=== PATIENT | male | born 1965 | race Caucasian/White ===

== ENCOUNTER → 2016-10-16 | Outpatient (CLI) | payer OTHER ==
[2016-10-16 10:17] LABS: Basophils % (A) 1 %; CH 30.8; CHCM 33.7; Eosinophils # (A) 0.2 k/uL (0-0.7); Eosinophils % (A) 3 %; HCT 45.1 % (39.0-53.0); HDW 2.65; Luc # (Auto) 0.13; Luc % (Auto) 2; Lymphocytes # (A) 2.1 k/uL (1.0-4.8); Lymphocytes % (A) 27 %; MCH 30.4 pg (25.0-35.0); MCHC 33.1 g/dL (31.0-37.0); MCV 91.8 fL (80.0-100.0); Mean Platelet Volume 7.2; Monocytes # (A) 0.4 k/uL (0-1.0); Monocytes % (A) 5 %; Neutrophils # (A) 4.9 k/uL (1.3-7.7); Neutrophils % (A) 63 %; RBC 4.92 m/uL (4.30-5.90); RDW 14.4 % (11.5-15.5); WBC 7.8 k/uL (3.8-10.6); WBC (Perox) 7.81
[2016-10-16 10:34] LABS: Anion Gap 13 mmol/L; Blood Urea Nitrogen 14 mg/dL (9-20); Calcium 9.7 mg/dL (8.4-10.2); Carbon Dioxide 25 mmol/L (22-30); Chloride 103 mmol/L (98-107); Glucose 132 mg/dL (74-99); Non-African American GFR(MDRD) >60 (>60 ml/min/1.73 sqM); Potassium 3.9 mmol/L (3.5-5.1); Sodium 141 mmol/L (137-145)
[2016-10-16 10:39] LABS: Appearance,Urine Clear (Clear); Bilirubin,Urine Negative (Negative); Glucose,Urine (UA) Negative (Negative); Ketones,Urine Negative (Negative); Leukocyte Esterase,Urine Small (Negative); Mucus,Urine Rare /hpf; Nitrite,Urine Negative (Negative); Particle Count 992; Protein,Urine Negative (Negative); RBC,Urine 3 /hpf (0-5); Specific Gravity,Urine 1.013 (1.001-1.035); UA Billing (MACRO vs. MICRO) MICRO; Urobilinogen,Urine <2.0 mg/dL (<2.0); WBC,Urine 6 /hpf (0-5)
== END | disposition home or self-care (01) ==
LOC: LABPAT 09:37
PROVIDERS: ATTEND Urology
DX: Z01.812 Encounter for preprocedural laboratory examination (principal); E78.00 Pure hypercholesterolemia, unspecified; N20.0 Calculus of kidney; R35.0 Frequency of micturition
CPT/HCPCS: 80048; 81001; 85025; 87086

== ENCOUNTER 2016-10-23 05:46 | Observation (INO) | payer OTHER ==
[2016-10-18 10:52] VITALS: BMI 31.8
[~2016-10-23 05:46] MED LIST: ceFAZolin 1,000 MG in DEXTROSE/WATER 1 50ML.BAG IV ONE
[2016-10-23] MEDS ORDERED: DEXAMETHASONE SOD PHOSPHATE 10 MG/ML 1 ML VIAL IV ONE (05:54)
[2016-10-23] MEDS ORDERED: MIDAZOLAM 2 MG/2 ML VIAL IV PRN (05:54)
[2016-10-23] MEDS ORDERED: ONDANSETRON 4 MG/2 ML VIAL IVP ONE (05:54)
[2016-10-23 06:43] LABS: Glucose,Whole Blood 110 mg/dL (75-99)
[2016-10-23] MEDS ORDERED: LIDOCAINE 1% 20 ML VIAL (10MG/ML) FOR IV START INTRADERMA ONE (06:58)
[2016-10-23] MEDS: LACTATED RINGERS 1,000 ML IV SCH (06:59)
--- NOTE | 2016-10-23 07:15 | XR ---
EXAMINATION TYPE: XR KUB DATE OF EXAM ORDERED: 10/23/2016 6:51 AM HISTORY: [id number]-KIDNEY CALCULI. COMPARISON: Previous study dated 08/20/2011. FINDINGS: There are bilateral renal calculi. This has worsened from the previous study. There is a 1 .5 cm calculus overlying the mid polar region of the left kidney. There is a smaller 3.9 mm calculus overlying the lower pole of the left kidney. There is a 7.5 mm calculus overlying the mid polar regio n of the right kidney. There are multiple phleboliths within the pelvis. These have increased in numb er. Distal ureteric calculi are not excluded particularly on the left. The abdominal gas pattern is normal. IMPRESSION: 1. BILATERAL NEPHROLITHIASIS. 2. IT WOULD BE DIFFICULT TO EXCLUDE A DISTAL LEFT URETERIC CALCULUS.
[2016-10-23] MEDS ORDERED: HYDROmorphone (PF) 1 MG/ML ONE (07:24)
[2016-10-23] MEDS ORDERED: LIDOCAINE 1% INJ 10MG/ML (20 ML MDV) ONE (07:24)
[2016-10-23] MEDS ORDERED: SUCCINYLCHOLINE CHLORIDE 100 MG/5 ML SYR IV ONE (07:24)
[2016-10-23] MEDS ORDERED: PHENYLEPHRINE-0.9% NACL SYG 1 MG/10 ML SYRINGE ONE (07:24)
[2016-10-23] MEDS ORDERED: NEOSTIGMINE 1 MG/ML 10 ML VIAL ONE (07:24)
[2016-10-23] MEDS ORDERED: ePHEDrine 50 MG/ML 1 ML AMP ONE (07:24)
[2016-10-23] MEDS ORDERED: MIDAZOLAM 2 MG/2 ML VIAL ONE (07:24)
[2016-10-23] MEDS ORDERED: GLYCOPYRROLATE 0.2 MG/ML 2 ML VIAL ONE (07:24)
[2016-10-23] MEDS ORDERED: PROPOFOL 10 MG/ML 20 ML VIAL IV ONE (07:24)
[2016-10-23] MEDS ORDERED: ROCURONIUM BROMIDE 10 MG/ML 10 ML VIAL IV ONE (07:24)
[2016-10-23] MEDS ORDERED: fentaNYL (PF) 50 MCG/ML 2 ML AMP ONE (07:24)
[2016-10-23] MEDS ORDERED: IOHEXOL 350 MG/ML 50ML BOTTLE IRRIGATION ONE (08:00)
[2016-10-23] MEDS ORDERED: LACTATED RINGERS 1,000 ML IV ONE ×2 (09:06→11:03)
[2016-10-23] MEDS ORDERED: ACETAMINOPHEN TAB 325 MG TAB PO PRN (09:54)
[2016-10-23] MEDS ORDERED: MAG HYDROX/AL HYDROX/SIMETH 30 ML CUP PO PRN (09:54)
[2016-10-23] MEDS ORDERED: HYDROmorphone PCA 5 MG/25 ML SYRINGE IV PRN (09:55)
[2016-10-23] MEDS ORDERED: NALOXONE 0.4 MG/ML 1 ML VIAL IV PRN (09:55)
[2016-10-23] MEDS ORDERED: KETOROLAC 30 MG/ML 1 ML VIAL IVP PRN (09:55)
[2016-10-23] MEDS ORDERED: MAGNESIUM HYDROXIDE 2,400 MG/10 ML CUP PO PRN (09:55)
[2016-10-23] MEDS ORDERED: diphenhydrAMINE 50 MG/ML 1 ML VIAL IVP PRN (09:55)
--- NOTE | 2016-10-23 10:03 | P.OP ---
Preoperative Diagnosis: Left renal stone large, calyceal diverticulum Postoperative Diagnosis: Same Procedure(s) Performed: Cystoscopy, placement of left 5-Jamaican ureteral occluding balloon, percutaneous nephrostomy 2 (Dr. Hamilton) percutaneous nephrostolithotomy with laser, placement of 8-Jamaican and 12-Jamaican J nephrostomy tubes Implants: Anesthesia: LATIAA Surgeon: Jose Mayo Estimated Blood Loss (ml): 300 Pathology: other (Stone) Condition: stable Disposition: PACU Indications for Procedure: The patient is a 50-year-old gentleman with active kidney stone disease. He has had previous right ureteroscopy and laser lithotripsy. He has a large upper pole stone and a calyceal diverticula on the left kidney as well as some small stones. He comes for percutaneous nephrostolithotomy. Operative Findings: Description of Procedure: The patient is brought to the operating suite and given a successful general endotracheal anesthesia on the transport gurney. He's placed in a frog position with sterile prep and drape. Cystoscopy a Foroblique lens and 22- Jamaican sheath identifies a normal urethra. The prostate is not obstructing. The left ureteral orifice is identified and intubated with a 5-Jamaican occluding balloon catheter in the proximal ureter. A Massey catheter after the cystoscope was removed The patient's placed in a prone position with care to airways and extremities. After reviewing the computed tomography scan we decided to access the left lower pole calyx. It was done successfully by Dr. Hamilton of radiology. I then dilate the tract to 30-Jamaican. The infundibulum was extremely tight. I'm able to pass a flexible ureteroscope up into the upper pole and I see the ostium of the infundibulum where the stone is emanating. With the 365 laser probe I fracture the stone but it popped back into the calyceal diverticula. I then follow the stone into the calyceal diverticulum with the nephroscope but unfortunately due to the large capacious size of the left calyceal diverticula I was unable to basket and/or fracture the stone. I discussed the situation with Dr. Ramsey and we decided to approach the upper pole calyx underneath the 12th rib very medially so as not to injure the lung or the spleen. we do this under fluoroscopic and direct vision. I then dilate the tract to 30- Jamaican. I then pass the rigid scope into the calyceal diverticulum eventually identify the large stone. The stone was almost 2 cm up. I fracture the stone into tiny pieces and grasped the larger fragments and remove them. I then irrigate the calyceal diverticula. I passed the flexible scope throughout the collecting system remove the remaining stones with stone basket. At the end of the procedure the no obvious stones endoscopically or fluoroscopically. An 8- Jamaican J nephrostomy tubes placed in the calyceal diverticula and a 12-Jamaican J nephrostomy tubes place the lower pole calyx. The patient's awake and returned recovery in good condition. Blood loss is approximately 300 mL.
[2016-10-23] MEDS: HYDROmorphone 1 MG/ML 1 ML SYRINGE IVP PRN ×2 (10:54→11:07)
[2016-10-23] MEDS: ONDANSETRON 4 MG/2 ML VIAL IVP PRN ×2 (12:19→21:37)
--- NOTE | 2016-10-23 12:27 | FL ---
EXAMINATION TYPE: FL Perc Nephrostomy New Access DATE OF EXAM: 10/23/2016 9:54 AM COMPARISON: KUB same date, CT scan dated 14 December 2013 HISTORY: Left renal stone. PROCEDURE: Maximal barrier technique was utilized. The skin overlying the left kidney was localized using fluor oscopy and the overlying skin prepped and draped. Lidocaine used for local anesthesia. Skin fred wa s made with a scalpel. Access was gained under fluoroscopy, following placement of a ureteral occlus ion balloon by the referring clinician and instillation of air in the renal collecting system with a 21-gauge needle to the kidney. A suitable posterior calyx was chosen. A 0.018 inch wire was advanc ed. The access site was dilated and subsequently a sheath was advanced into the renal pelvis followi ng dilation with balloon along the tract. Urine returned in the hub of the catheter. The patient unde rwent nephrolithotomy by the referring clinician. The patient remained in stable condition without complication. The patient was discharged to observation. 4 minutes 26 seconds fluoroscopy time, intr aoperative C-arm image documents IMPRESSION: STATUS POST NEPHROSTOMY PLACEMENT FOR NEPHROLITHOTOMY WITH FLUOROSCOPIC GUIDANCE. THIS PROCEDURE PER FORMED BY THE UNDERSIGNED.
[2016-10-23] MEDS: DEXTROSE 5%-0.45% NACL 1,000 ML IV SCH ×2 (13:15→23:55)
[2016-10-24 02:25] VITALS: RESP 16
[2016-10-24] MEDS: DEXTROSE 5%-0.45% NACL 1,000 ML IV SCH ×2 (05:00→15:53)
[2016-10-24] MEDS: LACTATED RINGERS 1,000 ML IV SCH (05:57)
[2016-10-24] MEDS ORDERED: LISINOPRIL 10 MG TAB PO SCH (09:00)
[2016-10-24 09:32] VITALS: BP 127/77; PULSE 98; TEMP 98.2
--- NOTE | 2016-10-24 11:42 | P.DS ---
Providers Date of admission: 10/23/16 14:55 Attending physician: Jose Mayo Primary care physician: Stated None Hospital Course: The patient was brought to the hospital 10/23/2016 for left percutaneous nephrostolithotomy. He underwent this. It did require 2 nephrostomy access tubes. The stone has been removed. He did relatively well overnight. His pain is minimal. He'll be discharged home today with his nephrostomy tubes. He 'll follow-up in the office next week for nephrostomy tube removal. He'll be given a prescription for some [place]. He resume his home medications. His activity is limited. His diet is regular. Patient Condition at Discharge: Good Plan - Discharge Summary New Discharge Prescriptions: HYDROcodone/APAP 5-325MG [[place] 5-325] 1 tab PO Q4HR PRN #20 tab PRN Reason: Pain Discharge Medication List Ibuprofen [Advil] 200 - 400 mg PO Q6H PRN 10/18/16 [History] Lisinopril [Zestril] 10 mg PO QAM 10/18/16 [History] HYDROcodone/APAP 5-325MG [[place] 5-325] 1 tab PO Q4HR PRN #20 tab 10/24/16 [Rx] Follow up Appointment(s)/Referral(s): Jose Mayo MD [STAFF PHYSICIAN] - 10/30/16 Activity/Diet/Wound Care/Special Instructions: Home with nephrostomy tubes. Please make an appointment to see me Friday or Friday next week. Discharge Disposition: HOME SELF-CARE
== END 2016-10-24 18:31 | disposition home or self-care (01) ==
LOC: OR 05:46 → 3SUR 10:06 → OR 14:58
PROVIDERS: ADMIT Urology; ATTEND Urology
DX: N20.0 Calculus of kidney (principal); N28.89 Other specified disorders of kidney and ureter; I10 Essential (primary) hypertension; E78.00 Pure hypercholesterolemia, unspecified; M19.90 Unspecified osteoarthritis, unspecified site; R91.1 Solitary pulmonary nodule; M48.00 Spinal stenosis, site unspecified; R51 Headache; H53.8 Other visual disturbances; F17.200 Nicotine dependence, unspecified, uncomplicated; Z79.899 Other long term (current) drug therapy; Z88.0 Allergy status to penicillin; Z87.442 Personal history of urinary calculi; Z82.49 Family history of ischemic heart disease and other diseases of the circulatory system
CPT/HCPCS: 94760; 94762; 86900; 86901; 86850; 82365; 74000; 50432; G0378 ×2; C1769 ×3; C2628; C1894; C1729 ×2; J2250; J1100; J2710; J2405; J2001; J3010; J1885; J1170 ×2; J0690; J2370; J0330; J2704; Q9967; 96374

== ENCOUNTER 2016-10-26 16:06 | Emergency (ER) | payer OTHER ==
[2016-10-26] MEDS ORDERED: HYDROmorphone 1 MG/ML 1 ML SYRINGE IVP STA (16:41)
[2016-10-26] MEDS ORDERED: SODIUM CHLORIDE 0.9% 1,000 ML IV STA ×2 (16:41→18:20)
[2016-10-26] MEDS ORDERED: ONDANSETRON 4 MG/2 ML VIAL IVP STA (16:41)
--- NOTE | 2016-10-26 17:12 | ED ---
General Adult HPI - General Source: patient, RN notes reviewed Mode of arrival: EMS Limitations: no limitations <Misael Hyman - Last Filed: 10/26/16 19:25> <Monty Leone - Last Filed: 10/26/16 20:29> - General Chief complaint: Abdominal Pain Stated complaint: BLOOD IN DRAINAGE BAG Time Seen by Provider: 10/26/16 16:30 - History of Present Illness Initial comments: Patient is a 50-year-old male status post nephrostomy tube placement 3 days, who presents emergency room today with a chief complaint of blood in his nephrostomy bag. Patient states that he has been draining his back approximately 3-4 times daily. He states he drank a few hours ago and it back up with blood. He states he is approximately 200 mL of blood in the back. Patient states that his pain has stayed constant since procedure. He does admit to some chronic neck and back pain as well. States she's been taking his [place] with little relief of the symptoms. Patient denies any other complaints or associated symptoms at this time. Patient states she's been urinating without any difficulty. Patient denies any recent fever, chills, shortness of breath, chest pain, back pain, abdominal pain, nausea or vomiting, numbness or tingling, dysuria or hematuria, constipation or diarrhea, headaches or visual changes, or any other complaints. (Misael Hyman) - Related Data Home Medications Medication Instructions Recorded Confirmed Lisinopril [Zestril] 10 mg PO QAM 10/18/16 10/26/16 HYDROcodone/APAP 5-325MG [[place] 1 tab PO Q4HR PRN 10/26/16 10/26/16 5-325] HYDROcodone/APAP 5-325MG [[place] 2 tab PO Q4HR PRN 10/26/16 10/26/16 5-325] Allergies Allergy/AdvReac Type Severity Reaction Status Date / Time Penicillins Allergy Rash/Hives Verified 10/26/16 17:55 Review of Systems ROS Other: All systems not noted in ROS Statement are negative. <Misael Hyman - Last Filed: 10/26/16 19:25> ROS Other: All systems not noted in ROS Statement are negative. <Monty Leone - Last Filed: 10/26/16 20:29> ROS Statement: Those systems with pertinent positive or pertinent negative responses have been documented in the HPI. Past Medical History Past Medical History: Hypertension, Osteoarthritis (OA) Additional Past Medical History / Comment(s): chronic neck pain (pending surgery )has some difficulty walking, use a cane and has numbness in upper extremities. kidney stone History of Any Multi-Drug Resistant Organisms: None Reported Past Surgical History: Tonsillectomy Additional Past Surgical History / Comment(s): bilateral wrists & elbow surgery Past Anesthesia/Blood Transfusion Reactions: No Reported Reaction Past Psychological History: No Psychological Hx Reported Smoking Status: Former smoker Past Alcohol Use History: Occasional Additional Past Alcohol Use History / Comment(s): HAS SMOKED FOR 30- YRS, 0. 5 PPD Past Drug Use History: None Reported - Past Family History Mother Family Medical History: Cancer Father Family Medical History: Cancer <Misael Hyman - Last Filed: 10/26/16 19:25> General Exam Limitations: no limitations <Misael Hyman - Last Filed: 10/26/16 19:25> <Monty Leone - Last Filed: 10/26/16 20:29> - General Exam Comments Initial Comments: General: The patient is awake and alert, in no distress, and does not appear acutely ill. Eye: Pupils are equal, round and reactive to light, extra-ocular movements are intact. No nystagmus. There is normal conjunctiva bilaterally. No signs of icterus. Ears, nose, mouth and throat: There are moist mucous membranes and no oral lesions. Neck: The neck is supple, there is no tenderness or JVD. Cardiovascular: There is a regular rate and rhythm. No murmur, rub or gallop is appreciated. Respiratory: Lungs are clear to auscultation, respirations are non-labored, breath sounds are equal. No wheezes, stridor, rales, or rhonchi. Gastrointestinal: Soft, non-distended, non-tender abdomen without masses or organomegaly noted. There is no rebound or guarding present. No CVA tenderness. Bowel sounds are unremarkable.patient does have 2 nephrostomy tubes on the left. Bright red blood seen in the 1 bag approximately 200 mL. Musculoskeletal: Normal ROM, no tenderness. Strength 5/5. Sensation intact. Pulses equal bilaterally 2+. Neurological: A&O x 3. CN II-XII intact, There are no obvious motor or sensory deficits. Coordination appears grossly intact. Speech is normal. Skin: Skin is warm and dry and no rashes or lesions are noted. Psychiatric: Cooperative, appropriate mood & affect, normal judgment. (Misael Hyman) Medical Decision Making - Lab Data Result diagrams: 10/26/16 17:21 10/26/16 17:21 <Misael Hyman - Last Filed: 10/26/16 19:25> - Lab Data Result diagrams: 10/26/16 17:21 10/26/16 17:21 <Monty Leone - Last Filed: 10/26/16 20:29> - Medical Decision Making medical decision-making. Patient's white count 14.3 hemoglobin 14 hematocrit of 40, potassium 3.9 BUN 21 creatinine 1.07 GFR greater than 60. Urine shows greater than 180 reds and 9 whites. The patient had recent surgery on his left kidney. He had 2 nephrostomy tubes placed wanted 8-[place] Citizen J nephrostomy tube and calyceal dilatation diverticula and a 12-[place] Citizen placed the lower pole calyx. Patient reportedly started noticing blood yesterday 2 days of just urine. No pain no fever no chills. He emptied one container that approximately 5-600 ML's of what appeared to be blood. And Emergency room he had 100 ML's of clotted blood. I discussed the case with Dr. Tomlinson, the patient's urologist. This time he wants to stop cock turned off so the blood clot in the kidney. The patient was advised to return emergency room or call the answering service as needed otherwise follow-up as directed by his urologist at 7 AM when the office opens on Friday. patient's feeling better. Seemed IV fluids. Denies any chest pain no chills no headache no fever. Plan the patient will be discharged and advised to return emergency room as needed otherwise follow-up with both his family physician and his urologist as arranged (Monty Leone) - Lab Data Lab Results 10/26/16 10/26/16 10/26/16 Range/Units 17:18 17:21 17:21 WBC 14.3 H (3.8-10.6) k/uL RBC 4.52 (4.30-5.90) m/uL Hgb 14.2 (13.0-17.5) gm/dL Hct 40.5 (39.0-53.0) % MCV 89.4 (80.0-100.0) fL MCH 31.4 (25.0-35.0) pg MCHC 35.1 (31.0-37.0) g/dL RDW 14.4 (11.5-15.5) % Plt Count 211 (150-450) k/uL Neutrophils % 76 % Lymphocytes % 13 % Monocytes % 7 % Eosinophils % 2 % Basophils % 0 % Neutrophils # 10.9 H (1.3-7.7) k/uL Lymphocytes # 1.9 (1.0-4.8) k/uL Monocytes # 1.0 (0-1.0) k/uL Eosinophils # 0.3 (0-0.7) k/uL Basophils # 0.0 (0-0.2) k/uL Sodium 139 (137-145) mmol/L Potassium 3.9 (3.5-5.1) mmol/L Chloride 106 (98-107) mmol/L Carbon Dioxide 20 L (22-30) mmol/L Anion Gap 13 mmol/L BUN 21 H (9-20) mg/dL Creatinine 1.07 (0.66-1.25) mg/dL Est GFR (MDRD) Af Amer >60 (>60 ml/min/1.73 sqM) Est GFR (MDRD) Non-Af >60 (>60 ml/min/1.73 sqM) Glucose 103 H (74-99) mg/dL Calcium 10.0 (8.4-10.2) mg/dL Total Bilirubin 1.0 (0.2-1.3) mg/dL AST 32 (17-59) U/L ALT 44 (21-72) U/L Alkaline Phosphatase 64 (38-126) U/L Total Protein 7.1 (6.3-8.2) g/dL Albumin 4.2 (3.5-5.0) g/dL Urine Color Yellow Urine Appearance Cloudy (Clear) Urine pH 6.5 (5.0-8.0) Ur Specific [place] 1.016 (1.001-1.035) Urine Protein Trace H (Negative) Urine Glucose (UA) Negative (Negative) Urine Ketones 1+ H (Negative) Urine Blood Moderate H (Negative) Urine Nitrite Negative (Negative) Urine Bilirubin Negative (Negative) Urine Urobilinogen <2.0 (<2.0) mg/dL Ur Leukocyte Esterase Negative (Negative) Urine RBC >182 H (0-5) /hpf Urine WBC 9 H (0-5) /hpf Ur Squamous Epith Cells <1 (0-4) /hpf Hyaline Casts 3 H (0-2) /lpf Urine Mucus Rare H (None) /hpf Disposition Time of Disposition: 19:05 <Misael Hyman - Last Filed: 10/26/16 19:25> Time of Disposition: 20:29 <Monty Leone - Last Filed: 10/26/16 20:29> Clinical Impression: Abdominal pain Disposition: HOME SELF-CARE Condition: Stable Additional Instructions: Please follow-up with urologist Friday morning as discussed. Please return to emergency room symptoms increase or worsen or for any other concerns. Referrals: Alonso Soriano MD [Primary Care Provider] - 1-2 days Jose Mayo MD [STAFF PHYSICIAN] - 1-2 days
[2016-10-26 17:42] LABS: Basophils % (A) 0 %; CH 31.4; CHCM 35.2; Eosinophils # (A) 0.3 k/uL (0-0.7); Eosinophils % (A) 2 %; HCT 40.5 % (39.0-53.0); HDW 2.75; HGB 14.2 gm/dL (13.0-17.5); Luc # (Auto) 0.23; Luc % (Auto) 2; Lymphocytes # (A) 1.9 k/uL (1.0-4.8); Lymphocytes % (A) 13 %; MCH 31.4 pg (25.0-35.0); MCHC 35.1 g/dL (31.0-37.0); MCV 89.4 fL (80.0-100.0); Mean Platelet Volume 7.1; Monocytes % (A) 7 %; Neutrophils # (A) 10.9 k/uL (1.3-7.7); Neutrophils % (A) 76 %; RBC 4.52 m/uL (4.30-5.90); RDW 14.4 % (11.5-15.5); WBC 14.3 k/uL (3.8-10.6); WBC (Perox) 14.43
[2016-10-26 17:44] LABS: Appearance,Urine Cloudy (Clear); Bilirubin,Urine Negative (Negative); Glucose,Urine (UA) Negative (Negative); Ketones,Urine 1+ (Negative); Leukocyte Esterase,Urine Negative (Negative); Mucus,Urine Rare /hpf; Nitrite,Urine Negative (Negative); PH, Urine 6.5 (5.0-8.0); Particle Count 4091; Protein,Urine Trace (Negative); RBC,Urine >182 /hpf (0-5); Specific Gravity,Urine 1.016 (1.001-1.035); Squamous Epithelial Cell,Urine <1 /hpf (0-4); UA Billing (MACRO vs. MICRO) MICRO; Urobilinogen,Urine <2.0 mg/dL (<2.0); WBC,Urine 9 /hpf (0-5)
[2016-10-26 17:48] LABS: ALT 44 U/L (21-72); AST 32 U/L (17-59); Alkaline Phosphatase 64 U/L (38-126); Anion Gap 13 mmol/L; Blood Urea Nitrogen 21 mg/dL (9-20); Carbon Dioxide 20 mmol/L (22-30); Chloride 106 mmol/L (98-107); Glucose 103 mg/dL (74-99); Non-African American GFR(MDRD) >60 (>60 ml/min/1.73 sqM); Potassium 3.9 mmol/L (3.5-5.1); Sodium 139 mmol/L (137-145); Total Protein 7.1 g/dL (6.3-8.2)
--- NOTE | 2016-10-26 17:52 | US ---
EXAMINATION TYPE: US kidneys/renal and bladder DATE OF EXAM: 10/26/2016 COMPARISON: NONE CLINICAL HISTORY: Pain. HIstory of kidney stones. Surgery 10/23/16 to remove stones left kidney. Blood /clot within drainage bag EXAM MEASUREMENTS: Right Kidney: 11.3 x 6.0 x 5.8 cm Left Kidney: 13.2 x 6.8 x 5.2 cm Right Kidney: cystic area upper pole = 2.4 x 2.7 x 2.8cm. Probable stone upper pole = 0.9cm Left Kidney: enlarged. Cystic area lower pole = 2.7 x 3.3 x 2.7cm Bladder: not fully distended *Technical limitations due to large amount of overlying bowel content There is no evidence for hydronephrosis at this point in time. No nephrolithiasis is seen. No sreedhar s are identified. The urinary bladder is anechoic but not distended. IMPRESSION: Possible right-sided nephrolithiasis. Simple cyst right and left kidney. Cortical medullary different iation is maintained bilaterally.
[2016-10-26 20:42] VITALS: BP 144/69; PULSE 113; RESP 20; TEMP 98
== END 2016-10-26 20:42 | disposition home or self-care (01) ==
LOC: EC 16:06
DX: R10.9 Unspecified abdominal pain (principal); M54.2 Cervicalgia; M54.9 Dorsalgia, unspecified; G89.29 Other chronic pain; Z87.891 Personal history of nicotine dependence; Z88.8 Allergy status to other drugs, medicaments and biological substances; Z93.6 Other artificial openings of urinary tract status
CPT/HCPCS: 36415; 80053; 85025; 81001; 87086; 76770; 99284; 96374; 96375; 96361 ×3; J2405; J1170; 87077; 87186

== ENCOUNTER → 2017-08-11 | Outpatient (CLI) | payer OTHER ==
[2017-08-11 12:02] LABS: HCT 44.5 % (39.0-53.0); HGB 14.9 gm/dL (13.0-17.5); MCH 29.6 pg (25.0-35.0); MCHC 33.4 g/dL (31.0-37.0); MCV 88.5 fL (80.0-100.0); Mean Platelet Volume 7.1; Platelet Count 202 k/uL (150-450); RBC 5.03 m/uL (4.30-5.90); RDW 13.9 % (11.5-15.5); WBC 8.8 k/uL (3.8-10.6)
[2017-08-11 12:15] LABS: Anion Gap 10 mmol/L; Blood Urea Nitrogen 13 mg/dL (9-20); Carbon Dioxide 27 mmol/L (22-30); Chloride 105 mmol/L (98-107); Potassium 4.2 mmol/L (3.5-5.1); Sodium 142 mmol/L (137-145)
== END ==
LOC: LABPAT 11:36
PROVIDERS: ATTEND Internal Medicine Interventional Cardiology
DX: Z01.812 Encounter for preprocedural laboratory examination (principal); R07.9 Chest pain, unspecified
CPT/HCPCS: 36415; 80051; 82565; 84520; 85027

== ENCOUNTER 2017-08-19 10:22 | Day surgery (SDC) | payer OTHER ==
[~2017-08-19 10:22] MED LIST changes: +ALPRAZolam 0.25 MG TAB PO PRN; +ALPRAZolam 0.5 MG TAB PO PRN; +ASPIRIN 325 MG TAB PO STA; +ATORVASTATIN 80 MG TAB PO STA; +NITROGLYCERIN SL TABS 0.4 MG TAB SUBLINGUAL PRN; +SODIUM CHLORIDE 0.9% 1,000 ML in EMPTY BAG 1 BAG IV ONE; -ceFAZolin 1,000 MG in DEXTROSE/WATER 1 50ML.BAG IV ONE
[2017-08-19] MEDS ORDERED: LISINOPRIL 20 MG TAB PO STA (11:14)
[2017-08-19] MEDS ORDERED: METOPROLOL TARTRATE 50 MG TAB PO STA (11:14)
[2017-08-19] MEDS ORDERED: VERAPAMIL 2.5 MG/ML 2 ML AMP ONE (11:39)
[2017-08-19] MEDS ORDERED: LIDOCAINE 2% INJ 20 MG/ML (20 ML MDV) ONE (11:39)
[2017-08-19] MEDS ORDERED: HEPARIN SODIUM 1,000 UN/ML (10ML VL) ONE (11:46)
[2017-08-19] MEDS ORDERED: MIDAZOLAM 2 MG/2 ML VIAL ONE (11:51)
[2017-08-19] MEDS ORDERED: MIDAZOLAM 2 MG/2 ML VIAL IVP ONE (11:57)
[2017-08-19] MEDS ORDERED: LIDOCAINE 2% INJ 20 MG/ML SQ ONE (12:02)
[2017-08-19] MEDS: VERAPAMIL SYRINGE (5 MG/10 ML) INTRAARTER ONE ×2 (12:03→13:01)
[2017-08-19] MEDS ORDERED: HEPARIN SODIUM 1,000 UN/ML (10ML VL) IV ONE (12:06)
[2017-08-19] MEDS ORDERED: BIVALIRUDIN BOLUS 250 MG/50 ML IV ONE (12:17)
[2017-08-19] MEDS ORDERED: BIVALIRUDIN 250 MG in SODIUM CHLORIDE 0.9% 50 ML IV ONE (12:19)
[2017-08-19] MEDS: NITROGLYCERIN 1000MCG/10ML SYRINGE INTRACORON ONE ×3 (12:23→12:46)
[2017-08-19] MEDS ORDERED: PRASUGREL 10 MG TAB ONE (12:26)
[2017-08-19] MEDS ORDERED: PRASUGREL 10 MG TAB PO ONE (12:28)
[2017-08-19] MEDS ORDERED: NITROGLYCERIN 1000MCG/10ML SYRINGE INTRACORON ONE (12:58)
[2017-08-19] MEDS ORDERED: IOHEXOL 350 MG/ML 125ML BOTTLE INJ ONE (12:59)
[2017-08-19] MEDS ORDERED: fentaNYL (PF) 50 MCG/ML 2 ML AMP ONE (13:09)
[2017-08-19] MEDS ORDERED: NITROGLYCERIN SL TABS 0.4 MG TAB SUBLINGUAL PRN (13:24)
[2017-08-19] MEDS ORDERED: ZOLPIDEM 5 MG TAB PO PRN (13:24)
[2017-08-19] MEDS ORDERED: RX INFO: IV CONTRAST WAS GIVEN 1 EACH MISC MISCELLANE PRN (13:24)
[2017-08-19] MEDS ORDERED: MAG HYDROX/AL HYDROX/SIMETH 30 ML CUP PO PRN (13:24)
[2017-08-19] MEDS ORDERED: ATROPINE SULFATE 0.1 MG/ML 10ML SYRINGE IV PRN (13:24)
[2017-08-19] MEDS ORDERED: SODIUM CHLORIDE 0.9% 1,000 ML IV SCH (13:30)
--- NOTE | 2017-08-19 14:44 | CC ---
CARDIAC CATHETERIZATION REPORT PERFORMING PHYSICIAN: Ajit Berry MD, enterprise cloud architect. PROCEDURE PERFORMED: 1. Selective right and left coronary angiogram. 2. Left heart catheterization. 3. Successful stenting of the of the proximal RCA using 3.5 x 15 mm Xience JANNA with good angiographic results. 4. Successful stenting of the mid LAD using 3.0 x 16 and 2.25 x 8 mm drug-eluting stent with good angiographic results. INDICATION: This is a pleasant 51-year-old gentleman with significant family history of coronary artery disease, as well as smoking, who was experiencing intermittent episodes of chest discomfort concerning for angina. In view of that, heart catheterization was recommended. APPROACH: Right radial artery. COMPLICATION: None. LEVEL OF SEDATION: Moderate with sedation length of 60 minutes. PROCEDURE DESCRIPTION: After obtaining an informed consent, the patient was brought to the cardiac hatchery laborer. The right radial artery was cannulated using micropuncture technique, the micropuncture wire passed easily, then I placed a 6-English sheath in the right radial artery. After that I gave the patient 2 mg of verapamil IA. I also gave the patient 10,000 units of heparin IV. Subsequently I did selective right and left coronary angiogram using JR4 and JL3.5 catheters. Left heart catheterization was performed using the JR4 which flipped into the LV then I did pullback across the aortic valve. After that I did intervene on the RCA and LAD. Please see a separate paragraph for that. SELECTIVE CORONARY ANGIOGRAM: 1. The RCA is a large caliber vessel and it is a dominant vessel. The proximal RCA has eccentric lesion appeared to be in the range of 80% to 90%. The mid RCA has mild disease only. The RCA distally appeared to be angiographically normal and bifurcates into PDA and PLV branches both are angiographically normal. 2. The left main is angiographically normal it bifurcates into the left circumflex and left anterior descending artery. 3. The circumflex is a large caliber vessel and it is a nondominant vessel. The proximal circ has mild disease only. The mid circ has mild disease only as well and gives rise into a large OM branch which seems to be angiographically normal. The circ continued after that as a small to medium caliber vessel in the AV groove. 4. The left anterior descending artery: The very proximal LAD gives rise into a diagonal branch which is a high diagonal branch which worked as ramus intermedius with mild disease in the proximal portion. It seems that there is another diagonal branch which seems to be occluded. The mid LAD has a lesion appeared to be in the range of 70%. The LAD has multiple tandem lesions up to about 50% to 60%. HEMODYNAMICS: The left ventricular end-diastolic pressure was about 12 mmHg and no gradient was identified across aortic valve. PCI OF THE RCA AND LAD: Anticoagulation was initiated using Angiomax. Subsequently I took a JR4 guide and the RCA was engaged. A whisper wire was used to wire the right coronary artery. I did PTCA ballooning using 3.0 mm balloon. Then I did deployed and did deploy a 3.0 x 16 mm Xience JANNA where the stent was positioned under fluoroscopy guidance and deployed under its nominal pressure. The following angiogram showed good angiographic results. I did engage the left main using JL3.5 guiding catheter. The left LAD was wired using a whisper wire. I did balloon angioplasty of the LAD using 2.5 mm balloon. Then I did deploy 3.0 x 16 mm Promus drug-eluting stent where the stent was positioned under fluoroscopy guidance and deployed after that. The following angiogram showed what seems to be possible edge dissection of the stent. I decided to cover that with a stent so I did deploy a 225 x 8 mm Xience JANNA where the stent was positioned again under fluoroscopy guidance with about 2-3 mm overlap between the 2 stents. I did deploy the second stent under 10 atmospheres for 20 seconds. Then the area of overlap between the 2 stents was dilated using the stent balloon. The following angiogram showed good angiographic results and the procedure was completed without any complication. CONCLUSION: 1. Calcified right and left coronary system. 2. Critical proximal RCA disease. 3. Mild to moderate disease in the left circumflex. 4. Severe disease involving the mid LAD. 5. Successful stenting of both the RCA and mid LAD as described above and using drug- eluting stents. POSTPROCEDURE MANAGEMENT: 1. Maximize medical treatment. 2. Follow up with the patient. MMODL / IJN: [id number] /
[2017-08-19] MEDS: HYDROcodone/APAP 5-325MG 1 EACH TAB PO PRN ×2 (17:29→23:14)
[2017-08-19 17:39] VITALS: RESP 18
--- NOTE | 2017-08-19 19:02 | LTR ---
August 19, [address] Soriano: Mr. Giorgi Lance underwent a heart catheterization and that revealed critical disease involving the RCA and severe disease involving the mid LAD. He underwent successful stenting of both RCA and LAD with good angiographic results and without any complication. I want to thank you for allowing me to participate in his care and please do not hesitate to call if you have any questions or concerns. MMNEHAL / MICHAELN: [id number] /
[2017-08-19] MEDS: NAPROXEN 250 MG TAB PO SCH (19:59)
[2017-08-19] MEDS: GABAPENTIN 300 MG CAP PO SCH (20:04)
[2017-08-19] MEDS: METOPROLOL TARTRATE 50 MG TAB PO SCH (23:14)
[2017-08-20 06:00] LABS: Basophils # (A) 0.1 k/uL (0-0.2); Basophils % (A) 1 %; Eosinophils # (A) 0.3 k/uL (0-0.7); Eosinophils % (A) 3 %; HGB 13.7 gm/dL (13.0-17.5); Lymphocytes # (A) 2.9 k/uL (1.0-4.8); Lymphocytes % (A) 32 %; MCH 30.2 pg (25.0-35.0); MCHC 34.3 g/dL (31.0-37.0); Mean Platelet Volume 7.2; Monocytes # (A) 0.7 k/uL (0-1.0); Monocytes % (A) 8 %; Neutrophils # (A) 4.7 k/uL (1.3-7.7); Neutrophils % (A) 53 %; Platelet Count 187 k/uL (150-450); RBC 4.54 m/uL (4.30-5.90); RDW 14.2 % (11.5-15.5); WBC 8.9 k/uL (3.8-10.6)
[2017-08-20 06:16] LABS: Anion Gap 8 mmol/L; Blood Urea Nitrogen 15 mg/dL (9-20); Calcium 8.7 mg/dL (8.4-10.2); Carbon Dioxide 22 mmol/L (22-30); Chloride 109 mmol/L (98-107); Glucose 92 mg/dL (74-99); Potassium 4.3 mmol/L (3.5-5.1); Sodium 139 mmol/L (137-145)
--- NOTE | 2017-08-20 07:24 | DS ---
DISCHARGE SUMMARY ADMISSION DATE: 08/19/2017 DISCHARGE DATE: 08/20/2017 BRIEF HISTORY: This is a pleasant 51-year-old gentleman with history of smoking and significant family history of coronary artery disease, was experiencing intermittent episodes of chest discomfort quite concerning for angina. He underwent yesterday heart catheterization and that revealed severe 2-vessel coronary artery disease with critical disease involving the proximal RCA and severe disease involving the mid LAD. The patient underwent successful stenting of both the RCA and LAD using a drug-eluting stent with good angiographic results and without any complication. The procedure was performed from the right radial artery. He does have a good right radial pulse. The patient is going to be discharged home on dual anti-platelet therapy and I will follow up with the patient in the office as an outpatient in about a week. MMNEHAL / MICHAELN: [id number] /
[2017-08-20] MEDS ORDERED: LISINOPRIL 20 MG TAB PO SCH (09:00)
[2017-08-20] MEDS ORDERED: ASPIRIN 325 MG TAB PO SCH (09:00)
[2017-08-20] MEDS ORDERED: PRASUGREL 10 MG TAB PO SCH (09:00)
[2017-08-20] MEDS: GABAPENTIN 300 MG CAP PO SCH (09:03)
[2017-08-20] MEDS: METOPROLOL TARTRATE 50 MG TAB PO SCH (09:04)
[2017-08-20] MEDS: NAPROXEN 250 MG TAB PO SCH (09:04)
[2017-08-20 09:08] VITALS: BP 135/83; PULSE 89
[2017-08-20 10:28] VITALS: TEMP 98.1
[2017-08-20 11:14] VITALS: BMI 37.5
[2017-08-20] MEDS ORDERED: ATORVASTATIN 80 MG TAB PO SCH (21:00)
== END 2017-08-20 11:42 | disposition home or self-care (01) ==
LOC: CATHCVL 10:22 → 6SEL 14:24 → CATHCVL 08-20 11:42
PROVIDERS: ATTEND Internal Medicine Interventional Cardiology
DX: I25.110 Atherosclerotic heart disease of native coronary artery with unstable angina pectoris (principal); I25.84 Coronary atherosclerosis due to calcified coronary lesion; I10 Essential (primary) hypertension; F17.210 Nicotine dependence, cigarettes, uncomplicated; E78.5 Hyperlipidemia, unspecified; Z82.49 Family history of ischemic heart disease and other diseases of the circulatory system; Z79.899 Other long term (current) drug therapy; Z88.0 Allergy status to penicillin
CPT/HCPCS: 93458; 80048; 85025; C9600 ×2; C1769 ×2; C1887 ×2; C1725 ×2; C1874 ×2; C1894; J2001; J2250; J1644; J0583; Q9967

== ENCOUNTER → 2018-01-13 | Outpatient (CLI) | payer OTHER ==
[2018-01-13 16:42] LABS: HCT 45.1 % (39.0-53.0); MCH 29.7 pg (25.0-35.0); MCHC 33.3 g/dL (31.0-37.0); MCV 89.3 fL (80.0-100.0); Mean Platelet Volume 7.1; Platelet Count 256 k/uL (150-450); RBC 5.05 m/uL (4.30-5.90); RDW 14.4 % (11.5-15.5); WBC 10.7 k/uL (3.8-10.6)
[2018-01-13 16:52] LABS: Potassium 4.3 mmol/L (3.5-5.1)
== END | disposition home or self-care (01) ==
LOC: LABPAT 16:08
PROVIDERS: ATTEND Internal Medicine Interventional Cardiology
DX: Z01.812 Encounter for preprocedural laboratory examination (principal); I25.10 Atherosclerotic heart disease of native coronary artery without angina pectoris; I10 Essential (primary) hypertension; E78.1 Pure hyperglyceridemia
CPT/HCPCS: 36415; 80051; 82565; 84520; 85027

== ENCOUNTER 2018-01-16 07:46 | Day surgery (SDC) | payer OTHER ==
[2018-01-15 08:47] VITALS: BMI 36.1
[2018-01-16 08:10] VITALS: TEMP 97.6
[2018-01-16] MEDS ORDERED: VERAPAMIL 2.5 MG/ML 2 ML AMP ONE (09:42)
[2018-01-16] MEDS ORDERED: MIDAZOLAM 2 MG/2 ML VIAL ONE ×2 (09:42→10:41)
[2018-01-16] MEDS ORDERED: HEPARIN SODIUM 1,000 UN/ML (10ML VL) ONE (09:42)
[2018-01-16] MEDS ORDERED: LIDOCAINE 2% SYG (PF) 100 MG/5 ML MISCELLANE ONE ×2 (10:21)
[2018-01-16] MEDS ORDERED: MIDAZOLAM 2 MG/2 ML VIAL IV ONE ×2 (10:21→10:42)
[2018-01-16] MEDS ORDERED: HEPARIN SODIUM 1,000 UN/ML (10ML VL) IV ONE (10:23)
[2018-01-16] MEDS: VERAPAMIL SYRINGE (5 MG/10 ML) INTRAARTER ONE ×2 (10:23→10:50)
[2018-01-16] MEDS ORDERED: ADENOSINE 90 MG in SODIUM CHLORIDE 0.9% 60 ML IVP ONE (10:46)
[2018-01-16] MEDS ORDERED: IOPAMIDOL-370 125ML BTL INJ ONE (10:49)
[2018-01-16] MEDS ORDERED: RX INFO: IV CONTRAST WAS GIVEN 1 EACH MISC MISCELLANE PRN (10:56)
[2018-01-16] MEDS ORDERED: SODIUM CHLORIDE 0.9% 1,000 ML IV SCH (11:00)
[2018-01-16 11:47] VITALS: RESP 18
--- NOTE | 2018-01-16 12:01 | CC ---
CARDIAC CATHETERIZATION REPORT DATE OF SERVICE: 01/16/2018 PERFORMING PHYSICIAN: Ajit Berry MD. PROCEDURE PERFORMED: 1. Selective right and left coronary angiogram. 2. Left heart catheterization. 3. Fractional flow reserve of the left circumflex. INDICATION: This is a pleasant 52-year-old gentleman who has known history of coronary artery disease and prior stenting of the proximal RCA and mid LAD, was experiencing chest discomfort. He underwent a myocardial perfusion imaging stress test and that revealed anterior ischemia. Because of that, a heart catheterization was recommended. APPROACH: Right radial artery. COMPLICATION: None. LEVEL OF SEDATION: Moderate with sedation length of 33 minutes. PROCEDURE DESCRIPTION: After obtaining an informed consent, the patient was brought to cardiac section laborer. The right radial artery was cannulated using micropuncture technique, the micropuncture wire passed easily then I placed a 6-English sheath in the right radial artery. After that, I did give the patient 2 mg of verapamil IA and 10,000 units of heparin IV. I did after that selective right and left coronary angiogram using JR4 and JL3.5 catheters. Left heart catheterization was performed using the JR4 catheter which flipped into the LV then I did full pullback across aortic valve. The procedure was completed without any complication. After that, I did perform fractional flow reserve FFR of the left circumflex, please see a separate paragraph for that. SELECTIVE CORONARY ANGIOGRAM: 1. The right coronary artery is a large caliber vessel. It is a dominant vessel. The proximal RCA is stented and the stent is patent. The mid RCA is angiographically normal and RCA distally has mild disease only and bifurcates into PDA and PLV branches both are angiographically normal. 2. The left main is angiographically normal. It bifurcates into left circumflex, ramus intermedius, and left anterior descending artery. 3. The left circumflex is a large caliber vessel. It is a nondominant vessel. The proximal circumflex appeared to have mild disease only. The mid circumflex has intermediate lesion in the range of 50% to 60%. We did FFR on it. It came in to be 0.96. The circumflex distally is angiographically normal. 4. The ramus intermedius is a moderate caliber vessel with mild disease in its ostium. 5. The LAD: The proximal LAD appeared to have mild disease only and gives rise into a diagonal, which seems to be occluded. The mid LAD is stented and the stent is patent. The LAD distally appeared to have intermediate lesion, but that is in the very distal/apical LAD. HEMODYNAMICS: The left ventricular end-diastolic pressure was 12 mmHg and no gradient was identified across the aortic valve. FFR OF THE LEFT CIRCUMFLEX: Anticoagulation was initiated using heparin and with double checked with the ACT. Subsequently, after zeroing the Doppler wire and equalizing between the Doppler wire and the guiding catheter, we did FFR per IV adenosine infusion and the FFR came in to be 0.96, which is nonischemic. CONCLUSION: 1. Patent stent in the proximal right coronary artery. 2. Intermediate disease involving the left circumflex. The FFR was performed and came in to be nonischemic at 0.96. 3. Patent stent in the mid left anterior descending artery. Intermediate disease to severe disease involving the distal/apical left anterior descending artery seems to be unchanged compared to before. POSTPROCEDURE MANAGEMENT: 1. Maximize medical treatment. 2. Follow up with the patient. MMODL / IJN: [id number] /
[2018-01-16 15:32] VITALS: BP 131/79; PULSE 73
== END 2018-01-16 15:50 | disposition home or self-care (01) ==
LOC: CATHCVL 07:46
PROVIDERS: ATTEND Internal Medicine Interventional Cardiology
DX: I25.110 Atherosclerotic heart disease of native coronary artery with unstable angina pectoris (principal); I10 Essential (primary) hypertension; Z87.891 Personal history of nicotine dependence; E78.5 Hyperlipidemia, unspecified; Z95.5 Presence of coronary angioplasty implant and graft; Z82.49 Family history of ischemic heart disease and other diseases of the circulatory system; Z88.0 Allergy status to penicillin; Z79.02 Long term (current) use of antithrombotics/antiplatelets; Z79.82 Long term (current) use of aspirin; Z79.899 Other long term (current) drug therapy
CPT/HCPCS: 93571; 93458; C1887; C1769; C1894; J2250; J2001; J1644; J0153; Q9967

== ENCOUNTER 2018-06-23 22:53 | Inpatient (IN) | payer OTHER ==
[2018-06-24] MEDS ORDERED: ONDANSETRON 4 MG/2 ML VIAL IVP PRN (01:43)
[2018-06-24] MEDS ORDERED: MELATONIN 3 MG TABLET PO PRN (01:43)
[2018-06-24] MEDS ORDERED: ACETAMINOPHEN TAB 325 MG TAB PO PRN (01:44)
[2018-06-24] MEDS: HYDROmorphone 0.5 MG/0.5 ML SYRINGE IVP PRN ×5 (02:17→21:51)
[2018-06-24] MEDS: SODIUM CHLORIDE 0.9% 1,000 ML IV SCH (02:17)
[2018-06-24] MEDS ORDERED: LEVOFLOXACIN 500MG-D5W PMX 500 MG in DEXTROSE/WATER 1 100ML.BAG IVPB SCH (03:00)
[2018-06-24 07:17] LABS: Appearance,Urine Clear (Clear); Bilirubin,Urine Negative (Negative); Blood,Urine Negative (Negative); Color,Urine Yellow; Glucose,Urine (UA) Negative (Negative); Hyaline Casts,Urine 5 /lpf (0-2); Ketones,Urine Negative (Negative); Leukocyte Esterase,Urine Negative (Negative); Mucus,Urine Rare /hpf; Nitrite,Urine Negative (Negative); PH, Urine 5.5 (5.0-8.0); Protein,Urine 1+ (Negative); RBC,Urine 5 /hpf (0-5); Specific Gravity,Urine 1.028 (1.001-1.035); Squamous Epithelial Cell,Urine <1 /hpf (0-4); Urobilinogen,Urine <2.0 mg/dL (<2.0)
[2018-06-24] MEDS: PANTOPRAZOLE 40 MG TABLET PO SCH (08:09)
[2018-06-24] MEDS: METOPROLOL TARTRATE 50 MG TAB PO SCH ×2 (08:09→21:51)
[2018-06-24] MEDS: CLOPIDOGREL 75 MG TAB PO SCH (08:09)
[2018-06-24] MEDS: ASPIRIN 81 MG PO SCH (08:09)
[2018-06-24] MEDS: ISOSORBIDE MONONITRATE ER 30 MG TAB.ER.24H PO SCH (08:09)
[2018-06-24] MEDS: amLODIPine 5 MG TAB PO SCH (08:09)
[2018-06-24] MEDS: LORATADINE 10 MG TAB PO SCH (08:09)
[2018-06-24 08:53] LABS: Basophils % (A) 0 %; Eosinophils # (A) 0.2 k/uL (0-0.7); Eosinophils % (A) 2 %; HCT 37.5 % (39.0-53.0); HGB 12.5 gm/dL (13.0-17.5); Lymphocytes # (A) 2.8 k/uL (1.0-4.8); Lymphocytes % (A) 32 %; MCH 30.2 pg (25.0-35.0); MCHC 33.4 g/dL (31.0-37.0); MCV 90.5 fL (80.0-100.0); Mean Platelet Volume 7.4; Monocytes # (A) 0.5 k/uL (0-1.0); Monocytes % (A) 6 %; Neutrophils % (A) 57 %; Platelet Count 175 k/uL (150-450); RBC 4.14 m/uL (4.30-5.90); RDW 14.6 % (11.5-15.5); WBC 8.8 k/uL (3.8-10.6)
[2018-06-24 09:05] LABS: Calcium 8.9 mg/dL (8.4-10.2)
--- NOTE | 2018-06-24 09:27 | P.GSCN ---
History of Present Illness Consult date: 06/24/18 Reason for Consult: Ureteral calculi History of present illness: The patient is a 52-year-old gentleman with a known history of kidney stones who for several days has had right flank pain. He thought it may be due to his chronic back problems but he ended up in the emergency room in [place] last night. Computed tomography scan showed bilateral renal stones and obstructing right ureteral stone and a left proximal ureter stone was not obstructing. He is still having pain. He is transferred to [facility] for further evaluation and assessment. He has had no fever or chills. He is still having pain but it is somewhat controlled with a Dilaudid. Review of Systems - Constitutional Reports chronic pain - Cardiovascular Cardiovascular Comment(s): The patient has cardiac stents. He had an GA in 2018 - Genitourinary Reports as per HPI Past Medical History Past Medical History: Coronary Artery Disease (CAD), Chest Pain / Angina, GERD/ Reflux, Hypertension, Osteoarthritis (OA), Sleep Apnea/CPAP/BIPAP Additional Past Medical History / Comment(s): SLEEP APNEA- NO C-PAP, SPINAL STENOSIS, BACK PAIN., WEARS NECK BRACE AT HS., WEARS BACK BRACE AND USES CANE., KIDNEY STONES, STATES NUMBNESS AT TIMES ON RIGHT SIDE., SOB WITH ACTIVITY. , SEE CARDIOLOGY H & P. History of Any Multi-Drug Resistant Organisms: None Reported Past Surgical History: Heart Catheterization With Stent, Tonsillectomy Additional Past Surgical History / Comment(s): bilateral wrists & elbow surgery , neck surgery, heart cath with stents 08/19/2017 ([facility])., SURGERY FOR KIDNEY STONES. Past Anesthesia/Blood Transfusion Reactions: No Reported Reaction Date of Last Stent Placement:: 08/19/2017 Past Psychological History: No Psychological Hx Reported Smoking Status: Former smoker Past Alcohol Use History: Occasional Additional Past Alcohol Use History / Comment(s): HAS SMOKED FOR 30- YRS, 1/2 PPD. Past Drug Use History: None Reported - Past Family History Mother Family Medical History: Cancer Father Family Medical History: Cancer Medications and Allergies Home Medications Medication Instructions Recorded Confirmed Type Aspirin [Adult Low Dose Aspirin EC] 81 mg PO DAILY 01/15/18 06/24/18 History Atorvastatin [Lipitor] 80 mg PO HS 01/15/18 06/24/18 History Cetirizine HCl [Zyrtec] 10 mg PO DAILY 01/15/18 06/24/18 History Clopidogrel [Plavix] 75 mg PO DAILY 01/15/18 06/24/18 History Isosorbide Mononitrate ER [Imdur] 30 mg PO DAILY 01/15/18 06/24/18 History Lisinopril [Zestril] 40 mg PO DAILY 01/15/18 06/24/18 History Metoprolol Tartrate [Lopressor] 50 mg PO BID 01/15/18 06/24/18 History Omeprazole [PriLOSEC] 40 mg PO DAILY 01/15/18 06/24/18 History amLODIPine BESYLATE [Norvasc] 5 mg PO DAILY 01/15/18 06/24/18 History traMADol HCL [Ultram] 50 mg PO Q6HR PRN 01/15/18 06/24/18 History Fluticasone Nasal [place] [Flonase 1 spray EA NOSTRIL DAILY 06/24/18 06/24/18 History Nasal [place]] Allergies Allergy/AdvReac Type Severity Reaction Status Date / Time Penicillins Allergy Rash/Hives Verified 06/24/18 08:06 Surgical - Exam Vital Signs Temp Pulse Resp BP Pulse Ox 97.5 F L 101 H 20 99/64 94 L 06/24/18 00:50 06/24/18 00:50 06/24/18 00:50 06/24/18 00:50 06/24/18 00:50 - General well developed, well nourished, moderate pain - ENT no hearing loss - Neck no masses - Respiratory normal expansion, normal respiratory effort - Cardiovascular Rhythm: regular - Abdomen Abdomen: soft, tender - Genitourinary normal penis with no external lesions, testicles present - Integumentary no rash, no growths - Neurologic normal coordination, normal sensation - Musculoskeletal normal gait, normal posture - Psychiatric oriented to time, oriented to person, oriented to place, speech is normal, memory intact Results - Labs 06/24/18 08:08 06/24/18 08:08 Abnormal Lab Results - Last 24 Hours (Table) 06/24/18 06/24/18 06/24/18 Range/Units 06:00 08:08 08:08 RBC 4.14 L (4.30-5.90) m/uL Hgb 12.5 L (13.0-17.5) gm/dL Hct 37.5 L (39.0-53.0) % Chloride 108 H (98-107) mmol/L BUN 25 H (9-20) mg/dL Creatinine 1.69 H (0.66-1.25) mg/dL Glucose 144 H (74-99) mg/dL Urine Protein 1+ H (Negative) Urine WBC 12 H (0-5) /hpf Hyaline Casts 5 H (0-2) /lpf Urine Mucus Rare H (None) /hpf Diabetes panel 06/24/18 Range/Units 08:08 Sodium 141 (137-145) mmol/L Potassium 4.0 (3.5-5.1) mmol/L Chloride 108 H (98-107) mmol/L Carbon Dioxide 23 (22-30) mmol/L BUN 25 H (9-20) mg/dL Creatinine 1.69 H (0.66-1.25) mg/dL Glucose 144 H (74-99) mg/dL Calcium 8.9 (8.4-10.2) mg/dL Calcium panel 06/24/18 Range/Units 08:08 Calcium 8.9 (8.4-10.2) mg/dL Pituitary panel 06/24/18 Range/Units 08:08 Sodium 141 (137-145) mmol/L Potassium 4.0 (3.5-5.1) mmol/L Chloride 108 H (98-107) mmol/L Carbon Dioxide 23 (22-30) mmol/L BUN 25 H (9-20) mg/dL Creatinine 1.69 H (0.66-1.25) mg/dL Glucose 144 H (74-99) mg/dL Calcium 8.9 (8.4-10.2) mg/dL Adrenal panel 06/24/18 Range/Units 08:08 Sodium 141 (137-145) mmol/L Potassium 4.0 (3.5-5.1) mmol/L Chloride 108 H (98-107) mmol/L Carbon Dioxide 23 (22-30) mmol/L BUN 25 H (9-20) mg/dL Creatinine 1.69 H (0.66-1.25) mg/dL Glucose 144 H (74-99) mg/dL Calcium 8.9 (8.4-10.2) mg/dL - Imaging CT scan - abdomen: report reviewed, image reviewed CT scan - pelvis: report reviewed, image reviewed Assessment and Plan Assessment: Impression: Bilateral renal and ureteral calculi, right sided hydronephrosis with pain. Medical illnesses just described. Recommendations the patient will be made nothing by mouth after midnight. He' ll be set up for a right ureteroscopy laser lithotripsy tomorrow as he does not wish to wait 10 days for shockwave lithotripsy.
--- NOTE | 2018-06-24 09:56 | XR ---
EXAMINATION TYPE: XR KUB DATE OF EXAM: 06/24/2018 CLINICAL DATA: 52-year-old male history of right-sided kidney stones, H COMPARISON: 10/23/2016 FINDINGS: Bowel content obscures portions of the kidneys. Suggestion of a punctate 3 mm calcification upper tiny e right kidney. Previous larger upper pole calculus is no longer seen. However, there is suggestion i n the new 5 mm right. Median mid to lower abdominal calcification is 7 mm on the left just a little b it higher. A couple small left-sided renal calculi measuring 6 mm and 4 mm. The larger upper pole payton culus is no longer seen. Bilateral pelvic phleboliths redemonstrated. Nonobstructive bowel gas pattern. IMPRESSION: 1. Bilateral nephrolithiasis measuring up to 6 mm with renal calculi having decreased in size as comp ared to 10/23/2016. 2. Suggestion of new right paramedian 5 mm and left paramedian 7 mm calcifications mid to lower abdom en. These calcifications are nonspecific but may be located along the ureters. Correlate for any carmelo l colic symptoms.
[2018-06-24] MEDS: ATORVASTATIN 80 MG TAB PO SCH (21:51)
[2018-06-25] MEDS: SODIUM CHLORIDE 0.9% 1,000 ML IV SCH ×2 (00:13→17:34)
--- NOTE | 2018-06-25 00:33 | P.HPIM ---
History of Present Illness H&P Date: 06/24/18 Chief Complaint: Right flank pain Patient is a 52-year-old male with a known history of coronary artery disease with history of stent placement on 08/19/2017, history of nephrolithiasis, GERD , hypertension, osteoarthritis and obstructive sleep apnea initially presented to [facility] due to complaints of right flank pain. Patient has been having pain for the past few days. No fever no chills. Denied any dysuria or hematuria. Patient does have history of nephrolithiasis. CT of the abdomen pelvis showed bilateral renal stones and obstructing right ureteral stone and a left proximal ureter stone was not obstructing. Patient was eventually transferred to [facility] for evaluation by urology. Patient was seen by urology and planning for OR tomorrow. KUB x-ray showed bilateral nephrolithiasis measuring up to 6 mm with renal calculi, decreased in size compared to 10/23/2016 Review of Systems Constitutional: Patient denies any fever or chills . No generalized weakness or weight loss. Abdomen: Patient denied nausea vomiting and diarrhea and abdominal pain. Cardiovascular: Patient denies any chest pain or short of breath no palpitations. Respiratory: patient denied any cough is from production. No shortness of breath Neurologic: Patient denied any numbness or tingling headache. Musculoskeletal: Patient denies any complaints of joint swelling or deformity. Skin: Negative Psychiatric: Negative Endocrine: No heat or cold intolerance. No recent weight gain. Genitourinary: No dysuria or hematuria. Right flank pain All other 14 point ROS negative except the aboves Past Medical History Past Medical History: Coronary Artery Disease (CAD), Chest Pain / Angina, GERD/ Reflux, Hypertension, Osteoarthritis (OA), Sleep Apnea/CPAP/BIPAP Additional Past Medical History / Comment(s): SLEEP APNEA- NO C-PAP, SPINAL STENOSIS, BACK PAIN., WEARS NECK BRACE AT HS., WEARS BACK BRACE AND USES CANE., KIDNEY STONES, STATES NUMBNESS AT TIMES ON RIGHT SIDE., SOB WITH ACTIVITY. , SEE CARDIOLOGY H & P. History of Any Multi-Drug Resistant Organisms: None Reported Past Surgical History: Heart Catheterization With Stent, Tonsillectomy Additional Past Surgical History / Comment(s): bilateral wrists & elbow surgery , neck surgery, heart cath with stents 08/19/2017 ([facility])., SURGERY FOR KIDNEY STONES. Past Anesthesia/Blood Transfusion Reactions: No Reported Reaction Date of Last Stent Placement:: 08/19/2017 Past Psychological History: No Psychological Hx Reported Smoking Status: Former smoker Past Alcohol Use History: Occasional Additional Past Alcohol Use History / Comment(s): HAS SMOKED FOR 30- YRS, 1/2 PPD. Past Drug Use History: None Reported - Past Family History Mother Family Medical History: Cancer Father Family Medical History: Cancer Medications and Allergies Home Medications Medication Instructions Recorded Confirmed Type Aspirin [Adult Low Dose Aspirin EC] 81 mg PO DAILY 01/15/18 06/24/18 History Atorvastatin [Lipitor] 80 mg PO HS 01/15/18 06/24/18 History Cetirizine HCl [Zyrtec] 10 mg PO DAILY 01/15/18 06/24/18 History Clopidogrel [Plavix] 75 mg PO DAILY 01/15/18 06/24/18 History Isosorbide Mononitrate ER [Imdur] 30 mg PO DAILY 01/15/18 06/24/18 History Lisinopril [Zestril] 40 mg PO DAILY 01/15/18 06/24/18 History Metoprolol Tartrate [Lopressor] 50 mg PO BID 01/15/18 06/24/18 History Omeprazole [PriLOSEC] 40 mg PO DAILY 01/15/18 06/24/18 History amLODIPine BESYLATE [Norvasc] 5 mg PO DAILY 01/15/18 06/24/18 History traMADol HCL [Ultram] 50 mg PO Q6HR PRN 01/15/18 06/24/18 History Fluticasone Nasal [place] [Flonase 1 spray EA NOSTRIL DAILY 06/24/18 06/24/18 History Nasal [place]] Allergies Allergy/AdvReac Type Severity Reaction Status Date / Time Penicillins Allergy Rash/Hives Verified 06/24/18 08:06 Physical Exam Vitals: Vital Signs Temp Pulse Resp BP Pulse Ox 06/24/18 08:00 18 06/24/18 07:00 98.0 F 107 H 16 95/58 95 06/24/18 00:50 97.5 F L 101 H 20 99/64 94 L Intake and Output 06/23/18 06/24/18 06/24/18 22:59 06:59 14:59 Intake Total 100 Balance 100 Intake: Oral 100 Other: Voiding Method Urinal # Voids 1 Weight 92.986 kg PHYSICAL EXAMINATION: Patient is lying in the bed comfortably, no acute distress, awake alert and oriented.. HEENT: Normocephalic. Neck is supple. Pupils reactive. Nostrils clear. Oral cavity is moist. Ears reveal no drainage. Neck reveals no JVD, carotid bruits, or thyromegaly. CHEST EXAMINATION: Trachea is central. Symmetrical expansion. Lung schultz clear to auscultation and percussion. CARDIAC: Normal S1, S2 with no gallops. No murmurs ABDOMEN: Soft. Bowel sounds normal. No organomegaly. No abdominal bruits. Extremities: reveal no edema. No clubbing or cyanosis Neurologically awake, alert, oriented x3 with well-coordinated movements. No focal deficits noted Skin: No rash or skin lesions. Psychiatric: Coperative. Nonsuicidal Musculoskeletal: No joint swelling or deformity. Normal range of motion. Results CBC & Chem 7: 06/24/18 08:08 06/24/18 08:08 Labs: Abnormal Lab Results - Last 24 Hours (Table) 06/24/18 06/24/18 06/24/18 Range/Units 06:00 08:08 08:08 RBC 4.14 L (4.30-5.90) m/uL Hgb 12.5 L (13.0-17.5) gm/dL Hct 37.5 L (39.0-53.0) % Chloride 108 H (98-107) mmol/L BUN 25 H (9-20) mg/dL Creatinine 1.69 H (0.66-1.25) mg/dL Glucose 144 H (74-99) mg/dL Urine Protein 1+ H (Negative) Urine WBC 12 H (0-5) /hpf Hyaline Casts 5 H (0-2) /lpf Urine Mucus Rare H (None) /hpf Thrombosis Risk Factor Assmnt - DVT/VTE Prophylaxis DVT/VTE Prophylaxis: Pharmacologic Prophylaxis ordered - Choose All That Apply Any of the Below Risk Factors Present?: Yes Each Factor Represents 1 point: Age 41-60 years, Obesity (BMI >25) Other Risk Factors: Yes Each Risk Factor Represents 3 Points: History of DVT/PE Thrombosis Risk Factor Assessment Total Risk Factor Score: 5 Thrombosis Risk Factor Assessment Level: High Risk Assessment and Plan Assessment: Right flank pain due to right ureteral 6 mm stone obstructing and hydronephrosis. Coronary artery disease with history of stent placement on 08/19/2017 History of nephrolithiasis Hypertension GERD Osteoarthritis Objective sleep apnea on CPAP at home Spinal stenosis Chronic back pain History of bilateral wrists and elbow surgery, neck surgery Previous history of smoking Plan: Patient will be continued on gentle hydration and antibiotics in the form of Levaquin. Urine culture was sent. Patient was seen by urology and is planning for right ureteroscopy laser lithotripsy tomorrow. Further recommendations based on the clinical course. Will hold aspirin and Plavix tomorrow a.m Time with Patient: Greater than 30
[2018-06-25] MEDS: LEVOFLOXACIN 250MG-D5W PMX 250 MG in DEXTROSE/WATER 1 50ML.BAG IVPB SCH (03:54)
[2018-06-25] MEDS: HYDROmorphone 0.5 MG/0.5 ML SYRINGE IVP PRN ×4 (06:56→22:51)
[2018-06-25] MEDS: CLOPIDOGREL 75 MG TAB PO SCH (08:44)
[2018-06-25] MEDS: amLODIPine 5 MG TAB PO SCH (08:45)
[2018-06-25] MEDS: PANTOPRAZOLE 40 MG TABLET PO SCH (08:45)
[2018-06-25] MEDS: ISOSORBIDE MONONITRATE ER 30 MG TAB.ER.24H PO SCH (08:46)
[2018-06-25] MEDS: ASPIRIN 81 MG PO SCH (08:46)
[2018-06-25] MEDS: METOPROLOL TARTRATE 50 MG TAB PO SCH ×2 (08:47→22:41)
[2018-06-25] MEDS: LORATADINE 10 MG TAB PO SCH (08:47)
[2018-06-25 09:36] LABS: Basophils % (A) 1 %; Eosinophils # (A) 0.3 k/uL (0-0.7); Eosinophils % (A) 3 %; HCT 36.1 % (39.0-53.0); HGB 12.3 gm/dL (13.0-17.5); Lymphocytes # (A) 2.2 k/uL (1.0-4.8); Lymphocytes % (A) 25 %; MCH 30.7 pg (25.0-35.0); MCHC 34.1 g/dL (31.0-37.0); MCV 89.9 fL (80.0-100.0); Mean Platelet Volume 7.1; Monocytes # (A) 0.6 k/uL (0-1.0); Monocytes % (A) 7 %; Neutrophils # (A) 5.4 k/uL (1.3-7.7); Neutrophils % (A) 62 %; Platelet Count 185 k/uL (150-450); RBC 4.01 m/uL (4.30-5.90); RDW 14.5 % (11.5-15.5); WBC 8.7 k/uL (3.8-10.6)
[2018-06-25 10:04] LABS: Calcium 8.8 mg/dL (8.4-10.2); Potassium 4.5 mmol/L (3.5-5.1)
[2018-06-25] MEDS ORDERED: IV FLUID CONTINUATION 375 ML IV ONE (12:30)
[2018-06-25] MEDS ORDERED: ONDANSETRON 4 MG/2 ML VIAL IVP ONE (12:50)
[2018-06-25] MEDS ORDERED: DEXAMETHASONE SOD PHOSPHATE 10 MG/ML 1 ML VIAL IV ONE (12:50)
[2018-06-25] MEDS ORDERED: ePHEDrine SULFATE/0.9% NACL/PF 50 MG/5 ML SYRINGE IV ONE (13:24)
[2018-06-25] MEDS ORDERED: MIDAZOLAM 2 MG/2 ML VIAL ONE (13:24)
[2018-06-25] MEDS ORDERED: SUCCINYLCHOLINE CHLORIDE 100 MG/5 ML SYR IV ONE (13:24)
[2018-06-25] MEDS ORDERED: PROPOFOL 10 MG/ML 20 ML VIAL IV ONE (13:24)
[2018-06-25] MEDS ORDERED: PHENYLEPHRINE-0.9% NACL SYG 1 MG/10 ML SYRINGE ONE (13:24)
[2018-06-25] MEDS ORDERED: fentaNYL (PF) 50 MCG/ML 2 ML AMP ONE (13:24)
[2018-06-25] MEDS ORDERED: LIDOCAINE 1% INJ 10MG/ML (20 ML MDV) ONE (13:24)
[2018-06-25] MEDS ORDERED: LACTATED RINGERS 1,000 ML IV ONE (14:04)
--- NOTE | 2018-06-25 14:44 | P.OP ---
Date of Procedure: 06/25/18 Preoperative Diagnosis: Bilateral ureteral calculi Postoperative Diagnosis: Same Procedure(s) Performed: Cystoscopy, bilateral ureteroscopy with laser lithotripsy and stone basketing, placement of bilateral 6 x 26 double-J catheters Anesthesia: DEVONTE Surgeon: Jose Mayo Estimated Blood Loss (ml): 10 Pathology: other (Stone) Condition: stable Disposition: PACU Indications for Procedure: The patient is 52. He has a history of stone disease. He was sent from [place] with a right ureteral stone. As it turns out on computed tomography scan he has bilateral proximal ureteral stones. He comes for bilateral stone removal as he has pain in the right side. Description of Procedure: The patient is brought to the operating suite. He is given a general endotracheal anesthesia on the transport gurney. He is given a sterile prep and drape. Under fluoroscopy a 4-5 mm proximal ureteral stone on the right is seen and a 6-7 the labia proximal ureteral stone on the left is seen Cystoscopy Foroblique lens and 22-Estonian sheath identifies a normal urethra. The prostate is not obstructing. Ureteral orifices are normal. The bladder mucosa is unremarkable. I passed a 7-Estonian semirigid scope up the right ureter up to the stone. With the 200 probe the stone was broken into tiny fragments however fluids back into the kidney. Through the semirigid scope and 035 wires passed. Over the wires and passed 67-59-Ybfmlx reentry sheath. I then pass a flexible ureteroscope up into the kidney to make sure that I basket the fragments and there are no significant fragments. I then place an 035 wire through the ureteroscope. I removed the ureteroscope and the sheath and pass the cystoscope over the wire. I then pass a 6 x 26 double-J catheter that coils in the right kidney and the bladder I then pass the 035 wire up the left ureter beyond the stone. Over the wire (11 -13-Estonian reentry sheath. I then pass a flexible ureteroscope up to the stone. Using 200 probe and 4 W of energy the stone was broken into tiny pieces. The largest pieces grasped with the stone basket and removed. Through the working sheath I then pass an 035 wire up into the kidney. I removed the working sheath and backloaded the wire onto the cystoscope. Over the wires and passed a 6 x 26 double-J catheter that coils in the renal pelvis on the left side and in the bladder. The bladder strain the cystoscope to remove the patient's awake and returned recovery in good condition Impression successful bilateral ureteroscopic and laser lithotripsy to bilateral ureteral stones. The patient will be returned recovery room good condition. He'll be discharged home and asked 24 hours and found the office in 7-10 days for stent removal
--- NOTE | 2018-06-25 15:26 | FL ---
EXAMINATION TYPE: FL guidance operating room DATE OF EXAM: 06/25/2018 CLINICAL HISTORY: Bilateral ureteral stones TECHNIQUE: Fluoroscopy. COMPARISON: None. FINDINGS: Fluoroscopic guidance was provided during procedure performed by Dr. Mayo. A total of 31 seconds of fluoroscopic time was utilized during the procedure and 3 spot images was acquired during ureteral cannulation and stent placement bilaterally. IMPRESSION: As Above.
[2018-06-25] MEDS ORDERED: HYDROmorphone 1 MG/ML 1 ML SYRINGE IVP ONE (15:30)
[2018-06-25] MEDS: ATORVASTATIN 80 MG TAB PO SCH (22:40)
[2018-06-26] MEDS: LEVOFLOXACIN 250MG-D5W PMX 250 MG in DEXTROSE/WATER 1 50ML.BAG IVPB SCH (04:20)
--- NOTE | 2018-06-26 07:21 | P.PN ---
Subjective Progress Note Date: 06/26/18 The patient is in his first postoperative day from bilateral ureteroscopy laser lithotripsy and stent placement. He is feeling much better. From a urologic standpoint he can be discharged home. He needs to be seen in the office in one week for cystoscopy with stent removals. Objective - Vital Signs Vital signs: Vital Signs Temp 97.8 F 06/25/18 22:37 Pulse 103 H 06/25/18 22:37 Resp 18 06/25/18 22:37 BP 106/68 06/25/18 22:37 Pulse Ox 93 L 06/25/18 22:37 Intake & Output 06/25/18 06/26/18 06/26/18 18:59 06:59 18:59 Intake Total 1175 Balance 1175 Intake: IV 1175 Sodium Chloride 0.9% 1, 400 000 ml @ 50 mls/hr IV . Q20H [facility] Rx#:[id number] Other: Voiding Method Toilet # Voids 1 1 - Labs CBC & Chem 7: 06/25/18 08:50 06/25/18 08:50 Labs: Abnormal Lab Results - Last 24 Hours (Table) 06/25/18 06/25/18 Range/Units 08:50 08:50 RBC 4.01 L (4.30-5.90) m/uL Hgb 12.3 L (13.0-17.5) gm/dL Hct 36.1 L (39.0-53.0) % Chloride 108 H (98-107) mmol/L BUN 23 H (9-20) mg/dL Creatinine 1.43 H (0.66-1.25) mg/dL Microbiology - Last 24 Hours (Table) 06/24/18 06:00 Urine Culture - Final Urine,Voided
[2018-06-26 07:41] VITALS: BP 108/69; PULSE 78; RESP 16; TEMP 97.9
[2018-06-26] MEDS: METOPROLOL TARTRATE 50 MG TAB PO SCH (08:51)
[2018-06-26] MEDS: ASPIRIN 81 MG PO SCH (08:51)
[2018-06-26] MEDS: LORATADINE 10 MG TAB PO SCH (08:52)
[2018-06-26] MEDS: CLOPIDOGREL 75 MG TAB PO SCH (08:52)
[2018-06-26] MEDS: ISOSORBIDE MONONITRATE ER 30 MG TAB.ER.24H PO SCH (08:53)
[2018-06-26] MEDS: PANTOPRAZOLE 40 MG TABLET PO SCH (08:53)
[2018-06-26] MEDS: amLODIPine 5 MG TAB PO SCH (08:54)
[2018-06-26] MEDS ORDERED: HYDROmorphone 2 MG TAB PO PRN (11:57)
[2018-06-26] MEDS: SODIUM CHLORIDE 0.9% 1,000 ML IV SCH (14:15)
[2018-06-27] MEDS ORDERED: LEVOFLOXACIN 250 MG TAB PO SCH (03:00)
== END 2018-06-26 14:39 | disposition home or self-care (01) | DRG 661 ==
LOC: 4MS4W 22:53 → INTOOBSV 22:53 → 4MS4W 06-24 00:59 → OBSVTOIN 06-24 11:53
PROVIDERS: ADMIT Internal Medicine; ATTEND Internal Medicine
PROC: 0T788DZ Dilation of Bilateral Ureters with Intraluminal Device, Via Natural or Artificial Opening Endoscopic (ICD-10-PCS; principal; 2018-06-25 13:15)
PROC: 0TC68ZZ Extirpation of Matter from Right Ureter, Via Natural or Artificial Opening Endoscopic (ICD-10-PCS; principal; 2018-06-25 13:15)
PROC: 0TC78ZZ Extirpation of Matter from Left Ureter, Via Natural or Artificial Opening Endoscopic (ICD-10-PCS; principal; 2018-06-25 13:15)
DX: N13.2 Hydronephrosis with renal and ureteral calculous obstruction (principal); G47.33 Obstructive sleep apnea (adult) (pediatric); G89.29 Other chronic pain; I10 Essential (primary) hypertension; I25.10 Atherosclerotic heart disease of native coronary artery without angina pectoris; K21.9 Gastro-esophageal reflux disease without esophagitis; M19.90 Unspecified osteoarthritis, unspecified site; M48.00 Spinal stenosis, site unspecified; Z79.02 Long term (current) use of antithrombotics/antiplatelets; Z79.82 Long term (current) use of aspirin; Z79.899 Other long term (current) drug therapy; Z87.442 Personal history of urinary calculi; Z87.891 Personal history of nicotine dependence; Z95.5 Presence of coronary angioplasty implant and graft; Z79.52 Long term (current) use of systemic steroids; Z88.0 Allergy status to penicillin; Z99.89 Dependence on other enabling machines and devices
CPT/HCPCS: 74018; 80048; 81001; 82365; 85025; 87086

== ENCOUNTER 2018-08-12 21:35 | Inpatient (IN) | payer OTHER ==
[2018-08-13] MEDS ORDERED: traMADol 50 MG TAB PO PRN (01:52)
[2018-08-13] MEDS: HYDROcodone/APAP 7.5-325MG 1 EACH TAB PO PRN ×3 (02:27→19:53)
[2018-08-13] MEDS ORDERED: CAFFEINE CITRATE 60 MG/3 ML VIAL IV PRN (07:25)
[2018-08-13] MEDS ORDERED: REGADENOSON 0.4 MG/5 ML SYRINGE IV ONE (07:25)
--- NOTE | 2018-08-13 07:47 | CONS ---
CONSULTATION Mr. Lance is a 52-year-old male who is followed by Dr. Berry who was transferred from [facility] with symptoms of chest discomfort. The patient has a known history of coronary artery disease. Has underwent percutaneous revascularization by Dr. Berry in July of 2017 and at that time underwent stenting of his LAD and right coronary artery. He was subsequently readmitted to the hospital in December and underwent repeat cardiac catheterization, was found to have no evidence of progression of disease. He has been having continuous pain on and off and yesterday had similar pain at rest. He had no associated dizziness. No significant dyspnea. He has no palpitation. No syncope. No clear PND. No orthopnea. No significant peripheral edema. His coronary risk factors are positive for history of hypertension and hyperlipidemia. He is a nondiabetic. MEDICATION: His medications include Lipitor 80 mg daily, Plavix 75 mg daily, isosorbide mononitrate 30 mg daily, lisinopril 40 mg daily, metoprolol tartrate 50 mg twice a day, amlodipine 5 mg daily. REVIEW OF SYSTEMS: RESPIRATORY SYSTEM: He has history of chronic cough. No recent wheezing. No fever. GI SYSTEM: No recent GI bleed. No peptic ulcer disease. SYSTEM: No dysuria or hematuria. NERVOUS SYSTEM: No stroke or seizure. PHYSICAL EXAMINATION: He is a 52-year-old male, alert, oriented, in no apparent distress. Blood pressure 114/60 with the heart rate in the 90s. HEAD: Normocephalic. EYES: Sclerae anicteric. NECK: Good upstroke. No bruit. No jugular venous distention. LUNGS: Clear to auscultation. HEART: Regular rate and rhythm. S1, S2. No S3. No rub. ABDOMEN: Soft, nontender. Positive bowel sounds. No organomegaly. EXTREMITIES: No edema. Intact distal pulses. EKG reveals sinus mechanism, normal axis and intervals, normal electrocardiogram. Troponin less than 0.012. Potassium 4.3. Hemoglobin of 13.7. IMPRESSION: 1. Chest discomfort of unclear etiology in a patient with known history of coronary artery disease. The patient has had chest discomfort continuously on and off and had repeat cardiac catheterization that revealed no evidence of progression of disease. 2. History of stenting of the left anterior descending artery and the right coronary artery. 3. History of hyperlipidemia. 4. Hypertension. RECOMMENDATION: From the cardiac standpoint, I will proceed with a myocardial perfusion imaging to assess his status and guide his treatment. If there is no evidence of inducible ischemia, then no further cardiac workup will be needed. Thank you for this consult. We will follow with you. DIMAS / MICHAELN: [id number] /
[2018-08-13 11:06] LABS: Basophils % (A) 0 %; Eosinophils # (A) 0.1 k/uL (0-0.7); Eosinophils % (A) 1 %; HCT 46.5 % (39.0-53.0); HGB 14.3 gm/dL (13.0-17.5); Lymphocytes # (A) 1.1 k/uL (1.0-4.8); Lymphocytes % (A) 14 %; MCH 28.3 pg (25.0-35.0); MCHC 30.6 g/dL (31.0-37.0); MCV 92.4 fL (80.0-100.0); Monocytes # (A) 0.1 k/uL (0-1.0); Monocytes % (A) 1 %; Neutrophils # (A) 6.3 k/uL (1.3-7.7); Neutrophils % (A) 83 %; Platelet Count 210 k/uL (150-450); RBC 5.04 m/uL (4.30-5.90); RDW 14.4 % (11.5-15.5); WBC 7.6 k/uL (3.8-10.6)
--- NOTE | 2018-08-13 11:47 | NM ---
EXAMINATION TYPE: NM stress lexiscan cardiolite DATE OF EXAM: 08/13/2018 COMPARISON: NONE HISTORY: 52-year-old male with chest pain and difficulty in breathing TECHNIQUE: After the intravenous administration of 10.6 mCi Tc 99m Sestamibi - Cardiolite resting SP ECT images acquired 130 minutes post injection. The patient received 0.4mg Lexiscan, 25.9 mCi Tc 99m Sestamibi - Stress images obtained [address] injection FINDINGS: Review of stress and rest SPECT images demonstrates a small to moderate area of decreased perfusion a long the mid anterior to anteroseptal wall. Gated Analysis shows normal wall motion with an estimated left ventricular ejection fraction of 79 %. TID calculated normal at 1.11. IMPRESSION: Scintigraphic findings suggest small to moderate area of inducible ischemia along the mid anterior to anteroseptal wall.
[2018-08-13] MEDS: amLODIPine 5 MG TAB PO SCH (12:09)
[2018-08-13] MEDS: CLOPIDOGREL 75 MG TAB PO SCH (12:09)
[2018-08-13] MEDS: ISOSORBIDE MONONITRATE ER 30 MG TAB.ER.24H PO SCH (12:09)
[2018-08-13] MEDS: LISINOPRIL 20 MG TAB PO SCH (12:10)
[2018-08-13] MEDS: ASPIRIN 81 MG PO SCH (12:10)
[2018-08-13] MEDS: METOPROLOL TARTRATE 50 MG TAB PO SCH ×2 (12:10→22:40)
[2018-08-13] MEDS ORDERED: ALPRAZolam 0.25 MG TAB PO PRN (12:39)
[2018-08-13] MEDS ORDERED: NITROGLYCERIN SL TABS 0.4 MG TAB SUBLINGUAL PRN (12:39)
[2018-08-13] MEDS ORDERED: ALPRAZolam 0.5 MG TAB PO PRN (12:39)
--- NOTE | 2018-08-13 13:30 | EST ---
EXERCISE STRESS DATE OF SERVICE: 08/13/2018. AGE: 52 SEX: Male HT: 63" WT: 202 PROTOCOL: Lexiscan Cardiolite STAGE: DURATION OF EXERCISE: HEART RATE REST: 97 BLOOD PRESSURE REST: 107/75 MAXIMUM HEART RATE ACHIEVED: 126 MAXIMUM BLOOD PRESSURE: 110/69 85% MPHR: 142 100% MPHR: 167 METS: INDICATIONS: Chest pain. CLINICAL INFORMATION: Baseline rhythm is sinus mechanism, rate of 97, normal axis and intervals. Normal electrocardiogram. Baseline blood pressure 107/75. Patient received an injection of Lexiscan. Electrocardiographic monitoring revealed no evidence of diagnostic ischemic ST deviation. Cardiolite was injected per protocol. CONCLUSION: 1. Nondiagnostic electrocardiographic stress testing. 2. Nuclear images will be reported separately. MMODL / IJN: [id number] /
[2018-08-13] MEDS ORDERED: HYDROcodone/APAP 5-325MG 1 EACH TAB PO STA (14:14)
--- NOTE | 2018-08-13 14:45 | P.HPIM ---
History of Present Illness This is a pleasant 52 years old male with past medical history of coronary artery disease, GERD, hypertension, osteoarthritis, sleep apnea, spinal stenosis with chronic back pain,. Patient was transferred from [facility]. He presents because of chest pain. His chest pain is of 2 days' duration, left side nonradiating, about 8/10 in severity, down to 6/10. Keflex something sitting on his chest, with no precipitating or relieving factors, associated with some dyspnea and nausea but no vomiting. Patient also have some left hand numbness and dizziness. However patient was lying in bed not in distress currently. And he leaks more comfortable while eating. Patient has been evaluated by design painter and he had positive stress test. And plan to have cardiac cath next day. Troponins were negative at [facility] and then repeated to this hospital. Magnesium 1.9. Sodium 139, glucose 126, creatinine 1.2, which is within normal limits, liver enzymes.elevated.. Chest x-ray showing no acute pulmonary process as per radiologist's report. D-dimer was negative at 0.5F with reference range between 0.19-0.59. INR is 1.0. WBC is 11.6 K which is slightly elevated hemoglobin 15, platelets 230 Review of Systems CONSTITUTIONAL: No fever, no malaise, no fatigue. HEENT: No recent visual problems or hearing problems. Denied any sore throat. CARDIOVASCULAR: No orthopnea, PND, no palpitations, no syncope. PULMONARY: No shortness of breath, no cough, no hemoptysis. GASTROINTESTINAL: No diarrhea, no nausea, no vomiting, no abdominal pain. Normoactive bowel sounds. NEUROLOGICAL: No headaches, no weakness, no numbness. HEMATOLOGICAL: Denies any bleeding or petechiae. GENITOURINARY: Denies any burning micturition, frequency, or urgency. MUSCULOSKELETAL/RHEUMATOLOGICAL: Denies any joint pain, swelling, or any muscle pain. ENDOCRINE: Denies any polyuria or polydipsia. Past Medical History Past Medical History: Coronary Artery Disease (CAD), Chest Pain / Angina, GERD/Reflux, Hypertension, Osteoarthritis (OA), Sleep Apnea/CPAP/BIPAP Additional Past Medical History / Comment(s): SLEEP APNEA- NO C-PAP, SPINAL STENOSIS, BACK PAIN., WEARS NECK BRACE AT HS., WEARS BACK BRACE AND USES CANE., KIDNEY STONES, STATES NUMBNESS AT TIMES ON RIGHT SIDE., SOB WITH ACTIVITY. , SEE CARDIOLOGY H & P. History of Any Multi-Drug Resistant Organisms: None Reported Past Surgical History: Heart Catheterization With Stent, Tonsillectomy Additional Past Surgical History / Comment(s): bilateral wrists & elbow surgery, neck surgery, heart cath with stents 08/19/2017 ([facility])., SURGERY FOR KIDNEY STONES. Past Anesthesia/Blood Transfusion Reactions: No Reported Reaction Date of Last Stent Placement:: 08/19/2017 Past Psychological History: No Psychological Hx Reported Smoking Status: Former smoker Past Alcohol Use History: Occasional Additional Past Alcohol Use History / Comment(s): HAS SMOKED FOR 30- YRS, 1/2 PPD. Past Drug Use History: None Reported - Past Family History Mother Family Medical History: Cancer Father Family Medical History: Cancer Medications and Allergies Home Medications Medication Instructions Recorded Confirmed Type Aspirin [Adult Low Dose Aspirin EC] 81 mg PO DAILY 01/15/18 08/13/18 History Atorvastatin [Lipitor] 80 mg PO HS 01/15/18 08/13/18 History Cetirizine HCl [Zyrtec] 10 mg PO DAILY 01/15/18 08/13/18 History Clopidogrel [Plavix] 75 mg PO DAILY 01/15/18 08/13/18 History Isosorbide Mononitrate ER [Imdur] 30 mg PO DAILY 01/15/18 08/13/18 History Lisinopril [Zestril] 40 mg PO DAILY 01/15/18 08/13/18 History Metoprolol Tartrate [Lopressor] 50 mg PO BID 01/15/18 08/13/18 History Omeprazole [PriLOSEC] 40 mg PO DAILY 01/15/18 08/13/18 History traMADol HCL [Ultram] 50 mg PO DIRECTED PRN 01/15/18 08/13/18 History HYDROcodone/APAP 7.5-325MG [[place] 1 tab PO QID PRN 08/13/18 08/13/18 History 7.5-325] Allergies Allergy/AdvReac Type Severity Reaction Status Date / Time Penicillins Allergy Rash/Hives Verified 08/13/18 08:17 Physical Exam Vitals: Vital Signs Temp Pulse Resp BP BP Pulse Ox 08/13/18 11:58 97.9 F 102 H 18 109/74 94 L 03/14/19 07:10 97.6 F 91 18 103/68 99 08/13/18 05:24 97.8 F 93 18 114/63 95 08/13/18 04:00 90 15 08/13/18 00:00 90 15 08/12/18 23:47 97.6 F 90 15 102/64 95 Intake and Output 08/12/18 08/13/18 08/13/18 22:59 06:59 14:59 Other: # Voids 1 Weight 92 kg GENERAL: The patient is alert and oriented x3, not in any acute distress. Well developed, well nourished. HEENT: Pupils are round and equally reacting to light. EOMI. No scleral icterus. No conjunctival pallor. Normocephalic, atraumatic. No pharyngeal erythema. No thyromegaly. CARDIOVASCULAR: S1 and S2 present. No murmurs, rubs, or gallops. PULMONARY: Chest is clear to auscultation, no wheezing or crackles. ABDOMEN: Soft, nontender, nondistended, normoactive bowel sounds. No palpable organomegaly. MUSCULOSKELETAL: No joint swelling or deformity. EXTREMITIES: No cyanosis, clubbing, or pedal edema. NEUROLOGICAL: Gross neurological examination did not reveal any focal deficits. SKIN: No rashes. Results CBC & Chem 7: 08/13/18 07:28 Labs: Abnormal Lab Results - Last 24 Hours (Table) 08/13/18 Range/Units 07:28 MCHC 30.6 L (31.0-37.0) g/dL Thrombosis Risk Factor Assmnt - Choose All That Apply Any of the Below Risk Factors Present?: Yes Each Factor Represents 1 point: Age 41-60 years Other Risk Factors: No Other congenital or acquired thrombophilia - If yes, enter type in comment: No Thrombosis Risk Factor Assessment Total Risk Factor Score: 1 Thrombosis Risk Factor Assessment Level: Low Risk Assessment and Plan Assessment: Chest pain, rule out acute coronary syndrome. Postive stress test, patient is going for cardiac cath on 08/14/2018 History of coronary artery disease with stents Essential hypertension GERD History of osteoarthritis History of sleep apnea History of spinal stenosis with chronic back pain Plan: This is a pleasant 52 years old male who presents with chest pain and abnormal stress test. Patient is going for cardiac cath on 08/14/2018. Cardiology evaluation is appreciated. Continue with aspirin and statin Labs and medication were reviewed.. Continue same treatment. Continue with symptomatic treatment. Resume home medication. Monitor lytes and vitals. DVT and GI prophylaxis. Further recommendations of the clinical course of the patient DVT prophylaxis: Subcutaneous heparin GI Prophylaxis: Pepcid PT/OT: Pending Prognosis is guarded
[2018-08-13] MEDS: FAMOTIDINE 20 MG/2 ML VIAL IV SCH (19:53)
[2018-08-13] MEDS: HEPARIN SODIUM,PORCINE 5,000 UNIT/ML 1 ML VIAL SQ SCH (19:53)
[2018-08-13] MEDS: ATORVASTATIN 80 MG TAB PO SCH (19:54)
[2018-08-14] MEDS: ISOSORBIDE MONONITRATE ER 30 MG TAB.ER.24H PO SCH (06:28)
[2018-08-14] MEDS: CLOPIDOGREL 75 MG TAB PO SCH (06:28)
[2018-08-14] MEDS: HYDROcodone/APAP 7.5-325MG 1 EACH TAB PO PRN ×3 (06:30→21:57)
[2018-08-14] MEDS: METOPROLOL TARTRATE 50 MG TAB PO SCH ×2 (06:30→21:57)
[2018-08-14] MEDS: LISINOPRIL 20 MG TAB PO SCH (06:30)
[2018-08-14] MEDS: FAMOTIDINE 20 MG/2 ML VIAL IV SCH ×2 (06:30→21:57)
[2018-08-14] MEDS: amLODIPine 5 MG TAB PO SCH (06:30)
[2018-08-14 06:53] LABS: Basophils % (A) 0 %; Eosinophils # (A) 0.1 k/uL (0-0.7); Eosinophils % (A) 1 %; HCT 41.4 % (39.0-53.0); HGB 13.2 gm/dL (13.0-17.5); Lymphocytes # (A) 3.5 k/uL (1.0-4.8); Lymphocytes % (A) 28 %; MCH 29.6 pg (25.0-35.0); MCHC 31.9 g/dL (31.0-37.0); MCV 92.6 fL (80.0-100.0); Mean Platelet Volume 6.5; Monocytes # (A) 0.8 k/uL (0-1.0); Monocytes % (A) 6 %; Neutrophils # (A) 7.7 k/uL (1.3-7.7); Neutrophils % (A) 62 %; Platelet Count 210 k/uL (150-450); RBC 4.47 m/uL (4.30-5.90); RDW 14.5 % (11.5-15.5); WBC 12.5 k/uL (3.8-10.6)
[2018-08-14] MEDS ORDERED: SODIUM CHLORIDE 0.9% 1,000 ML in EMPTY BAG 1 BAG IV ONE (07:00)
[2018-08-14] MEDS ORDERED: ASPIRIN 325 MG TAB PO ONE (07:00)
[2018-08-14 07:04] LABS: Anion Gap 8 mmol/L; Blood Urea Nitrogen 17 mg/dL (9-20); Calcium 9.1 mg/dL (8.4-10.2); Carbon Dioxide 24 mmol/L (22-30); Chloride 110 mmol/L (98-107); Glucose 96 mg/dL (74-99); Potassium 4.2 mmol/L (3.5-5.1); Sodium 142 mmol/L (137-145)
[2018-08-14] MEDS: ASPIRIN 81 MG PO SCH (07:33)
[2018-08-14] MEDS: HEPARIN SODIUM,PORCINE 5,000 UNIT/ML 1 ML VIAL SQ SCH ×2 (07:55→21:57)
[2018-08-14] MEDS ORDERED: LIDOCAINE 1% INJ 10MG/ML (20 ML MDV) ONE (08:00)
[2018-08-14] MEDS ORDERED: VERAPAMIL 2.5 MG/ML 2 ML AMP ONE (08:00)
[2018-08-14] MEDS ORDERED: fentaNYL (PF) 50 MCG/ML 2 ML AMP ONE (08:01)
[2018-08-14] MEDS ORDERED: HEPARIN SODIUM 1,000 UN/ML (10ML VL) ONE (08:01)
[2018-08-14] MEDS ORDERED: IV FLUID CONTINUATION 1,000 ML IV ONE (08:20)
[2018-08-14] MEDS ORDERED: fentaNYL (PF) 50 MCG/ML 2 ML AMP IV ONE (08:30)
[2018-08-14] MEDS ORDERED: LIDOCAINE 1% INJ 10MG/ML (20 ML MDV) SQ ONE (08:35)
[2018-08-14] MEDS ORDERED: VERAPAMIL SYRINGE (5 MG/10 ML) INTRAARTER ONE (08:36)
[2018-08-14] MEDS ORDERED: MIDAZOLAM 2 MG/2 ML VIAL IV ONE (08:36)
[2018-08-14] MEDS ORDERED: BIVALIRUDIN BOLUS 250 MG/50 ML IV ONE (08:49)
[2018-08-14] MEDS ORDERED: BIVALIRUDIN 250 MG in SODIUM CHLORIDE 0.9% 50 ML IV ONE (08:50)
[2018-08-14] MEDS ORDERED: SODIUM CHLORIDE 0.9% 500 ML 500 ML IV ONE (08:53)
[2018-08-14] MEDS ORDERED: IOPAMIDOL-370 150ML BTL INJ ONE (08:58)
[2018-08-14] MEDS ORDERED: IOPAMIDOL-370 50ML BTL INJ ONE (08:59)
[2018-08-14] MEDS ORDERED: NITROGLYCERIN SL TABS 0.4 MG TAB SUBLINGUAL PRN (09:14)
[2018-08-14] MEDS ORDERED: ATROPINE SULFATE 0.1 MG/ML 10ML SYRINGE IV PRN (09:14)
[2018-08-14] MEDS ORDERED: MAG HYDROX/AL HYDROX/SIMETH 30 ML CUP PO PRN (09:14)
[2018-08-14] MEDS ORDERED: RX INFO: IV CONTRAST WAS GIVEN 1 EACH MISC MISCELLANE PRN (09:14)
[2018-08-14] MEDS ORDERED: ZOLPIDEM 5 MG TAB PO PRN (09:14)
[2018-08-14] MEDS ORDERED: SODIUM CHLORIDE 0.9% 1,000 ML IV SCH (09:15)
--- NOTE | 2018-08-14 09:43 | PTCA ---
PERCUTANEOUSTRANS CORORONARY ANGIOGRAPHY Mr. Lance is a 52-year-old male with a known history of coronary artery disease who presented with symptoms of chest discomfort and abnormal myocardial perfusion imaging. He underwent a cardiac catheterization that revealed significant disease involving the proximal left circumflex. In view of that, recommendation was made regarding angioplasty and stenting. The procedure as well as the risks and the complications were discussed with the patient who is in full understanding and agreement. PROCEDURE: A 6-Pashto FL3.5 guiding catheter introduced in the system. After cannulating the left main a 0.014 balanced medium weight J-wire was advanced across the lesion positioned distally then a 4.0 x 15 mm Xience Brianna stent was advanced, deployed and post dilated at 16 atmospheres. After the last inflation, after appropriate wait, the balloon and the guidewire were withdrawn back in the guiding catheter. Images were obtained, repeated. Those images reveal stable successful stenting. At that point, the guiding catheter, the balloon and the guidewire were removed. Left ventriculogram was performed. Subsequently the sheath was removed. Hemostasis was obtained with deployment of a TR band. There was no immediate complication. The patient was returned to his room in stable condition. Of note, the patient had chest discomfort with the inflation that resolved at the end of the procedure. He received Angiomax per protocol and was continued on clopidogrel. RESULTS: Successful stenting of the proximal left circumflex with reduction of stenosis from 80% to 0%. RECOMMENDATION: Patient will be continued on aspirin, Plavix, beta chelsea, DARIAN inhibitor and statin. The importance of dual antiplatelet treatment were discussed with the patient and he is in full understanding and agreement. He will undergo an abdominal ultrasound to evaluate his abdominal aortic aneurysm. MMODL / IJN: [id number] /
--- NOTE | 2018-08-14 09:52 | CC ---
CARDIAC CATHETERIZATION REPORT Mr. Lance is 52-year-old male with a history of coronary artery disease, status post stenting of the LAD and the right coronary artery, who presented with symptoms of chest discomfort with no enzymatic changes. He underwent myocardial perfusion imaging that revealed evidence of inducible ischemia. In view of that, recommendation was made regarding cardiac catheterization. The procedure as well as the risks and the complications were discussed with the patient who is in full understanding and agreement. PROCEDURE: Patient was brought to poultry hatchery laborer in a fasting semi-sedated state after receiving fentanyl and Benadryl and achieving moderate conscious sedated state. Using Xylocaine anesthesia in the Seldinger technique, a 6-Mexican sheath was introduced in the right radial artery. Selective right and left coronary angiography performed using 5-Mexican 4 bend right Jaycee and 5-Mexican 3.5 left Jaycee catheter. Multiple views of the coronary artery including hemiaxial views obtained. Following that, angioplasty and stenting was performed. Following that 5-Mexican tight pigtail catheter was introduced in the left ventricle and a 30-degree LEPE view of the left ventricle was obtained. Following that, catheter and sheath were removed. Hemostasis was obtained with deployment of a TR band. There was no immediate complication. Patient was returned to his room in stable condition. FINDINGS: LEFT MAIN: This is a large-sized vessel bifurcating left circumflex, left anterior descending artery. Left main coronary artery has a 10% to 20% plaque distally. LEFT ANTERIOR DESCENDING ARTERY: This is a large-sized vessel reaching toward the apex tapers down to distal third, giving rise to what appears 2 diagonal branches. The first one is very proximal large in caliber, has diffuse intimal disease without any high-grade stenosis. Proximally, there is what appears to be a stump of the second diagonal branch with no antegrade flow. The LAD has diffuse intimal disease throughout its course of 20% to 30%. An aneurysmal formation proximally distally has a 70% to 80% stenosis at the apex. The stented segment in the mid LAD is patent with no evidence of significant obstructive disease. LEFT CIRCUMFLEX: This is a large nondominant vessel giving rise to 2 obtuse marginal branches proximally. Prior to the takeoff of the first obtuse marginal branch, there is an eccentric 80% stenosis. The rest of the vessel has no high-grade stenosis. RIGHT CORONARY ARTERY: This is a dominant vessel large in caliber bifurcating distally PDA and posterolateral segment and branches. The right coronary artery in mid segment has a stent that is patent. Beyond the stent, there is a 30% to 40% plaque without any evidence of high-grade stenosis. LEFT VENTRICULOGRAM: Left ventriculogram is performed in 30-degree LEPE view and revealed mid anterior wall hypokinesis. Ejection fraction is estimated at 50%. There was no significant mitral regurgitation. An incidental abdominal aortic aneurysm was noted. HEMODYNAMICS: There was no gradient across the aortic valve. The left ventricular end- diastolic pressure was 16 to 20 mmHg. CONCLUSION: 1. Significant disease involving the proximal left circumflex. 2. Mild disease in the right coronary artery with patent stent. 3. Mild to moderate disease in the proximal left anterior descending artery with what appears to be chronic occluded second diagonal branch with significant disease in the very distal segment of the LAD. 4. Mildly impaired left ventricular systolic function with evidence of abdominal aortic aneurysm. RECOMMENDATION: In view of finding anatomy, I recommend proceeding with angioplasty and stenting of the left circumflex. The procedure as well as the risks and complications were discussed with the patient who is in full understanding and agreement. MMODL / IJN: [id number] /
[2018-08-14 13:34] VITALS: BMI 36.6
--- NOTE | 2018-08-14 14:24 | US ---
EXAMINATION TYPE: US duplex aorta DATE OF EXAM: 08/14/2018 COMPARISON: CT 2013 CLINICAL HISTORY: abdominal aortic aneurysm . EXAM MEASUREMENTS: Abdominal Aorta: Proximal: 2.8 x 2.7 cm Mid: 2.3 x 1.9 cm Distal: 2.7 x 2.5 cm Bifurcation: 1.7 cm 1.4 cm Ectasia distal aorta, just before bifurcation measures 2.7 x 2.5 cm extending over 4.6 cm in length. IMPRESSION: Distal abdominal aortic ectasia nearly meeting criteria for aneurysm measures 2.7 x 2.5 c m extending over 4.6 cm in length.
--- NOTE | 2018-08-14 18:02 | P.PN ---
Subjective This is a pleasant 52 years old male with past medical history of coronary artery disease, GERD, hypertension, osteoarthritis, sleep apnea, spinal stenosis with chronic back pain,. Patient was transferred from [facility]. He presents because of chest pain. His chest pain is of 2 days' duration, left side nonradiating, about 8/10 in severity, down to 6/10. Keflex something sitting on his chest, with no precipitating or relieving factors, associated with some dyspnea and nausea but no vomiting. Patient also have some left hand numbness and dizziness. However patient was lying in bed not in distress currently. And he leaks more comfortable while eating. Patient has been evaluated by gas leak inspector and he had positive stress test. And plan to have cardiac cath next day. Troponins were negative at [facility] and then repeated to this hospital. Magnesium 1.9. Sodium 139, glucose 126, creatinine 1.2, which is w ithin normal limits, liver enzymes.elevated.. Chest x-ray showing no acute pulmonary process as per radiologist's report. D-dimer was negative at 0.5F with reference range between 0.19-0.59. INR is 1.0. WBC is 11.6 K which is slightly elevated hemoglobin 15, platelets 230 08/14/2018 Patient underwent cardiac cath today with angioplasty and successful placement of stent in the circumflex artery. He tolerated the procedure well. Vitals stable and blood pressure 100/57. WBC is slightly elevated at 12.5 K. Rest of flap were unremarkable. He is currently on Plavix and aspirin. Cardiology are following the patient closely Objective - Vital Signs Vital signs: Vital Signs Temp 97.8 F 08/14/18 15:17 Pulse 81 08/14/18 15:43 Resp 16 08/14/18 15:43 BP 100/57 08/14/18 15:17 Pulse Ox 95 08/14/18 15:17 Intake & Output 08/13/18 08/14/18 08/14/18 18:59 06:59 18:59 Intake Total 895 Balance 895 Weight 93.8 kg 93.8 kg Intake: IV 595 Oral 300 Other: Voiding Method Toilet - Exam GENERAL: The patient is alert and oriented x3, not in any acute distress. Well developed, well nourished. HEENT: Pupils are round and equally reacting to light. EOMI. No scleral icterus. No conjunctival pallor. Normocephalic, atraumatic. No pharyngeal erythema. No thyromegaly. CARDIOVASCULAR: S1 and S2 present. No murmurs, rubs, or gallops. PULMONARY: Chest is clear to auscultation, no wheezing or crackles. ABDOMEN: Soft, nontender, nondistended, normoactive bowel sounds. No palpable organomegaly. MUSCULOSKELETAL: No joint swelling or deformity. EXTREMITIES: No cyanosis, clubbing, or pedal edema. NEUROLOGICAL: Gross neurological examination did not reveal any focal deficits. SKIN: No rashes. - Labs CBC & Chem 7: 08/14/18 05:41 08/14/18 05:41 Labs: Abnormal Lab Results - Last 24 Hours (Table) 08/14/18 08/14/18 Range/Units 05:41 05:41 WBC 12.5 H (3.8-10.6) k/uL Chloride 110 H (98-107) mmol/L Assessment and Plan Assessment: Chest pain, status post coronary artery angioplasty and successful stenting of the circumflex artery History of coronary artery disease with stents Essential hypertension GERD History of osteoarthritis History of sleep apnea History of spinal stenosis with chronic back pain Plan: This is a pleasant 52 years old male who presents with chest pain and abnormal stress test. Patient is going for cardiac cath on 08/14/2018. Cardiology ev aluation is appreciated. Continue with aspirin and statin Labs and medication were reviewed.. Continue same treatment. Continue with symptomatic treatment. Resume home medication. Monitor lytes and vitals. DVT and GI prophylaxis. Further recommendations of the clinical course of the patient DVT prophylaxis: Subcutaneous heparin GI Prophylaxis: Pepcid PT/OT: Pending Prognosis is guarded
[2018-08-14] MEDS: ATORVASTATIN 80 MG TAB PO SCH (21:57)
[2018-08-15 07:49] LABS: Anion Gap 6 mmol/L; Blood Urea Nitrogen 16 mg/dL (9-20); Calcium 8.9 mg/dL (8.4-10.2); Carbon Dioxide 23 mmol/L (22-30); Chloride 108 mmol/L (98-107); Glucose 85 mg/dL (74-99); Potassium 4.4 mmol/L (3.5-5.1); Sodium 137 mmol/L (137-145)
[2018-08-15 08:28] VITALS: RESP 16; TEMP 97.7
[2018-08-15] MEDS: amLODIPine 5 MG TAB PO SCH (08:32)
[2018-08-15] MEDS: HEPARIN SODIUM,PORCINE 5,000 UNIT/ML 1 ML VIAL SQ SCH (08:33)
[2018-08-15] MEDS: FAMOTIDINE 20 MG/2 ML VIAL IV SCH (08:33)
[2018-08-15] MEDS: ISOSORBIDE MONONITRATE ER 30 MG TAB.ER.24H PO SCH (08:33)
[2018-08-15] MEDS: ASPIRIN 81 MG PO SCH (08:33)
[2018-08-15] MEDS: METOPROLOL TARTRATE 50 MG TAB PO SCH (08:33)
[2018-08-15] MEDS: CLOPIDOGREL 75 MG TAB PO SCH (08:33)
[2018-08-15] MEDS: LISINOPRIL 20 MG TAB PO SCH (08:35)
--- NOTE | 2018-08-15 08:47 | PN ---
PROGRESS NOTE Mr. Lance is a 52-year-old male with known history of coronary artery disease who presented with symptoms of chest pain, had an abnormal myocardial perfusion imaging, underwent cardiac catheterization was found to have significant stenosis in the proximal left circumflex. He underwent stenting yesterday. He is doing well this morning. Ambulating without difficulty denying any dizziness. No palpitation. His breathing has been stable. He continues to be on aspirin once a day, Lipitor 80 mg daily, Plavix 75 mg daily, isosorbide mononitrate 30 mg daily, lisinopril 40 mg daily, metoprolol tartrate 50 mg twice a day. PHYSICAL EXAMINATION: Blood pressure 102/70 with a heart rate in the 80s. LUNGS: Clear. HEART: Regular rate and rhythm S1, S2. No S3. No rub. ABDOMEN: Soft, nontender. EXTREMITIES: No edema. Right radial pulse intact. LAB DATA: BUN and creatinine 17 and 0.83. Potassium 4.2, hemoglobin 13.2. His abdominal ultrasound revealed a small abdominal aortic aneurysm measuring 2.7 x 2.5. IMPRESSION: 1. Status post stenting of left circumflex. 2. Hypertension. 3. Hyperlipidemia. 4. Abdominal aortic aneurysm. RECOMMENDATIONS: He should be able to be discharged home today and follow up with Dr. Berry next week. MMODL / IJN: [id number] /
[2018-08-15 11:02] VITALS: BP 107/57; PULSE 63
[2018-08-15] MEDS: HYDROcodone/APAP 7.5-325MG 1 EACH TAB PO PRN (11:03)
--- NOTE | 2018-08-15 22:22 | P.DS ---
Providers Date of admission: 08/13/18 13:09 Expected date of discharge: 08/15/18 Attending physician: Jw Rangel MD Consults: 08/13/18 02:02 Consult Physician Routine Consulting Provider: Robin Appiah Consult Reason/Comments: Chest Pain Do you want consulting provider notified?: Yes, Notify in am 08/14/18 09:14 Consult Physician Routine Consulting Provider: [facility] Consult Reason/Comments: Post Interventional patient Do you want consulting provider notified?: Already Contacted Primary care physician: Stated None Hospital Course: Mr. Lance is a pleasant 52 years old male with past medical history of coronary artery disease, GERD, hypertension, osteoarthritis, sleep apnea, spinal stenosis with chronic back pain, transferred from [facility]. He presents because of chest pain. His chest pain is of 2 days' duration, left side nonradiating, about 8/10 in severity, down to 6/10. He felt like something sitting on his chest, with no precipitating or relieving factors, associated with some dyspnea and nausea but no vomiting. Patient also have some left hand numbness and dizziness. Patient has been evaluated by plunger machine operator and he had positive stress test. And plan to have cardiac cath next day. Troponins were negative at [facility] and then repeated to this hospital. Magnesium 1.9. Sodium 139, glucose 126, creatinine 1.2, which is within normal limits, liver enzymes.elevated.. Chest x-ray showing no acute pulmonary process as per radiologist's report. D-dimer was negative at 0.5F with reference range between 0.19-0.59. INR is 1.0. WBC is 11.6 K which is slightly elevated hemoglobin 15, platelets 230 08/14/2018 Patient underwent cardiac cath today with angioplasty and successful placement of stent in the circumflex artery. He tolerated the procedure well. Vitals stable and blood pressure 100/57. On 08/15/18 - Today the patient is lying in bed comfortably, appears to be in no acute distress. No acute overnight events reported by nursing staff. On review of system patient denies having any chest pain or palpitations. No fever chills or rigors. No hematuria or dysuria. No abdominal pain nausea vomiting or diarrhea. Patient states that he is back to his normal state and wants to go home. Cardiology has cleared the patient to be discharged home in stable condition. Exam GENERAL: The patient is alert and oriented x3, not in any acute distress. Well developed, well nourished. HEENT: Pupils are round and equally reacting to light. EOMI. No scleral icterus. No conjunctival pallor. Normocephalic, atraumatic. No pharyngeal erythema. No thyromegaly. CARDIOVASCULAR: S1 and S2 present. No murmurs, rubs, or gallops. PULMONARY: Chest is clear to auscultation, no wheezing or crackles. ABDOMEN: Soft, nontender, nondistended, normoactive bowel sounds. No palpable organomegaly. MUSCULOSKELETAL: No joint swelling or deformity. EXTREMITIES: No cyanosis, clubbing, or pedal edema. NEUROLOGICAL: Gross neurological examination did not reveal any focal deficits. SKIN: No rashes. Laboratory Last Values WBC 12.5 k/uL (3.8-10.6) H 08/14/18 05:41 RBC 4.47 m/uL (4.30-5.90) 08/14/18 05:41 Hgb 13.2 gm/dL (13.0-17.5) 08/14/18 05:41 Hct 41.4 % (39.0-53.0) 08/14/18 05:41 MCV 92.6 fL (80.0-100.0) 08/14/18 05:41 MCH 29.6 pg (25.0-35.0) 08/14/18 05:41 MCHC 31.9 g/dL (31.0-37.0) 08/14/18 05:41 RDW 14.5 % (11.5-15.5) 08/14/18 05:41 Plt Count 210 k/uL (150-450) 08/14/18 05:41 Neutrophils % 62 % 08/14/18 05:41 Lymphocytes % 28 % 08/14/18 05:41 Monocytes % 6 % 08/14/18 05:41 Eosinophils % 1 % 08/14/18 05:41 Basophils % 0 % 08/14/18 05:41 Neutrophils # 7.7 k/uL (1.3-7.7) 08/14/18 05:41 Lymphocytes # 3.5 k/uL (1.0-4.8) 08/14/18 05:41 Monocytes # 0.8 k/uL (0-1.0) 08/14/18 05:41 Eosinophils # 0.1 k/uL (0-0.7) 08/14/18 05:41 Basophils # 0.0 k/uL (0-0.2) 08/14/18 05:41 Sodium 137 mmol/L (137-145) 08/15/18 06:35 Potassium 4.4 mmol/L (3.5-5.1) 08/15/18 06:35 Chloride 108 mmol/L (98-107) H 08/15/18 06:35 Carbon Dioxide 23 mmol/L (22-30) 08/15/18 06:35 Anion Gap 6 mmol/L 08/15/18 06:35 BUN 16 mg/dL (9-20) 08/15/18 06:35 Creatinine 0.85 mg/dL (0.66-1.25) 08/15/18 06:35 Est GFR (CKD-EPI)AfAm >90 (>60 ml/min/1.73 sqM) 08/15/18 06:35 Est GFR (CKD-EPI)NonAf >90 (>60 ml/min/1.73 sqM) 08/15/18 06:35 Glucose 85 mg/dL (74-99) 08/15/18 06:35 Calcium 8.9 mg/dL (8.4-10.2) 08/15/18 06:35 Troponin I <0.012 ng/mL (0.000-0.034) 08/13/18 07:28 NT-Pro-B Natriuret Pep 28 pg/mL 08/13/18 07:28 DISCHARGE DIAGNOSES Chest pain, status post coronary artery angioplasty and successful stenting of the circumflex artery History of coronary artery disease with stents Essential hypertension GERD History of osteoarthritis History of sleep apnea History of spinal stenosis with chronic back pain Patient has been counseled on importance to be compliant with his aspirin, Plavix, statin, beta-chelsea and DARIAN inhibitor. He is advised to follow-up with his primary care physician and his plunger machine operator Dr. Vaughan within 1 weeks of time. More than 30 minutes spent with the discharge of the patient. Plan - Discharge Summary Discharge Rx Participant: Yes New Discharge Prescriptions: New Nitroglycerin Sl Tabs [Nitrostat] 0.4 mg SUBLINGUAL Q5M PRN #25 tab PRN Reason: Chest Pain amLODIPine [Norvasc] 5 mg PO DAILY tab Continue Atorvastatin [Lipitor] 80 mg PO HS traMADol HCL [Ultram] 50 mg PO DIRECTED PRN PRN Reason: Pain Isosorbide Mononitrate ER [Imdur] 30 mg PO DAILY Clopidogrel [Plavix] 75 mg PO DAILY Cetirizine HCl [Zyrtec] 10 mg PO DAILY Metoprolol Tartrate [Lopressor] 50 mg PO BID Omeprazole [PriLOSEC] 40 mg PO DAILY Lisinopril [Zestril] 40 mg PO DAILY Aspirin [Adult Low Dose Aspirin EC] 81 mg PO DAILY HYDROcodone/APAP 7.5-325MG [[place] 7.5-325] 1 tab PO QID PRN PRN Reason: Pain Discharge Medication List Aspirin [Adult Low Dose Aspirin EC] 81 mg PO DAILY 01/15/18 [History] Atorvastatin [Lipitor] 80 mg PO HS 01/15/18 [History] Cetirizine HCl [Zyrtec] 10 mg PO DAILY 01/15/18 [History] Clopidogrel [Plavix] 75 mg PO DAILY 01/15/18 [History] Isosorbide Mononitrate ER [Imdur] 30 mg PO DAILY 01/15/18 [History] Lisinopril [Zestril] 40 mg PO DAILY 01/15/18 [History] Metoprolol Tartrate [Lopressor] 50 mg PO BID 01/15/18 [History] Omeprazole [PriLOSEC] 40 mg PO DAILY 01/15/18 [History] traMADol HCL [Ultram] 50 mg PO DIRECTED PRN 01/15/18 [History] HYDROcodone/APAP 7.5-325MG [[place] 7.5-325] 1 tab PO QID PRN 08/13/18 [History] Nitroglycerin Sl Tabs [Nitrostat] 0.4 mg SUBLINGUAL Q5M PRN #25 tab 08/15/18 [Rx] amLODIPine [Norvasc] 5 mg PO DAILY tab 08/15/18 [Rx] Follow up Appointment(s)/Referral(s): Ajit Berry MD [STAFF PHYSICIAN] - 1 Week (Office is currently closed. Please call on Friday to make follow up appointment. ) [facility], [NON-STAFF] - 1-2 Days Patient Instructions/Handouts: Left Heart Catheterization (DC) Discharge Disposition: HOME SELF-CARE
== END 2018-08-15 16:38 | disposition home or self-care (01) | DRG 247 ==
LOC: 1SOBS 23:39 → OBSVTOIN 08-13 13:09 → 3SCARD 08-13 16:13
PROVIDERS: ADMIT Internal Medicine; ATTEND Internal Medicine
PROC: 4A023N7 Measurement of Cardiac Sampling and Pressure, Left Heart, Percutaneous Approach (ICD-10-PCS; 2018-08-14)
PROC: B2111ZZ Fluoroscopy of Multiple Coronary Arteries using Low Osmolar Contrast (ICD-10-PCS; 2018-08-14)
PROC: B2151ZZ Fluoroscopy of Left Heart using Low Osmolar Contrast (ICD-10-PCS; 2018-08-14)
PROC: 027034Z Dilation of Coronary Artery, One Artery with Drug-eluting Intraluminal Device, Percutaneous Approach (ICD-10-PCS; principal; 2018-08-14 08:04)
PROC: B2151ZZ Fluoroscopy of Left Heart using Low Osmolar Contrast (ICD-10-PCS; 2018-08-14 08:04)
DX: I25.10 Atherosclerotic heart disease of native coronary artery without angina pectoris (principal); E78.5 Hyperlipidemia, unspecified; I10 Essential (primary) hypertension; I71.4 Abdominal aortic aneurysm, without rupture; K21.9 Gastro-esophageal reflux disease without esophagitis; M19.90 Unspecified osteoarthritis, unspecified site; G47.30 Sleep apnea, unspecified; G89.29 Other chronic pain; M48.00 Spinal stenosis, site unspecified; M54.9 Dorsalgia, unspecified; Z79.82 Long term (current) use of aspirin; Z79.02 Long term (current) use of antithrombotics/antiplatelets; Z79.899 Other long term (current) drug therapy; Z95.5 Presence of coronary angioplasty implant and graft; Z87.442 Personal history of urinary calculi; Z87.891 Personal history of nicotine dependence; Z88.0 Allergy status to penicillin; Z80.9 Family history of malignant neoplasm, unspecified
CPT/HCPCS: 78452; 80048; 83880; 84484; 85025; 93017; 93458; 93979; C1874

== ENCOUNTER 2018-09-04 23:08 | Emergency (ER) | payer OTHER ==
[2018-09-04 23:18] VITALS: RESP 18; TEMP 98
--- NOTE | 2018-09-04 23:33 | ED ---
Abdominal Pain HPI - General Chief Complaint: Abdominal Pain Stated Complaint: URQ Pain Hx Kidney Stones Time Seen by Provider: 09/04/18 23:32 Source: patient Mode of arrival: ambulatory Limitations: no limitations - History of Present Illness Initial Comments: Giorgi velásquez 52-year-old gentleman presents to the emergency room today for evaluation of pain. Patient reports he has a history of kidney stones, he began expressing flank pain early this morning. He has noticed some urinary frequency but no gross hematuria. She reports this pain is similar in character to previous episodes of kidney stones. He reports some associated nausea but no vomiting. He reports a normal bowel movement this morning. Patient also notes that he had a mild nonproductive cough and did note a little bit of streaking of blood in his sputum today. Her experienced this before he has no history of asthma or COPD. - Related Data Home Medications Medication Instructions Recorded Confirmed Aspirin [Adult Low Dose Aspirin EC] 81 mg PO DAILY 01/15/18 09/04/18 Atorvastatin [Lipitor] 80 mg PO HS 01/15/18 09/04/18 Cetirizine HCl [Zyrtec] 10 mg PO DAILY 01/15/18 09/04/18 Clopidogrel [Plavix] 75 mg PO DAILY 01/15/18 09/04/18 Isosorbide Mononitrate ER [Imdur] 30 mg PO DAILY 01/15/18 09/04/18 Lisinopril [Zestril] 40 mg PO DAILY 01/15/18 09/04/18 Metoprolol Tartrate [Lopressor] 50 mg PO BID 01/15/18 09/04/18 Omeprazole [PriLOSEC] 40 mg PO DAILY 01/15/18 09/04/18 HYDROcodone/APAP 7.5-325MG [[place] 1 tab PO QID PRN 08/13/18 09/04/18 7.5-325] Previous Rx's Medication Instructions Recorded amLODIPine [Norvasc] 5 mg PO DAILY tab 08/15/18 Ondansetron [Zofran ODT] 4 mg PO Q8HR #12 tab 09/05/18 Tamsulosin [Flomax] 0.4 mg PO DAILY #7 cap 09/05/18 Allergies Allergy/AdvReac Type Severity Reaction Status Date / Time morphine Allergy Rash/Hives Verified 08/13/18 16:03 Penicillins Allergy Rash/Hives Verified 08/13/18 08:17 Review of Systems ROS Statement: Those systems with pertinent positive or pertinent negative responses have been documented in the HPI. ROS Other: All systems not noted in ROS Statement are negative. Past Medical History Past Medical History: Coronary Artery Disease (CAD), Chest Pain / Angina, CHITRA D/Reflux, Hypertension, Osteoarthritis (OA), Sleep Apnea/CPAP/BIPAP Additional Past Medical History / Comment(s): SLEEP APNEA- NO C-PAP, SPINAL STENOSIS, BACK PAIN., WEARS NECK BRACE AT HS., WEARS BACK BRACE AND USES CANE., KIDNEY STONES, STATES NUMBNESS AT TIMES ON RIGHT SIDE., SOB WITH ACTIVITY. , SEE CARDIOLOGY H & P. History of Any Multi-Drug Resistant Organisms: None Reported Past Surgical History: Heart Catheterization With Stent, Tonsillectomy Additional Past Surgical History / Comment(s): bilateral wrists & elbow surgery, neck surgery, heart cath with stents 08/19/2017 ([facility])., SURGERY FOR KIDNEY STONES. Past Anesthesia/Blood Transfusion Reactions: No Reported Reaction Date of Last Stent Placement:: 08/19/2017 Past Psychological History: No Psychological Hx Reported Smoking Status: Former smoker Past Alcohol Use History: Occasional Past Drug Use History: None Reported - Past Family History Mother Family Medical History: Cancer Father Family Medical History: Cancer General Exam - General Exam Comments Initial Comments: Physical Exam GENERAL: Patient is well-developed and well-nourished. Patient is nontoxic and well-hydrated and is in no distress. HENT: Normocephalic, Atraumatic. EYES: PERRL, EOMI PULMONARY: Unlabored respirations. No audible rales rhonchi or wheezing was noted. CARDIOVASCULAR: There is a regular rate and rhythm without any murmurs gallops or rubs. ABDOMEN: Soft and nontender with normal bowel sounds. Noticed to percussion of the right flank SKIN: Skin is clear with no lesions or rashes and otherwise unremarkable. : Deferred NEUROLOGIC: Patient is alert and oriented x3. Moving all extremities spontaneously MUSCULOSKELETAL: Normal extremities with adequate strength and full range of motion. No lower extremity swelling or edema. No calf tenderness. PSYCHIATRIC: Normal psychiatric evaluation. Limitations: no limitations Limitations: no limitations Course Vital Signs 09/04/18 09/05/18 23:15 00:18 Temperature 98.0 F Pulse Rate 94 95 Respiratory 18 18 Rate Blood Pressure 106/78 98/68 O2 Sat by Pulse 96 99 Oximetry Medical Decision Making - Medical Decision Making Patient was seen and evaluated, history was obtained from the patient History and physical exam are concerning for recurrent kidney stone Labs are unremarkable Sign urinalysis does show gross hematuria concerning for so KUB x-ray doesn't show any evidence of stone I suspect that there is likely small stones or stones have passed exam patient was given Toradol for pain management & chest x-ray was unremarkable Labs and imaging were discussed with the patient he reports improvement in his pain after the Toradol this I patient's comfortable with plan for discharge home will be given 2 by mouth Tylenol 3 to take as needed for discomfort Return parameters discussed, patient discharged home in stable condition. - Lab Data Result diagrams: 09/04/18 23:48 09/04/18 23:48 Lab Results 09/04/18 09/04/18 09/04/18 Range/Units 23:40 23:48 23:48 WBC 11.6 H (3.8-10.6) k/uL RBC 4.98 (4.30-5.90) m/uL Hgb 14.7 (13.0-17.5) gm/dL Hct 42.7 (39.0-53.0) % MCV 85.8 D (80.0-100.0) fL MCH 29.6 (25.0-35.0) pg MCHC 34.5 (31.0-37.0) g/dL RDW 15.7 H (11.5-15.5) % Plt Count 233 (150-450) k/uL Neutrophils % 59 % Lymphocytes % 27 % Monocytes % 9 % Eosinophils % 3 % Basophils % 1 % Neutrophils # 6.9 (1.3-7.7) k/uL Lymphocytes # 3.1 (1.0-4.8) k/uL Monocytes # 1.0 (0-1.0) k/uL Eosinophils # 0.3 (0-0.7) k/uL Basophils # 0.1 (0-0.2) k/uL PT (9.0-12.0) sec INR (<1.2) APTT (22.0-30.0) sec Sodium 136 L (137-145) mmol/L Potassium 4.6 (3.5-5.1) mmol/L Chloride 107 (98-107) mmol/L Carbon Dioxide 20 L (22-30) mmol/L Anion Gap 9 mmol/L BUN 16 (9-20) mg/dL Creatinine 1.23 (0.66-1.25) mg/dL Est GFR (CKD-EPI)AfAm 77 (>60 ml/min/1.73 sqM) Est GFR (CKD-EPI)NonAf 67 (>60 ml/min/1.73 sqM) Glucose 106 H (74-99) mg/dL Calcium 9.6 (8.4-10.2) mg/dL Total Bilirubin 0.4 (0.2-1.3) mg/dL AST 23 (17-59) U/L ALT 24 (21-72) U/L Alkaline Phosphatase 67 (38-126) U/L Total Protein 6.8 (6.3-8.2) g/dL Albumin 4.0 (3.5-5.0) g/dL Amylase 65 (30-110) U/L Lipase 136 (23-300) U/L Urine Color Yellow Urine Appearance Clear (Clear) Urine pH 5.5 (5.0-8.0) Ur Specific [place] 1.025 (1.001-1.035) Urine Protein Trace H (Negative) Urine Glucose (UA) Negative (Negative) Urine Ketones Negative (Negative) Urine Blood Small H (Negative) Urine Nitrite Negative (Negative) Urine Bilirubin Negative (Negative) Urine Urobilinogen <2.0 (<2.0) mg/dL Ur Leukocyte Esterase Negative (Negative) Urine RBC 40 H (0-5) /hpf Urine WBC 6 H (0-5) /hpf Ur Squamous Epith Cells <1 (0-4) /hpf Calcium Oxalate Crystal Moderate H (None) /hpf Urine Mucus Rare H (None) /hpf 09/04/18 Range/Units 23:48 WBC (3.8-10.6) k/uL RBC (4.30-5.90) m/uL Hgb (13.0-17.5) gm/dL Hct (39.0-53.0) % MCV (80.0-100.0) fL MCH (25.0-35.0) pg MCHC (31.0-37.0) g/dL RDW (11.5-15.5) % Plt Count (150-450) k/uL Neutrophils % % Lymphocytes % % Monocytes % % Eosinophils % % Basophils % % Neutrophils # (1.3-7.7) k/uL Lymphocytes # (1.0-4.8) k/uL Monocytes # (0-1.0) k/uL Eosinophils # (0-0.7) k/uL Basophils # (0-0.2) k/uL PT 9.8 (9.0-12.0) sec INR 0.9 (<1.2) APTT 25.7 (22.0-30.0) sec Sodium (137-145) mmol/L Potassium (3.5-5.1) mmol/L Chloride (98-107) mmol/L Carbon Dioxide (22-30) mmol/L Anion Gap mmol/L BUN (9-20) mg/dL Creatinine (0.66-1.25) mg/dL Est GFR (CKD-EPI)AfAm (>60 ml/min/1.73 sqM) Est GFR (CKD-EPI)NonAf (>60 ml/min/1.73 sqM) Glucose (74-99) mg/dL Calcium (8.4-10.2) mg/dL Total Bilirubin (0.2-1.3) mg/dL AST (17-59) U/L ALT (21-72) U/L Alkaline Phosphatase (38-126) U/L Total Protein (6.3-8.2) g/dL Albumin (3.5-5.0) g/dL Amylase (30-110) U/L Lipase (23-300) U/L Urine Color Urine Appearance (Clear) Urine pH (5.0-8.0) Ur Specific [place] (1.001-1.035) Urine Protein (Negative) Urine Glucose (UA) (Negative) Urine Ketones (Negative) Urine Blood (Negative) Urine Nitrite (Negative) Urine Bilirubin (Negative) Urine Urobilinogen (<2.0) mg/dL Ur Leukocyte Esterase (Negative) Urine RBC (0-5) /hpf Urine WBC (0-5) /hpf Ur Squamous Epith Cells (0-4) /hpf Calcium Oxalate Crystal (None) /hpf Urine Mucus (None) /hpf Disposition Clinical Impression: Flank pain, Right flank pain Disposition: HOME SELF-CARE Condition: Stable Instructions (If sedation given, give patient instructions): Abdominal Pain (ED) Prescriptions: Tamsulosin [Flomax] 0.4 mg PO DAILY #7 cap Ondansetron [Zofran ODT] 4 mg PO Q8HR #12 tab Is patient prescribed a controlled substance at d/c from ED?: No Referrals: Odette Mcgee NPC [REFERRING] - 1-2 days
[2018-09-05 00:12] LABS: Basophils # (A) 0.1 k/uL (0-0.2); Basophils % (A) 1 %; Eosinophils # (A) 0.3 k/uL (0-0.7); Eosinophils % (A) 3 %; HCT 42.7 % (39.0-53.0); HGB 14.7 gm/dL (13.0-17.5); Lymphocytes # (A) 3.1 k/uL (1.0-4.8); Lymphocytes % (A) 27 %; MCH 29.6 pg (25.0-35.0); MCHC 34.5 g/dL (31.0-37.0); Monocytes % (A) 9 %; Neutrophils # (A) 6.9 k/uL (1.3-7.7); Neutrophils % (A) 59 %; Platelet Count 233 k/uL (150-450); RBC 4.98 m/uL (4.30-5.90); RDW 15.7 % (11.5-15.5); WBC 11.6 k/uL (3.8-10.6)
[2018-09-05 00:21] LABS: MCV 85.8 fL (80.0-100.0)
--- NOTE | 2018-09-05 00:22 | XR ---
EXAM: XR Abdomen, 1 View CLINICAL HISTORY: ITS.REASON XR Reason: abdominal pain TECHNIQUE: Frontal supine view of the abdomen/pelvis. COMPARISON: 06/24/18 KUB IMPRESSION: Copious amounts of stool throughout the colon, correlate with constipation. No bowel obstruction. No free air. Enlarged liver.
[2018-09-05 00:32] LABS: Appearance,Urine Clear (Clear); Bilirubin,Urine Negative (Negative); Blood,Urine Small (Negative); Calcium Oxalate Crystals,Urine Moderate /hpf; Color,Urine Yellow; Glucose,Urine (UA) Negative (Negative); Ketones,Urine Negative (Negative); Leukocyte Esterase,Urine Negative (Negative); Mucus,Urine Rare /hpf; Nitrite,Urine Negative (Negative); PH, Urine 5.5 (5.0-8.0); Protein,Urine Trace (Negative); RBC,Urine 40 /hpf (0-5); Specific Gravity,Urine 1.025 (1.001-1.035); Squamous Epithelial Cell,Urine <1 /hpf (0-4); Urobilinogen,Urine <2.0 mg/dL (<2.0); WBC,Urine 6 /hpf (0-5)
[2018-09-05 00:38] LABS: Calcium 9.6 mg/dL (8.4-10.2); INR 0.9 (<1.2); Partial Thromboplastin Time 25.7 sec (22.0-30.0); Potassium 4.6 mmol/L (3.5-5.1); Prothrombin Time 9.8 sec (9.0-12.0); Total Bilirubin 0.4 mg/dL (0.2-1.3); Total Protein 6.8 g/dL (6.3-8.2)
--- NOTE | 2018-09-05 00:56 | XR ---
EXAM: XR Chest, 2 Views CLINICAL HISTORY: ITS.REASON XR Reason: hemoptysis TECHNIQUE: Frontal and lateral views of the chest. COMPARISON: No relevant prior studies available. FINDINGS: Lungs: No consolidation or mass. Pleural space: No effusion. Heart: No cardiomegaly. Mediastinum: Unremarkable. Bones/joints: No acute findings. IMPRESSION: No acute cardiopulmonary process.
[2018-09-05] MEDS ORDERED: KETOROLAC 30 MG/ML 1 ML VIAL IVP ONE (01:19)
[2018-09-05] MEDS ORDERED: ACET/COD 300 MG/30 MG STARTER PACK 6 TAB BTL PO STA (02:15)
[2018-09-05 02:40] VITALS: BP 103/80; PULSE 88
== END 2018-09-05 02:38 | disposition home or self-care (01) ==
LOC: EC 23:08
DX: R10.11 Right upper quadrant pain (principal); R11.0 Nausea; R35.0 Frequency of micturition; R31.0 Gross hematuria; I25.10 Atherosclerotic heart disease of native coronary artery without angina pectoris; K21.9 Gastro-esophageal reflux disease without esophagitis; I10 Essential (primary) hypertension; G47.30 Sleep apnea, unspecified; Z99.89 Dependence on other enabling machines and devices; Z87.442 Personal history of urinary calculi; Z95.5 Presence of coronary angioplasty implant and graft; Z87.891 Personal history of nicotine dependence; Z79.82 Long term (current) use of aspirin; Z79.02 Long term (current) use of antithrombotics/antiplatelets; Z79.899 Other long term (current) drug therapy; Z88.5 Allergy status to narcotic agent; Z88.0 Allergy status to penicillin
CPT/HCPCS: 36415; 80053; 82150; 83690; 85025; 85610; 85730; 81001; 71046; 74018; 99284; 96374; J1885

== ENCOUNTER → 2020-05-05 | Outpatient (CLI) | payer MEDICARE, OTHER ==
--- NOTE | 2020-05-05 14:33 | XR ---
EXAMINATION TYPE: XR KUB DATE OF EXAM: 05/05/2020 COMPARISON: 09/05/2018 INDICATION: Bilateral renal stones TECHNIQUE: Single view abdomen frontal supine view FINDINGS: There is a normal bowel gas pattern. Psoas margins are normal. No organomegaly is present. There is a 2.3 cm calcification at the inferior pole left kidney. In upper pole 0.7 cm calcification is present. These are developed from the comparison study. A small proximal right ureteral stone may be present measuring 0.4 cm at the level of the L4-L5 disc space. Phleboliths are within the pelvis. IMPRESSION: 1. Interval development of left-sided renal stones, largest measures 2.3 cm at the inferior pole. 2. Mid right ureteral stone may be present measuring 0.4 cm.
== END | disposition home or self-care (01) ==
LOC: RADXRMAIN 14:01
PROVIDERS: ATTEND Urology
DX: N20.0 Calculus of kidney (principal)
CPT/HCPCS: 74018

== ENCOUNTER → 2020-05-17 | Outpatient (CLI) | payer MEDICARE, OTHER ==
[2020-05-17 10:33] LABS: Basophils # (A) 0.1 k/uL (0-0.2); Basophils % (A) 1 %; Eosinophils # (A) 0.2 k/uL (0-0.7); Eosinophils % (A) 2 %; HCT 48.4 % (39.0-53.0); HGB 15.6 gm/dL (13.0-17.5); Lymphocytes # (A) 2.3 k/uL (1.0-4.8); Lymphocytes % (A) 24 %; MCH 29.4 pg (25.0-35.0); MCHC 32.2 g/dL (31.0-37.0); MCV 91.4 fL (80.0-100.0); Mean Platelet Volume 7.3; Monocytes # (A) 0.7 k/uL (0-1.0); Monocytes % (A) 7 %; Neutrophils # (A) 6.1 k/uL (1.3-7.7); Neutrophils % (A) 64 %; Platelet Count 218 k/uL (150-450); RDW 14.1 % (11.5-15.5); WBC 9.5 k/uL (3.8-10.6)
[2020-05-17 10:44] LABS: African American GFR (CKD) >90 (>60 ml/min/1.73 sqM); Anion Gap 8 mmol/L; Blood Urea Nitrogen 14 mg/dL (9-20); Calcium 9.6 mg/dL (8.4-10.2); Carbon Dioxide 28 mmol/L (22-30); Chloride 102 mmol/L (98-107); Glucose 108 mg/dL (74-99); Non-African American GFR(CKD) 84 (>60 ml/min/1.73 sqM); Potassium 4.4 mmol/L (3.5-5.1); Sodium 138 mmol/L (137-145)
[2020-05-17 10:48] LABS: Appearance,Urine Clear (Clear); Bacteria,Urine Occasional /hpf; Bilirubin,Urine Negative (Negative); Blood,Urine Small (Negative); Color,Urine Yellow; Glucose,Urine (UA) Negative (Negative); Ketones,Urine Negative (Negative); Leukocyte Esterase,Urine Small (Negative); Mucus,Urine Occasional /hpf; Nitrite,Urine Negative (Negative); PH, Urine 6.5 (5.0-8.0); Protein,Urine Negative (Negative); RBC,Urine 47 /hpf (0-5); Specific Gravity,Urine 1.015 (1.001-1.035); Urobilinogen,Urine <2.0 mg/dL (<2.0); WBC,Urine 5 /hpf (0-5)
== END | disposition home or self-care (01) ==
LOC: LABPAT 09:33
PROVIDERS: ATTEND Urology
DX: Z01.818 Encounter for other preprocedural examination (principal); N20.1 Calculus of ureter; R31.29 Other microscopic hematuria
CPT/HCPCS: 80048; 81001; 85025

== ENCOUNTER → 2020-05-24 | Day surgery (SDC) | payer MEDICARE, OTHER ==
[2020-05-22 15:26] VITALS: BMI 31.8
--- NOTE | 2020-05-23 14:11 | P.GSHP ---
History of Present Illness H&P Date: 05/23/20 54 yo male with a history of stones. He was having hematuria and pain. He was in [facility] er and found to have a large volume of left renal stones without obstruction He also had a 4 mm stone in the mid to proximal right ureter with obstruction He comes right ureteroscopy with laser lithotripsy to remove the right ureteral stone. Secondarily he will have a pcnl left to remove the left renal stones - Constitutional Constitutional: Denies chills, Denies fever - EENT Eyes: denies blurred vision, denies pain Ears, nose, mouth and throat: Denies headache, Denies sore throat - Cardiovascular Cardiovascular: Denies chest pain, Denies shortness of breath - Respiratory Respiratory: Denies cough, Denies 7 - Gastrointestinal Gastrointestinal: Denies abdominal pain, Denies diarrhea, Denies nausea, Denies vomiting - Genitourinary (Female) Genitourinary: Denies dysuria, Denies hematuria - Genitourinary (Male) Genitourinary: Denies dysuria, Denies hematuria - Musculoskeletal Musculoskeletal: Denies myalgias - Integumentary Integumentary: Denies pruritus, Denies rash - Neurological Neurological: Denies numbness, Denies weakness - Psychiatric Psychiatric: Denies anxiety, Denies depression - Endocrine Endocrine: Denies fatigue, Denies weight change Past Medical History Past Medical History: Coronary Artery Disease (CAD), Chest Pain / Angina, GERD/Reflux, Hypertension, Osteoarthritis (OA), Sleep Apnea/CPAP/BIPAP Additional Past Medical History / Comment(s): SPINAL STENOSIS, NECK & BACK PAIN., WEARS NECK BRACE AT HS., WEARS BACK BRACE , USES CANE., HX OF MULTIPLE KIDNEY STONES, STATES NUMBNESS AT TIMES LEFT ARM & LEG- HX FALLS., AAA. History of Any Multi-Drug Resistant Organisms: None Reported Past Surgical History: Heart Catheterization With Stent, Tonsillectomy Additional Past Surgical History / Comment(s): bilateral wrists & elbow surgery, neck surgery, heart cath with stent 08/14/18 ([facility])- Patient states total of 6 stents., SURGERY FOR KIDNEY STONES. Past Anesthesia/Blood Transfusion Reactions: No Reported Reaction Date of Last Stent Placement:: 08/19/2017 Past Psychological History: No Psychological Hx Reported Smoking Status: Former smoker Past Alcohol Use History: Rare Additional Past Alcohol Use History / Comment(s): QUIT SMOKING 2 MONTHS AGO - OCCASIONAL CIGARETTE SINCE. STARTED SMOKING AGE 19, HX OF 1 1/2PPD. Past Drug Use History: None Reported - Past Family History Mother Family Medical History: Cancer Father Family Medical History: Cancer Medications and Allergies Home Medications Medication Instructions Recorded Confirmed Type Aspirin [Adult Low Dose Aspirin EC] 81 mg PO DAILY 01/15/18 05/22/20 History Clopidogrel [Plavix] 75 mg PO DAILY 01/15/18 05/22/20 History Isosorbide Mononitrate ER [Imdur] 30 mg PO DAILY 01/15/18 05/22/20 History lisinopriL [Zestril] 40 mg PO DAILY 01/15/18 05/22/20 History Tamsulosin [Flomax] 0.4 mg PO DAILY #7 cap 09/05/18 05/22/20 Rx Acetaminophen [Tylenol Arthritis] 650 mg PO DIRECTED PRN 05/22/20 05/22/20 History Carvedilol (Unknown Dose) 1 tab PO BID 05/22/20 History Cetirizine HCl [Zyrtec] 10 mg PO DAILY 05/22/20 05/22/20 History Chlorthalidone 50 mg PO DAILY 05/22/20 05/22/20 History HYDROcodone/APAP 10-325MG [[place] 1 tab PO Q6HR PRN 05/22/20 05/22/20 History 10-325] Nitroglycerin Sl Tabs [Nitrostat] 0.4 mg SUBLINGUAL Q5M PRN 05/22/20 05/22/20 History Rosuvastatin Calcium [Crestor] 40 mg PO DAILY 05/22/20 05/22/20 History amLODIPine [Norvasc] 10 mg PO DAILY 05/22/20 05/22/20 History Allergies Allergy/AdvReac Type Severity Reaction Status Date / Time morphine Allergy Rash/Hives Verified 05/22/20 14:32 Penicillins Allergy Rash/Hives Verified 05/22/20 14:32 Surgical - Exam - General well developed, well nourished, no distress - Eyes PERRL - ENT no hearing loss - Neck trachea midline - Respiratory normal expansion, normal respiratory effort - Cardiovascular Rhythm: regular - Abdomen Abdomen: soft, non tender - Genitourinary normal penis with no external lesions, testicles present - Integumentary no rash, no growths - Neurologic normal coordination - Musculoskeletal normal gait, normal posture - Psychiatric oriented to time, oriented to person, oriented to place, speech is normal, memory intact Results - Imaging Abdominal x-ray: report reviewed, image reviewed CT scan - abdomen: report reviewed, image reviewed CT scan - pelvis: report reviewed, image reviewed Assessment and Plan Assessment: Impression: right ureteral stone with obstruction, left renal stones[large] Plan: Right ureteroscopy with laser lithotripsy
[~2020-05-24] MED LIST changes: -ALPRAZolam 0.25 MG TAB PO PRN; -ALPRAZolam 0.5 MG TAB PO PRN; -ASPIRIN 325 MG TAB PO STA; -ATORVASTATIN 80 MG TAB PO STA; +DEXAMETHASONE SOD PHOSPHATE 4 MG/ML 1 ML VIAL IV ONE; +GLYCOPYRROLATE 0.2 MG/ML 2 ML VIAL ONE; +HYDROmorphone 0.5 MG/0.5 ML SYRINGE IVP PRN; +LACTATED RINGERS 1,000 ML IV SCH; +LIDOCAINE 1% (10MG/ML) FOR IV START INTRADERMA PRN; +LIDOCAINE 1% INJ 10MG/ML (20 ML MDV) ONE; +MIDAZOLAM 2 MG/2 ML VIAL IV PRN; +MIDAZOLAM 2 MG/2 ML VIAL IVP ONE; +MIDAZOLAM 2 MG/2 ML VIAL ONE; +NEOSTIGMINE 1 MG/ML 10 ML VIAL ONE; -NITROGLYCERIN SL TABS 0.4 MG TAB SUBLINGUAL PRN; +ONDANSETRON 4 MG/2 ML VIAL IVP ONE; +ONDANSETRON 4 MG/2 ML VIAL ONE; +PROPOFOL 10 MG/ML 20 ML VIAL IV ONE; +ROCURONIUM 10 MG/ML (10 ML VIAL) IV ONE; -SODIUM CHLORIDE 0.9% 1,000 ML in EMPTY BAG 1 BAG IV ONE; +SUCCINYLCHOLINE CHLORIDE 100 MG/5 ML SYR IV ONE; +fentaNYL (PF) 50 MCG/ML 2 ML AMP ONE
--- NOTE | 2020-05-24 08:13 | XR ---
KUB HISTORY: Preop right kidney stones, bilateral kidney stones Frontal KUB submitted and correlated prior exam 05/05/2020 There is a calcification in the right paraspinal location similar to prior exam at approximately the L4-5 level measuring approximately 5 to 6 mm. Bowel gas overlies the right kidney. Larger calcificati on is present at the lower pole the left kidney measuring approximately 2.5 cm in greatest dimension, there are additional multiple smaller calcifications present at this level. Bowel gas obscures detai l over the upper kidney, there is a calcification again noted mid pole level measuring approximately 9 mm. Smaller calcification is present immediately adjacent. Multiple calcifications are present with in the pelvis some which are likely vascular. Difficult to exclude distal ureteral calculus IMPRESSION: Essentially stable exam. Nephrolithiasis, possible ureterolithiasis.
--- NOTE | 2020-05-24 09:03 | P.OP ---
Date of Procedure: 05/24/20 Preoperative Diagnosis: Right ureteral calculus Postoperative Diagnosis: Same Procedure(s) Performed: Cystoscopy, right ureteroscopy with laser lithotripsy, placement of 624 double-J catheter Anesthesia: DEVONTE Surgeon: Jose Mayo Estimated Blood Loss (ml): 25 Pathology: other (Stone) Condition: stable Disposition: PACU Indications for Procedure: The patient is 54. He has a history kidney stones. He presented recently with a left-sided pain. A computed tomography scan identified a large left lower pole calyceal stone greater than 2 cm but is a 45 mm proximal ureteral stone with significant hydronephrosis. He comes for ureteroscopy and laser lithotripsy on the right side before we do a percutaneous nephrostolithotomy secondarily on the left Description of Procedure: The patient is brought to the operating suite. He is given a general endo tracheal anesthesia. He's placed lithotomy position with sterile prep and drape. The stone is seen on fluoroscopy on the right side in the mid ureter.. After sterile prep and drape cystoscopy a Foroblique lens and 21-T[place] sheath identifies a normal urethra. The prostate shows some lateral lobe obstruction. The bladder wall shows some trabeculation. Both ureteral orifices are normal. The ureter opening is patulous on the right. I passed a semirigid ureteroscope up the right ureter. I eventually get to the stone. I attempted pass an 035 wire by the stone but the stone is extremely impacted. I thus take the 200 laser probe and started to break the stone into smaller pieces. Due to the patient's size and angulation it becomes just too difficult to use the rigid scope to complete the procedure. I'm able to finally pass an 035 wire up the ureter into the renal pelvis I reintroduced the wire to the cystoscope and passed a reentry sheath. Through the reentry sheath was passed the flexible ureteroscope. The 200 Vicryl laser probe I break the stone. The stone was very hard and very impacted. We will eventually able to open the ureter. The stone is removed completely. At the end of the procedure the way to much edema to not leave a stent. I backloaded the wire onto the cystoscope after removing the ureteroscope up. I then pass a 6 x 24 double-J catheter up the right ureter that coils in the renal pelvis and the bladder the bladder strain the patient's awakened and returned recovery room good condition. He tolerated procedure well be discharged home upon recovery. Remove the stent approximately week.
--- NOTE | 2020-05-24 09:33 | FL ---
Fluoroscopy HISTORY: right sided kidney stone 65 seconds fluoroscopy time supplied to the referring clinician. 1 intraoperative C-arm images docum ent the procedure. See dictated report from urology.
[2020-05-24 09:37] VITALS: RESP 16
[2020-05-24 10:55] VITALS: TEMP 98.6
[2020-05-24 12:00] VITALS: BP 146/96; PULSE 114
== END | disposition home or self-care (01) ==
LOC: OR 06:02
PROVIDERS: ATTEND Urology
DX: N13.2 Hydronephrosis with renal and ureteral calculous obstruction (principal); I10 Essential (primary) hypertension; I25.10 Atherosclerotic heart disease of native coronary artery without angina pectoris; G47.33 Obstructive sleep apnea (adult) (pediatric); M19.90 Unspecified osteoarthritis, unspecified site; Z88.0 Allergy status to penicillin; Z88.5 Allergy status to narcotic agent; Z95.5 Presence of coronary angioplasty implant and graft; Z87.891 Personal history of nicotine dependence; Z79.82 Long term (current) use of aspirin; Z79.02 Long term (current) use of antithrombotics/antiplatelets; Z79.899 Other long term (current) drug therapy; Z87.442 Personal history of urinary calculi
CPT/HCPCS: 82365; 74018; 52356; C2625; C1769; J2250; J1100; J2710; J2405; J0690; J2001; J3010; J0330; J2704

== ENCOUNTER → 2020-07-19 | Outpatient (CLI) | payer MEDICARE, OTHER ==
[2020-07-19 11:00] LABS: Basophils # (A) 0.1 k/uL (0-0.2); Basophils % (A) 1 %; Eosinophils # (A) 0.2 k/uL (0-0.7); Eosinophils % (A) 2 %; HCT 48.6 % (39.0-53.0); HGB 15.5 gm/dL (13.0-17.5); Lymphocytes # (A) 2.1 k/uL (1.0-4.8); Lymphocytes % (A) 23 %; MCHC 31.9 g/dL (31.0-37.0); MCV 90.8 fL (80.0-100.0); Mean Platelet Volume 7.2; Monocytes # (A) 0.8 k/uL (0-1.0); Monocytes % (A) 9 %; Neutrophils # (A) 5.6 k/uL (1.3-7.7); Neutrophils % (A) 63 %; Platelet Count 214 k/uL (150-450); RBC 5.35 m/uL (4.30-5.90); RDW 14.9 % (11.5-15.5); WBC 8.9 k/uL (3.8-10.6)
[2020-07-19 11:17] LABS: ALT 23 U/L (4-49); AST 25 U/L (17-59); African American GFR (CKD) >90 (>60 ml/min/1.73 sqM); Albumin 4.6 g/dL (3.5-5.0); Alkaline Phosphatase 65 U/L (38-126); Anion Gap 11 mmol/L; Blood Urea Nitrogen 14 mg/dL (9-20); Calcium 9.4 mg/dL (8.4-10.2); Carbon Dioxide 24 mmol/L (22-30); Chloride 102 mmol/L (98-107); Glucose 88 mg/dL (74-99); Non-African American GFR(CKD) >90 (>60 ml/min/1.73 sqM); Potassium 4.5 mmol/L (3.5-5.1); Sodium 137 mmol/L (137-145); Total Bilirubin 0.7 mg/dL (0.2-1.3); Total Protein 7.8 g/dL (6.3-8.2)
[2020-07-19 11:23] LABS: Appearance,Urine Clear (Clear); Bilirubin,Urine Negative (Negative); Blood,Urine Moderate (Negative); Color,Urine Yellow; Glucose,Urine (UA) Negative (Negative); Ketones,Urine Negative (Negative); Leukocyte Esterase,Urine Negative (Negative); Mucus,Urine Rare /hpf; Nitrite,Urine Negative (Negative); PH, Urine 6.5 (5.0-8.0); Protein,Urine Negative (Negative); RBC,Urine 104 /hpf (0-5); Specific Gravity,Urine 1.015 (1.001-1.035); Squamous Epithelial Cell,Urine <1 /hpf (0-4); Urobilinogen,Urine <2.0 mg/dL (<2.0); WBC,Urine 3 /hpf (0-5)
== END | disposition home or self-care (01) ==
LOC: LABPAT 09:36
PROVIDERS: ATTEND Urology
DX: Z01.818 Encounter for other preprocedural examination (principal); N20.0 Calculus of kidney; R31.29 Other microscopic hematuria
CPT/HCPCS: 36415; 80053; 81001; 85025; 87086

== ENCOUNTER → 2020-08-02 | Outpatient (CLI) | payer MEDICARE, OTHER ==
[2020-08-02 13:21] LABS: Appearance,Urine Clear (Clear); Bilirubin,Urine Negative (Negative); Blood,Urine Small (Negative); Color,Urine Yellow; Glucose,Urine (UA) Negative (Negative); Ketones,Urine Negative (Negative); Leukocyte Esterase,Urine Trace (Negative); Mucus,Urine Rare /hpf; Nitrite,Urine Negative (Negative); PH, Urine 6.5 (5.0-8.0); Protein,Urine Trace (Negative); RBC,Urine 13 /hpf (0-5); Specific Gravity,Urine 1.017 (1.001-1.035); Urobilinogen,Urine <2.0 mg/dL (<2.0); WBC,Urine 2 /hpf (0-5)
== END | disposition home or self-care (01) ==
LOC: LABPAT 11:25
PROVIDERS: ATTEND Urology
DX: Z01.812 Encounter for preprocedural laboratory examination (principal); N20.0 Calculus of kidney; R31.29 Other microscopic hematuria
CPT/HCPCS: 36415; 81001; 86850; 86900; 86901; 87086; 93005

== ENCOUNTER 2020-08-09 05:32 | Day surgery (SDC) | payer MEDICARE, OTHER ==
[2020-07-19 16:55] VITALS: BMI 31.8
--- NOTE | 2020-08-08 18:29 | P.GSHP ---
History of Present Illness H&P Date: 08/08/20 54 yo male with kidney stone disease. He recently had a right ureteroscopy withlaser lithotripsy. He has a large 2.5 cm left renal stone He comes for a left pcnl. The risks complications and alternatives have been discussed and understood by the patient - Constitutional Constitutional: Denies chills, Denies fever - EENT Eyes: denies blurred vision, denies pain Ears, nose, mouth and throat: Denies headache, Denies sore throat - Cardiovascular Cardiovascular: Denies chest pain, Denies shortness of breath - Respiratory Respiratory: Denies cough, Denies 7 - Gastrointestinal Gastrointestinal: Denies abdominal pain, Denies diarrhea, Denies nausea, Denies vomiting - Genitourinary (Female) Genitourinary: Denies dysuria, Denies hematuria - Genitourinary (Male) Genitourinary: Denies dysuria, Denies hematuria - Musculoskeletal Musculoskeletal: Denies myalgias - Integumentary Integumentary: Denies pruritus, Denies rash - Neurological Neurological: Denies numbness, Denies weakness - Psychiatric Psychiatric: Denies anxiety, Denies depression - Endocrine Endocrine: Denies fatigue, Denies weight change Past Medical History Past Medical History: Coronary Artery Disease (CAD), Chest Pain / Angina, GERD/Reflux, Hyperlipidemia, Hypertension, Osteoarthritis (OA), Sleep Apnea/CPAP/BIPAP Additional Past Medical History / Comment(s): kidney stones,SLEEP APNEA- NO C- PAP, SPINAL STENOSIS, BACK PAIN., WEARS NECK BRACE AT HS., WEARS BACK BRACE AND USES CANE-freq falls., STATES NUMBNESS AT TIMES ON Left SIDE., SOB WITH ACTIVITY. History of Any Multi-Drug Resistant Organisms: None Reported Past Surgical History: Heart Catheterization With Stent, Tonsillectomy Additional Past Surgical History / Comment(s): bilateral wrists & elbow surgery, neck surgery, mult heart cath-5 stents 08/19/2017 ([facility])., SURGERY FOR KIDNEY STONES. Past Anesthesia/Blood Transfusion Reactions: No Reported Reaction Date of Last Stent Placement:: 08/19/2017 Smoking Status: Former smoker - Past Family History Mother Family Medical History: Cancer Father Family Medical History: Cancer Medications and Allergies Home Medications Medication Instructions Recorded Confirmed Type Aspirin [Adult Low Dose Aspirin EC] 81 mg PO DAILY 01/15/18 08/07/20 History Isosorbide Mononitrate ER [Imdur] 30 mg PO QAM 01/15/18 08/07/20 History lisinopriL [Zestril] 40 mg PO QAM 01/15/18 08/07/20 History Tamsulosin [Flomax] 0.4 mg PO DAILY #7 cap 09/05/18 08/07/20 Rx Acetaminophen [Tylenol Arthritis] 650 mg PO DIRECTED PRN 05/22/20 08/07/20 History Cetirizine HCl [Zyrtec] 10 mg PO DAILY 05/22/20 08/07/20 History Chlorthalidone 50 mg PO DAILY 05/22/20 08/07/20 History HYDROcodone/APAP 10-325MG [[place] 1 tab PO QID PRN 05/22/20 08/07/20 History 10-325] Nitroglycerin Sl Tabs [Nitrostat] 0.4 mg SUBLINGUAL Q5M PRN 05/22/20 08/07/20 History amLODIPine [Norvasc] 10 mg PO QAM 05/22/20 08/07/20 History cloNIDine HCL [Catapres] 0.2 mg PO BID 07/19/20 08/07/20 History Allergies Allergy/AdvReac Type Severity Reaction Status Date / Time morphine Allergy Rash/Hives Verified 08/07/20 15:57 Penicillins Allergy Rash/Hives Verified 08/07/20 15:57 Surgical - Exam - General well developed, well nourished, no distress - Eyes PERRL - ENT no hearing loss - Neck trachea midline - Respiratory normal expansion, normal respiratory effort - Cardiovascular Rhythm: regular - Abdomen Abdomen: soft, non tender - Genitourinary normal penis with no external lesions, testicles present - Integumentary no rash, no growths - Neurologic normal coordination, normal sensation - Musculoskeletal normal gait, normal posture - Psychiatric oriented to time, oriented to place, speech is normal, memory intact Results - Imaging Abdominal x-ray: report reviewed, image reviewed CT scan - abdomen: report reviewed, image reviewed CT scan - pelvis: report reviewed, image reviewed Assessment and Plan Assessment: Impression: Left renal stone, large. PLan: PCNL left
[2020-08-09] MEDS ORDERED: ONDANSETRON 4 MG/2 ML VIAL IVP ONE (05:45)
[2020-08-09] MEDS ORDERED: LIDOCAINE 1% (10MG/ML) FOR IV START INTRADERMA PRN (05:45)
[2020-08-09] MEDS ORDERED: DEXAMETHASONE SOD PHOSPHATE 4 MG/ML 1 ML VIAL IV ONE (05:45)
[2020-08-09] MEDS: LACTATED RINGERS 1,000 ML IV SCH ×2 (07:06→17:17)
[2020-08-09] MEDS ORDERED: GLYCOPYRROLATE 0.2 MG/ML 2 ML VIAL ONE (07:25)
[2020-08-09] MEDS ORDERED: fentaNYL (PF) 50 MCG/ML 2 ML AMP ONE (07:25)
[2020-08-09] MEDS ORDERED: NEOSTIGMINE 1 MG/ML 10 ML VIAL ONE (07:25)
[2020-08-09] MEDS ORDERED: PROPOFOL 10 MG/ML 20 ML VIAL IV ONE (07:25)
[2020-08-09] MEDS ORDERED: SUCCINYLCHOLINE CHLORIDE 100 MG/5 ML SYR IV ONE (07:25)
[2020-08-09] MEDS ORDERED: MIDAZOLAM 2 MG/2 ML VIAL ONE (07:25)
[2020-08-09] MEDS ORDERED: LIDOCAINE 1% INJ 10MG/ML (20 ML MDV) ONE (07:25)
[2020-08-09] MEDS ORDERED: PHENYLEPHRINE-0.9% NACL SYG 1,000 MCG/10 ML SYRINGE ONE (07:25)
[2020-08-09] MEDS ORDERED: ROCURONIUM 10 MG/ML (5 ML VIAL) IV ONE (07:25)
--- NOTE | 2020-08-09 07:29 | XR ---
EXAMINATION TYPE: XR KUB DATE OF EXAM: 08/09/2020 Comparison: 05/24/2020 Clinical History: 54-year-old male kidney stones, preoperative left-sided urologic procedure, DOS 3-1 0-21,kidney stones Findings: Bilateral renal calculi are present measuring up to 2.4 cm on the left and 1.2 cm on the right. The p reviously seen 6 mm calcification at the right paramedian mid to lower abdomen is no longer clearly i dentified. Multiple pelvic fluid ligaments. Impression: Bilateral nephrolithiasis measuring up to 2.4 cm on the left and 1.2 cm on the right. The previous 6 mm right paramedian mid to lower abdominal calcification not clearly seen currently.
[2020-08-09] MEDS ORDERED: IOPAMIDOL-370 50ML BTL MISCELLANE ONE (07:30)
[2020-08-09] MEDS ORDERED: NITROGLYCERIN SL TABS 0.4 MG TAB SUBLINGUAL PRN (09:25)
[2020-08-09] MEDS ORDERED: ONDANSETRON 4 MG/2 ML VIAL IVP PRN (09:26)
[2020-08-09] MEDS ORDERED: ACETAMINOPHEN TAB 325 MG TAB PO PRN (09:26)
[2020-08-09] MEDS ORDERED: MAG HYDROX/AL HYDROX/SIMETH 30 ML CUP PO PRN (09:26)
[2020-08-09] MEDS ORDERED: HYDROmorphone PCA 10 MG/50 ML BAG IV PRN (09:31)
[2020-08-09] MEDS ORDERED: NALOXONE 0.4 MG/ML 1 ML VIAL IV PRN (09:31)
[2020-08-09] MEDS: HYDROmorphone 0.5 MG/0.5 ML SYRINGE IVP PRN ×4 (09:48→11:49)
[2020-08-09] MEDS ORDERED: LACTATED RINGERS 1,000 ML IV ONE ×3 (09:50→15:42)
--- NOTE | 2020-08-09 09:58 | P.OP ---
Date of Procedure: 08/09/20 Preoperative Diagnosis: left renal stone large Postoperative Diagnosis: same Procedure(s) Performed: cysto placement of ureteral catheter left, percutaneous nephrostomy left, dr hamilton, or percutaneous nephrostolithotomy large, ultrasound and laser lithotr ipsy, placement of 10 J nephrostomy Anesthesia: DEVONTE Surgeon: Jose Mayo Estimated Blood Loss (ml): 50 Pathology: other (Stone) Condition: stable Disposition: PACU Indications for Procedure: The patient is 54. He has a history kidney stones. He has a 2.5 cm left lower pole stone as well as satellite calyceal stones. Because of pain he comes for left percutaneous nephrostolithotomy Description of Procedure: Patient is brought to the operating suite. He is given general endotracheal anesthesia. He's placed in a frog position with sterile prep and drape. Cystoscopy Foroblique lens and 21-[place] sheath identifies normal urethra.The prostate isnot obstructing. The left ureteral orifice is intubated with a 5fr occluding balloon catheter. This is secured with a 16 fr muniz catheter. the patient is placed in a prone position with care to airways and extremities. Dr. Hamilton of radiology performed percutaneous access to a left middle pole calyx. I then dilate the tract to 30-[place] Citizen with the dilating balloon. I introduced the working sheath into the collecting system. The large renal stone on the lower pole is identified. It is broken up with ultrasound. The larger pieces were grasped and removed. Nephroscope throughout the collecting system. I basket some small calyceal stones. I passed an upper pole calyx where there is a larger calyceal stone that I'm not able to remove adequately with the basket. I then place the 200 laser probe break it into fine sand. Then of the procedure I looked throughout the collecting system there is no remaining stones. There is one calcification that is probably tubular as I looked throughout the system and cannot identify it. I do an intraoperative nephrostogram and an see where the stone lay. I have the scope immediately on this thus I believe this stone is behind the renal papilla and therefore not accessible in the collecting system A 10-[place] Citizen J nephrostomy tubes placed and secured to the skin. The patient's awake and returned recovery room good condition. Blood loss 50 mL Impression successful percutaneous nephrostolithotomy to a large (2-1/2 cm) renal stone.
--- NOTE | 2020-08-09 10:11 | FL ---
EXAMINATION TYPE: FL Perc Nephrostomy New Access DATE OF EXAM: 08/09/2020 COMPARISON: KUB 08/09/2020 HISTORY: Left nephrolithiasis. PROCEDURE: Maximal barrier technique was utilized, hand hygiene obtained with soap and water and alcohol-based h and rub. The skin overlying the left kidney was localized using fluoroscopy and the overlying skin p repped and draped. Skin fred was made with a scalpel. Access was gained under fluoroscopy, following placement of a ureteral occlusion balloon by the referring clinician and instillation of air in the renal collecting system with a 21-gauge needle to the left kidney. A suitable posterior calyx was ch osen. A 0.018 inch wire was advanced. The access site was dilated , access site was upsized, safet y wire deployed and subsequently a sheath was advanced into the renal pelvis following dilation with balloon along the tract. The patient underwent nephrolithotomy by the referring clinician. The ai ent remained in stable condition without complication. The patient was discharged to observation in the care of anesthesia. 3.15 minutes fluoroscopy time, 5 intraoperative images document the procedure IMPRESSION: STATUS POST NEPHROSTOMY PLACEMENT FOR NEPHROLITHOTOMY WITH FLUOROSCOPIC GUIDANCE. THIS PROCEDURE PER FORMED BY THE UNDERSIGNED.
[2020-08-09] MEDS ORDERED: HYDROmorphone 0.5 MG/0.5 ML SYRINGE IVP ONE (16:27)
[2020-08-09] MEDS ORDERED: HYDROmorphone 1 MG/ML 1 ML SYRINGE IVP PRN (17:24)
[2020-08-09] MEDS: carvediloL 12.5 MG TAB PO SCH (17:41)
[2020-08-09] MEDS: DEXTROSE 5%-0.45% NACL 1,000 ML IV SCH ×2 (17:42→18:25)
[2020-08-09] MEDS: cloNIDine HCL 0.2 MG TAB PO SCH (22:12)
[2020-08-10] MEDS: DEXTROSE 5%-0.45% NACL 1,000 ML IV SCH (03:42)
[2020-08-10] MEDS: LACTATED RINGERS 1,000 ML IV SCH ×2 (05:45)
--- NOTE | 2020-08-10 06:54 | P.DS ---
Providers Attending physician: Jose Mayo Primary care physician: Stated None Hospital Course: The patient underwent a left percutaneous nephrostolithotomy for a large kidney stone and satellites yesterday. He did well overnight. His urine is cleared nicely. His abdomen was soft. He tolerated his diet. He is ready for discharge home. He'll be discharged home with a nephrostomy tube this. This will be removed tomorrow. His activity is limited. His diet is regular. He has pain medicine for home. He will go home with nephrostomy tube. He understands the care that. Patient Condition at Discharge: Good Plan - Discharge Summary Discharge Rx Participant: No New Discharge Prescriptions: No Action Isosorbide Mononitrate ER [Imdur] 30 mg PO QAM lisinopriL [Zestril] 40 mg PO QAM Aspirin [Adult Low Dose Aspirin EC] 81 mg PO DAILY Tamsulosin [Flomax] 0.4 mg PO DAILY #7 cap HYDROcodone/APAP 10-325MG [[place] 10-325] 1 tab PO QID PRN PRN Reason: Pain amLODIPine [Norvasc] 10 mg PO QAM Nitroglycerin Sl Tabs [Nitrostat] 0.4 mg SUBLINGUAL Q5M PRN PRN Reason: Chest Pain Chlorthalidone 50 mg PO DAILY Acetaminophen [Tylenol Arthritis] 650 mg PO DIRECTED PRN PRN Reason: Pain Cetirizine HCl [Zyrtec] 10 mg PO DAILY cloNIDine HCL [Catapres] 0.2 mg PO BID Carvedilol [Coreg] 1 tab PO BID Discharge Medication List Aspirin [Adult Low Dose Aspirin EC] 81 mg PO DAILY 01/15/18 [History] Isosorbide Mononitrate ER [Imdur] 30 mg PO QAM 01/15/18 [History] lisinopriL [Zestril] 40 mg PO QAM 01/15/18 [History] Tamsulosin [Flomax] 0.4 mg PO DAILY #7 cap 09/05/18 [Rx] Acetaminophen [Tylenol Arthritis] 650 mg PO DIRECTED PRN 05/22/20 [History] Cetirizine HCl [Zyrtec] 10 mg PO DAILY 05/22/20 [History] Chlorthalidone 50 mg PO DAILY 05/22/20 [History] HYDROcodone/APAP 10-325MG [[place] 10-325] 1 tab PO QID PRN 05/22/20 [History] Nitroglycerin Sl Tabs [Nitrostat] 0.4 mg SUBLINGUAL Q5M PRN 05/22/20 [History] amLODIPine [Norvasc] 10 mg PO QAM 05/22/20 [History] cloNIDine HCL [Catapres] 0.2 mg PO BID 07/19/20 [History] Carvedilol [Coreg] 1 tab PO BID 08/09/20 [History] Follow up Appointment(s)/Referral(s): Jose Mayo MD [STAFF PHYSICIAN] - 08/11/20 Discharge Disposition: HOME SELF-CARE
[2020-08-10 07:26] VITALS: BP 109/69; PULSE 67; RESP 18; TEMP 97.6
[2020-08-10] MEDS ORDERED: lisinopriL 20 MG TAB PO SCH (09:00)
[2020-08-10] MEDS ORDERED: ISOSORBIDE MONONITRATE ER 30 MG TAB.ER.24H PO SCH (09:00)
[2020-08-10] MEDS ORDERED: LORATADINE 10 MG TAB PO SCH (09:00)
[2020-08-10] MEDS ORDERED: TAMSULOSIN 0.4 MG CAP.ER.24H PO SCH (09:00)
[2020-08-10] MEDS ORDERED: amLODIPine 10 MG TAB PO SCH (09:00)
[2020-08-10] MEDS ORDERED: CHLORTHALIDONE 25 MG TAB PO SCH (09:00)
[2020-08-10] MEDS: carvediloL 12.5 MG TAB PO SCH (09:56)
[2020-08-10] MEDS: cloNIDine HCL 0.2 MG TAB PO SCH (09:56)
== END 2020-08-10 14:10 | disposition home or self-care (01) ==
LOC: OR 05:32 → 4SSUR 09:21 → OR 08-10 14:10
PROVIDERS: ATTEND Urology
DX: N20.0 Calculus of kidney (principal); I25.10 Atherosclerotic heart disease of native coronary artery without angina pectoris; I10 Essential (primary) hypertension; K21.9 Gastro-esophageal reflux disease without esophagitis; E78.5 Hyperlipidemia, unspecified; M19.90 Unspecified osteoarthritis, unspecified site; G47.30 Sleep apnea, unspecified; Z99.89 Dependence on other enabling machines and devices; M48.00 Spinal stenosis, site unspecified; M54.9 Dorsalgia, unspecified; R20.0 Anesthesia of skin; Z95.5 Presence of coronary angioplasty implant and graft; Z90.89 Acquired absence of other organs; Z98.890 Other specified postprocedural states; Z87.891 Personal history of nicotine dependence; Z79.82 Long term (current) use of aspirin; Z79.891 Long term (current) use of opiate analgesic; Z79.899 Other long term (current) drug therapy; Z88.5 Allergy status to narcotic agent; Z88.0 Allergy status to penicillin
CPT/HCPCS: 82365; 50432; 74018; 50081; C1769 ×4; C1894; C1729; J2250; J1100; J2710; J2405; J0690; J2001; J3010; J1170 ×2; J2370; J0330; J2704; Q9967; 36415; 86850; 86900; 86901

== ENCOUNTER → 2020-09-27 | Outpatient (CLI) | payer MEDICARE, OTHER | END | disposition home or self-care (01) | LOC: LABWHC1 10:38 | PROVIDERS: ATTEND Urology | DX: N20.0 Calculus of kidney (principal) | CPT/HCPCS: 36415 ==

== ENCOUNTER → 2020-10-16 | Outpatient (CLI) | payer MEDICARE, OTHER ==
--- NOTE | 2020-10-16 11:04 | XR ---
EXAMINATION TYPE: XR KUB DATE OF EXAM: 10/16/2020 10:55 AM CLINICAL HISTORY: Right-sided pain for 2 to 3 weeks. TECHNIQUE: Two supine KUB images of the abdomen are obtained. COMPARISON: Abdominal x-ray August 09, 2020 FINDINGS: Improved calcific burden left kidney after interval lithotripsy. Residual 9 mm calculus mid to lower pole level at inferior L2 level left kidney. Persistent dominant 10 and 11 mm right renal calculus now likely in proximal right ureter at right L4 transverse process level. Stable calcifications in pelvis presumed phleboliths. Overall nonobstructive bowel gas pattern. Vascular calcification left upper quadrant. Lung bases are clear. Impression: As above.
== END | disposition home or self-care (01) ==
LOC: RADXRMAIN 10:38
PROVIDERS: ATTEND Urology
DX: N20.0 Calculus of kidney (principal)
CPT/HCPCS: 74018

== ENCOUNTER 2020-10-25 08:07 | Day surgery (SDC) | payer MEDICARE, OTHER ==
--- NOTE | 2020-10-24 18:51 | P.GSHP ---
History of Present Illness H&P Date: 10/24/20 54 yo with a history of stones has a 10 mm mid right ureteral stone. He comes for right ureteroscopy with laser lithotripsy.. the risks complications and alternatives have been discussed - Constitutional Constitutional: Denies chills, Denies fever - EENT Eyes: denies blurred vision, denies pain Ears, nose, mouth and throat: Denies headache, Denies sore throat - Cardiovascular Cardiovascular: Denies chest pain, Denies shortness of breath - Respiratory Respiratory: Denies cough, Denies 7 - Gastrointestinal Gastrointestinal: Denies abdominal pain, Denies diarrhea, Denies nausea, Denies vomiting - Genitourinary (Female) Genitourinary: Denies dysuria, Denies hematuria - Genitourinary (Male) Genitourinary: Denies dysuria, Denies hematuria - Musculoskeletal Musculoskeletal: Denies myalgias - Integumentary Integumentary: Denies pruritus, Denies rash - Neurological Neurological: Denies numbness, Denies weakness - Psychiatric Psychiatric: Denies anxiety, Denies depression - Endocrine Endocrine: Denies fatigue, Denies weight change Past Medical History Past Medical History: Coronary Artery Disease (CAD), Chest Pain / Angina, GERD/Reflux, Hypertension, Osteoarthritis (OA), Sleep Apnea/CPAP/BIPAP Additional Past Medical History / Comment(s): SLEEP APNEA- NO C-PAP, SPINAL STENOSIS, BACK PAIN., WEARS NECK BRACE AT HS., WEARS BACK BRACE AND USES CANE., KIDNEY STONES, STATES NUMBNESS AT TIMES ON RIGHT SIDE., SOB WITH ACTIVITY. , SEE CARDIOLOGY H & P. History of Any Multi-Drug Resistant Organisms: None Reported Past Surgical History: Heart Catheterization With Stent, Tonsillectomy Additional Past Surgical History / Comment(s): 08/09/20 LEFT KIDNEY LITHROTRIPSY. Bilateral wrists & elbow surgery. Neck surgery. HEart cath with stents 08/19/2017 ([facility]) Past Anesthesia/Blood Transfusion Reactions: No Reported Reaction Date of Last Stent Placement:: 08/19/2017 Past Psychological History: No Psychological Hx Reported Smoking Status: Former smoker Past Alcohol Use History: Occasional Additional Past Alcohol Use History / Comment(s): QUIT 2020. HAS SMOKED FOR 30- YRS. Past Drug Use History: None Reported - Past Family History Mother Family Medical History: Cancer Father Family Medical History: Cancer Medications and Allergies Home Medications Medication Instructions Recorded Confirmed Type Aspirin [Adult Low Dose Aspirin EC] 81 mg PO DAILY 01/15/18 10/20/20 History lisinopriL [Zestril] 40 mg PO QAM 01/15/18 10/20/20 History Tamsulosin [Flomax] 0.4 mg PO DAILY #7 cap 09/05/18 10/20/20 Rx Acetaminophen [Tylenol Arthritis] 650 mg PO DIRECTED PRN 05/22/20 10/20/20 History Cetirizine HCl [Zyrtec] 10 mg PO DAILY 05/22/20 10/20/20 History Chlorthalidone 50 mg PO QAM 05/22/20 10/20/20 History HYDROcodone/APAP 10-325MG [[place] 1 tab PO QID PRN 05/22/20 10/20/20 History 10-325] Nitroglycerin Sl Tabs [Nitrostat] 0.4 mg SUBLINGUAL Q5M PRN 05/22/20 10/20/20 History amLODIPine [Norvasc] 10 mg PO QAM 05/22/20 10/20/20 History Carvedilol [Coreg] 25 mg PO BID 08/09/20 10/20/20 History Chlorthalidone 25 mg PO QAM 10/20/20 10/20/20 History cloNIDine HCL [Catapres] 0.3 mg PO QAM 10/20/20 10/20/20 History Allergies Allergy/AdvReac Type Severity Reaction Status Date / Time morphine Allergy Rash/Hives Verified 10/20/20 15:12 Penicillins Allergy Rash/Hives Verified 10/20/20 15:12 Surgical - Exam - General well developed, well nourished, no distress - Eyes PERRL - ENT no hearing loss - Neck no masses - Respiratory normal expansion, normal respiratory effort - Cardiovascular Rhythm: regular - Abdomen Abdomen: soft, non tender - Genitourinary normal penis with no external lesions, testicles present - Integumentary no rash, no growths - Neurologic normal coordination, normal sensation - Musculoskeletal normal gait, normal posture - Psychiatric oriented to time, oriented to person, oriented to place, speech is normal, memory intact Results - Imaging Abdominal x-ray: report reviewed, image reviewed Assessment and Plan Assessment: Impression> Right ureteral stone, large. Plan: right ureteroscopy with laser lithotripsy
[~2020-10-25 08:07] MED LIST changes: -GLYCOPYRROLATE 0.2 MG/ML 2 ML VIAL ONE; -LIDOCAINE 1% INJ 10MG/ML (20 ML MDV) ONE; -MIDAZOLAM 2 MG/2 ML VIAL IVP ONE; -MIDAZOLAM 2 MG/2 ML VIAL ONE; -NEOSTIGMINE 1 MG/ML 10 ML VIAL ONE; -ONDANSETRON 4 MG/2 ML VIAL ONE; -PROPOFOL 10 MG/ML 20 ML VIAL IV ONE; -ROCURONIUM 10 MG/ML (10 ML VIAL) IV ONE; -SUCCINYLCHOLINE CHLORIDE 100 MG/5 ML SYR IV ONE; -fentaNYL (PF) 50 MCG/ML 2 ML AMP ONE
--- NOTE | 2020-10-25 08:25 | XR ---
EXAMINATION TYPE: XR KUB DATE OF EXAM: 10/25/2020 Comparison: 10/16/2020 Clinical History: 54-year-old male PRE-OP: LOCATION OF RENAL CALCULI Findings: Nonobstructive bowel gas pattern. [id number] stool in the right side of the abdomen. Pelvic phl eboliths are redemonstrated. A couple left-sided renal calculi measuring 4 and 9 mm are redemonstrate d. A right paramedian mid abdominal calcification measures 1.1 x 0.4 cm, relatively similar position compared to the recent prior. The smaller adjacent calculus is no longer seen. Prostatic calcificatio ns. Impression: 1. A 1.1 x 0.4 cm calculus probably in the proximal right ureter or UPJ region. Relatively similar po sition as compared to prior exam. The adjacent smaller calcification is no longer seen. 2. Left-sided nephrolithiasis measuring up to 9 mm unchanged.
[2020-10-25 09:26] LABS: Basophils # (A) 0.1 k/uL (0-0.2); Basophils % (A) 1 %; Eosinophils # (A) 0.3 k/uL (0-0.7); Eosinophils % (A) 3 %; HCT 44.4 % (39.0-53.0); HGB 15.1 gm/dL (13.0-17.5); Lymphocytes # (A) 2.5 k/uL (1.0-4.8); Lymphocytes % (A) 25 %; MCH 29.3 pg (25.0-35.0); MCHC 33.9 g/dL (31.0-37.0); MCV 86.3 fL (80.0-100.0); Mean Platelet Volume 6.8; Monocytes # (A) 0.7 k/uL (0-1.0); Monocytes % (A) 7 %; Neutrophils # (A) 6.1 k/uL (1.3-7.7); Neutrophils % (A) 63 %; Platelet Count 230 k/uL (150-450); RBC 5.14 m/uL (4.30-5.90); RDW 14.2 % (11.5-15.5); WBC 9.7 k/uL (3.8-10.6)
[2020-10-25 09:35] LABS: ALT 17 U/L (4-49); African American GFR (CKD) >90 (>60 ml/min/1.73 sqM); Albumin 4.2 g/dL (3.5-5.0); Anion Gap 6 mmol/L; Blood Urea Nitrogen 14 mg/dL (9-20); Calcium 9.5 mg/dL (8.4-10.2); Carbon Dioxide 23 mmol/L (22-30); Chloride 108 mmol/L (98-107); Glucose 104 mg/dL (74-99); Non-African American GFR(CKD) 81 (>60 ml/min/1.73 sqM); Sodium 137 mmol/L (137-145); Total Bilirubin 0.5 mg/dL (0.2-1.3)
[2020-10-25 09:38] LABS: AST 26 U/L (17-59); Potassium 4.5 mmol/L (3.5-5.1)
[2020-10-25 09:39] LABS: Alkaline Phosphatase 65 U/L (38-126)
[2020-10-25] MEDS ORDERED: PROPOFOL 10 MG/ML 20 ML VIAL IV ONE (10:32)
[2020-10-25] MEDS ORDERED: fentaNYL (PF) 50 MCG/ML 2 ML AMP ONE (10:32)
[2020-10-25] MEDS ORDERED: SUCCINYLCHOLINE CHLORIDE 100 MG/5 ML SYR IV ONE (10:32)
[2020-10-25] MEDS ORDERED: PHENYLEPHRINE-0.9% NACL SYG 1,000 MCG/10 ML SYRINGE ONE (10:32)
[2020-10-25] MEDS ORDERED: KETOROLAC 15 MG/ML 1 ML VIAL ONE (10:32)
[2020-10-25] MEDS ORDERED: LIDOCAINE 1% INJ 10MG/ML (20 ML MDV) ONE (10:32)
[2020-10-25] MEDS ORDERED: MIDAZOLAM 2 MG/2 ML VIAL ONE (10:32)
[2020-10-25] MEDS ORDERED: LACTATED RINGERS 1,000 ML IV ONE (11:33)
[2020-10-25 11:44] VITALS: TEMP 97.1
[2020-10-25 11:47] VITALS: RESP 16
--- NOTE | 2020-10-25 11:47 | P.OP ---
Date of Procedure: 10/25/20 Preoperative Diagnosis: Right ureteral calculus with obstruction Postoperative Diagnosis: Same Procedure(s) Performed: Cystoscopy, right ureteroscopy with laser lithotripsy, placement of 6 x 26 stent Anesthesia: DEVONTE Surgeon: Jose Mayo Estimated Blood Loss (ml): 0 Pathology: other (Stone) Condition: stable Disposition: PACU Indications for Procedure: Patient is 54-year-old male with a history of active urolithiasis. He has a 7-8 mm proximal ureteral stone with obstruction he comes ureteroscopy Description of Procedure: Patient brought the operating suite. He is given general anesthesia. Placed lithotomy position with sterile prep and drape. Cystoscopy Foroblique lens and 22-[place] sheath identifies a minimally obstructing prostate normal bladder normal ureteral orifices. 7-[place] mini ureteroscope was passed up to just distal stone but there is too much edema to do it safely with the rigid scope. I thus passed an 035 wire by the stone into the renal pelvis. The stone floats back into the renal pelvis. Over the wires passed 78-36-[place] reentry sheath into sheath is removed. Through the sheath this pass a flexible ureteroscope up into the kidney. The stones broke up into tiny pieces and the larger pieces are basketed. Due to significant amount of edema in the proximal ureter stent will be placed an 0- 35 Wires is p;aced thru the ureteral sheath and backloaded onto the cystoscope. Over the wires passed a 6 x 26 double-J catheter that coils in the renal pelvis and the bladder the bladder strain the patient's awake and returned recovery in good condition. Tell procedure well be discharged home upon recovery and found the office 1 week for stent removal.
[2020-10-25 12:58] VITALS: BP 118/81; PULSE 92
--- NOTE | 2020-10-25 13:20 | FL ---
EXAMINATION TYPE: FL guidance operating room DATE OF EXAM: 10/25/2020 FLUOROSCOPY Fluoroscopy time of 10 seconds was used during urologic intervention for right ureteral calculus to. 2 image/s document/s the procedure.
== END 2020-10-25 13:14 | disposition home or self-care (01) ==
LOC: OR 08:07
PROVIDERS: ATTEND Urology
DX: N20.1 Calculus of ureter (principal); I25.10 Atherosclerotic heart disease of native coronary artery without angina pectoris; K21.9 Gastro-esophageal reflux disease without esophagitis; M19.90 Unspecified osteoarthritis, unspecified site; G47.30 Sleep apnea, unspecified; M48.05 Spinal stenosis, thoracolumbar region; Z87.442 Personal history of urinary calculi; R20.0 Anesthesia of skin; Z95.5 Presence of coronary angioplasty implant and graft; Z90.89 Acquired absence of other organs; Z87.891 Personal history of nicotine dependence; Z80.9 Family history of malignant neoplasm, unspecified; Z79.82 Long term (current) use of aspirin; Z79.899 Other long term (current) drug therapy; Z88.5 Allergy status to narcotic agent; Z88.0 Allergy status to penicillin
CPT/HCPCS: 80053; 85025; 82365; 74018; 52356; C2625; C1769; J2250; J1100; J2405; J0690; J2001; J3010; J1885; J2370; J0330; J2704

== ENCOUNTER → 2020-12-14 | Outpatient (CLI) | payer MEDICARE, OTHER | END | disposition home or self-care (01) | LOC: LABWHC1 09:51 | PROVIDERS: ATTEND Urology | DX: Z53.9 Procedure and treatment not carried out, unspecified reason (principal) | CPT/HCPCS: 36415 ==

== ENCOUNTER 2021-05-06 05:57 | Observation (INO) | payer MEDICARE, OTHER ==
[2021-05-06] MEDS ORDERED: SODIUM CHLORIDE 0.9% 500 ML 500 ML IV STA (06:39)
--- NOTE | 2021-05-06 06:57 | XR ---
EXAMINATION TYPE: XR chest 2V DATE OF EXAM: 05/06/2021 COMPARISON: 09/05/2018 HISTORY: Right lower quadrant pain. Hemoptysis. TECHNIQUE: 2 views FINDINGS: Heart is normal. Lungs are clear of infiltrate. There are chest leads. Costophrenic angles are clear. There is some spurring in the upper thoracic spine. IMPRESSION: No active cardiopulmonary disease. No change.
--- NOTE | 2021-05-06 07:16 | ED ---
Chest Pain HPI - General Chief Complaint: Chest Pain Stated Complaint: Chest Pain Time Seen by Provider: 05/06/21 06:16 Source: patient, RN notes reviewed Mode of arrival: ambulatory Limitations: no limitations - History of Present Illness Initial Comments: This a 55-year-old male presents emergency Department with chief complaint of chest pain. Patient states she's had intermittent symptoms last 2-3 days. Patient does have known cardiac history with 6 stents. 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 Patient states that he has had some mild cough and congestion. Patient states he was seen at [facility] overnight and states that he had some lab work and told her nothing else they could do for him that he needed further testing and to go to [facility]. Patient states he has some shortness of breath no leg pain or leg swelling. Patient does have a history of hypertension. Patient denies any noted fever. - Related Data Home Medications Medication Instructions Recorded Confirmed lisinopriL [Zestril] 40 mg PO DAILY 01/15/18 05/06/21 Chlorthalidone 50 mg PO DAILY 05/22/20 05/06/21 HYDROcodone/APAP 10-325MG [[place] 1 tab PO QID 05/22/20 05/06/21 10-325] Nitroglycerin Sl Tabs [Nitrostat] 0.4 mg SUBLINGUAL Q5M PRN 05/22/20 05/06/21 amLODIPine [Norvasc] 10 mg PO DAILY 05/22/20 05/06/21 Carvedilol [Coreg] 25 mg PO BID 08/09/20 05/06/21 Atorvastatin Calcium [Lipitor] 80 mg PO HS 05/06/21 05/06/21 Ondansetron [Zofran] 4 mg PO TID PRN 05/06/21 05/06/21 Previous Rx's Medication Instructions Recorded Tamsulosin [Flomax] 0.4 mg PO DAILY #7 cap 09/05/18 Allergies Allergy/AdvReac Type Severity Reaction Status Date / Time morphine Allergy Rash/Hives Verified 05/06/21 07:58 Penicillins Allergy Rash/Hives Verified 05/06/21 07:58 Review of Systems ROS Statement: Those systems with pertinent positive or pertinent negative responses have been documented in the HPI. ROS Other: All systems not noted in ROS Statement are negative. EKG Findings - EKG Comments: EKG Findings:: EKG performed at 6:26 sinus tachycardia with a rate of 108 FL 124 QRS 86 QT/QTC 344/460 Past Medical History Past Medical History: Coronary Artery Disease (CAD), Chest Pain / Angina, GERD/Reflux, Hypertension, Osteoarthritis (OA), Sleep Apnea/CPAP/BIPAP Additional Past Medical History / Comment(s): SLEEP APNEA- NO C-PAP, SPINAL STENOSIS, BACK PAIN., WEARS NECK BRACE AT HS., WEARS BACK BRACE AND USES CANE., KIDNEY STONES, STATES NUMBNESS AT TIMES ON RIGHT SIDE., SOB WITH ACTIVITY. , SEE CARDIOLOGY H & P. History of Any Multi-Drug Resistant Organisms: None Reported Past Surgical History: Heart Catheterization With Stent, Tonsillectomy Additional Past Surgical History / Comment(s): 08/09/20 LEFT KIDNEY LITHROTRIPSY. Bilateral wrists & elbow surgery. Neck surgery. HEart cath with stents 08/19/2017 ([facility]) Past Anesthesia/Blood Transfusion Reactions: No Reported Reaction Date of Last Stent Placement:: 08/19/2017 Past Psychological History: No Psychological Hx Reported Smoking Status: Former smoker Past Alcohol Use History: Occasional Past Drug Use History: None Reported - Past Family History Mother Family Medical History: Cancer Father Family Medical History: Cancer General Exam Limitations: no limitations General appearance: alert, in no apparent distress Head exam: Present: atraumatic, normocephalic, normal inspection Eye exam: Present: normal appearance, PERRL, EOMI. Absent: scleral icterus, con junctival injection, periorbital swelling ENT exam: Present: normal exam, normal oropharynx, mucous membranes moist Neck exam: Present: normal inspection, full ROM. Absent: tenderness, meningismus, lymphadenopathy Respiratory exam: Present: normal lung sounds bilaterally. Absent: respiratory distress, wheezes, rales, rhonchi, stridor Cardiovascular Exam: Present: normal rhythm, tachycardia, normal heart sounds. Absent: systolic murmur, diastolic murmur, rubs, gallop, clicks GI/Abdominal exam: Present: soft, normal bowel sounds. Absent: distended, tenderness, guarding, rebound, rigid Course Vital Signs 05/06/21 05/06/21 06:06 08:02 Temperature 98.6 F Pulse Rate 111 H 100 Respiratory 22 18 Rate Blood Pressure 158/98 135/85 O2 Sat by Pulse 97 94 L Oximetry Chest Pain MDM - MDM 55-year-old male presented for chest pain. Patient has significant cardiac history first troponin is negative. Patient has multiple risk factors will be made for cardiology evaluation his bail attacher Dr. Berry. Disposition Clinical Impression: Chest pain Disposition: ADMITTED IP TO THIS HOSP Condition: Fair Referrals: Moreno Rivera MD [Primary Care Provider] - 1-2 days
[2021-05-06] MEDS ORDERED: NITROGLYCERIN OINT 1 INCH/GM PACKET TOPICAL STA (07:24)
[2021-05-06 07:26] LABS: Basophils # (A) 0.1 k/uL (0-0.2); Basophils % (A) 1 %; Eosinophils % (A) 0 %; HCT 50.1 % (39.0-53.0); HGB 16.7 gm/dL (13.0-17.5); Lymphocytes # (A) 1.4 k/uL (1.0-4.8); Lymphocytes % (A) 12 %; MCH 30.1 pg (25.0-35.0); MCHC 33.2 g/dL (31.0-37.0); MCV 90.7 fL (80.0-100.0); Mean Platelet Volume 7.3; Monocytes # (A) 0.4 k/uL (0-1.0); Monocytes % (A) 4 %; Neutrophils # (A) 9.3 k/uL (1.3-7.7); Neutrophils % (A) 82 %; Platelet Count 220 k/uL (150-450); RBC 5.53 m/uL (4.30-5.90); RDW 15.1 % (11.5-15.5); WBC 11.3 k/uL (3.8-10.6)
[2021-05-06 07:40] LABS: Partial Thromboplastin Time 25.1 sec (22.0-30.0); Prothrombin Time 10.4 sec (9.0-12.0)
[2021-05-06 07:48] LABS: ALT 30 U/L (4-49); AST 28 U/L (17-59); African American GFR (CKD) >90 (>60 ml/min/1.73 sqM); Albumin 4.3 g/dL (3.5-5.0); Alkaline Phosphatase 73 U/L (38-126); Anion Gap 11 mmol/L; Blood Urea Nitrogen 12 mg/dL (9-20); Calcium 9.7 mg/dL (8.4-10.2); Carbon Dioxide 19 mmol/L (22-30); Chloride 108 mmol/L (98-107); Glucose 139 mg/dL (74-99); Magnesium 1.9 mg/dL (1.6-2.3); Non-African American GFR(CKD) >90 (>60 ml/min/1.73 sqM); Potassium 4.7 mmol/L (3.5-5.1); Sodium 138 mmol/L (137-145); Total Bilirubin 0.8 mg/dL (0.2-1.3); Total Protein 7.5 g/dL (6.3-8.2)
[2021-05-06] MEDS ORDERED: HEPARIN SODIUM 1,000 UN/ML (10ML VL) IV ONE (08:17)
[2021-05-06] MEDS ORDERED: NITROGLYCERIN SL TABS 0.4 MG TAB SUBLINGUAL PRN (08:17)
[2021-05-06] MEDS ORDERED: ONDANSETRON 4 MG TAB PO PRN (08:57)
[2021-05-06] MEDS: HYDROcodone/APAP 10-325MG 1 EACH TAB PO SCH ×4 (09:22→21:35)
[2021-05-06] MEDS: HEPARIN SOD,PORK IN 0.45% NACL 25,000 UNIT in 0.45% NACL 1 250ML.BAG IV SCH (09:23)
--- NOTE | 2021-05-06 12:00 | P.HPIM ---
History of Present Illness Patient is a pleasant 55-year-old male came in with complaints of chest pressure-like sensation which started yesterday on and off while watching TV nonexertional not associated with food associated with some diaphoresis and some shortness of breath denied any significant lightheadedness. Patient does have history of coronary artery disease in the past had multiple stents in the past. Patient was also complaining of mild cough and congestion d-dimer is negative and troponins were negative EKG showed some significant ST-T wave changes in the anteroseptal leads. Patient was evaluated by cardiology they're recommending cardiac catheterization tomorrow. Patient is presently on IV heparin. REVIEW OF SYSTEMS: CONSTITUTIONAL: No fever, no malaise, no fatigue. HEENT: No recent visual problems or hearing problems. Denied any sore throat. CARDIOVASCULAR: No orthopnea, PND, no palpitations, no syncope. PULMONARY: No shortness of breath, no cough, no hemoptysis. GASTROINTESTINAL: No diarrhea, no nausea, no vomiting, no abdominal pain. NEUROLOGICAL: No headaches, no weakness, no numbness. HEMATOLOGICAL: Denies any bleeding or petechiae. GENITOURINARY: Denies any burning micturition, frequency, or urgency. MUSCULOSKELETAL/RHEUMATOLOGICAL: Denies any joint pain, swelling, or any muscle pain. ENDOCRINE: Denies any polyuria or polydipsia. The rest of the 14-point review of systems is negative. PHYSICAL EXAMINATION: GENERAL: The patient is alert and oriented x3, not in any acute distress. Obese HEENT: Pupils are round and equally reacting to light. EOMI. No scleral icterus. No conjunctival pallor. Normocephalic, atraumatic. No pharyngeal erythema. No thyromegaly. CARDIOVASCULAR: S1 and S2 present. No murmurs, rubs, or gallops. PULMONARY: Chest is clear to auscultation, no wheezing or crackles. ABDOMEN: Soft, nontender, nondistended, normoactive bowel sounds. No palpable organomegaly. MUSCULOSKELETAL: No joint swelling or deformity. EXTREMITIES: No cyanosis, clubbing, or pedal edema. NEUROLOGICAL: Gross neurological examination did not reveal any focal deficits. SKIN: No rashes. Assessment and plan 1 chest pain possibility of unstable angina: Patient is presently on IV heparin will undergo cardiac catheterization tomorrow -Significant coronary artery disease -Hypertension patient resumed on his home medications -Hyperlipidemia DVT prophylaxis: On IV heparin Past Medical History Past Medical History: Coronary Artery Disease (CAD), Chest Pain / Angina, GERD/Reflux, Hypertension, Osteoarthritis (OA), Sleep Apnea/CPAP/BIPAP Additional Past Medical History / Comment(s): SLEEP APNEA- NO C-PAP, SPINAL STENOSIS, BACK PAIN., WEARS NECK BRACE AT HS., WEARS BACK BRACE AND USES CANE., KIDNEY STONES, STATES NUMBNESS AT TIMES ON RIGHT SIDE., SOB WITH ACTIVITY. , SEE CARDIOLOGY H & P. History of Any Multi-Drug Resistant Organisms: None Reported Past Surgical History: Heart Catheterization With Stent, Tonsillectomy Additional Past Surgical History / Comment(s): 08/09/20 LEFT KIDNEY LITHROTRIPSY. Bilateral wrists & elbow surgery. Neck surgery. HEart cath with stents 08/19/2017 ([facility]) Past Anesthesia/Blood Transfusion Reactions: No Reported Reaction Date of Last Stent Placement:: 08/19/2017 Past Psychological History: No Psychological Hx Reported Smoking Status: Former smoker Past Alcohol Use History: Occasional Past Drug Use History: None Reported - Past Family History Mother Family Medical History: Cancer Father Family Medical History: Cancer Medications and Allergies Home Medications Medication Instructions Recorded Confirmed Type lisinopriL [Zestril] 40 mg PO DAILY 01/15/18 05/06/21 History Tamsulosin [Flomax] 0.4 mg PO DAILY #7 cap 09/05/18 05/06/21 Rx Chlorthalidone 50 mg PO DAILY 05/22/20 05/06/21 History HYDROcodone/APAP 10-325MG [[place] 1 tab PO QID 05/22/20 05/06/21 History 10-325] Nitroglycerin Sl Tabs [Nitrostat] 0.4 mg SUBLINGUAL Q5M PRN 05/22/20 05/06/21 History amLODIPine [Norvasc] 10 mg PO DAILY 05/22/20 05/06/21 History Carvedilol [Coreg] 25 mg PO BID 08/09/20 05/06/21 History Atorvastatin Calcium [Lipitor] 80 mg PO HS 05/06/21 05/06/21 History Ondansetron [Zofran] 4 mg PO TID PRN 05/06/21 05/06/21 History Allergies Allergy/AdvReac Type Severity Reaction Status Date / Time morphine Allergy Rash/Hives Verified 05/06/21 07:58 Penicillins Allergy Rash/Hives Verified 05/06/21 07:58 Physical Exam Vitals: Vital Signs Temp Pulse Resp BP Pulse Ox 05/06/21 09:00 105 H 14 135/85 94 L 05/06/21 08:02 105 H 20 135/85 93 L 05/06/21 06:06 98.6 F 111 H 22 158/98 97 Intake and Output 05/05/21 05/06/21 05/06/21 22:59 06:59 14:59 Other: Weight 86.183 kg Results CBC & Chem 7: 05/06/21 06:43 05/06/21 06:43 Labs: Abnormal Lab Results - Last 24 Hours (Table) 05/06/21 05/06/21 Range/Units 06:43 06:43 WBC 11.3 H (3.8-10.6) k/uL Neutrophils # 9.3 H (1.3-7.7) k/uL Chloride 108 H (98-107) mmol/L Carbon Dioxide 19 L (22-30) mmol/L Glucose 139 H (74-99) mg/dL
[2021-05-06] MEDS: TAMSULOSIN 0.4 MG CAP.ER.24H PO SCH (12:24)
[2021-05-06] MEDS: carvediloL 12.5 MG TAB PO SCH ×2 (12:24→16:46)
[2021-05-06] MEDS: lisinopriL 20 MG TAB PO SCH (12:24)
[2021-05-06] MEDS: amLODIPine 10 MG TAB PO SCH (12:24)
[2021-05-06] MEDS: CHLORTHALIDONE 25 MG TAB PO SCH (12:25)
--- NOTE | 2021-05-06 13:38 | CONS ---
CONSULTATION This is a 55-year-old gentleman with history of coronary artery disease, status post prior angioplasty, hypertension and dyslipidemia who presents to hospital complaining of chest pain. Patient had a cardiac catheterization in 2019 that revealed significant disease involving circumflex coronary artery with a patent stent in the right coronary artery and mild to moderate disease in the proximal LAD. He went on to have angioplasty of the circumflex coronary artery. At the time of my evaluation this morning, he appears comfortable at rest and is free of symptoms. His coronavirus test is negative. He had two sets of troponins that are both within normal limits. He had an EKG done that shows sinus tachycardia with left anterior fascicular block and nonspecific ST-T wave changes. He describes his chest discomfort as intermittent episodes of precordial chest pressure also causing numbness involving left upper extremity. His clinical presentation is consistent with unstable angina and I advised him to undergo cardiac catheterization tomorrow. PAST MEDICAL HISTORY: Significant for coronary artery disease, status post prior multivessel angioplasty, hypertension, dyslipidemia. CURRENT MEDICATIONS: Current medications include Zestril 40 daily, amlodipine 10 daily, Flomax, sublingual nitroglycerin, [place], chlorthalidone, Coreg 25 b.i.d. and Lipitor. ALLERGIES: MORPHINE AND PENICILLIN. FAMILY HISTORY: Negative for premature coronary artery disease. SOCIAL HISTORY: Negative for smoking, EtOH abuse or drug abuse. REVIEW OF SYSTEMS: HEENT is unremarkable. CARDIAC: As described above. RESPIRATORY: Negative. GI: Negative. GENITOURINARY: Negative. ALLERGY/IMMUNOLOGY: Negative. SKIN: Negative. MUSCULOSKELETAL: Negative. ENDOCRINE: Negative. DERMATOLOGY: Negative. CONSTITUTIONAL: Negative. ONCOLOGICAL: Negative. GLAZIER STAINED GLASS: Negative. Rest of the system review is not relevant. PHYSICAL EXAMINATION: Comfortable at rest. Vital signs are stable. There is no jugular venous distention. Carotid upstroke is normal. There is no bruit. Chest exam reveals good air entry bilaterally. Heart exam reveals first and second heart sounds. No gallop. No murmur. No rub. Abdomen is soft, nontender. Examination of extremities did not reveal any edema. Peripheral pulses are felt. ASSESSMENT: 1. Unstable angina. 2. Hypertension. 3. Dyslipidemia. PLAN: Patient will undergo cardiac catheterization tomorrow. Will schedule a cardiac catheterization tomorrow. MMODL / IJN: [id number] /
--- NOTE | 2021-05-06 13:46 | ECHOF ---
Referral Reason:assess lv function MEASUREMENTS -------- HEIGHT: 160.0 cm WEIGHT: 86.2 kg BP: RVIDd: 3.1 cm (< 3.3) IVSd: 1.6 cm (0.6 - 1.1) LVIDd: 4.0 cm (3.9 - 5.3) LVPWd: 1.6 cm (0.6 - 1.1) IVSs: 2.1 cm LVIDs: 2.6 cm LVPWs: 2.0 cm LAESV Index (A-L): 19.71 ml/m Ao Diam: 3.2 cm (2.0 - 3.7) AV Cusp: 1.8 cm (1.5 - 2.6) MV EXCURSION: 17.766 mm (> 18.000) MV EF SLOPE: 66 mm/s (70 - 150) EPSS: 0.4 cm MV E Juan: 0.54 m/s MV DecT: 172 ms MV A Juan: 0.70 m/s MV E/A Ratio: 0.78 RAP: 5.00 mmHg RVSP: 18.35 mmHg FINDINGS -------- Sinus rhythm. This was a technically adequate study. The left ventricular size is normal. There is moderate concentric left ventricular hypertrophy. O verall left ventricular systolic function is normal with, an EF between 55 - 60 %. The right ventricle is normal in size. Normal LA size by volume 22+/-6 ml/m2. The right atrial size is normal. Interatrial and interventricular septum intact. There is no evidence of aortic regurgitation. There is no evidence of aortic stenosis. No mitral regurgitation. Mild tricuspid regurgitation present. There is no evidence of pulmonary hypertension. The right v entricular systolic pressure, as measured by Doppler, is 18.35mmHg. There is no pulmonic regurgitation present. The aortic root size is normal. IVC Not well visulized. There is no pericardial effusion. CONCLUSIONS -------- 1. The left ventricular size is normal. 2. There is moderate concentric left ventricular hypertrophy. 3. Overall left ventricular systolic function is normal with, an EF between 55 - 60 %. 4. Mild tricuspid regurgitation present. PLATE STACKER: Luz Stephens [facility]
[2021-05-06] MEDS ORDERED: HEPARIN SODIUM 1,000 UN/ML (10ML VL) IV PRN (16:27)
[2021-05-06] MEDS ORDERED: ATORVASTATIN 80 MG TAB PO SCH (21:00)
[2021-05-07 07:31] LABS: HCT 44.8 % (39.0-53.0); HGB 14.9 gm/dL (13.0-17.5); MCHC 33.3 g/dL (31.0-37.0); MCV 90.3 fL (80.0-100.0); Mean Platelet Volume 7.2; Platelet Count 200 k/uL (150-450); RBC 4.96 m/uL (4.30-5.90); RDW 14.7 % (11.5-15.5); WBC 11.8 k/uL (3.8-10.6)
[2021-05-07 07:47] LABS: African American GFR (CKD) 77 (>60 ml/min/1.73 sqM); Anion Gap 6 mmol/L; Blood Urea Nitrogen 28 mg/dL (9-20); Calcium 8.9 mg/dL (8.4-10.2); Carbon Dioxide 24 mmol/L (22-30); Chloride 107 mmol/L (98-107); Glucose 111 mg/dL (74-99); Non-African American GFR(CKD) 66 (>60 ml/min/1.73 sqM); Potassium 4.1 mmol/L (3.5-5.1); Sodium 137 mmol/L (137-145)
[2021-05-07] MEDS: HYDROcodone/APAP 10-325MG 1 EACH TAB PO SCH ×2 (07:51→12:41)
[2021-05-07] MEDS: amLODIPine 10 MG TAB PO SCH (07:52)
[2021-05-07] MEDS: lisinopriL 20 MG TAB PO SCH (07:52)
[2021-05-07] MEDS: TAMSULOSIN 0.4 MG CAP.ER.24H PO SCH (07:53)
[2021-05-07] MEDS: carvediloL 12.5 MG TAB PO SCH (07:53)
[2021-05-07] MEDS ORDERED: ALPRAZolam 0.5 MG TAB PO PRN (07:57)
[2021-05-07] MEDS ORDERED: ALPRAZolam 0.25 MG TAB PO PRN (07:57)
[2021-05-07] MEDS ORDERED: SODIUM CHLORIDE 0.9% 1,000 ML in EMPTY BAG 1 BAG IV SCH (08:00)
[2021-05-07] MEDS: CHLORTHALIDONE 25 MG TAB PO SCH (08:01)
[2021-05-07] MEDS ORDERED: ASPIRIN 325 MG TAB PO SCH (09:00)
[2021-05-07] MEDS: HEPARIN SOD,PORK IN 0.45% NACL 25,000 UNIT in 0.45% NACL 1 250ML.BAG IV SCH (09:04)
[2021-05-07] MEDS ORDERED: IV FLUID CONTINUATION 1,000 ML IV ONE (10:00)
[2021-05-07] MEDS ORDERED: MIDAZOLAM 2 MG/2 ML VIAL IV ONE (10:04)
[2021-05-07] MEDS: LIDOCAINE 1% INJ 10MG/ML (20 ML MDV) SQ ONE ×2 (10:06→10:11)
[2021-05-07] MEDS ORDERED: VERAPAMIL SYRINGE (5 MG/10 ML) INTRAARTER ONE (10:07)
[2021-05-07] MEDS ORDERED: IOPAMIDOL-370 125ML BTL INJ ONE (10:20)
[2021-05-07] MEDS ORDERED: SODIUM CHLORIDE 0.9% 1,000 ML IV SCH (10:30)
[2021-05-07] MEDS ORDERED: RX INFO: IV CONTRAST WAS GIVEN 1 EACH MISC MISCELLANE PRN (10:30)
[2021-05-07 10:52] LABS: Chol/HDL Ratio 5.37 Ratio; LDL Cholesterol,Calculated 95.4 mg/dL (0.0-131.0)
--- NOTE | 2021-05-07 10:55 | CC ---
CARDIAC CATHETERIZATION REPORT DATE OF SERVICE: 05/07/2021 PERFORMING PHYSICIAN: Ajti Berry M.D. PROCEDURE PERFORMED: 1. Selective right and left coronary angiogram. 2. Left heart catheterization. INDICATION: This is a pleasant 55-year-old gentleman with coronary artery disease and prior stenting of the LCX and LAD as well as hypertension and dyslipidemia who was admitted to the hospital with chest discomfort concerning for unstable angina. APPROACH: Right common femoral artery. COMPLICATIONS: None. LEVEL OF SEDATION: Moderate, with sedation length of 21 minutes. PROCEDURE DESCRIPTION: After obtaining informed consent, the patient was brought to the cardiac lab pack chemist. The right radial artery initially was attempted to be accessed, but that was unsuccessful. For that reason, we accessed the right common femoral artery using micropuncture technique. The micropuncture wire passed easily. Then I placed a 6-Bahamian sheath at the right common femoral artery. I did selective right and left coronary angiogram with JR4 and JL4 catheters. After that I did left heart catheterization using 5-Bahamian pigtail catheter. The procedure was completed without any complication. SELECTIVE CORONARY ANGIOGRAM: 1. The right coronary artery is a large-caliber vessel and it is a dominant vessel. The RCA has mild to moderate diffuse disease without any high-grade lesions. The RCA distally bifurcates into PDA and PLV branches. Both appeared to have mild disease only. 2. The left main appeared to be angiographically normal. It bifurcates into LCX and LAD. 3. The LCX is a large-caliber vessel. It is a nondominant vessel. The LCX is stented in the proximal portion and the stent is patent. Then it gives rise to a large OM branch which appeared to be angiographically normal, and the circumflex continues after that in the AV groove. 4. The LAD is a large-caliber vessel. The proximal LAD appeared to have mild disease only. The mid LAD is stented and the stent is patent. The LAD distally by the apical region becomes a small- to medium-caliber vessel with mild to moderate diffuse disease. 5. HEMODYNAMICS: The LVEDP was about 10 to 12 mmHg without significant gradient across the aortic valve. CONCLUSION: 1. Patent stent in the left circumflex coronary artery. 2. Patent stent in the left anterior descending artery. 3. Normal left-sided filling pressure. POST-PROCEDURE MANAGEMENT: 1. Aggressive cholesterol control. 2. Risk factor modifications. 3. Follow up with the patient. MMODL / IJN: [id number] /
[2021-05-07 11:57] VITALS: TEMP 98
--- NOTE | 2021-05-07 13:09 | P.PN ---
Subjective Progress Note Date: 05/07/21 Patient is a pleasant 55-year-old male came in with complaints of chest pressure-like sensation which started yesterday on and off while watching TV nonexertional not associated with food associated with some diaphoresis and some shortness of breath denied any significant lightheadedness. Patient does have history of coronary artery disease in the past had multiple stents in the past. Patient was also complaining of mild cough and congestion d-dimer is negative and troponins were negative EKG showed some significant ST-T wave changes in the anteroseptal leads. Patient was evaluated by cardiology they're recommending cardiac catheterization tomorrow. Patient is presently on IV heparin. 05/07/2021 Patient was oriented S status post cardiac catheterization with access to the right groin. He is having some back discomfort as he does take [place] home for chronic lower back pain. We will give him a small dose of IV pain medication in order for him to complete his bedrest. Chest is completely resolved, there is no dizziness or lightheadedness, cough or shortness of breath. Echocardiogram r evealed an EF of 55-60% with mild tricuspid regurgitation. Catheterization today was clear. Patient was already taking lisinopril, amlodipine, chlorthalidone, carvedilol and atorvastatin at home. initially, 0.8, sodium 137 potassium 4.1, BUN 8, creatinine 1.22, glucose in the 100s, troponins are negative 2, cholesterol panel shows triglyceride level of 231, cholesterol 174, LDL 95 and HDL 32.4. Vital signs included blood pressure 100/70, afebrile, heart rate 70s, 93% on room air. ROS Constitutional: Denied any fatigue denied any fever. Cardio vascular: denied any chest pain, palpitations Gastrointestinal: denied any nausea vomiting Pulmonary: Denied any shortness of breath cough Neurologic denied any new focal deficits All inpatient medications were reviewed and appropriate changes in these medications as dictated in the interval history and assessment and plan. PHYSICAL EXAMINATION: GENERAL: The patient is alert and oriented x3, not in any acute distress. Obese HEENT: Pupils are round and equally reacting to light. EOMI. No scleral icterus. No conjunctival pallor. Normocephalic, atraumatic. No pharyngeal erythema. No thyromegaly. CARDIOVASCULAR: S1 and S2 present. No murmurs, rubs, or gallops. PULMONARY: Chest is clear to auscultation, no wheezing or crackles. ABDOMEN: Soft, nontender, nondistended, normoactive bowel sounds. No palpable organomegaly. MUSCULOSKELETAL: No joint swelling or deformity. EXTREMITIES: No cyanosis, clubbing, or pedal edema. +2 right dorsalis pedis pulse NEUROLOGICAL: Gross neurological examination did not reveal any focal deficits. SKIN: No rashes. Assessment and plan Plan -Chest pain possibility of unstable angina: Clear Cath -History of Coronary artery disease s/p PCI to LAD and left circumflex -Hypertension patient resumed on his home medications -Hyperlipidemia DVT prophylaxis: early ambulation when able Plan Cholesterol control with diet and medications Continue all current home medications Discharge home if cleared by cardiology to follow up in the office Objective - Vital Signs Vital signs: Vital Signs Temp 98 F 05/07/21 11:15 Pulse 68 05/07/21 01:56 Resp 14 05/07/21 11:45 BP 109/70 05/07/21 11:45 Pulse Ox 93 L 05/07/21 11:45 Intake & Output 05/06/21 05/07/21 05/07/21 18:59 06:59 18:59 Intake Total 73.833 63.816 150 Balance 73.833 63.816 150 Weight 86.183 kg Intake: IV 150 Intake, IV Titration 73.833 63.816 Amount Heparin Sod,Pork in 0.45% 73.833 63.816 NaCl 25,000 unit In 0.45 % NaCl 1 250ml.bag @ 11. 603 UNITS/KG/HR 10 mls/hr IV .Q24H [facility] Rx#: [id number] Other: # Voids 2 2 - Labs CBC & Chem 7: 05/07/21 07:04 05/07/21 07:04 Labs: Abnormal Lab Results - Last 24 Hours (Table) 05/06/21 05/06/21 05/07/21 Range/Units 15:27 21:29 07:04 WBC (3.8-10.6) k/uL APTT 31.2 H 47.4 H (22.0-30.0) sec BUN 28 H (9-20) mg/dL Glucose 111 H (74-99) mg/dL Triglycerides 231.00 H (0.00-149.00) mg/dL VLDL Cholesterol, Calc 46.20 H (5.00-40.00) mg/dL HDL Cholesterol 32.40 L (40.00-60.00) mg/dL 05/07/21 05/07/21 Range/Units 07:04 07:04 WBC 11.8 H (3.8-10.6) k/uL APTT 39.8 H (22.0-30.0) sec BUN (9-20) mg/dL Glucose (74-99) mg/dL Triglycerides (0.00-149.00) mg/dL VLDL Cholesterol, Calc (5.00-40.00) mg/dL HDL Cholesterol (40.00-60.00) mg/dL
[2021-05-07 15:28] VITALS: RESP 15
[2021-05-07 15:29] VITALS: BP 121/79; PULSE 74
[2021-05-08] MEDS ORDERED: HEPARIN SODIUM,PORCINE 2,500 UNIT in SODIUM CHLORIDE 0.9% 250 ML IRRIGATION PRN (07:00)
[2021-05-08] MEDS ORDERED: HEPARIN SODIUM,PORCINE 10,000 UNIT in SODIUM CHLORIDE 0.9% 1,000 ML IRRIGATION PRN (07:00)
== END 2021-05-07 17:42 | disposition home or self-care (01) ==
LOC: EC 05:57 → 6NMEDSUR 08:42
PROVIDERS: ADMIT Internal Medicine; ATTEND Internal Medicine
DX: R07.89 Other chest pain (principal); I25.10 Atherosclerotic heart disease of native coronary artery without angina pectoris; I10 Essential (primary) hypertension; I44.4 Left anterior fascicular block; R00.0 Tachycardia, unspecified; G47.30 Sleep apnea, unspecified; K21.9 Gastro-esophageal reflux disease without esophagitis; M19.90 Unspecified osteoarthritis, unspecified site; E78.5 Hyperlipidemia, unspecified; M48.00 Spinal stenosis, site unspecified; R05.9 Cough, unspecified; R09.89 Other specified symptoms and signs involving the circulatory and respiratory systems; G89.29 Other chronic pain; M54.50 Low back pain, unspecified; E66.9 Obesity, unspecified; Z68.33 Body mass index [BMI] 33.0-33.9, adult; Z20.822 Contact with and (suspected) exposure to COVID-19; Z79.891 Long term (current) use of opiate analgesic; Z79.899 Other long term (current) drug therapy; Z88.0 Allergy status to penicillin; Z88.5 Allergy status to narcotic agent; Z95.5 Presence of coronary angioplasty implant and graft; Z87.442 Personal history of urinary calculi; Z98.890 Other specified postprocedural states; Z87.891 Personal history of nicotine dependence; Z80.9 Family history of malignant neoplasm, unspecified
CPT/HCPCS: 96366 ×3; 96376; 96361; 96365; 99285; 36415; 93005; 93306; 93458; 85379; 83880; 80061; 80053; 80048; 83735; 84484; 85025; 85027; 85610; 85730 ×2; 87635; 71046; G0378 ×2; C1894 ×2; C1769 ×2; C1760; J2250; J2001; J1644 ×2; Q9967

== ENCOUNTER 2021-07-03 02:22 | Emergency (ER) | payer MEDICARE, OTHER ==
[2021-07-03 02:29] VITALS: TEMP 98.5
[2021-07-03] MEDS ORDERED: ONDANSETRON 4 MG/2 ML VIAL IVP STA (02:36)
[2021-07-03] MEDS ORDERED: SODIUM CHLORIDE 0.9% 1,000 ML IV STA (02:36)
[2021-07-03] MEDS ORDERED: HYDROmorphone 0.5 MG/0.5 ML SYRINGE IVP STA (02:36)
--- NOTE | 2021-07-03 02:42 | ED ---
General Adult HPI - General Chief complaint: Abdominal Pain Stated complaint: Abdominal pain Time Seen by Provider: 07/03/21 02:24 Source: patient Mode of arrival: EMS - History of Present Illness Initial comments: 55-year-old male presents to the emergency room for right flank pain. Patient states that he developed right flank pain starting about a week ago. Patient states it feels like a kidney stone. Pt has had several kidney stones in the past requiring lithotripsy. Patient denies any fevers or chills. Denies any associated abdominal pain. Admits to mild nausea, denies vomiting.Patient has no other complaints at this time including shortness of breath, chest pain, abdominal pain, nausea or vomiting, headache, or visual changes. - Related Data Home Medications Medication Instructions Recorded Confirmed lisinopriL [Zestril] 40 mg PO DAILY 01/15/18 05/06/21 Chlorthalidone 50 mg PO DAILY 05/22/20 05/06/21 HYDROcodone/APAP 10-325MG [[place] 1 tab PO QID 05/22/20 05/06/21 10-325] Nitroglycerin Sl Tabs [Nitrostat] 0.4 mg SUBLINGUAL Q5M PRN 05/22/20 05/06/21 amLODIPine [Norvasc] 10 mg PO DAILY 05/22/20 05/06/21 Carvedilol [Coreg] 25 mg PO BID 08/09/20 05/06/21 Atorvastatin Calcium [Lipitor] 80 mg PO HS 05/06/21 05/06/21 Ondansetron [Zofran] 4 mg PO TID PRN 05/06/21 05/06/21 Previous Rx's Medication Instructions Recorded Tamsulosin [Flomax] 0.4 mg PO DAILY #7 cap 09/05/18 Aspirin 325 mg PO DAILY tab 05/07/21 Ketorolac [Toradol] 10 mg PO TID PRN #12 tab 07/03/21 Ondansetron [Zofran ODT] 4 mg PO Q8HR PRN #15 tab 07/03/21 Allergies Allergy/AdvReac Type Severity Reaction Status Date / Time morphine Allergy Rash/Hives Verified 05/06/21 07:58 Penicillins Allergy Rash/Hives Verified 05/06/21 07:58 Review of Systems ROS Statement: Those systems with pertinent positive or pertinent negative responses have been documented in the HPI. ROS Other: All systems not noted in ROS Statement are negative. Past Medical History Past Medical History: Coronary Artery Disease (CAD), Chest Pain / Angina, GERD/Reflux, Hypertension, Osteoarthritis (OA), Sleep Apnea/CPAP/BIPAP Additional Past Medical History / Comment(s): SLEEP APNEA- NO C-PAP, SPINAL STENOSIS, BACK PAIN., WEARS NECK BRACE AT HS., WEARS BACK BRACE AND USES CANE., KIDNEY STONES, STATES NUMBNESS AT TIMES ON RIGHT SIDE., SOB WITH ACTIVITY. , SEE CARDIOLOGY H & P. History of Any Multi-Drug Resistant Organisms: None Reported Past Surgical History: Heart Catheterization With Stent, Tonsillectomy Additional Past Surgical History / Comment(s): 08/09/20 LEFT KIDNEY LITHROTRIPSY. Bilateral wrists & elbow surgery. Neck surgery. HEart cath with stents 08/19/2017 ([facility]) Past Anesthesia/Blood Transfusion Reactions: No Reported Reaction Date of Last Stent Placement:: 08/19/2017 Past Psychological History: No Psychological Hx Reported Smoking Status: Former smoker Past Alcohol Use History: Occasional Past Drug Use History: None Reported - Past Family History Mother Family Medical History: Cancer Father Family Medical History: Cancer General Exam General appearance: alert, in no apparent distress Head exam: Present: atraumatic Eye exam: Present: normal appearance, PERRL, EOMI. Absent: scleral icterus, conjunctival injection ENT exam: Present: normal exam, mucous membranes moist Neck exam: Present: normal inspection, full ROM Respiratory exam: Present: normal lung sounds bilaterally. Absent: respiratory distress, wheezes Cardiovascular Exam: Present: regular rate, normal rhythm, normal heart sounds GI/Abdominal exam: Present: soft, normal bowel sounds. Absent: distended, tenderness Course Vital Signs 07/03/21 07/03/21 02:26 03:10 Temperature 98.5 F Pulse Rate 96 78 Respiratory 16 18 Rate Blood Pressure 165/117 168/107 O2 Sat by Pulse 95 96 Oximetry Medical Decision Making - Medical Decision Making Vitals are stable. Patient is well-appearing. He has right mid flank pain. CBC CMP unremarkable. Urinalysis does show hematuria. CT abdomen and pelvis shows an obstructing 8 mm calculus at the right ureteropelvic junction with severe right-sided hydronephrosis which is new. Old exam. There is an abdominal aortic aneurysm which is essentially new compared to old exam, follow- up recommended. This measures 4.9 cm. patient will follow up with primary care closely for this. states he is actually aware of this and his doctor is watching it. Patient will also follow up with urology. We will send him home with pain medications. he requests toradol, already has flomax at home. He will return here for any worsening symptoms. - Lab Data Result diagrams: 07/03/21 02:43 07/03/21 02:43 Lab Results 07/03/21 07/03/21 07/03/21 Range/Units 02:43 02:43 02:43 WBC 12.7 H (3.8-10.6) k/uL RBC 5.52 (4.30-5.90) m/uL Hgb 16.8 (13.0-17.5) gm/dL Hct 51.0 (39.0-53.0) % MCV 92.3 (80.0-100.0) fL MCH 30.5 (25.0-35.0) pg MCHC 33.0 (31.0-37.0) g/dL RDW 14.5 (11.5-15.5) % Plt Count 211 (150-450) k/uL MPV 7.1 Neutrophils % 81 % Lymphocytes % 13 % Monocytes % 3 % Eosinophils % 2 % Basophils % 0 % Neutrophils # 10.3 H (1.3-7.7) k/uL Lymphocytes # 1.6 (1.0-4.8) k/uL Monocytes # 0.4 (0-1.0) k/uL Eosinophils # 0.2 (0-0.7) k/uL Basophils # 0.1 (0-0.2) k/uL Sodium 137 (137-145) mmol/L Potassium 4.3 (3.5-5.1) mmol/L Chloride 105 (98-107) mmol/L Carbon Dioxide 24 (22-30) mmol/L Anion Gap 8 mmol/L BUN 11 (9-20) mg/dL Creatinine 0.80 (0.66-1.25) mg/dL Est GFR (CKD-EPI)AfAm >90 (>60 ml/min/1.73 sqM) Est GFR (CKD-EPI)NonAf >90 (>60 ml/min/1.73 sqM) Glucose 145 H (74-99) mg/dL Calcium 9.8 (8.4-10.2) mg/dL Total Bilirubin 0.8 (0.2-1.3) mg/dL AST 22 (17-59) U/L ALT 24 (4-49) U/L Alkaline Phosphatase 74 (38-126) U/L Total Protein 7.4 (6.3-8.2) g/dL Albumin 4.4 (3.5-5.0) g/dL Amylase 65 (30-110) U/L Lipase 112 (23-300) U/L Urine Color Light Yellow Urine Appearance Clear (Clear) Urine pH 6.5 (5.0-8.0) Ur Specific [place] 1.011 (1.001-1.035) Urine Protein Negative (Negative) Urine Glucose (UA) Negative (Negative) Urine Ketones Negative (Negative) Urine Blood Small H (Negative) Urine Nitrite Negative (Negative) Urine Bilirubin Negative (Negative) Urine Urobilinogen <2.0 (<2.0) mg/dL Ur Leukocyte Esterase Negative (Negative) Urine RBC 32 H (0-5) /hpf Urine WBC 2 (0-5) /hpf Ur Squamous Epith Cells <1 (0-4) /hpf Urine Mucus Rare H (None) /hpf Disposition Clinical Impression: Ureteral calculus, Hematuria, Abdominal aortic aneurysm (AAA) 35 to 39 mm in diameter Disposition: HOME SELF-CARE Condition: Good Instructions (If sedation given, give patient instructions): Kidney Stones (ED) Additional Instructions: Please take medications as directed. Follow-up with your urologist and primary care doctor. Make sure to discuss CAT scan results with primary care doctor. Return to the emergency room for any worsening symptoms. Prescriptions: Ketorolac [Toradol] 10 mg PO TID PRN #12 tab PRN Reason: Pain Ondansetron [Zofran ODT] 4 mg PO Q8HR PRN #15 tab PRN Reason: Nausea Is patient prescribed a controlled substance at d/c from ED?: No Referrals: Moreno Rivera MD [Primary Care Provider] - 1-2 days Anthony Calderon MD [STAFF PHYSICIAN] - 1-2 days Time of Disposition: 03:44
[2021-07-03 02:59] LABS: Basophils # (A) 0.1 k/uL (0-0.2); Basophils % (A) 0 %; Eosinophils # (A) 0.2 k/uL (0-0.7); Eosinophils % (A) 2 %; HGB 16.8 gm/dL (13.0-17.5); Lymphocytes # (A) 1.6 k/uL (1.0-4.8); Lymphocytes % (A) 13 %; MCH 30.5 pg (25.0-35.0); MCV 92.3 fL (80.0-100.0); Mean Platelet Volume 7.1; Monocytes # (A) 0.4 k/uL (0-1.0); Monocytes % (A) 3 %; Neutrophils # (A) 10.3 k/uL (1.3-7.7); Neutrophils % (A) 81 %; Platelet Count 211 k/uL (150-450); RBC 5.52 m/uL (4.30-5.90); RDW 14.5 % (11.5-15.5); WBC 12.7 k/uL (3.8-10.6)
[2021-07-03 03:10] LABS: Appearance,Urine Clear (Clear); Bilirubin,Urine Negative (Negative); Blood,Urine Small (Negative); Color,Urine Light Yellow; Glucose,Urine (UA) Negative (Negative); Ketones,Urine Negative (Negative); Leukocyte Esterase,Urine Negative (Negative); Mucus,Urine Rare /hpf; Nitrite,Urine Negative (Negative); PH, Urine 6.5 (5.0-8.0); Protein,Urine Negative (Negative); RBC,Urine 32 /hpf (0-5); Specific Gravity,Urine 1.011 (1.001-1.035); Squamous Epithelial Cell,Urine <1 /hpf (0-4); Urobilinogen,Urine <2.0 mg/dL (<2.0); WBC,Urine 2 /hpf (0-5)
--- NOTE | 2021-07-03 03:11 | CT ---
EXAMINATION TYPE: CT abdomen pelvis wo con DATE OF EXAM: 07/03/2021 COMPARISON: 12/14/2013 HISTORY: abdominal pain. history of kidney stones CT DLP: 839.8 mGycm Automated exposure control for dose reduction was used. Images were obtained from the diaphragm to the floor the pelvis without contrast. Lung bases are clear. There is no pleural effusion. Heart size is fairly normal. There is no pericard ial effusion. There is some mild fatty infiltration of the liver. Spleen is intact. The stomach is in tact. There is no evidence of pancreatic mass. Gallbladder appears normal. The bile ducts are not dil ated. There is no adrenal mass. Right kidney shows significant hydronephrosis. There is 8 mm obstructing ca lculus at the right ureteropelvic junction. There is 4 cm cortical cyst posterior right kidney. There are calculi in the posterior right kidney and measure up to 1 cm. There is 1.2 cm calculus posterior left kidney. There is 8mm calculus medial left kidney. There is irregular 1.4 cm calculus interpolar left kidney. There is no evidence of a solid renal mass. There is 1 cm complex cyst medial left kidn ey that contains calcium. There is no retroperitoneal adenopathy. Ureters are not dilated. The bladde r distends smoothly. There is prostate calcification. There is no inguinal hernia. There is no free f luid in the pelvis. There is 4.9 cm lower abdominal aortic aneurysm. Aneurysm measures 8.3 cm in jeannine th. There is no mesenteric edema. There is no ascites or free air. There is no evidence of a bowel obstru ction. Appendix is medial and appears normal. The lumbar vertebrae appear intact. There is no compression fracture. There is degenerative mild disc space narrowing and spur formation. The bony pelvis is intact. Hip joints are intact. IMPRESSION: Multiple bilateral renal calculi. Obstructing calculus at the right ureteropelvic junction with sever e right-sided hydronephrosis which is new compared to old exam. Size and number of renal calculi or i ncreased compared to the old exam. Normal appendix. There is abdominal aortic aneurysm which is essentially new compared to old exam and follow-up is rec ommended.
[2021-07-03 03:12] VITALS: RESP 18
[2021-07-03 03:16] LABS: ALT 24 U/L (4-49); AST 22 U/L (17-59); African American GFR (CKD) >90 (>60 ml/min/1.73 sqM); Albumin 4.4 g/dL (3.5-5.0); Alkaline Phosphatase 74 U/L (38-126); Amylase 65 U/L (30-110); Anion Gap 8 mmol/L; Blood Urea Nitrogen 11 mg/dL (9-20); Calcium 9.8 mg/dL (8.4-10.2); Carbon Dioxide 24 mmol/L (22-30); Chloride 105 mmol/L (98-107); Glucose 145 mg/dL (74-99); Lipase 112 U/L (23-300); Non-African American GFR(CKD) >90 (>60 ml/min/1.73 sqM); Potassium 4.3 mmol/L (3.5-5.1); Sodium 137 mmol/L (137-145); Total Bilirubin 0.8 mg/dL (0.2-1.3); Total Protein 7.4 g/dL (6.3-8.2)
[2021-07-03] MEDS ORDERED: ACET/COD 300 MG/30 MG STARTER PACK 6 TAB BTL PO STA (03:46)
[2021-07-03 04:09] VITALS: BP 164/98; PULSE 80
== END 2021-07-03 05:20 | disposition home or self-care (01) ==
LOC: EC 02:22
DX: N20.1 Calculus of ureter (principal); I71.4 Abdominal aortic aneurysm, without rupture; R31.9 Hematuria, unspecified; I25.10 Atherosclerotic heart disease of native coronary artery without angina pectoris; K21.9 Gastro-esophageal reflux disease without esophagitis; I10 Essential (primary) hypertension; M19.90 Unspecified osteoarthritis, unspecified site; Z87.442 Personal history of urinary calculi; Z79.82 Long term (current) use of aspirin; Z88.5 Allergy status to narcotic agent; Z88.0 Allergy status to penicillin; Z87.891 Personal history of nicotine dependence
CPT/HCPCS: 99284; 96374; 96375; 36415; 80053; 82150; 83690; 85025; 81001; 74176; J2405; J1170

== ENCOUNTER → 2021-07-24 | Outpatient (CLI) | payer MEDICARE, OTHER ==
--- NOTE | 2021-07-24 15:31 | XR ---
EXAMINATION TYPE: XR KUB DATE OF EXAM: 07/24/2021 COMPARISON: CT dated 07/03/2021 INDICATION: Follow-up renal calculi TECHNIQUE: 2 views of the abdomen FINDINGS: Redemonstration of the previously seen bilateral nonobstructing renal calculi measuring up to 12 mm a t the midportion of the left kidney, 10 mm at the lower pole of the left kidney, and 5 mm at the lowe r pole of the right kidney. Persistent tiny calculi measuring up to 3 mm at the proximal portion of the right ureter, seen at the level of the right transverse process of L4. At the same level on the left side or slightly superior ly, elongated radiopaque shadows are seen, likely representing atheromatous calcification within the previously seen dilated abdominal aorta. Unchanged bilateral pelvic phleboliths. IMPRESSION: Redemonstration of the bilateral nonobstructing renal calculi and the suspected obstructing calculi a t the proximal portion of the right ureter as described above. Further CT assessment can be considere d if clinically required.
== END | disposition home or self-care (01) ==
LOC: RADXRMAIN 10:54
PROVIDERS: ATTEND Urology
DX: N20.0 Calculus of kidney (principal); N20.1 Calculus of ureter
CPT/HCPCS: 74018

== ENCOUNTER → 2021-07-26 | Outpatient (CLI) | payer MEDICARE, OTHER ==
[2021-07-26 15:09] LABS: Basophils # (A) 0.06 X 10*3/uL (0.00-0.10); Basophils % (A) 0.6 %; Eosinophils # (A) 0.24 X 10*3/uL (0.04-0.35); Eosinophils % (A) 2.4 %; HCT 48.7 % (39.6-50.0); HGB 15.5 g/dL (13.0-17.0); Immature Grans, Automated 0.4 %; Lymphocytes # (A) 2.93 X 10*3/uL (0.90-5.00); Lymphocytes % (A) 28.9 %; MCH 29.1 pg (27.0-32.0); MCHC 31.8 g/dL (32.0-37.0); MCV 91.4 fL (80.0-97.0); Mean Platelet Volume 10.1 fL (9.5-12.2); Monocytes # (A) 1.12 X 10*3/uL (0.20-1.00); NRBC Per 100 WBC 0 /100 WBCS (0.0-0.0); Neutrophils # (A) 5.76 X 10*3/uL (1.80-7.70); Neutrophils % (A) 56.7 %; Platelet Count 221 X 10*3/uL (140-440); RBC 5.33 X 10*6/uL (4.40-5.60); RDW 14.4 % (11.5-14.5); WBC 10.15 X 10*3/uL (4.50-10.00)
[2021-07-26 15:41] LABS: African American GFR (CKD) 97.1 (60.0-200.0); Anion Gap 11.9 mmol/L (10.00-18.00); BUN/Creat Ratio 12.1 Ratio (12.00-20.00); Blood Urea Nitrogen 12.1 mg/dL (9.0-27.0); Calcium 9.5 mg/dL (8.7-10.3); Carbon Dioxide 24.1 mmol/L (20.0-27.5); Non-African American GFR(CKD) 83.8 (60.0-200.0); Potassium 4.1 mmol/L (3.5-5.5)
[2021-07-26 17:13] LABS: Appearance,Urine Clear (Clear); Bacteria,Urine None Seen /HPF (None Seen); Bilirubin,Urine Negative (Negative); Blood,Urine Moderate (Negative); Color,Urine Yellow (Yellow); Ketones,Urine Negative (Negative); Leukocyte Esterase,Urine Negative (Negative); Nitrite,Urine Negative (Negative); Protein,Urine Negative (Negative); Urobilinogen,Urine 0.2 (0.2,1.0); WBC,Urine 0-5 /HPF (0-5)
== END | disposition home or self-care (01) ==
LOC: LABPAT 10:37
PROVIDERS: ATTEND Urology
DX: Z01.812 Encounter for preprocedural laboratory examination (principal); N20.1 Calculus of ureter; R31.29 Other microscopic hematuria
CPT/HCPCS: 80048; 81001; 85025

== ENCOUNTER 2021-08-02 09:18 | Day surgery (SDC) | payer MEDICARE, OTHER ==
[2021-08-01 08:39] VITALS: BMI 31.8
--- NOTE | 2021-08-01 20:25 | P.GSHP ---
History of Present Illness H&P Date: 08/01/21 55 yo male with a history of stones. 2 week history of bilateral flank pain. KUb was done showing new bilateral ureteral stones. HE comes for bilateral ureteroscopy with laser lithotripsy.Alternatives have been discussed as has the risks. - Constitutional Constitutional: Denies chills, Denies fever - EENT Eyes: denies blurred vision, denies pain Ears, nose, mouth and throat: Denies headache, Denies sore throat - Cardiovascular Cardiovascular: Denies chest pain, Denies shortness of breath - Respiratory Respiratory: Denies cough, Denies 7 - Gastrointestinal Gastrointestinal: Denies abdominal pain, Denies diarrhea, Denies nausea, Denies vomiting - Genitourinary (Female) Genitourinary: Denies dysuria, Denies hematuria - Genitourinary (Male) Genitourinary: Denies dysuria, Denies hematuria - Musculoskeletal Musculoskeletal: Denies myalgias - Integumentary Integumentary: Denies pruritus, Denies rash - Neurological Neurological: Denies numbness, Denies weakness - Psychiatric Psychiatric: Denies anxiety, Denies depression - Endocrine Endocrine: Denies fatigue, Denies weight change Past Medical History Past Medical History: Coronary Artery Disease (CAD), Chest Pain / Angina, GERD/Reflux, Hyperlipidemia, Hypertension, Osteoarthritis (OA), Sleep Apnea/CPAP/BIPAP Additional Past Medical History / Comment(s): SLEEP APNEA- NO C-PAP, SPINAL STENOSIS, WEARS NECK BRACE AT HS., WEARS BACK BRACE AND USES CANE., KIDNEY STONES, STATES NUMBNESS AT TIMES ON RIGHT SIDE.,heart murmer, "abdominal aneurysm"-watched by PCP History of Any Multi-Drug Resistant Organisms: None Reported Past Surgical History: Back Surgery, Heart Catheterization With Stent, Orthopedic Surgery, Tonsillectomy Additional Past Surgical History / Comment(s): KIDNEY LITHROTRIPSY, 6 cardiac stents , karla elbow surgery for tendonitis, karla wrist carpal tunnel, neck fusion with graft and plates Past Anesthesia/Blood Transfusion Reactions: No Reported Reaction Date of Last Stent Placement:: 06/2021 Smoking Status: Former smoker - Past Family History Mother Family Medical History: Cancer Father Family Medical History: Cancer Brother(s) Family Medical History: Cancer Medications and Allergies Home Medications Medication Instructions Recorded Confirmed Type lisinopriL [Zestril] 40 mg PO DAILY 01/15/18 08/01/21 History Tamsulosin [Flomax] 0.4 mg PO DAILY #7 cap 09/05/18 08/01/21 Rx HYDROcodone/APAP 10-325MG [[place] 1 tab PO QID 05/22/20 08/01/21 History 10-325] Nitroglycerin Sl Tabs [Nitrostat] 0.4 mg SUBLINGUAL Q5M PRN 05/22/20 08/01/21 History Carvedilol [Coreg] 25 mg PO BID 08/09/20 08/01/21 History Atorvastatin Calcium [Lipitor] 80 mg PO HS 05/06/21 08/01/21 History Aspirin 325 mg PO DAILY tab 05/07/21 08/01/21 Rx Diltiazem HCl 120 mg PO HS 08/01/21 08/01/21 History Isosorbide Mononitrate [Isosorbide 30 mg PO DAILY 08/01/21 08/01/21 History Mononitrate ER] cloNIDine HCL [Catapres] 0.3 mg PO BID 08/01/21 08/01/21 History Allergies Allergy/AdvReac Type Severity Reaction Status Date / Time morphine Allergy Rash/Hives Verified 08/01/21 08:23 Penicillins Allergy Rash/Hives Verified 08/01/21 08:23 Surgical - Exam - General well developed, well nourished, no distress - Eyes normal ocular movement, no icteric - ENT no hearing loss, no congestion - Neck no masses, trachea midline - Respiratory normal respiratory effort, clear to auscultation - Abdomen Abdomen: soft, non tender, no guarding, no rigid, no rebound - Integumentary no rash, no abnormal pigmentation - Neurologic no disoriented, no combative - Psychiatric oriented to time, oriented to person, oriented to place, speech is normal, memory intact Results - Imaging Abdominal x-ray: report reviewed, image reviewed Assessment and Plan Assessment: Impression: Bilateral ureteral stoness Plan: bilateral ureteroscopy with laser lithotripsy and possible stent.
--- NOTE | 2021-08-02 10:19 | XR ---
EXAMINATION TYPE: XR KUB DATE OF EXAM: 08/02/2021 COMPARISON: X-ray dated 07/24/2021 INDICATION: Preoperative TECHNIQUE: Standard 2 views of the abdomen FINDINGS: Redemonstration of the previously seen multiple variable sized bilateral renal calculi. The largest i s seen at the midpole of the left kidney measuring 12 mm with another stone at the lower portion of t he left kidney measuring up to 10 mm. Scattered smaller bilateral renal calculi. Suspected 2 adjacent right ureteric calculi at the midportion of the right ureter adjacent to the rig ht transverse process of L4 measuring together up to 8mm, appreciated previously. Bilateral pelvic ph leboliths, appreciated previously. Prostatic concretion. Degenerative changes of the lower thoracic, lumbar spine and right hip joint. Arterial atherosclerotic calcifications. IMPRESSION: Bilateral renal calculi and suspected right ureteric calculi as described above.
[2021-08-02] MEDS ORDERED: SUCCINYLCHOLINE CHLORIDE 100 MG/5 ML SYR IV ONE (12:06)
[2021-08-02] MEDS ORDERED: fentaNYL (PF) 50 MCG/ML 2 ML AMP ONE (12:06)
[2021-08-02] MEDS ORDERED: MIDAZOLAM 2 MG/2 ML VIAL ONE (12:06)
[2021-08-02] MEDS ORDERED: LIDOCAINE 1% INJ 10MG/ML (20 ML MDV) ONE (12:06)
[2021-08-02] MEDS ORDERED: PHENYLEPHRINE-0.9% NACL SYG 1,000 MCG/10 ML SYRINGE ONE (12:06)
[2021-08-02] MEDS ORDERED: PROPOFOL 10 MG/ML 20 ML VIAL IV ONE (12:06)
[2021-08-02] MEDS ORDERED: IOPAMIDOL-370 50ML BTL MISCELLANE ONE (12:31)
--- NOTE | 2021-08-02 13:28 | P.OP ---
Date of Procedure: 08/02/21 Preoperative Diagnosis: Bilateral renal stones, bilateral ureteral stones Postoperative Diagnosis: Right ureteral stone, bilateral renal stones Procedure(s) Performed: Cystoscopy, bilateral retrograde pyelograms, bilateral ureteroscopy with right ureteral laser lithotripsy and right renal laser lithotripsy, placement of 6 x 26 stent Anesthesia: DEVONTE Surgeon: Jose Mayo Estimated Blood Loss (ml): 0 Pathology: none sent Condition: stable Disposition: PACU Indications for Procedure: The patient is 55. He has a history kidney stones. He recent presented with bilateral flank pain. KUB showed what appeared to be bilateral ureteral stones as well as the increased of large amount left renal stones and smaller right renal stones. He comes for bilateral retrograde pyelogram bilateral ureteroscopy laser lithotripsy Description of Procedure: Patient is brought to the operating suite he is given general anesthesia placed lithotomy position with sterile prep and drape. Both calcification seen on the KUB are seen on fluoroscopy. Cystoscopy Foroblique lens and 21-[place] sheath identifies a normal anterior urethra. The prostate does show some obstruction. The reverse's are normal. Left retrograde pyelograms performed. There appears to be a filling defect in the distal ureter. Where I saw the calcification on the KUB is outside the ureter. There are large stones in the left kidney. Perform a right retrograde pyelogram there is a fairly high-grade obstruction in the proximal ureter on the right. I then pass a semirigid ureteroscope into the distal ureter on the left because of the filling defect seen and there is just edema there is no obvious stone. I passed the ureteroscope up in the renal pelvis and there is no obvious ureteral stone I then attempted do rigid right ureteroscopy but the ureters not going to allow the scope to go up to the stone up. I thus passed an 035 wire by the obstructing stone with some difficulty. The Obstruction is fairly high-grade. Over the wire then pass a ureteral reentry sheath in the right ureter up distal to the stone. I removed the inner sheath and passed the flexible ureteroscope up to the right stone. With the 270 laser probe I break the stone into smaller pieces. I then introduced the wire by the stone so as not to lose access to the ureter. I continue breaking the stone until I passed the ureteroscope up into the kidney. I then pass the ureteroscope into the right renal pelvis. The collecting system was dilated. I identified 2 larger stones in mid and lower pole calyces and these are broken into tiny pieces. I removed the ureteroscope. I removed the sheath from the right ureter . I then backloaded the wire onto the cystoscope. I then pass a 6 x 26 double-J catheter that coils in the right renal pelvis and the bladder. The bladder is drained and the patient's awakened returned recovery room good condition The patient had a high-grade obstruction of the right proximal ureter leading this notable hydroureteronephrosis proximal to this appeared to leave a stent at least 3 weeks to allow the edema from the stone to heal. This will also dilate the ureter so that the tiny fragments remaining in the kidney from the lithotripsy can pass with ease. The patient will need percutaneous nephrostolithotomy to remove the left renal stones. The patient awake and returned recovery in good condition. He'll be discharged home upon recovery.
--- NOTE | 2021-08-02 13:33 | FL ---
Fluoroscopy HISTORY: Bilateral kidney stones 124 seconds fluoroscopy time supplied to the referring clinician. 10 intraoperative C-arm images doc ument the procedure. See dictated report from urology.
[2021-08-02 13:35] VITALS: TEMP 97.1
[2021-08-02 14:18] VITALS: RESP 20
[2021-08-02 14:33] VITALS: BP 142/90; PULSE 89
== END 2021-08-02 14:49 | disposition home or self-care (01) ==
LOC: OR 09:18
PROVIDERS: ATTEND Urology
DX: N20.2 Calculus of kidney with calculus of ureter (principal); I25.10 Atherosclerotic heart disease of native coronary artery without angina pectoris; K21.9 Gastro-esophageal reflux disease without esophagitis; E78.5 Hyperlipidemia, unspecified; I10 Essential (primary) hypertension; M19.90 Unspecified osteoarthritis, unspecified site; G47.33 Obstructive sleep apnea (adult) (pediatric); M48.00 Spinal stenosis, site unspecified; R01.1 Cardiac murmur, unspecified; Z95.5 Presence of coronary angioplasty implant and graft; Z98.890 Other specified postprocedural states; Z98.1 Arthrodesis status; Z87.891 Personal history of nicotine dependence; Z80.9 Family history of malignant neoplasm, unspecified; Z87.442 Personal history of urinary calculi; Z97.2 Presence of dental prosthetic device (complete) (partial); Z79.82 Long term (current) use of aspirin; Z79.891 Long term (current) use of opiate analgesic; Z79.899 Other long term (current) drug therapy; Z88.0 Allergy status to penicillin; Z88.5 Allergy status to narcotic agent
CPT/HCPCS: 52356; 74420; 74018; C2625; C1758; C1769; J2250; J1100; J0690; J2405; J2001; J3010; J2370; J0330; J2704; Q9967

== ENCOUNTER 2021-08-27 04:08 | Emergency (ER) | payer MEDICARE, OTHER ==
[2021-08-27 04:13] VITALS: RESP 18; TEMP 97.4
[2021-08-27] MEDS ORDERED: dexAMETHasone 2 MG TAB PO STA (04:53)
[2021-08-27] MEDS ORDERED: IBUPROFEN 800 MG TAB PO STA (04:53)
[2021-08-27] MEDS ORDERED: IBUPROFEN 600 MG STARTER PACK 4 TAB BTL PO STA (04:53)
[2021-08-27] MEDS ORDERED: ACET/COD 300 MG/30 MG STARTER PACK 6 TAB BTL PO STA (04:53)
[2021-08-27] MEDS ORDERED: HYDROmorphone 1 MG/ML 1 ML SYRINGE IM STA (04:53)
--- NOTE | 2021-08-27 05:02 | ED ---
Back Pain HPI - General Chief Complaint: Back Pain/Injury Stated Complaint: back pain Time Seen by Provider: 08/27/21 04:14 Source: patient, RN notes reviewed, old records reviewed Limitations: no limitations - History of Present Illness Initial Comments: This is a 55-year-old male to the emergency department for evaluation patient is presented today for evaluation regards to severe back pain back pain and paraspinal tenderness. Worse with palpation worse with movement. No new traumas no loss of bowel or bladder. Patient does have history of kidney stones states that this is different. He is scheduled for surgery but the pain tonight was unbearable and he couldn't sleep MD Complaint: back pain -: days(s) Similar Symptoms Previously: Yes Place: home Radiation: none Severity: severe Severity scale (1-10): 8 Quality: sharp, aching Consistency: constant Improves With: none Worsens With: movement, sitting upright, walking Context: while lifting, turning/twisting Associated Symptoms: denies other symptoms - Related Data Home Medications Medication Instructions Recorded Confirmed lisinopriL [Zestril] 40 mg PO DAILY 01/15/18 08/02/21 HYDROcodone/APAP 10-325MG [[place] 1 tab PO QID 05/22/20 08/02/21 10-325] Nitroglycerin Sl Tabs [Nitrostat] 0.4 mg SUBLINGUAL Q5M PRN 05/22/20 08/02/21 Carvedilol [Coreg] 25 mg PO BID 08/09/20 08/02/21 Atorvastatin Calcium [Lipitor] 80 mg PO HS 05/06/21 08/02/21 Diltiazem HCl 120 mg PO HS 08/01/21 08/02/21 Isosorbide Mononitrate [Isosorbide 30 mg PO DAILY 08/01/21 08/02/21 Mononitrate ER] cloNIDine HCL [Catapres] 0.3 mg PO BID 08/01/21 08/02/21 Previous Rx's Medication Instructions Recorded Tamsulosin [Flomax] 0.4 mg PO DAILY #7 cap 09/05/18 Aspirin 325 mg PO DAILY tab 05/07/21 Allergies Allergy/AdvReac Type Severity Reaction Status Date / Time morphine Allergy Rash/Hives Verified 08/27/21 04:13 Penicillins Allergy Rash/Hives Verified 03/28/22 04:13 Review of Systems ROS Statement: Those systems with pertinent positive or pertinent negative responses have been documented in the HPI. ROS Other: All systems not noted in ROS Statement are negative. Past Medical History Past Medical History: Coronary Artery Disease (CAD), Chest Pain / Angina, GERD/Reflux, Hypertension, Osteoarthritis (OA), Sleep Apnea/CPAP/BIPAP Additional Past Medical History / Comment(s): SLEEP APNEA- NO C-PAP, SPINAL STENOSIS, BACK PAIN., WEARS NECK BRACE AT HS., WEARS BACK BRACE AND USES CANE., KIDNEY STONES, STATES NUMBNESS AT TIMES ON RIGHT SIDE., SOB WITH ACTIVITY. , SEE CARDIOLOGY H & P. History of Any Multi-Drug Resistant Organisms: None Reported Past Surgical History: Heart Catheterization With Stent, Tonsillectomy Additional Past Surgical History / Comment(s): 08/09/20 LEFT KIDNEY LITHROTRIPSY. Bilateral wrists & elbow surgery. Neck surgery. HEart cath with stents 08/19/2017 ([facility]) Past Anesthesia/Blood Transfusion Reactions: No Reported Reaction Date of Last Stent Placement:: 08/19/2017 Past Psychological History: No Psychological Hx Reported Smoking Status: Never smoker Past Alcohol Use History: Occasional Past Drug Use History: None Reported - Past Family History Mother Family Medical History: Cancer Father Family Medical History: Cancer Brother(s) Family Medical History: Cancer General Exam Limitations: no limitations General appearance: alert, in no apparent distress Head exam: Present: atraumatic, normocephalic, normal inspection Eye exam: Present: normal appearance, PERRL, EOMI. Absent: scleral icterus, conjunctival injection, periorbital swelling ENT exam: Present: normal exam, mucous membranes moist Neck exam: Present: normal inspection. Absent: tenderness, meningismus, lymphadenopathy Respiratory exam: Present: normal lung sounds bilaterally. Absent: respiratory distress, wheezes, rales, rhonchi, stridor Cardiovascular Exam: Present: regular rate, normal rhythm, normal heart sounds. Absent: systolic murmur, diastolic murmur, rubs, gallop, clicks GI/Abdominal exam: Present: soft, normal bowel sounds. Absent: distended, t enderness, guarding, rebound, rigid Extremities exam: Present: normal inspection, full ROM, normal capillary refill. Absent: tenderness, pedal edema, joint swelling, calf tenderness Back exam: Present: tenderness, CVA tenderness (L), muscle spasm Neurological exam: Present: alert, oriented X3, CN II-XII intact Psychiatric exam: Present: normal affect, normal mood Skin exam: Present: warm, dry, intact, normal color. Absent: rash Course Vital Signs 08/27/21 04:09 Temperature 97.4 F L Pulse Rate 109 H Respiratory 18 Rate Blood Pressure 178/134 O2 Sat by Pulse 97 Oximetry - Reevaluation(s) Reevaluation #1: 08/27/21 05:00 Medical record is reviewed Reevaluation #2: 08/27/21 05:00 Patient is able and without difficulty has no other complaints pain is controlled Medical Decision Making - Medical Decision Making 55 male to the emergency department today for evaluation of back pain acute on chronic. Pain is well-controlled patient is able to ambulate can be discharged home Disposition Clinical Impression: Mechanical back pain, Mid back pain Disposition: HOME SELF-CARE Condition: Good Instructions (If sedation given, give patient instructions): Acute Low Back Pain (ED) Is patient prescribed a controlled substance at d/c from ED?: No Referrals: Moreno Rivera MD [Primary Care Provider] - 1-2 days
[2021-08-27 05:33] VITALS: BP 162/115; PULSE 104
== END 2021-08-27 05:43 | disposition home or self-care (01) ==
LOC: SUPCPDRO 04:08 → EC 04:08
DX: M54.6 Pain in thoracic spine (principal); I10 Essential (primary) hypertension; I25.10 Atherosclerotic heart disease of native coronary artery without angina pectoris; K21.9 Gastro-esophageal reflux disease without esophagitis; M19.90 Unspecified osteoarthritis, unspecified site; Z79.82 Long term (current) use of aspirin; Z79.899 Other long term (current) drug therapy
CPT/HCPCS: 99283; 96372; J1170; J8540

== ENCOUNTER 2021-10-23 02:19 | Emergency (ER) | payer MEDICARE, OTHER ==
[2021-10-23 02:38] VITALS: TEMP 98.4
[2021-10-23] MEDS ORDERED: SODIUM CHLORIDE 0.9% 1,000 ML IV STA (02:43)
[2021-10-23] MEDS ORDERED: MORPHINE SULFATE 4 MG/ML SYRINGE IV STA (02:43)
[2021-10-23] MEDS ORDERED: ONDANSETRON 4 MG/2 ML VIAL IVP STA (02:43)
[2021-10-23] MEDS ORDERED: KETOROLAC 15 MG/ML 1 ML VIAL IVP STA (02:43)
--- NOTE | 2021-10-23 02:45 | ED ---
Recheck HPI - General Chief Complaint: Chest Pain Stated Complaint: recheck sent from [facility] Time Seen by Provider: 10/23/21 02:22 Source: patient, RN notes reviewed, old records reviewed Mode of arrival: wheelchair Limitations: no limitations - History of Present Illness Initial Comments: Patient drove himself to Hospital from [facility] is concern for elevated troponin patient did not have chest. [place] is compl aining of flank pain when he fell is recurrent kidney stones. Patient otherwise feels well currently. No shortness of breath again no chest pain no fevers cough congestion. No travel history sick contacts patient patient is no other significant complaint. Does have history of CAD. As well as high blood pressure. History of kidney stones with lithotripsy MD Complaint: abnormal lab (Patient had mildly done diagnostically elevated troponin and outpatient facility) Returns Today for: Called Because of Abnormal Lab/Test Symptoms Since Prior Visit: no new symptoms Context: called for abnormal lab result Associated Symptoms: none Treatments Prior to Arrival: other (none) - Related Data Home Medications Medication Instructions Recorded Confirmed lisinopriL [Zestril] 40 mg PO DAILY 01/15/18 08/02/21 HYDROcodone/APAP 10-325MG [[place] 1 tab PO QID 05/22/20 08/02/21 10-325] Nitroglycerin Sl Tabs [Nitrostat] 0.4 mg SUBLINGUAL Q5M PRN 05/22/20 08/02/21 Carvedilol [Coreg] 25 mg PO BID 08/09/20 08/02/21 Atorvastatin Calcium [Lipitor] 80 mg PO HS 05/06/21 08/02/21 Diltiazem HCl 120 mg PO HS 08/01/21 08/02/21 Isosorbide Mononitrate [Isosorbide 30 mg PO DAILY 08/01/21 08/02/21 Mononitrate ER] cloNIDine HCL [Catapres] 0.3 mg PO BID 08/01/21 08/02/21 Previous Rx's Medication Instructions Recorded Tamsulosin [Flomax] 0.4 mg PO DAILY #7 cap 09/05/18 Aspirin 325 mg PO DAILY tab 05/07/21 Allergies Allergy/AdvReac Type Severity Reaction Status Date / Time morphine Allergy Rash/Hives Verified 10/23/21 02:39 Penicillins Allergy Rash/Hives Verified 10/23/21 02:39 Review of Systems ROS Statement: Those systems with pertinent positive or pertinent negative responses have been documented in the HPI. ROS Other: All systems not noted in ROS Statement are negative. Past Medical History Past Medical History: Coronary Artery Disease (CAD), Chest Pain / Angina, GERD/Reflux, Hypertension, Osteoarthritis (OA), Sleep Apnea/CPAP/BIPAP Additional Past Medical History / Comment(s): SLEEP APNEA- NO C-PAP, SPINAL STENOSIS, BACK PAIN., WEARS NECK BRACE AT HS., WEARS BACK BRACE AND USES CANE., KIDNEY STONES, STATES NUMBNESS AT TIMES ON RIGHT SIDE., SOB WITH ACTIVITY. , SEE CARDIOLOGY H & P. History of Any Multi-Drug Resistant Organisms: None Reported Past Surgical History: Heart Catheterization With Stent, Tonsillectomy Additional Past Surgical History / Comment(s): 08/09/20 LEFT KIDNEY LITHROTRIPSY. Bilateral wrists & elbow surgery. Neck surgery. HEart cath with stents 08/19/2017 ([facility]) Past Anesthesia/Blood Transfusion Reactions: No Reported Reaction Date of Last Stent Placement:: 08/19/2017 Past Psychological History: No Psychological Hx Reported Smoking Status: Never smoker Past Alcohol Use History: Occasional Past Drug Use History: None Reported - Past Family History Mother Family Medical History: Cancer Father Family Medical History: Cancer Brother(s) Family Medical History: Cancer General Exam General appearance: alert, in no apparent distress Head exam: Present: atraumatic, normocephalic, normal inspection Eye exam: Present: normal appearance, PERRL, EOMI. Absent: scleral icterus, conjunctival injection, periorbital swelling ENT exam: Present: normal exam, mucous membranes moist Neck exam: Present: normal inspection. Absent: tenderness, meningismus, lymphadenopathy Respiratory exam: Present: normal lung sounds bilaterally. Absent: respiratory distress, wheezes, rales, rhonchi, stridor Cardiovascular Exam: Present: regular rate, normal rhythm, normal heart sounds. Absent: systolic murmur, diastolic murmur, rubs, gallop, clicks GI/Abdominal exam: Present: soft, normal bowel sounds. Absent: distended, tenderness, guarding, rebound, rigid Extremities exam: Present: normal inspection, full ROM, normal capillary refill. Absent: tenderness, pedal edema, joint swelling, calf tenderness Back exam: Present: normal inspection Neurological exam: Present: alert, oriented X3, CN II-XII intact Psychiatric exam: Present: normal affect, normal mood Skin exam: Present: warm, dry, intact, normal color. Absent: rash Course Vital Signs 10/23/21 10/23/21 10/23/21 02:31 03:10 04:24 Temperature 98.4 F Pulse Rate 96 96 99 Respiratory 19 16 14 Rate Blood Pressure 170/110 142/94 130/91 O2 Sat by Pulse 96 91 L 96 Oximetry - Reevaluation(s) Reevaluation #1: 10/23/21 medical record is reviewed Patient symptoms improved here in the ER Patient informed results and questions answered Medical Decision Making - Medical Decision Making 5 male with back pain. Patient was thought maybe to be having chest pain was sent to ER for evaluation by chest pain. Patient currently is without chest pain troponin is diminished from prior troponin. Patient has no other findings here in the ER feels good and can be discharged home - Lab Data Result diagrams: 10/23/21 02:58 10/23/21 02:58 Lab Results 10/23/21 10/23/21 10/23/21 Range/Units 02:58 02:58 02:58 WBC 11.1 H (3.8-10.6) k/uL RBC 5.11 (4.30-5.90) m/uL Hgb 15.1 (13.0-17.5) gm/dL Hct 45.3 (39.0-53.0) % MCV 88.7 (80.0-100.0) fL MCH 29.6 (25.0-35.0) pg MCHC 33.4 (31.0-37.0) g/dL RDW 15.3 (11.5-15.5) % Plt Count 232 (150-450) k/uL MPV 6.9 Neutrophils % 62 % Lymphocytes % 25 % Monocytes % 8 % Eosinophils % 3 % Basophils % 0 % Neutrophils # 6.9 (1.3-7.7) k/uL Lymphocytes # 2.8 (1.0-4.8) k/uL Monocytes # 0.9 (0-1.0) k/uL Eosinophils # 0.3 (0-0.7) k/uL Basophils # 0.0 (0-0.2) k/uL Sodium 138 (137-145) mmol/L Potassium 4.4 (3.5-5.1) mmol/L Chloride 104 (98-107) mmol/L Carbon Dioxide 25 (22-30) mmol/L Anion Gap 9 mmol/L BUN 17 (9-20) mg/dL Creatinine 1.10 (0.66-1.25) mg/dL Est GFR (CKD-EPI)AfAm 86 (>60 ml/min/1.73 sqM) Est GFR (CKD-EPI)NonAf 75 (>60 ml/min/1.73 sqM) Glucose 130 H (74-99) mg/dL Calcium 9.5 (8.4-10.2) mg/dL Total Bilirubin 0.4 (0.2-1.3) mg/dL AST 20 (17-59) U/L ALT 20 (4-49) U/L Alkaline Phosphatase 66 (38-126) U/L Troponin I 0.022 (0.000-0.034) ng/mL Total Protein 7.2 (6.3-8.2) g/dL Albumin 4.4 (3.5-5.0) g/dL Amylase 62 (30-110) U/L Lipase 109 (23-300) U/L - Radiology Data Radiology results: report reviewed (CT of the abdomen and pelvis bilateral renal calculus), image reviewed Disposition Clinical Impression: Bilateral ureteral calculi, Fall, Back pain Disposition: HOME SELF-CARE Condition: Good Instructions (If sedation given, give patient instructions): Kidney Stones (ED), Back Pain (ED) Is patient prescribed a controlled substance at d/c from ED?: No Referrals: Odette Mcgee NPC [Primary Care Provider] - 1-2 days
[2021-10-23] MEDS: HYDROmorphone 1 MG/ML 1 ML SYRINGE IVP STA ×2 (02:56→03:03)
[2021-10-23 03:16] LABS: Basophils % (A) 0 %; Eosinophils # (A) 0.3 k/uL (0-0.7); Eosinophils % (A) 3 %; HCT 45.3 % (39.0-53.0); HGB 15.1 gm/dL (13.0-17.5); Lymphocytes # (A) 2.8 k/uL (1.0-4.8); Lymphocytes % (A) 25 %; MCH 29.6 pg (25.0-35.0); MCHC 33.4 g/dL (31.0-37.0); MCV 88.7 fL (80.0-100.0); Mean Platelet Volume 6.9; Monocytes # (A) 0.9 k/uL (0-1.0); Monocytes % (A) 8 %; Neutrophils # (A) 6.9 k/uL (1.3-7.7); Neutrophils % (A) 62 %; Platelet Count 232 k/uL (150-450); RBC 5.11 m/uL (4.30-5.90); RDW 15.3 % (11.5-15.5); WBC 11.1 k/uL (3.8-10.6)
[2021-10-23 03:20] LABS: Albumin 4.4 g/dL (3.5-5.0); Calcium 9.5 mg/dL (8.4-10.2); Potassium 4.4 mmol/L (3.5-5.1); Total Bilirubin 0.4 mg/dL (0.2-1.3); Total Protein 7.2 g/dL (6.3-8.2)
--- NOTE | 2021-10-23 03:41 | CT ---
EXAMINATION TYPE: CT abdomen pelvis wo con DATE OF EXAM: 10/23/2021 COMPARISON: 07/03/2021 HISTORY: back pain. h/o chronic back pain. renal stones w/ procedure scheduled for early october CT DLP: 868 mGycm Automated exposure control for dose reduction was used. Images obtained of the abdomen and pelvis with no contrast. Lung bases are clear. No pleural effusion. Heart size is normal. No pericardial effusion. Liver spleen pancreas stomach appear intact. Gallbladder is intact. The bile ducts are not dilated. Right kidney shows moderate hydronephrosis. The right ureter however is not significantly dilated. No definite ureteral calculus. Bladder distends smoothly. There are a few calcifications in the right k idney that measure up to 5 mm. There is a 3 cm cortical cyst posterior right kidney. There is probabl y right renal parapelvic cysts. There are some left renal calculi that measure up to 1.5 cm. No hydro nephrosis. 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 No retroperitoneal a denopathy. No hydronephrosis seen on the left side. There are some sigmoid diverticula. No diverticulitis. No inguinal hernia. The bladder distends scott hly. No pelvic mass. There is no mesenteric edema. No ascites or free air. No bowel obstruction. IMPRESSION: Multiple bilateral renal calculi. Calculi on the right side appear reduced in number compared to the old exam. Right-sided moderate hydronephrosis. There is clearing of the calculus at the right uretero pelvic junction compared to last exam. No evidence of right-sided ureteral calculus. Abdominal aortic aneurysm without change.
[2021-10-23] MEDS ORDERED: ACET/COD 300 MG/30 MG STARTER PACK 6 TAB BTL PO STA (03:49)
[2021-10-23] MEDS ORDERED: IBUPROFEN 600 MG STARTER PACK 4 TAB BTL PO STA (03:49)
[2021-10-23 04:27] VITALS: BP 130/91; PULSE 99; RESP 14
== END 2021-10-23 04:33 | disposition home or self-care (01) ==
LOC: EC 02:19
DX: N20.1 Calculus of ureter (principal); I10 Essential (primary) hypertension; Z88.0 Allergy status to penicillin; Z88.5 Allergy status to narcotic agent
CPT/HCPCS: 36415; 80053; 82150; 83690; 84484; 85025; 74176; 99285; 96374; 96375; J2405; J1170; J1885

== ENCOUNTER → 2021-11-06 | Outpatient (CLI) | payer MEDICARE, OTHER ==
[2021-11-06 15:02] LABS: Basophils # (A) 0.07 X 10*3/uL (0.00-0.10); Basophils % (A) 0.7 %; Eosinophils # (A) 0.32 X 10*3/uL (0.04-0.35); HCT 46.4 % (39.6-50.0); HGB 14.8 g/dL (13.0-17.0); Immature Grans, Automated 0.7 %; Lymphocytes # (A) 3.32 X 10*3/uL (0.90-5.00); MCH 29.1 pg (27.0-32.0); MCHC 31.9 g/dL (32.0-37.0); MCV 91.2 fL (80.0-97.0); Mean Platelet Volume 9.8 fL (9.5-12.2); Monocytes # (A) 1.14 X 10*3/uL (0.20-1.00); Monocytes % (A) 10.6 %; NRBC Per 100 WBC 0 /100 WBCS (0.0-0.0); Neutrophils # (A) 5.79 X 10*3/uL (1.80-7.70); Platelet Count 229 X 10*3/uL (140-440); RBC 5.09 X 10*6/uL (4.40-5.60); RDW 14.7 % (11.5-14.5); WBC 10.71 X 10*3/uL (4.50-10.00)
[2021-11-06 15:42] LABS: African American GFR (CKD) 97.1 (60.0-200.0); Albumin 4.5 g/dL (3.8-4.9); Albumin/Globulin Ratio 1.73 (1.60-3.17); Anion Gap 10.3 mmol/L (10.00-18.00); BUN/Creat Ratio 11.9 Ratio (12.00-20.00); Blood Urea Nitrogen 11.9 mg/dL (9.0-27.0); Calcium 9.7 mg/dL (8.7-10.3); Carbon Dioxide 23.7 mmol/L (20.0-27.5); Globulin 2.6 g/dL (1.6-3.3); Non-African American GFR(CKD) 83.8 (60.0-200.0); Potassium 4.4 mmol/L (3.5-5.5); Total Bilirubin 0.3 mg/dL (0.30-1.20); Total Protein 7.1 g/dL (6.2-8.2)
[2021-11-06 17:09] LABS: Appearance,Urine Clear (Clear); Bilirubin,Urine Negative (Negative); Blood,Urine Trace (Negative); Color,Urine Yellow (Yellow); Ketones,Urine Negative (Negative); Nitrite,Urine Negative (Negative); Specific Gravity,Urine 1.018 (1.001-1.030); Urobilinogen,Urine 0.2 (0.2,1.0)
[2021-11-06 17:15] LABS: Bacteria,Urine None Seen /HPF (None Seen)
== END | disposition home or self-care (01) ==
LOC: LABPAT 09:29
PROVIDERS: ATTEND Urology
DX: Z01.812 Encounter for preprocedural laboratory examination (principal); N20.0 Calculus of kidney; R31.29 Other microscopic hematuria
CPT/HCPCS: 80053; 81001; 85025; 87086

== ENCOUNTER 2021-11-14 05:55 | Day surgery (SDC) | payer MEDICARE, OTHER ==
[2021-11-13 09:44] VITALS: BMI 31.8
--- NOTE | 2021-11-13 11:21 | P.GSHP ---
History of Present Illness H&P Date: 11/13/21 55 yo male with a history of stones. He has had his right side cleared of stones. He now comes for a right pcnl to remove greater than 2 cm of stone. The risks complications and alternatives have been discussed. - Constitutional Constitutional: Denies chills, Denies fever - EENT Eyes: denies blurred vision, denies pain Ears, nose, mouth and throat: Denies headache, Denies sore throat - Cardiovascular Cardiovascular: Denies chest pain, Denies shortness of breath - Respiratory Respiratory: Denies cough, Denies 7 - Gastrointestinal Gastrointestinal: Denies abdominal pain, Denies diarrhea, Denies nausea, Denies vomiting - Genitourinary (Female) Genitourinary: Denies dysuria, Denies hematuria - Genitourinary (Male) Genitourinary: Denies dysuria, Denies hematuria - Musculoskeletal Musculoskeletal: Denies myalgias - Integumentary Integumentary: Denies pruritus, Denies rash - Neurological Neurological: Denies numbness, Denies weakness - Psychiatric Psychiatric: Denies anxiety, Denies depression - Endocrine Endocrine: Denies fatigue, Denies weight change Past Medical History Past Medical History: Coronary Artery Disease (CAD), Chest Pain / Angina, GERD/Reflux, Hyperlipidemia, Hypertension, Osteoarthritis (OA), Sleep Apnea/CPAP/BIPAP Additional Past Medical History / Comment(s): SLEEP APNEA- NO C-PAP, SPINAL STENOSIS, BACK PAIN., WEARS NECK BRACE AT HS., WEARS BACK BRACE AND USES CANE., KIDNEY STONES, STATES NUMBNESS AT TIMES ON LEFT SIDE., SOB WITH ACTIVITY. History of Any Multi-Drug Resistant Organisms: None Reported Past Surgical History: Heart Catheterization With Stent, Tonsillectomy Additional Past Surgical History / Comment(s): 08/09/20 LEFT KIDNEY LITHROTRIPSY. Bilateral wrists & elbow surgery. Neck surgery. HEart cath with stents 08/19/2017 ([facility]) Past Anesthesia/Blood Transfusion Reactions: No Reported Reaction Date of Last Stent Placement:: 08/19/2017 Smoking Status: Former smoker - Past Family History Mother Family Medical History: Cancer Father Family Medical History: Cancer Brother(s) Family Medical History: Cancer Medications and Allergies Home Medications Medication Instructions Recorded Confirmed Type lisinopriL [Zestril] 40 mg PO DAILY 01/15/18 11/13/21 History Tamsulosin [Flomax] 0.4 mg PO DAILY #7 cap 09/05/18 11/13/21 Rx HYDROcodone/APAP 10-325MG [[place] 1 tab PO QID 05/22/20 11/13/21 History 10-325] Nitroglycerin Sl Tabs [Nitrostat] 0.4 mg SUBLINGUAL Q5M PRN 05/22/20 11/13/21 History Atorvastatin Calcium [Lipitor] 80 mg PO HS 05/06/21 11/13/21 History Aspirin 325 mg PO DAILY tab 05/07/21 11/13/21 Rx Diltiazem HCl 120 mg PO HS 08/01/21 11/13/21 History Isosorbide Mononitrate [Isosorbide 30 mg PO 1600 08/01/21 11/13/21 History Mononitrate ER] Carvedilol [Coreg] 25 mg PO BID 11/13/21 11/13/21 History Chlorthalidone [Hygroten] 50 mg PO HS 11/13/21 11/13/21 History amLODIPine BESYLATE 10 mg PO DAILY 11/13/21 11/13/21 History Allergies Allergy/AdvReac Type Severity Reaction Status Date / Time morphine Allergy Rash/Hives Verified 11/13/21 08:44 Penicillins Allergy Rash/Hives Verified 11/13/21 08:44 Surgical - Exam - General well developed, well nourished, no distress - Eyes normal ocular movement, no icteric - ENT no hearing loss, no congestion - Neck no masses, trachea midline - Respiratory normal respiratory effort, clear to auscultation - Abdomen Abdomen: soft, non tender, no guarding, no rigid, no rebound - Integumentary no rash, no abnormal pigmentation - Neurologic no disoriented, no combative - Psychiatric oriented to time, oriented to person, oriented to place, speech is normal, memory intact Results - Imaging CT scan - abdomen: report reviewed, image reviewed CT scan - pelvis: report reviewed, image reviewed Assessment and Plan Assessment: Impression: Left renal stones large[>2cm] Plan: cysto with pcnl left.
[~2021-11-14 05:55] MED LIST changes: -DEXAMETHASONE SOD PHOSPHATE 4 MG/ML 1 ML VIAL IV ONE; +GENTAMICIN 100 MG in SODIUM CHLORIDE 0.9% 100 ML IVPB PRN; -HYDROmorphone 0.5 MG/0.5 ML SYRINGE IVP PRN; -LACTATED RINGERS 1,000 ML IV SCH; -LIDOCAINE 1% (10MG/ML) FOR IV START INTRADERMA PRN; -MIDAZOLAM 2 MG/2 ML VIAL IV PRN; -ONDANSETRON 4 MG/2 ML VIAL IVP ONE
[2021-11-14] MEDS ORDERED: fentaNYL (PF) 50 MCG/ML 2 ML AMP IV PRN (07:29)
[2021-11-14] MEDS ORDERED: SCOPOLAMINE 1 MG/72 HR PATCH TRANSDERM ONE (07:29)
[2021-11-14] MEDS ORDERED: LIDOCAINE 1% (10MG/ML) FOR IV START INTRADERMA PRN (07:29)
[2021-11-14] MEDS ORDERED: ONDANSETRON 4 MG/2 ML VIAL IVP ONE (07:29)
[2021-11-14] MEDS ORDERED: DEXAMETHASONE SOD PHOSPHATE 4 MG/ML 1 ML VIAL IV ONE (07:29)
[2021-11-14] MEDS ORDERED: LACTATED RINGERS 1,000 ML IV ONE ×2 (07:39→10:50)
--- NOTE | 2021-11-14 08:28 | XR ---
EXAMINATION TYPE: XR KUB DATE OF EXAM: 11/14/2021 COMPARISON: X-ray dated 08/02/2021 INDICATION: Left renal stones TECHNIQUE: Upright AP view of the abdomen and pelvis. FINDINGS: At least 4 left renal calculi are again noted ranging in size between 3 mm and 17 mm. Questionable ti ny right lower pole renal calculi. Bilateral pelvic phleboliths, appreciated previously. Arterial atherosclerotic calcifications. Degene rative changes of the visualized portion of the spine. IMPRESSION: Renal calculi as described above.
[2021-11-14] MEDS ORDERED: PHENYLEPHRINE-0.9% NACL SYG 1,000 MCG/10 ML SYRINGE ONE (09:30)
[2021-11-14] MEDS ORDERED: fentaNYL (PF) 50 MCG/ML 2 ML AMP ONE (09:30)
[2021-11-14] MEDS ORDERED: SUCCINYLCHOLINE CHLORIDE 100 MG/5 ML SYR IV ONE (09:30)
[2021-11-14] MEDS ORDERED: LIDOCAINE 2% INJ 20 MG/ML (2 ML VIAL) ONE (09:30)
[2021-11-14] MEDS ORDERED: ROCURONIUM 10 MG/ML (5 ML VIAL) IV ONE (09:30)
[2021-11-14] MEDS ORDERED: NEOSTIGMINE 1 MG/ML 10 ML VIAL ONE (09:30)
[2021-11-14] MEDS ORDERED: GLYCOPYRROLATE 0.2 MG/ML 2 ML VIAL ONE (09:30)
[2021-11-14] MEDS ORDERED: PROPOFOL 10 MG/ML 20 ML VIAL IV ONE (09:30)
[2021-11-14] MEDS ORDERED: MIDAZOLAM 2 MG/2 ML VIAL ONE (09:30)
[2021-11-14] MEDS ORDERED: IOPAMIDOL-370 50ML BTL IRRIGATION ONE (09:50)
[2021-11-14] MEDS ORDERED: NITROGLYCERIN SL TABS 0.4 MG TAB SUBLINGUAL PRN (11:36)
[2021-11-14] MEDS ORDERED: MAG HYDROX/AL HYDROX/SIMETH 30 ML CUP PO PRN (11:37)
[2021-11-14] MEDS ORDERED: ACETAMINOPHEN TAB 325 MG TAB PO PRN (11:37)
[2021-11-14] MEDS ORDERED: ONDANSETRON 4 MG/2 ML VIAL IVP PRN (11:37)
[2021-11-14] MEDS ORDERED: KETOROLAC 15 MG/ML 1 ML VIAL IVP PRN (11:38)
[2021-11-14] MEDS ORDERED: HYDROmorphone PCA 10 MG/50 ML BAG IV PRN (11:38)
[2021-11-14] MEDS ORDERED: NALOXONE 0.4 MG/ML 1 ML VIAL IV PRN (11:38)
--- NOTE | 2021-11-14 11:43 | P.OP ---
Date of Procedure: 11/14/21 Preoperative Diagnosis: Left renal stones, large Postoperative Diagnosis: Same Procedure(s) Performed: Cystoscopy, placement of occluding balloon catheter left, percutaneous nephrostomy (Dr. Hamilton), percutaneous nephrostolithotomy with ultrasound and laser left, placement of 10-Serbian J nephrostomy tube left Anesthesia: DEVONTE Surgeon: Jose Mayo Estimated Blood Loss (ml): 50 Pathology: other (Stone) Condition: stable Disposition: PACU Indications for Procedure: Patient is 55. He has active urolithiasis. He has a large volume of stones, 3- 4 greater than 2 cm in the left kidney. He comes for percutaneous nephrostolithotomy left Description of Procedure: Patient is brought to the operating suite. He is given a general endotracheal anesthesia. He's placed in a frog position on the transport gurney. He is prepped and draped sterilely. Cystoscopy Foroblique lens and 21-Serbian sheath identifies an obstructing prostate. The ureter on the left is seen and intubated with a 5-Serbian occluding balloon catheter passed up into the renal pelvis. It is secured to a 16 Serbian Massey catheter placed after the cystoscope was removed He is placed in a prone position with care to airways and extremities. Dr. Hamilton of radiology performed percutaneous access to a lower pole calyx left. I then dilate the tract to 30-Serbian. Introduced the rigid sheath into the collecting system. A small stone was identified and grasped. One of the larger stones is identified and using ultrasound I break this into smaller pieces and remove the stone. There are 2 remaining stones that I eventually identified a flexible nephroscopy and broken into smaller pieces with the laser and basketed using a 1.9-Serbian basket. At the end of the procedure intraoperative nephrostogram is negative. There are no remaining stones. 10 J nephrostomy is placed in the left renal pelvis.. Patient is awakened and returned recovery room in good condition. Blood loss is approximately 50 mL. He'll be placed in the hospital postoperatively.
[2021-11-14] MEDS ORDERED: HYDROmorphone 0.5 MG/0.5 ML SYRINGE IVP ONE ×2 (11:57→12:35)
[2021-11-14] MEDS: LACTATED RINGERS 1,000 ML IV SCH (13:06)
[2021-11-14] MEDS: DEXTROSE 5%-0.45% NACL 1,000 ML IV SCH ×2 (13:12→22:35)
--- NOTE | 2021-11-14 14:28 | FL ---
EXAMINATION TYPE: FL Perc Nephrostomy New Access DATE OF EXAM: 11/14/2021 COMPARISON: CT 10/23/2021 HISTORY: Left renal stone PROCEDURE: Maximal barrier technique was utilized, hand hygiene obtained with soap and water and alcohol-based h and rub. The skin overlying the left kidney was localized using fluoroscopy and the overlying skin p repped and draped. Skin fred was made with a scalpel. Access was gained under fluoroscopy, following placement of a ureteral occlusion balloon by the referring clinician and instillation of air in the renal collecting system with a 21-gauge needle to the {left/right} kidney. A suitable posterior jread x was chosen. A 0.018 inch wire was advanced. The access site was dilated , access site was upsize d, safety wire deployed and subsequently a sheath was advanced into the renal pelvis following dilati on with balloon along the tract. The patient underwent nephrolithotomy by the referring clinician. The patient remained in stable condition without complication. The patient was discharged to [facility] in the care of anesthesia. 4 anterior operative C-arm images document the procedure, 2 minutes 54 seconds fluoroscopy time suppl ied IMPRESSION: STATUS POST NEPHROSTOMY PLACEMENT FOR NEPHROLITHOTOMY WITH FLUOROSCOPIC GUIDANCE. THIS PROCEDURE PER FORMED BY THE UNDERSIGNED.
[2021-11-14] MEDS ORDERED: ISOSORBIDE MONONITRATE ER 30 MG TAB.ER.24H PO SCH (16:00)
[2021-11-14] MEDS: carvediloL 12.5 MG TAB PO SCH (18:02)
[2021-11-14] MEDS ORDERED: CHLORTHALIDONE 25 MG TAB PO SCH (21:00)
[2021-11-14] MEDS ORDERED: ATORVASTATIN 80 MG TAB PO SCH (21:00)
[2021-11-14] MEDS ORDERED: DILTIAZEM CD 180 MG CAP.ER.24H PO SCH (21:00)
[2021-11-15] MEDS: LACTATED RINGERS 1,000 ML IV SCH (07:22)
[2021-11-15] MEDS: carvediloL 12.5 MG TAB PO SCH (07:25)
[2021-11-15] MEDS: DEXTROSE 5%-0.45% NACL 1,000 ML IV SCH (07:26)
[2021-11-15] MEDS ORDERED: amLODIPine 10 MG TAB PO SCH (09:00)
[2021-11-15] MEDS ORDERED: lisinopriL 20 MG TAB PO SCH (09:00)
[2021-11-15] MEDS ORDERED: TAMSULOSIN 0.4 MG CAP.ER.24H PO SCH (09:00)
[2021-11-15] MEDS ORDERED: HYDROcodone/APAP 5-325MG 1 EACH TAB PO PRN (10:21)
--- NOTE | 2021-11-15 11:06 | P.DS ---
Providers Attending physician: Jose Mayo Primary care physician: [facility] Course: This is a 55-year-old male with history of a large left-sided renal stone, underwent left-sided percutaneous nephrolithotomy by Dr. Mayo on November 14. Please see op note dated November 14 for surgery detail. He was admitted to the hospital postoperatively, he did well in the postoperative period. His Massey catheter was removed on postop day #1, he was discharged home with the nephrostomy tube. He will follow-up with Dr. Mayo in 1 week, at time of discharge he was tolerating a diet, ambulating, pain was well-controlled Plan - Discharge Summary Discharge Rx Participant: No New Discharge Prescriptions: No Action lisinopriL [Zestril] 40 mg PO DAILY Tamsulosin [Flomax] 0.4 mg PO DAILY #7 cap HYDROcodone/APAP 10-325MG [[place] 10-325] 1 tab PO QID Nitroglycerin Sl Tabs [Nitrostat] 0.4 mg SUBLINGUAL Q5M PRN PRN Reason: Chest Pain Atorvastatin Calcium [Lipitor] 80 mg PO HS Aspirin 325 mg PO DAILY tab Isosorbide Mononitrate [Isosorbide Mononitrate ER] 30 mg PO 1600 Chlorthalidone [Hygroten] 50 mg PO HS amLODIPine BESYLATE 10 mg PO DAILY Carvedilol [Coreg] 25 mg PO BID Diltiazem Cd [Cardizem CD] 180 mg PO HS Discharge Medication List lisinopriL [Zestril] 40 mg PO DAILY 01/15/18 [History] Tamsulosin [Flomax] 0.4 mg PO DAILY #7 cap 09/05/18 [Rx] HYDROcodone/APAP 10-325MG [[place] 10-325] 1 tab PO QID 05/22/20 [History] Nitroglycerin Sl Tabs [Nitrostat] 0.4 mg SUBLINGUAL Q5M PRN 05/22/20 [History] Atorvastatin Calcium [Lipitor] 80 mg PO HS 05/06/21 [History] Aspirin 325 mg PO DAILY tab 05/07/21 [Rx] Isosorbide Mononitrate [Isosorbide Mononitrate ER] 30 mg PO 1600 08/01/21 [History] Carvedilol [Coreg] 25 mg PO BID 11/13/21 [History] Chlorthalidone [Hygroten] 50 mg PO HS 11/13/21 [History] amLODIPine BESYLATE 10 mg PO DAILY 11/13/21 [History] Diltiazem Cd [Cardizem CD] 180 mg PO HS 11/14/21 [History]
[2021-11-15 14:19] VITALS: BP 126/78; PULSE 91; RESP 18; TEMP 97.4
== END 2021-11-15 16:17 | disposition home or self-care (01) ==
LOC: OR 05:55 → 6NMEDSUR 12:31 → OR 11-15 16:17
PROVIDERS: ATTEND Urology
DX: N20.0 Calculus of kidney (principal); N40.0 Benign prostatic hyperplasia without lower urinary tract symptoms; I25.10 Atherosclerotic heart disease of native coronary artery without angina pectoris; K21.9 Gastro-esophageal reflux disease without esophagitis; E78.5 Hyperlipidemia, unspecified; I10 Essential (primary) hypertension; M19.90 Unspecified osteoarthritis, unspecified site; G47.33 Obstructive sleep apnea (adult) (pediatric); M48.00 Spinal stenosis, site unspecified; Z95.5 Presence of coronary angioplasty implant and graft; Z87.891 Personal history of nicotine dependence; Z80.9 Family history of malignant neoplasm, unspecified; Z79.899 Other long term (current) drug therapy; Z79.82 Long term (current) use of aspirin; Z88.5 Allergy status to narcotic agent; Z88.0 Allergy status to penicillin
CPT/HCPCS: 86900; 86901; 86850; 82365; 50432; 74018; 50081; C1769 ×4; C2628; C1729 ×2; C1894; J1100; J2405; J1580; J1885; J1170 ×2; Q9967

== ENCOUNTER → 2022-01-31 | Outpatient (CLI) | payer MEDICARE, OTHER | END | disposition home or self-care (01) | LOC: LABWHC1 09:03 | PROVIDERS: ATTEND Urology | DX: Z53.9 Procedure and treatment not carried out, unspecified reason (principal) ==

== ENCOUNTER 2022-05-19 02:50 | Inpatient (IN) | payer MEDICARE, OTHER ==
[2022-05-19] MEDS ORDERED: ONDANSETRON 4 MG/2 ML VIAL IVP STA (03:09)
[2022-05-19] MEDS ORDERED: SODIUM CHLORIDE 0.9% 1,000 ML IV STA (03:09)
[2022-05-19] MEDS ORDERED: HYDROmorphone 1 MG/ML 1 ML SYRINGE IVP STA (03:10)
[2022-05-19 03:21] LABS: Basophils # (A) 0.1 k/uL (0-0.2); Basophils % (A) 1 %; Eosinophils # (A) 0.2 k/uL (0-0.7); Eosinophils % (A) 1 %; HCT 43.5 % (39.0-53.0); Lymphocytes # (A) 3.1 k/uL (1.0-4.8); Lymphocytes % (A) 22 %; MCHC 34.4 g/dL (31.0-37.0); MCV 87.1 fL (80.0-100.0); Mean Platelet Volume 7.6; Monocytes # (A) 0.8 k/uL (0-1.0); Monocytes % (A) 6 %; Neutrophils # (A) 9.4 k/uL (1.3-7.7); Neutrophils % (A) 68 %; Platelet Count 186 k/uL (150-450); RDW 14.8 % (11.5-15.5); WBC 13.8 k/uL (3.8-10.6)
[2022-05-19 03:31] LABS: ALT 22 U/L (4-49); AST 24 U/L (17-59); African American GFR (CKD) >90 (>60 ml/min/1.73 sqM); Albumin 4.1 g/dL (3.5-5.0); Alkaline Phosphatase 72 U/L (38-126); Anion Gap 7 mmol/L; Blood Urea Nitrogen 13 mg/dL (9-20); Calcium 9.1 mg/dL (8.4-10.2); Carbon Dioxide 23 mmol/L (22-30); Chloride 107 mmol/L (98-107); Glucose 120 mg/dL (74-99); Lipase 92 U/L (23-300); Non-African American GFR(CKD) >90 (>60 ml/min/1.73 sqM); Potassium 4.3 mmol/L (3.5-5.1); Sodium 137 mmol/L (137-145); Total Bilirubin 0.4 mg/dL (0.2-1.3); Total Protein 6.9 g/dL (6.3-8.2)
[2022-05-19 03:33] LABS: Appearance,Urine Clear (Clear); Bilirubin,Urine Negative (Negative); Blood,Urine Moderate (Negative); Color,Urine Light Yellow; Glucose,Urine (UA) Negative (Negative); Ketones,Urine Negative (Negative); Leukocyte Esterase,Urine Negative (Negative); Nitrite,Urine Negative (Negative); PH, Urine 6.5 (5.0-8.0); Protein,Urine Negative (Negative); RBC,Urine 62 /hpf (0-5); Specific Gravity,Urine 1.015 (1.001-1.035); Urobilinogen,Urine <2.0 mg/dL (<2.0); WBC,Urine 2 /hpf (0-5)
--- NOTE | 2022-05-19 03:46 | ED ---
Abdominal Pain HPI - General Chief Complaint: Abdominal Pain Stated Complaint: Abdominal pain Time Seen by Provider: 05/19/22 02:54 Source: patient, EMS Mode of arrival: EMS - Related Data Home Medications Medication Instructions Recorded Confirmed HYDROcodone/APAP 10-325MG [[place] 1 tab PO QID PRN 05/22/20 05/19/22 10-325] Nitroglycerin Sl Tabs [Nitrostat] 0.4 mg SUBLINGUAL Q5M PRN 05/22/20 05/19/22 carvediloL [Coreg] 25 mg PO BID-W/MEALS 11/13/21 05/19/22 Albuterol Inhaler [Ventolin Hfa 2 puff INHALATION RT-Q6H PRN 05/19/22 05/19/22 Inhaler] Ondansetron [Zofran] 4 mg PO Q6H PRN 05/19/22 05/19/22 Previous Rx's Medication Instructions Recorded Aspirin 81 mg PO DAILY 30 Days #30 tab 05/20/22 Atorvastatin [Lipitor] 40 mg PO DAILY 30 Days #30 tab 05/20/22 amLODIPine [Norvasc] 5 mg PO DAILY 30 Days #30 tab 05/20/22 Allergies Allergy/AdvReac Type Severity Reaction Status Date / Time morphine Allergy Rash/Hives Verified 05/19/22 11:46 Penicillins Allergy Rash/Hives Verified 05/19/22 11:46 Review of Systems ROS Statement: Those systems with pertinent positive or pertinent negative responses have been documented in the HPI. ROS Other: All systems not noted in ROS Statement are negative. Past Medical History Past Medical History: Coronary Artery Disease (CAD), Chest Pain / Angina, GERD/Reflux, Hypertension, Osteoarthritis (OA), Sleep Apnea/CPAP/BIPAP Additional Past Medical History / Comment(s): SLEEP APNEA- NO C-PAP, SPINAL STENOSIS, BACK PAIN., WEARS NECK BRACE AT HS., WEARS BACK BRACE AND USES CANE., KIDNEY STONES, STATES NUMBNESS AT TIMES ON RIGHT SIDE., SOB WITH ACTIVITY. , SEE CARDIOLOGY H & P. History of Any Multi-Drug Resistant Organisms: None Reported Past Surgical History: Heart Catheterization With Stent, Tonsillectomy Additional Past Surgical History / Comment(s): 08/09/20 LEFT KIDNEY LITHROTRIPSY. Bilateral wrists & elbow surgery. Neck surgery. HEart cath with stents 08/19/2017 ([facility]) Past Anesthesia/Blood Transfusion Reactions: No Reported Reaction Date of Last Stent Placement:: 08/19/2017 Past Psychological History: No Psychological Hx Reported Smoking Status: Never smoker - Past Family History Mother Family Medical History: Cancer Father Family Medical History: Cancer Brother(s) Family Medical History: Cancer Course Vital Signs 05/19/22 05/19/22 05/19/22 02:52 05:05 07:14 Temperature 98.2 F Pulse Rate 98 95 90 Respiratory 20 18 16 Rate Blood Pressure 161/111 136/96 136/96 O2 Sat by Pulse 97 98 98 Oximetry - Reevaluation(s) Reevaluation #1: 05/19/22 medical record is reviewed Patient symptoms are improved here in the ER Patient informed of results and questions answered Medical Decision Making - Lab Data Result diagrams: 05/19/22 03:06 05/19/22 03:06 Lab Results 05/19/22 05/19/22 05/19/22 Range/Units 03:06 03:06 03:09 WBC 13.8 H (3.8-10.6) k/uL RBC 5.00 (4.30-5.90) m/uL Hgb 15.0 (13.0-17.5) gm/dL Hct 43.5 (39.0-53.0) % MCV 87.1 (80.0-100.0) fL MCH 30.0 (25.0-35.0) pg MCHC 34.4 (31.0-37.0) g/dL RDW 14.8 (11.5-15.5) % Plt Count 186 (150-450) k/uL MPV 7.6 Neutrophils % 68 % Lymphocytes % 22 % Monocytes % 6 % Eosinophils % 1 % Basophils % 1 % Neutrophils # 9.4 H (1.3-7.7) k/uL Lymphocytes # 3.1 (1.0-4.8) k/uL Monocytes # 0.8 (0-1.0) k/uL Eosinophils # 0.2 (0-0.7) k/uL Basophils # 0.1 (0-0.2) k/uL Sodium 137 (137-145) mmol/L Potassium 4.3 (3.5-5.1) mmol/L Chloride 107 (98-107) mmol/L Carbon Dioxide 23 (22-30) mmol/L Anion Gap 7 mmol/L BUN 13 (9-20) mg/dL Creatinine 0.93 (0.66-1.25) mg/dL Est GFR (CKD-EPI)AfAm >90 (>60 ml/min/1.73 sqM) Est GFR (CKD-EPI)NonAf >90 (>60 ml/min/1.73 sqM) Glucose 120 H (74-99) mg/dL Calcium 9.1 (8.4-10.2) mg/dL Total Bilirubin 0.4 (0.2-1.3) mg/dL AST 24 (17-59) U/L ALT 22 (4-49) U/L Alkaline Phosphatase 72 (38-126) U/L Total Protein 6.9 (6.3-8.2) g/dL Albumin 4.1 (3.5-5.0) g/dL Lipase 92 (23-300) U/L Urine Color Light Yellow Urine Appearance Clear (Clear) Urine pH 6.5 (5.0-8.0) Ur Specific [place] 1.015 (1.001-1.035) Urine Protein Negative (Negative) Urine Glucose (UA) Negative (Negative) Urine Ketones Negative (Negative) Urine Blood Moderate H (Negative) Urine Nitrite Negative (Negative) Urine Bilirubin Negative (Negative) Urine Urobilinogen <2.0 (<2.0) mg/dL Ur Leukocyte Esterase Negative (Negative) Urine RBC 62 H (0-5) /hpf Urine WBC 2 (0-5) /hpf Disposition Clinical Impression: Abdominal pain, Abdominal aneurysm Disposition: ADMITTED IP TO THIS HOSP Condition: Fair Is patient prescribed a controlled substance at d/c from ED?: No Time of Disposition: 06:50
--- NOTE | 2022-05-19 04:44 | CT ---
EXAMINATION TYPE: CT abdomen pelvis wo con DATE OF EXAM: 05/19/2022 COMPARISON: 10/23/2021 HISTORY: abd pain, bilateral flank pain. h/o back pain CT DLP: 996.2 mGycm Automated exposure control for dose reduction was used. Images obtained from the diaphragm to the floor of the pelvis with no contrast. Lung bases are clear. No pleural effusion. Heart size is fairly normal. No pericardial effusion. Ther e is some fatty infiltration of the liver. Liver is enlarged and measures 20 cm. Spleen is intact. No pancreatic mass. The stomach is intact. Gallbladder appears normal. There is no adrenal mass. The right kidney shows severe hydronephrosis with hydroureter. No definite ureteral calculus. There is right-sided perinephric fat stranding. There is 3 cm cortical cyst pedigree researcher ior right kidney. There is 1 cm calculus posterior left kidney. No retroperitoneal adenopathy. There is 5.7 cm aneurysm of the lower abdominal aorta. Common iliac arteries measure up to 2 cm. Appendix appears normal. There is no mesenteric edema. No ascites or free air. No evidence of a bowel obstruction. The lumbar vertebrae have normal alignment. There is hypertrophic degenerative spurring throughout th e lumbar spine. No compression fracture. Bony pelvis is intact. The hip joints are intact. Hip joints are intact. IMPRESSION: Fatty infiltration of the liver. There is chronic right-sided hydronephrosis and mild right-sided hyd roureter which is slightly worse than last exam. There is right-sided perinephric edema increased com pared to old exam. There is 5.7 cm aneurysm of the lower abdominal aorta which is increased from 5.2 cm on previous exam . Follow-up is recommended. No evidence of a leak. There is thrombus on the left lateral wall of the aneurysm which measures up to 2 cm in thickness.
--- NOTE | 2022-05-19 06:40 | CT ---
EXAMINATION TYPE: CT angio abdomen pelvis DATE OF EXAM: 05/19/2022 COMPARISON: None HISTORY: ABD PAIN, H/O STENTS CT DLP: 1141 mGycm Automated exposure control for dose reduction was used. CONTRAST: Performed with IV Contrast, patient injected with 100 mL of Isovue 370. Images obtained from the diaphragm to the proximal femurs with the IV contrast. There are Three-D pos tprocessed images. There is arterial flow in the abdominal aorta. There is arterial flow in the celiac artery and superi or mesenteric artery. There is a large fusiform aneurysm of the lower abdominal aorta that measures 1 0 cm in length. There is thrombus on the anterior left lateral wall. Aneurysm measures up to 5.7 cm i n diameter and extends to the common iliac arteries. Common iliac arteries measure up to 2 cm. There is arterial flow in both renal arteries. No arterial dissection. There is arterial flow in the international logistics manager al and external iliac arteries and the proximal femoral arteries. No evidence of hemodynamic stenosis . 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 No dissection. No evidence of hemodyn amic stenosis.
[2022-05-19] MEDS ORDERED: HYDROmorphone 1 MG/ML 1 ML SYRINGE IVP PRN (06:49)
[2022-05-19 07:14] VITALS: RESP 16
--- NOTE | 2022-05-19 12:28 | P.HPIM ---
History of Present Illness 56-year-old male with history of chronic hydronephrosis on the left side given with complaints of sharp severe pain predominantly in the right the lower abdominal area and some bilateral flank pain. Patient denied any symptoms of [place] I doesn't have any fever chills. Patient had a CT of the abdomen which showed 5.7 cm abdominal aortic aneurysm with multiple calcifications, CT was reviewed. Patient also has a cortical renal cyst on the left side with a 1 cm stone which appears to be chronic patient has a chronic hydronephrosis on the left side. Patient has mild leukocytosis. Patient can use to complain of this severe pain. Patient was a valid with vascular surgery concerning the location of the pain, vascular surgery does not believe this is secondary to the aneurysm. Urology was subsequent to consulted because of the CT findings although there are chronic to rule out any neurological causes that is controlled with the pain. Etiology was consult for cardiac clearance. Patient had a cardiac catheterization with clean coronaries in the recent past. Patient renal function is within normal limits. REVIEW OF SYSTEMS: CONSTITUTIONAL: No fever, no malaise, no fatigue. HEENT: No recent visual problems or hearing problems. Denied any sore throat. CARDIOVASCULAR: No chest pain, orthopnea, PND, no palpitations, no syncope. PULMONARY: No shortness of breath, no cough, no hemoptysis. GASTROINTESTINAL: No diarrhea, no nausea, no vomiting. NEUROLOGICAL: No headaches, no weakness, no numbness. HEMATOLOGICAL: Denies any bleeding or petechiae. GENITOURINARY: Denies any burning micturition, frequency, or urgency. MUSCULOSKELETAL/RHEUMATOLOGICAL: Denies any joint pain, swelling, or any muscle pain. ENDOCRINE: Denies any polyuria or polydipsia. The rest of the 14-point review of systems is negative. PHYSICAL EXAMINATION: GENERAL: The patient is alert and oriented x3, not in any acute distress. Well developed, well nourished. HEENT: Pupils are round and equally reacting to light. EOMI. No scleral icterus. No conjunctival pallor. Normocephalic, atraumatic. No pharyngeal erythema. No thyromegaly. CARDIOVASCULAR: S1 and S2 present. No murmurs, rubs, or gallops. PULMONARY: Chest is clear to auscultation, no wheezing or crackles. ABDOMEN: Soft, mild right lower quadrant tenderness nondistended, normoactive bowel sounds. No palpable organomegaly. MUSCULOSKELETAL: No joint swelling or deformity. EXTREMITIES: No cyanosis, clubbing, or pedal edema. NEUROLOGICAL: Gross neurological examination did not reveal any focal deficits. SKIN: No rashes. Assessment and plan -Abdominal pain right lower quadrant tenderness mild, patient doesn't have any appendicitis etiology of his symptoms is not clear. Patient has 1 cm renal stones is to be chronic urology was consulted and patient is a 5.7 cm aneurysm vascular surgery evaluated the patient. Patient pain medications will be changed to oral [place] discontinued Dilaudid will use bowel regimen for pain -Cardiac risk assessment patient is a recent cardiac cath with clean coronaries but does have significant coronary artery disease and coronary calcification patient is moderate risk for vascular surgery hypertension hyperlipidemia DVT prophylaxis: Lovenox Past Medical History Past Medical History: Coronary Artery Disease (CAD), Chest Pain / Angina, GERD/Reflux, Hypertension, Osteoarthritis (OA), Sleep Apnea/CPAP/BIPAP Additional Past Medical History / Comment(s): SLEEP APNEA- NO C-PAP, SPINAL STENOSIS, BACK PAIN., WEARS NECK BRACE AT HS., WEARS BACK BRACE AND USES CANE., KIDNEY STONES, STATES NUMBNESS AT TIMES ON RIGHT SIDE., SOB WITH ACTIVITY. , SEE CARDIOLOGY H & P. History of Any Multi-Drug Resistant Organisms: None Reported Past Surgical History: Heart Catheterization With Stent, Tonsillectomy Additional Past Surgical History / Comment(s): 08/09/20 LEFT KIDNEY LITHROTRIPSY. Bilateral wrists & elbow surgery. Neck surgery. HEart cath with stents 08/19/2017 ([facility]) Past Anesthesia/Blood Transfusion Reactions: No Reported Reaction Date of Last Stent Placement:: 08/19/2017 Past Psychological History: No Psychological Hx Reported Smoking Status: Former smoker Past Alcohol Use History: Occasional Additional Past Alcohol Use History / Comment(s): QUIT 2020. HAS SMOKED FOR 30- YRS. Past Drug Use History: None Reported - Past Family History Mother Family Medical History: Cancer Father Family Medical History: Cancer Brother(s) Family Medical History: Cancer Medications and Allergies Home Medications Medication Instructions Recorded Confirmed Type lisinopriL [Zestril] 40 mg PO DIRECTED 01/15/18 05/19/22 History HYDROcodone/APAP 10-325MG [[place] 1 tab PO QID PRN 05/22/20 05/19/22 History 10-325] Nitroglycerin Sl Tabs [Nitrostat] 0.4 mg SUBLINGUAL Q5M PRN 05/22/20 05/19/22 History amLODIPine BESYLATE 10 mg PO DIRECTED 11/13/21 05/19/22 History carvediloL [Coreg] 25 mg PO BID-W/MEALS 11/13/21 05/19/22 History Diltiazem Cd [Cardizem CD] 180 mg PO DIRECTED 11/14/21 05/19/22 History Albuterol Inhaler [Ventolin Hfa 2 puff INHALATION RT-Q6H PRN 05/19/22 05/19/22 History Inhaler] Ondansetron [Zofran] 4 mg PO Q6H PRN 05/19/22 05/19/22 History Allergies Allergy/AdvReac Type Severity Reaction Status Date / Time morphine Allergy Rash/Hives Verified 05/19/22 11:46 Penicillins Allergy Rash/Hives Verified 05/19/22 11:46 Physical Exam Vitals: Vital Signs Temp Pulse Pulse Resp BP BP Pulse Ox 05/19/22 11:21 97.4 F L 90 16 155/98 95 05/19/22 08:00 98.2 F 66 16 137/89 97 05/19/22 07:14 90 16 136/96 98 05/19/22 05:05 95 18 136/96 98 05/19/22 02:52 98.2 F 98 20 161/111 97 Intake and Output 05/18/22 05/19/22 05/19/22 22:59 06:59 14:59 Other: Weight 86.183 kg 86.183 kg Results CBC & Chem 7: 05/19/22 03:06 05/19/22 03:06 Labs: Abnormal Lab Results - Last 24 Hours (Table) 05/19/22 05/19/22 05/19/22 Range/Units 03:06 03:06 03:09 WBC 13.8 H (3.8-10.6) k/uL Neutrophils # 9.4 H (1.3-7.7) k/uL Glucose 120 H (74-99) mg/dL Urine Blood Moderate H (Negative) Urine RBC 62 H (0-5) /hpf Thrombosis Risk Factor Assmnt - Choose All That Apply Each Factor Represents 1 point: Age 41-60 years Other Risk Factors: No Other congenital or acquired thrombophilia - If yes, enter type in comment: No Thrombosis Risk Factor Assessment Total Risk Factor Score: 1 Thrombosis Risk Factor Assessment Level: Low Risk
[2022-05-19] MEDS ORDERED: polyethylene glycoL 3350 17 GM POWD.PACK PO PRN (12:30)
[2022-05-19] MEDS: HYDROcodone/APAP 10-325MG 1 EACH TAB PO PRN ×2 (13:23→19:48)
--- NOTE | 2022-05-19 13:34 | P.CRDCN ---
History of Present Illness Consult date: 05/19/22 Requesting physician: Camilo Dwyer Reason for Consult (text): CAD, clearance for aortic repair Chief complaint: abdominal pain History of present illness: The pleasant 56-year-old gentleman who follows in the office with Dr. Vaughan. Has a history of CAD status post stenting of the circumflex and left anterior descending artery with most recent cardiac catheterization 05/07/2021 showing patent stents. Also has a history of hypertension, hyperlipidemia, abdominal aortic aneurysm that's been monitored by his primary care provider. History of kidney stones for which she was hospitalized in [facility] recently. She presented with bilateral side and flank pain as well as right abdominal d iscomfort. He T scan of the abdomen was done which showed fatty infiltrate of the liver, chronic right-sided hydronephrosis and mild right-sided hydroureter which is slightly worse than last exam, right sided. Nephric edema increased compared to old exam and evidence of 5.7 cm aneurysm of the lower abdominal aorta. CTA of the abdomen and pelvis show partially thrombosed 5.7 cm aneurysm of the lower abdominal aorta, no dissection, no evidence of more dynamic stenosis. According to nursing staff a was seen and evaluated by Dr. Lazo. No urgent plans for repair at this time but recommended repair to be done in the near future. Patient has been afebrile. Blood pressure has been elevated. Patient does have intermittent chest discomfort, brief and not related to activity, stable for quite some time and does not remind him of what he experienced prior to his stents in the past. He denies complaints of shortness of breath, edema, orthopnea or PND. Denies any nausea or vomiting but continues to have abdominal pain. Past Medical History Past Medical History: Coronary Artery Disease (CAD), Chest Pain / Angina, GERD/Reflux, Hypertension, Osteoarthritis (OA), Sleep Apnea/CPAP/BIPAP Additional Past Medical History / Comment(s): SLEEP APNEA- NO C-PAP, SPINAL STENOSIS, BACK PAIN., WEARS NECK BRACE AT HS., WEARS BACK BRACE AND USES CANE., KIDNEY STONES, STATES NUMBNESS AT TIMES ON RIGHT SIDE., SOB WITH ACTIVITY. , SEE CARDIOLOGY H & P. History of Any Multi-Drug Resistant Organisms: None Reported Past Surgical History: Heart Catheterization With Stent, Tonsillectomy Additional Past Surgical History / Comment(s): 08/09/20 LEFT KIDNEY LITHROTRIPSY. Bilateral wrists & elbow surgery. Neck surgery. HEart cath with stents 08/19/2017 ([facility]) Past Anesthesia/Blood Transfusion Reactions: No Reported Reaction Date of Last Stent Placement:: 08/19/2017 Past Psychological History: No Psychological Hx Reported Smoking Status: Former smoker Past Alcohol Use History: Occasional Additional Past Alcohol Use History / Comment(s): QUIT 2020. HAS SMOKED FOR 30- YRS. Past Drug Use History: None Reported - Past Family History Mother Family Medical History: Cancer Father Family Medical History: Cancer Brother(s) Family Medical History: Cancer Medications and Allergies Home Medications Medication Instructions Recorded Confirmed Type lisinopriL [Zestril] 40 mg PO DIRECTED 01/15/18 05/19/22 History HYDROcodone/APAP 10-325MG [[place] 1 tab PO QID PRN 05/22/20 05/19/22 History 10-325] Nitroglycerin Sl Tabs [Nitrostat] 0.4 mg SUBLINGUAL Q5M PRN 05/22/20 05/19/22 History amLODIPine BESYLATE 10 mg PO DIRECTED 11/13/21 05/19/22 History carvediloL [Coreg] 25 mg PO BID-W/MEALS 11/13/21 05/19/22 History Diltiazem Cd [Cardizem CD] 180 mg PO DIRECTED 11/14/21 05/19/22 History Albuterol Inhaler [Ventolin Hfa 2 puff INHALATION RT-Q6H PRN 05/19/22 05/19/22 History Inhaler] Ondansetron [Zofran] 4 mg PO Q6H PRN 05/19/22 05/19/22 History Allergies Allergy/AdvReac Type Severity Reaction Status Date / Time morphine Allergy Rash/Hives Verified 05/19/22 11:46 Penicillins Allergy Rash/Hives Verified 05/19/22 11:46 Physical Exam Vitals: Vital Signs Temp Pulse Pulse Resp BP BP Pulse Ox 05/19/22 11:21 97.4 F L 90 16 155/98 95 05/19/22 08:00 98.2 F 66 16 137/89 97 05/19/22 07:14 90 16 136/96 98 05/19/22 05:05 95 18 136/96 98 05/19/22 02:52 98.2 F 98 20 161/111 97 Intake and Output 05/18/22 05/19/22 05/19/22 22:59 06:59 14:59 Other: Weight 86.183 kg 86.183 kg PHYSICAL EXAMINATION: This is a 56-year-old male in no apparent distress at the time of my examination. HEENT: Head is atraumatic, normocephalic. Pupils are equal, round. Sclerae anicteric. Conjunctivae are clear. Mucous membranes of the mouth are moist. Neck is supple. There is no elevated jugular venous pressure. No carotid bruit is heard. CHEST EXAMINATION: Clear to auscultation bilaterally. No wheezes rales or rhonchi. Respirations even and nonlabored. HEART EXAMINATION: Heart regular, positive S1 and S2. No S3. No S4. Systolic murmur. ABDOMEN: Soft, nontender. Bowel sounds are heard. No organomegaly noted. EXTREMITIES: 2+ peripheral pulses with no evidence of peripheral edema and no calf tenderness noted. NEUROLOGIC EXAMINATION: Patient is awake, alert and oriented x3. Results 05/19/22 03:06 05/19/22 03:06 Cardiac Enzymes 05/19/22 Range/Units 03:06 AST 24 (17-59) U/L CBC 05/19/22 Range/Units 03:06 WBC 13.8 H (3.8-10.6) k/uL RBC 5.00 (4.30-5.90) m/uL Hgb 15.0 (13.0-17.5) gm/dL Hct 43.5 (39.0-53.0) % Plt Count 186 (150-450) k/uL Comprehensive Metabolic Panel 05/19/22 Range/Units 03:06 Sodium 137 (137-145) mmol/L Potassium 4.3 (3.5-5.1) mmol/L Chloride 107 (98-107) mmol/L Carbon Dioxide 23 (22-30) mmol/L BUN 13 (9-20) mg/dL Creatinine 0.93 (0.66-1.25) mg/dL Glucose 120 H (74-99) mg/dL Calcium 9.1 (8.4-10.2) mg/dL AST 24 (17-59) U/L ALT 22 (4-49) U/L Alkaline Phosphatase 72 (38-126) U/L Total Protein 6.9 (6.3-8.2) g/dL Albumin 4.1 (3.5-5.0) g/dL Current Medications Generic Name Dose Route Start Last Admin Trade Name Freq PRN Reason Stop Dose Admin Hydrocodone Bitart/Acetaminophen 1 each 05/19/22 11:49 Hydrocodone/Apap 10-325mg 1 Each Tab PO Q6HR PRN Pain Intake and Output 05/18/22 05/19/22 05/19/22 22:59 06:59 14:59 Other: Weight 86.183 kg 86.183 kg Patient Weight 05/20/22 06:59 Weight 86.183 kg 05/19/22 03:06 05/19/22 03:06 Assessment and Plan Assessment: #1 bilateral side, flank and abdominal pain #2 AAA, 5.7 cm #3 CAD with prior stenting of the circumflex and LAD, patent stents noted on cardiac catheterization from a year ago #4 renal stones #5 hypertension #6 hyperlipidemia Plan: From cardiology's perspective we'll obtain an EKG and echocardiogram. Resume beta chelsea, statin and aspirin. From our standpoint there should be no contraindication to undergoing surgery. We'll continue to follow the patient and provide further recommendations accordingly. STRIP CATCHER note has been reviewed, I agree with a documented findings and plan of care. Patient was seen and examined.
[2022-05-19] MEDS: carvediloL 12.5 MG TAB PO SCH (17:42)
[2022-05-19] MEDS: ATORVASTATIN 40 MG TAB PO SCH (17:46)
[2022-05-20] MEDS: HYDROcodone/APAP 10-325MG 1 EACH TAB PO PRN ×2 (04:06→10:17)
[2022-05-20 04:42] VITALS: TEMP 97.8
[2022-05-20] MEDS: carvediloL 12.5 MG TAB PO SCH (08:33)
[2022-05-20] MEDS: ATORVASTATIN 40 MG TAB PO SCH (08:34)
--- NOTE | 2022-05-20 08:47 | P.GSCN ---
History of Present Illness Consult date: 05/20/22 Reason for Consult: Abdominal aortic aneurysm Requesting physician: Erik Carrera History of present illness: This is a pleasant 56-year-old male with a past medical history including coronary artery disease status post multiple cardiac stents, hypertension, sleep apnea and the history of kidney stones who presented to the emergency department with complaints of bilateral flank pain. Patient states pain started 1-2 days ago associated with fever and chills. He denies any nausea or vomiting, no chest pain, no shortness of breath. As part of his workup and evaluation he had a CT of the abdomen and pelvis without contrast the reported fatty infiltrate of the liver chronic right-sided hydronephrosis and mild right-sided hydroureter which is slightly worse the last exam. Right-sided perinephritic edema increased compared to old exam. Also noted was a 5.7 cm aneurysm of the lower abdominal aorta. 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 No dissection no evidence of hemodynamic stenosis. Vascular surgery was consulted for AAA. The patient states he has a known abdominal aortic aneurysm and his PCP has been following and he has a scheduled appointment with a specialist in [place] in July. He denies any acute abdominal pain at this time no fevers or chills currently. Continues to have flank pain bilaterally. He is afebrile. Review of Systems A 14 point review systems was completed all pertinent positives and negatives as stated in the HPI. Past Medical History Past Medical History: Coronary Artery Disease (CAD), Chest Pain / Angina, GERD/Reflux, Hypertension, Osteoarthritis (OA), Sleep Apnea/CPAP/BIPAP Additional Past Medical History / Comment(s): SLEEP APNEA- NO C-PAP, SPINAL STENOSIS, BACK PAIN., WEARS NECK BRACE AT HS., WEARS BACK BRACE AND USES CANE., KIDNEY STONES, STATES NUMBNESS AT TIMES ON RIGHT SIDE., SOB WITH ACTIVITY. , SEE CARDIOLOGY H & P. History of Any Multi-Drug Resistant Organisms: None Reported Past Surgical History: Heart Catheterization With Stent, Tonsillectomy Additional Past Surgical History / Comment(s): 08/09/20 LEFT KIDNEY LITHROTRIPSY. Bilateral wrists & elbow surgery. Neck surgery. HEart cath with stents 08/19/2017 ([facility]) Past Anesthesia/Blood Transfusion Reactions: No Reported Reaction Date of Last Stent Placement:: 08/19/2017 Past Psychological History: No Psychological Hx Reported Smoking Status: Former smoker Past Alcohol Use History: Occasional Additional Past Alcohol Use History / Comment(s): QUIT 2020. HAS SMOKED FOR 30- YRS. Past Drug Use History: None Reported - Past Family History Mother Family Medical History: Cancer Father Family Medical History: Cancer Brother(s) Family Medical History: Cancer Medications and Allergies Home Medications Medication Instructions Recorded Confirmed Type lisinopriL [Zestril] 40 mg PO DIRECTED 01/15/18 05/19/22 History HYDROcodone/APAP 10-325MG [[place] 1 tab PO QID PRN 05/22/20 05/19/22 History 10-325] Nitroglycerin Sl Tabs [Nitrostat] 0.4 mg SUBLINGUAL Q5M PRN 05/22/20 05/19/22 History amLODIPine BESYLATE 10 mg PO DIRECTED 11/13/21 05/19/22 History carvediloL [Coreg] 25 mg PO BID-W/MEALS 11/13/21 05/19/22 History Diltiazem Cd [Cardizem CD] 180 mg PO DIRECTED 11/14/21 05/19/22 History Albuterol Inhaler [Ventolin Hfa 2 puff INHALATION RT-Q6H PRN 05/19/22 05/19/22 History Inhaler] Ondansetron [Zofran] 4 mg PO Q6H PRN 05/19/22 05/19/22 History Allergies Allergy/AdvReac Type Severity Reaction Status Date / Time morphine Allergy Rash/Hives Verified 05/19/22 11:46 Penicillins Allergy Rash/Hives Verified 05/19/22 11:46 Surgical - Exam Vital Signs Temp Pulse Resp BP Pulse Ox 98.2 F 98 20 161/111 97 05/19/22 02:52 05/19/22 02:52 05/19/22 02:52 05/19/22 02:52 05/19/22 02:52 General appearance: The patient is alert, oriented, appears in no acute distress. HET: Head is normocephalic and atraumatic. Pupils are equal and reactive. Neck: Supple without lymphadenopathy. Trachea midline. No audible carotid bruit. Heart: Regular. Lungs: Equal expansion, normal respiratory effort. Abdomen: Soft, bilateral right lower lateral abdominal tenderness and flank pain tenderness, nondistended. Extremities: Normal skin color and turgor. No cyanosis, rash, ulceration, clubbing, or edema. Radial and pedal pulses are 2/4 bilaterally. Neurological: No focal deficits. Strength and sensation are grossly intact. Results - Labs 05/19/22 03:06 05/19/22 03:06 - Imaging Comments: See HPI for details CT scan - abdomen: report reviewed, image reviewed Assessment and Plan Assessment: 1. Bilateral flank pain 2. Abdominal aortic aneurysm measuring 5.7 cm 3. History of kidney stones 4. Coronary artery disease status post stenting 5. Hypertension 6. Obstructive sleep apnea 7. Obesity Plan: CT abdomen and pelvis reviewed, 5.7 cm partly thrombosed, no dissection. Patient's abdominal pain not associated with abdominal aortic aneurysm. Patient has outpatient appointment scheduled with a surgeon in [place] in July however we will give him our information he has more than welcome to follow-up with us regarding repair of his abdominal aortic aneurysm. Cardiology has seen patient due to patient's cardiac history, awaiting echocardiogram, however at this point they stated that there was no contraindication to proceeding with surgery. Continue with recommendations for urology. Thank you for this consultation. Nestor is cleared for discharge from vascular surgery. We will sign off at this time. The impression and plan of care has been dictated as directed. I performed a history and examination of this patient, discussed the same with the dictator. I agree with the dictator's note ,documented as a scribe. Any additional findings or plans will be noted.
[2022-05-20] MEDS ORDERED: ASPIRIN 81 MG PO SCH (09:00)
[2022-05-20] MEDS ORDERED: amLODIPine 5 MG TAB PO SCH (09:00)
[2022-05-20 10:48] VITALS: BP 152/93
[2022-05-20 11:24] VITALS: PULSE 86
[2022-05-20] MEDS ORDERED: KETOROLAC 15 MG/ML 1 ML VIAL IVP SCH (12:00)
--- NOTE | 2022-05-20 12:07 | CA ---
Transthoracic Echo Report Name: Giorgi Lance Age: 56 Gender: M : 1965 Exam Date: 05/20/2022 11:13 Exam Location: [facility] Ht (in): 63 Wt (lb): 190 Ordering Physician: Tye Rosario MD ([id number]) Attending/Referring Phys: Store Coordinator Luz Stephens RDCS Procedure CPT: Indications: CAD Cardiac Hx: Technical Quality: Technically difficult study Contrast 1: Lumason Total Dose (mL): 5 Contrast 2: Total Dose (mL): MEASUREMENTS (Male / Female) Normal Values 2D ECHO LV Diastolic Diameter PLAX 4.8 cm 4.2 - 5.9 / 3.9 - 5.3 cm LV Systolic Diameter PLAX 3.7 cm IVS Diastolic Thickness 1.4 cm 0.6 - 1.0 / 0.6 - 0.9 cm LVPW Diastolic Thickness 1.4 cm 0.6 - 1.0 / 0.6 - 0.9 cm LV Relative Wall Thickness 0.6 LA Volume 24.6 cm??? 18 - 58 / 22 - 52 cm??? M-MODE Aortic Root Diameter MM 2.9 cm LA Systolic Diameter MM 3.3 cm LA Ao Ratio MM 1.1 AV Cusp Separation MM 1.8 cm DOPPLER AV Peak Velocity 133.6 cm/s AV Peak Gradient 7.1 mmHg LVOT Peak Velocity 119.8 cm/s LVOT Peak Gradient 5.7 mmHg MV Area PHT 5.5 cm??? Mitral E Point Velocity 41.6 cm/s Mitral A Point Velocity 89.7 cm/s Mitral E to A Ratio 0.5 MV Deceleration Time 137.1 ms MV E' Velocity 4.0 cm/s Mitral E to MV E' Ratio 10.3 TR Peak Velocity 204.7 cm/s TR Peak Gradient 16.8 mmHg Right Ventricular Systolic Press 21.8 mmHg FINDINGS Left Ventricle Mildly increased septal wall thickness. Meridian aneurysmal. Meridian hypokinetic. Decreased systolic funbction. EF estimated at 35-40%. Right Ventricle Right ventricle not well visualized. Right ventricular systolic pressure within normal limits. Right Atrium Right atrium not well visualized. Left Atrium Normal left atrial size. Mitral Valve Mild mitral annular calcification. Mild mitral regurgitation. Aortic Valve No aortic valve stenosis or regurgitation. Tricuspid Valve Mild tricuspid regurgitation. Pulmonic Valve Trace pulmonic regurgitation. Pericardium No pericardial effusion. Normal pericardium. Aorta Normal size aortic root and proximal ascending aorta. CONCLUSIONS Impaired LV function was EF around 40% Previewed by: Dr. Ajit Berry MD (Electronically Signed) Final Date: 20 May 2022 12:06
--- NOTE | 2022-05-20 12:42 | P.GSCN ---
History of Present Illness Consult date: 05/19/22 Reason for Consult: AAA Requesting physician: Erik Carrera History of present illness: 56 year old gentleman with history of kidney stones, AAA, CAD, and chronic back pain presented to the ER secondary to worsening right sided flank and right lower abdominal pain. He states the pain feels a lot like his normal kidney stone pain as if he is passing the stone. He denies any tearing pain extending to his back. He has recently been given Dilaudid for pain and has significantly improved his pain. He denies any fevers, chills, chest pain or shortness of breath currently. He states he was recently being worked up for his AAA and was told to see a specialist at the start of the new year. His most recent CT scan in September demonstrated a 5.1cm AAA and when evaluated today in the ER, the aneurysm has grown to 5.7 cm. Review of Systems All systems: negative (what is mentioned in the PMH or HPI) Past Medical History Past Medical History: Coronary Artery Disease (CAD), Chest Pain / Angina, GERD/Reflux, Hypertension, Osteoarthritis (OA), Sleep Apnea/CPAP/BIPAP Additional Past Medical History / Comment(s): SLEEP APNEA- NO C-PAP, SPINAL STENOSIS, BACK PAIN., WEARS NECK BRACE AT HS., WEARS BACK BRACE AND USES CANE., KIDNEY STONES, STATES NUMBNESS AT TIMES ON RIGHT SIDE., SOB WITH ACTIVITY. , SEE CARDIOLOGY H & P. History of Any Multi-Drug Resistant Organisms: None Reported Past Surgical History: Heart Catheterization With Stent, Tonsillectomy Additional Past Surgical History / Comment(s): 08/09/20 LEFT KIDNEY LITHROTRIPSY. Bilateral wrists & elbow surgery. Neck surgery. HEart cath with stents 08/19/2017 ([facility]) Past Anesthesia/Blood Transfusion Reactions: No Reported Reaction Date of Last Stent Placement:: 08/19/2017 Past Psychological History: No Psychological Hx Reported Smoking Status: Former smoker Past Alcohol Use History: Occasional Additional Past Alcohol Use History / Comment(s): QUIT 2020. HAS SMOKED FOR 30- YRS. Past Drug Use History: None Reported - Past Family History Mother Family Medical History: Cancer Father Family Medical History: Cancer Brother(s) Family Medical History: Cancer Medications and Allergies Home Medications Medication Instructions Recorded Confirmed Type lisinopriL [Zestril] 40 mg PO DAILY 01/15/18 11/13/21 History Tamsulosin [Flomax] 0.4 mg PO DAILY #7 cap 09/05/18 11/13/21 Rx HYDROcodone/APAP 10-325MG [[place] 1 tab PO QID 05/22/20 11/13/21 History 10-325] Nitroglycerin Sl Tabs [Nitrostat] 0.4 mg SUBLINGUAL Q5M PRN 05/22/20 11/13/21 History Atorvastatin Calcium [Lipitor] 80 mg PO HS 05/06/21 11/13/21 History Aspirin 325 mg PO DAILY tab 05/07/21 11/13/21 Rx Isosorbide Mononitrate [Isosorbide 30 mg PO 1600 08/01/21 11/13/21 History Mononitrate ER] Chlorthalidone [Hygroten] 50 mg PO HS 11/13/21 11/13/21 History amLODIPine BESYLATE 10 mg PO DAILY 11/13/21 11/13/21 History carvediloL [Coreg] 25 mg PO BID 11/13/21 11/13/21 History Diltiazem Cd [Cardizem CD] 180 mg PO HS 11/14/21 11/14/21 History HYDROcodone/APAP 5-325MG [[place] 1 tab PO Q6HR PRN 3 Days #12 tab 11/15/21 Rx 5-325] Ketorolac [Toradol] 10 mg PO Q6HR PRN #10 tab 11/15/21 Rx Allergies Allergy/AdvReac Type Severity Reaction Status Date / Time morphine Allergy Rash/Hives Verified 11/13/21 08:44 Penicillins Allergy Rash/Hives Verified 11/13/21 08:44 Surgical - Exam Vital Signs Temp Pulse Resp BP Pulse Ox 98.2 F 98 20 161/111 97 05/19/22 02:52 05/19/22 02:52 05/19/22 02:52 05/19/22 02:52 05/19/22 02:52 - General well developed, well nourished, no distress - Eyes PERRL, normal ocular movement - ENT normal pinna, normal nares, normal mucosa - Neck no masses, no bruits - Respiratory normal expansion, normal respiratory effort, clear to auscultation - Cardiovascular Rhythm: regular - Abdomen mild tenderness to palpation at the right flank, groin area. No peritoneal signs. Abdomen: soft, no guarding, no rebound, no distended - Integumentary no rash, no growths - Neurologic normal coordination, normal sensation - Psychiatric oriented to time, oriented to person, oriented to place, speech is normal Palpable femoral, dp and pt pulses bilaterally. Good capillary refill. Pulsatile abdominal mass noted. No tenderness to palpation in the groin area bilaterally. Results - Labs 05/19/22 03:06 05/19/22 03:06 Abnormal Lab Results - Last 24 Hours (Table) 05/19/22 05/19/22 05/19/22 Range/Units 03:06 03:06 03:09 WBC 13.8 H (3.8-10.6) k/uL Neutrophils # 9.4 H (1.3-7.7) k/uL Glucose 120 H (74-99) mg/dL Urine Blood Moderate H (Negative) Urine RBC 62 H (0-5) /hpf Diabetes panel 05/19/22 Range/Units 03:06 Sodium 137 (137-145) mmol/L Potassium 4.3 (3.5-5.1) mmol/L Chloride 107 (98-107) mmol/L Carbon Dioxide 23 (22-30) mmol/L BUN 13 (9-20) mg/dL Creatinine 0.93 (0.66-1.25) mg/dL Glucose 120 H (74-99) mg/dL Calcium 9.1 (8.4-10.2) mg/dL AST 24 (17-59) U/L ALT 22 (4-49) U/L Alkaline Phosphatase 72 (38-126) U/L Total Protein 6.9 (6.3-8.2) g/dL Albumin 4.1 (3.5-5.0) g/dL Calcium panel 05/19/22 Range/Units 03:06 Calcium 9.1 (8.4-10.2) mg/dL Albumin 4.1 (3.5-5.0) g/dL Pituitary panel 05/19/22 Range/Units 03:06 Sodium 137 (137-145) mmol/L Potassium 4.3 (3.5-5.1) mmol/L Chloride 107 (98-107) mmol/L Carbon Dioxide 23 (22-30) mmol/L BUN 13 (9-20) mg/dL Creatinine 0.93 (0.66-1.25) mg/dL Glucose 120 H (74-99) mg/dL Calcium 9.1 (8.4-10.2) mg/dL Adrenal panel 05/19/22 Range/Units 03:06 Sodium 137 (137-145) mmol/L Potassium 4.3 (3.5-5.1) mmol/L Chloride 107 (98-107) mmol/L Carbon Dioxide 23 (22-30) mmol/L BUN 13 (9-20) mg/dL Creatinine 0.93 (0.66-1.25) mg/dL Glucose 120 H (74-99) mg/dL Calcium 9.1 (8.4-10.2) mg/dL Total Bilirubin 0.4 (0.2-1.3) mg/dL AST 24 (17-59) U/L ALT 22 (4-49) U/L Alkaline Phosphatase 72 (38-126) U/L Total Protein 6.9 (6.3-8.2) g/dL Albumin 4.1 (3.5-5.0) g/dL - Imaging CT scan - abdomen: report reviewed, image reviewed (5.7 cm infrarenal AAA. Kidney stones bilaterally. Hydroureter on the right.) Assessment and Plan Assessment: 1. Acute abdominal pain 2. Infrarenal AAA with expansion from previous imaging 3. Nephrolithiasis with right hydoureter 4. CAD with history of cardiac stents 5. HTN 6. Chronic back pain Plan: Imaging reviewed with the patient in full detail. He has a 5.7cm AAA which w ould be amendable to endovascular or open repair. I discussed with him the importance of repairing the aneurysm due to the increase in size from his previous scan 6 months prior. He states he wants his pain treated and he thinks his kidney stones are the culprit and would like to see his urologist before any decision for aortic surgery. He does have a significant history of coronary artery disease and does have chest pain occasionally and has seen Dr. Berry in the past and therefore we will have cardiology evaluate the patient for surgical clearance. Due to his age I would recommend open repair which would involve a tube graft if he is able to undergo from a medical and cardiac standpoint. I discussed this with him and he is agreeable but would like to do after the holiday. If his pain is proven to be from the kidney stones then he wants to wait to repair the AAA. I did explain the risks of rupture which is significant due to the expansion. 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 We will continue to follow. I discussed with the nursing staff the need for telemetry and close monitoring for hypertension. Thank you for the consultation.
--- NOTE | 2022-05-20 13:11 | P.PN ---
Subjective Progress Note Date: 05/20/22 History of present illness: The pleasant 56-year-old gentleman who follows in the office with Dr. Vaughan. Has a history of CAD status post stenting of the circumflex and left anterior descending artery with most recent cardiac catheterization 05/07/2021 showing patent stents. Also has a history of hypertension, hyperlipidemia, abdominal aortic aneurysm that's been monitored by his primary care provider. History of kidney stones for which she was hospitalized in [place] recently. She presented with bilateral side and flank pain as well as right abdominal discomfort. He T scan of the abdomen was done which showed fatty infiltrate of the liver, chronic right-sided hydronephrosis and mild right-sided hydroureter which is slightly worse than last exam, right sided. Nephric edema increased compared to old exam and evidence of 5.7 cm aneurysm of the lower abdominal aorta. CTA of the abdomen and pelvis show partially thrombosed 5.7 cm aneurysm of the lower abdominal aorta, no dissection, no evidence of more dynamic stenosis. According to nursing staff a was seen and evaluated by Dr. Lazo. No urgent plans for repair at this time but recommended repair to be done in the near future. Patient has been afebrile. Blood pressure has been elevated. Patient does have intermittent chest discomfort, brief and not related to activity, stable for quite some time and does not remind him of what he experienced prior to his stents in the past. He denies complaints of shortness of breath, edema, orthopnea or PND. Denies any nausea or vomiting but continues to have abdominal pain. 05/20 Patient continues to have flank, abdominal pain and is followed by vascular surgery for AAA. Blood pressures have been consistently high, heart rate 86-96. Echocardiogram reveals EF of 40%, mild mitral regurgitation. PHYSICAL EXAMINATION: This is a 56-year-old male in no apparent distress at the time of my examination. HEENT: Head is atraumatic, normocephalic. Pupils are equal, round. Sclerae anicteric. Conjunctivae are clear. Mucous membranes of the mouth are moist. There is no elevated jugular venous pressure. CHEST EXAMINATION: Clear to auscultation bilaterally. No wheezes rales or rhonchi. Respirations even and nonlabored. HEART EXAMINATION: Heart regular, positive S1 and S2. No S3. No S4. Systolic murmur. ABDOMEN: Soft, nontender. Bowel sounds are heard. No organomegaly noted. EXTREMITIES: 2+ peripheral pulses with no evidence of peripheral edema and no calf tenderness noted. NEUROLOGIC EXAMINATION: Patient is awake, alert and oriented x3. Assessment: #1 bilateral side, flank and abdominal pain #2 AAA, 5.7 cm #3 CAD with prior stenting of the circumflex and LAD, patent stents noted on cardiac catheterization from a year ago #4 renal stones #5 hypertension #6 hyperlipidemia Plan: Continue patient on beta chelsea, statin and aspirin. Add amlodipine 5 mg daily for blood pressure control From our standpoint there should be no contraindication to undergoing surgery. We'll continue to follow the patient and provide further recommendations accordingly. ADMISSION NURSE note has been reviewed, I agree with a documented findings and plan of care. Patient was seen and examined. Objective - Vital Signs Vital signs: Vital Signs Temp 97.8 F 05/20/22 04:41 Pulse 86 05/20/22 04:41 Resp 16 05/20/22 04:41 BP 157/99 05/20/22 04:41 Pulse Ox 93 L 05/20/22 04:41 FiO2 Intake & Output 05/19/22 05/20/22 05/20/22 18:59 06:59 18:59 Intake Total 360 Balance 360 Weight 86.183 kg Intake: Oral 360 Other: Voiding Method Toilet # Voids 1 - Labs CBC & Chem 7: 05/19/22 03:06 05/19/22 03:06
--- NOTE | 2022-05-20 13:18 | P.PN ---
Subjective Progress Note Date: 05/20/22 Principal diagnosis: Abdominal aortic aneurysm Patient was seen and examined today as a follow-up for abdominal pain, abdominal aortic aneurysm measuring 5.7 cm. Cardiology had seen patient and clear patient for excuse me repair of abdominal aortic aneurysm. Patient is stating abdominal pain is improved it is in the right flank region. He is awaiting further recommendations from urology. Patient also states that he has appointment with a surgeon scheduled in July in [place]. Dr. Doran discussed with patient he recommends that he has seen sooner and recommends open surgery as soon as possible. Objective - Vital Signs Vital signs: Vital Signs Temp 97.8 F 05/20/22 11:15 Pulse 86 05/20/22 11:15 Resp 16 05/20/22 11:15 BP 152/93 05/20/22 11:15 Pulse Ox 94 L 05/20/22 11:15 FiO2 Intake & Output 05/19/22 05/20/22 05/20/22 18:59 06:59 18:59 Intake Total 360 Balance 360 Weight 86.183 kg Intake: Oral 360 Other: Voiding Method Toilet # Voids 1 - Exam General appearance: The patient is alert, oriented, appears in no acute distress. HET: Head is normocephalic and atraumatic. Pupils are equal and reactive. Neck: Supple without lymphadenopathy. Trachea midline. Heart: Regular. Lungs: Equal expansion, normal respiratory effort. Abdomen: Soft, right lower abdominals/right flank tenderness to palpation, nondistended. Extremities: Normal skin color and turgor. No cyanosis, rash, ulceration, clubbing, or edema. Radial and pedal pulses are 2/4 bilaterally. Neurological: No focal deficits. Strength and sensation are grossly intact. - Labs CBC & Chem 7: 05/19/22 03:06 05/19/22 03:06 Assessment and Plan Assessment: 1. Acute abdominal pain 2. Infrarenal AAA with expansion from previous imaging 3. Nephrolithiasis with the ASIS with right hydro-ureter 4. Coronary artery disease with history of cardiac stents 5. Hypertension 6. chronic back pain Plan: Dr. Doran discussed with patient again the recommendation for aneurysm repair due to increase in size from previous scan and recommend that this be done soon within this next week. Cardiology has seen patient and gave surgical clearance. Patient is declining any surgical intervention at this time and wants to wait until after the holiday, as well as follow-up with surgeon Dr. Garcia out of [place]. Patient understands the risks of not having surgical intervention for aneurysm including rupture and . Continue with recommendations from urology. Patient is cleared from vascular surgery for discharge. The impression and plan of care has been dictated as directed. I performed a history and examination of this patient, discussed the same with the dictator. I agree with the dictator's note ,documented as a scribe. Any additional findings or plans will be noted. Discussed with patient plan for surgical intervention. He states he would like to go home and follow up in [place]. I discussed the case with Dr. Garcia who is agreeable to see the patient hopefully this week.
--- NOTE | 2022-05-20 13:48 | P.GSCN ---
History of Present Illness Consult date: 05/20/22 Reason for Consult: Nephrolithiasis Requesting physician: Wilbert Doran History of present illness: The patient is a 56 year-old male with a past medical history significant for coronary artery disease status post multiple cardiac stents, hypertension, sleep apnea, and kidney stones. This patient is well-known to Dr. Mayo. He presented to the emergency center on 05/19/22 with complaints of bilateral flank pain that radiated around to his right lower abdomen. He reported that the pain had been ongoing for 1-2 days with associated fever and chills. He denied any nausea or vomiting, no chest pain, no shortness of breath. His workup in the emergency room consisted of an abdominal CT without contrast which showed the right kidney with severe hydronephrosis and hydroureter. No definite ureteral calculus seen on the right. There is a 3 cm cortical cyst posterior right kidney. There is a 1 cm calculus posterior left kidney. No retroperitoneal adenopathy. Also noted was a 5.7 cm aneurysm of the lower abdominal aorta. 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 No dissection no evidence of hemodynamic stenosis. Vascular surgery was consulted for AAA. It was recommended that he has AAA repair as soon as possible on an outpatient basis. Review of Systems - Constitutional Denies chills, Denies fever - Cardiovascular Denies shortness of breath - Gastrointestinal Reports abdominal pain, Denies nausea, Denies vomiting - Genitourinary Reports flank pain, Reports kidney stones, Denies dysuria Past Medical History Past Medical History: Coronary Artery Disease (CAD), Chest Pain / Angina, GERD/Reflux, Hypertension, Osteoarthritis (OA), Sleep Apnea/CPAP/BIPAP Additional Past Medical History / Comment(s): SLEEP APNEA- NO C-PAP, SPINAL STENOSIS, BACK PAIN., WEARS NECK BRACE AT HS., WEARS BACK BRACE AND USES CANE., KIDNEY STONES, STATES NUMBNESS AT TIMES ON RIGHT SIDE., SOB WITH ACTIVITY. , SEE CARDIOLOGY H & P. History of Any Multi-Drug Resistant Organisms: None Reported Past Surgical History: Heart Catheterization With Stent, Tonsillectomy Additional Past Surgical History / Comment(s): 08/09/20 LEFT KIDNEY LITHROTRIPSY. Bilateral wrists & elbow surgery. Neck surgery. HEart cath with stents 08/19/2017 ([facility]) Past Anesthesia/Blood Transfusion Reactions: No Reported Reaction Date of Last Stent Placement:: 08/19/2017 Past Psychological History: No Psychological Hx Reported Smoking Status: Former smoker Past Alcohol Use History: Occasional Additional Past Alcohol Use History / Comment(s): QUIT 2020. HAS SMOKED FOR 30- YRS. Past Drug Use History: None Reported - Past Family History Mother Family Medical History: Cancer Father Family Medical History: Cancer Brother(s) Family Medical History: Cancer Medications and Allergies Home Medications Medication Instructions Recorded Confirmed Type HYDROcodone/APAP 10-325MG [[place] 1 tab PO QID PRN 05/22/20 05/19/22 History 10-325] Nitroglycerin Sl Tabs [Nitrostat] 0.4 mg SUBLINGUAL Q5M PRN 05/22/20 05/19/22 History carvediloL [Coreg] 25 mg PO BID-W/MEALS 11/13/21 05/19/22 History Albuterol Inhaler [Ventolin Hfa 2 puff INHALATION RT-Q6H PRN 05/19/22 05/19/22 History Inhaler] Ondansetron [Zofran] 4 mg PO Q6H PRN 05/19/22 05/19/22 History Aspirin 81 mg PO DAILY 30 Days #30 tab 05/20/22 Rx Atorvastatin [Lipitor] 40 mg PO DAILY 30 Days #30 tab 05/20/22 Rx amLODIPine [Norvasc] 5 mg PO DAILY 30 Days #30 tab 05/20/22 Rx Allergies Allergy/AdvReac Type Severity Reaction Status Date / Time morphine Allergy Rash/Hives Verified 05/19/22 11:46 Penicillins Allergy Rash/Hives Verified 05/19/22 11:46 Surgical - Exam Vital Signs Temp Pulse Resp BP Pulse Ox 98.2 F 98 20 161/111 97 05/19/22 02:52 05/19/22 02:52 05/19/22 02:52 05/19/22 02:52 05/19/22 02:52 General: Well developed, well nourished. No acute distress. HEENT: Head is atraumatic, normocephalic. Lungs: Respirations even and nonlabored. On RA Abdomen/GI: Soft and non distended, + RLQ tenderness : No suprapubic tenderness. Skin: Warm and dry. Neurologic: Awake, alert and oriented times 3. CN II-XII grossly intact. No focal deficits. Psychiatric: Appropriate mood and affect. Results - Labs 05/19/22 03:06 05/19/22 03:06 - Imaging CT scan - abdomen: report reviewed Assessment and Plan Assessment: The patient is well known to Dr. Mayo with a history of bilateral kidney stones with laser lithotripsy and PCNL on multiple occasions. The patient reports bilateral flank pain than wraps around to the right lower abdomen. He states he has been given Udell for pain, but his pain is still 9/10. He denies any hematuria, dysuria, nausea or vomiting. He states he has been voiding without difficulty and feels as if he is emptying his bladder completely. He has been afebrile, UA negative, and serum creatinine 0.93. It is unlikely that his pain is caused by his 1 cm calculus in the left kidney or from his chronic right- sided hydronephrosis. Plan: - Increase oral fluid intake - Continue Udell for pain - Added Toradol - Increase activity - Patient may be discharged from a urological standpoint - Follow up in the office with Dr. Mayo in 2 weeks Impression and plan of care have been directed as dictated by the signing physician. Aby Russell nurse practitioner acting as scribe for signing physician. Aby Russell [facility]- Palliative Care/Urology Spectralink [id number] Email: [email or web address] I have personally seen and examined the patient, reviewed the documentation and agree with the assessment and plan as written. Number of minutes spent on the visit: 35. Kali Mohr MD
--- NOTE | 2022-05-22 04:37 | P.DS ---
Providers Date of admission: 05/19/22 06:48 Expected date of discharge: 05/20/22 Attending physician: Camilo Dwyer Consults: 05/19/22 06:48 Consult Physician Routine Consulting Provider: Wilbert Doran Consult Reason/Comments: aneurysmAbdomen Do you want consulting provider notified?: Yes 05/19/22 09:38 Consult Physician Routine Consulting Provider: Jose Mayo Consult Reason/Comments: nephrolithiasis Do you want consulting provider notified?: Yes 05/19/22 09:42 Consult Physician Routine Consulting Provider: Ajit Berry Consult Reason/Comments: CAD, clearance for aortic repair Do you want consulting provider notified?: Yes Primary care physician: Stated None Hospital Course: Final diagnosis -Abdominal pain right lower quadrant tenderness mild, patient doesn't have any appendicitis etiology of his symptoms is not clear. - 1 cm renal stone, chronic -AAA 5.7 cm aneurysm that is larger than previous exam -Cardiac risk assessment patient is a recent cardiac cath with clean coronaries but does have significant coronary artery disease and coronary calcification patient is moderate risk for vascular surgery -hypertension -hyperlipidemia -DVT prophylaxis Discharge disposition Patient is being discharged in a stable condition with guarded prognosis to home. Patient will follow-up with his PCP in [place] in the outpatient setting upon discharge. Patient is to follow-up with vascular surgery this week for possible surgical intervention of the AAA that has increased in size. Total time taken is greater than 35 minutes. Hospital course This is a 56-year-old male who was recently admitted with abdominal pain in the right lower quadrant with no evidence of appendicitis. Patient also with a chronic stone and was evaluated by urology commending outpatient follow-up. Vascular surgery also followed the patient recommending surgical intervention of the AAA history size has increased. Patient is moderate to high risk for intervention given his cardiac history. Patient has been seen and evaluated by cardiology and 2-D echo showing an EF of 40-45% recommending intervention. Please refer to consultation dictations for further HPI. Patient would like to follow-up with surgeon in [place] after the holidays. Risks versus benefits including were explained in detail and patient is aware and would like to be discharged home. Patient has been cleared by consultations. Currently no reports of chest pain, shortness of breath, or palpitations. Patient is afebrile. No reports of nausea or vomiting and patient is tolerating diet. Patient will be discharged home with guarded prognosis today. Physical exam: Gen: This is a 56-year-old male who is awake, alert and oriented 3, well- developed, well-nourished, obese HEENT: Head is atraumatic, normocephalic. Pupils equal, round. Sclerae is anicteric. NECK: Supple. No JVD. No lymphadenopathy. No thyromegaly. LUNGS: Clear to auscultation. No wheezes or rhonchi. No intercostal retractions. HEART: Regular rate and rhythm. No murmur. ABDOMEN: Soft. Obese Bowel sounds are present. No masses. No tenderness. EXTREMITIES: No pedal edema. No calf tenderness. NEUROLOGICAL: Patient is awake, alert and oriented x3. Cranial nerves 2 through 12 are grossly intact. Please refer to medication reconciliation sheet for a list of medications. The impression and plan of care has been dictated by Rosana Evans, Nurse Practitioner as directed. Dr. Kenia MD I have performed a history and examination and MDM of this patient, discussed the same with the dictator, and agree with the dictator's assessment and plan as written ,documented as a scribe. Based on total visit time, I have performed more than 50% of the visit. Patient Condition at Discharge: Fair Plan - Discharge Summary Discharge Rx Participant: Yes New Discharge Prescriptions: New Aspirin 81 mg PO DAILY 30 Days #30 tab amLODIPine [Norvasc] 5 mg PO DAILY 30 Days #30 tab Atorvastatin [Lipitor] 40 mg PO DAILY 30 Days #30 tab Continue HYDROcodone/APAP 10-325MG [[place] 10-325] 1 tab PO QID PRN PRN Reason: Pain Nitroglycerin Sl Tabs [Nitrostat] 0.4 mg SUBLINGUAL Q5M PRN PRN Reason: Chest Pain Albuterol Inhaler [Ventolin Hfa Inhaler] 2 puff INHALATION RT-Q6H PRN PRN Reason: Shortness Of Breath carvediloL [Coreg] 25 mg PO BID-W/MEALS Ondansetron [Zofran] 4 mg PO Q6H PRN PRN Reason: Nausea Discontinued lisinopriL [Zestril] 40 mg PO DIRECTED amLODIPine BESYLATE 10 mg PO DIRECTED Diltiazem Cd [Cardizem CD] 180 mg PO DIRECTED Discharge Medication List HYDROcodone/APAP 10-325MG [[place] 10-325] 1 tab PO QID PRN 05/22/20 [History] Nitroglycerin Sl Tabs [Nitrostat] 0.4 mg SUBLINGUAL Q5M PRN 05/22/20 [History] carvediloL [Coreg] 25 mg PO BID-W/MEALS 11/13/21 [History] Albuterol Inhaler [Ventolin Hfa Inhaler] 2 puff INHALATION RT-Q6H PRN 05/19/22 [History] Ondansetron [Zofran] 4 mg PO Q6H PRN 05/19/22 [History] Aspirin 81 mg PO DAILY 30 Days #30 tab 05/20/22 [Rx] Atorvastatin [Lipitor] 40 mg PO DAILY 30 Days #30 tab 05/20/22 [Rx] amLODIPine [Norvasc] 5 mg PO DAILY 30 Days #30 tab 05/20/22 [Rx] Follow up Appointment(s)/Referral(s): None,Stated [Primary Care Provider] - 1-2 days Jose Mayo MD [STAFF PHYSICIAN] - 06/05/22 2:20 pm Activity/Diet/Wound Care/Special Instructions: Activity Limited until follow-up Patient is to follow-up with vascular surgery along with cardiology outpatient Follow-up with urology outpatient Follow-up with primary care provider on discharge Continue taking medications as prescribed Discharge Disposition: HOME SELF-CARE
== END 2022-05-20 16:12 | disposition home or self-care (01) | DRG 392 ==
LOC: EC 02:50 → 5NMEDONC 06:48
PROVIDERS: ADMIT Hospitalist; ATTEND Hospitalist
DX: R10.31 Right lower quadrant pain (principal); N13.2 Hydronephrosis with renal and ureteral calculous obstruction; D72.829 Elevated white blood cell count, unspecified; E78.5 Hyperlipidemia, unspecified; I71.43 Infrarenal abdominal aortic aneurysm, without rupture; I25.10 Atherosclerotic heart disease of native coronary artery without angina pectoris; I25.84 Coronary atherosclerosis due to calcified coronary lesion; I10 Essential (primary) hypertension; I34.0 Nonrheumatic mitral (valve) insufficiency; K21.9 Gastro-esophageal reflux disease without esophagitis; N28.1 Cyst of kidney, acquired; M48.00 Spinal stenosis, site unspecified; M19.90 Unspecified osteoarthritis, unspecified site; G47.30 Sleep apnea, unspecified; Z79.899 Other long term (current) drug therapy; Z87.442 Personal history of urinary calculi; Z95.5 Presence of coronary angioplasty implant and graft; Z87.891 Personal history of nicotine dependence; Z88.0 Allergy status to penicillin; Z88.5 Allergy status to narcotic agent
CPT/HCPCS: 36415; 74174; 74176; 80053; 81001; 83690; 85025; 93306; 96361; 96374; 96375; 96376; 99285

== ENCOUNTER → 2022-06-12 | Outpatient (CLI) | payer MEDICARE, OTHER ==
[2022-06-12 14:55] LABS: Basophils # (A) 0.08 X 10*3/uL (0.00-0.10); Basophils % (A) 0.7 %; Eosinophils # (A) 0.29 X 10*3/uL (0.04-0.35); Eosinophils % (A) 2.6 %; HCT 49.1 % (39.6-50.0); HGB 15.5 g/dL (13.0-17.0); Immature Grans, Automated 0.4 %; Lymphocytes # (A) 2.95 X 10*3/uL (0.90-5.00); Lymphocytes % (A) 26.5 %; MCH 28.4 pg (27.0-32.0); MCHC 31.6 g/dL (32.0-37.0); MCV 89.9 fL (80.0-97.0); Mean Platelet Volume 9.5 fL (9.5-12.2); Monocytes # (A) 1.29 X 10*3/uL (0.20-1.00); Monocytes % (A) 11.6 %; NRBC Per 100 WBC 0 /100 WBCS (0.0-0.0); Neutrophils # (A) 6.47 X 10*3/uL (1.80-7.70); Neutrophils % (A) 58.2 %; Platelet Count 231 X 10*3/uL (140-440); RBC 5.46 X 10*6/uL (4.40-5.60); RDW 14.7 % (11.5-14.5); WBC 11.13 X 10*3/uL (4.50-10.00)
[2022-06-12 16:35] LABS: Appearance,Urine Clear (Clear); Bilirubin,Urine Negative (Negative); Blood,Urine Trace (Negative); Color,Urine Yellow (Yellow); Ketones,Urine Negative (Negative); Nitrite,Urine Negative (Negative); PH, Urine 6.5 (5.0-8.0); Specific Gravity,Urine 1.019 (1.001-1.030); Urobilinogen,Urine 0.2 (0.2,1.0)
[2022-06-12 16:39] LABS: Bacteria,Urine None Seen /HPF (None Seen)
[2022-06-12 17:38] LABS: African American GFR (CKD) 80.6 (60.0-200.0); Albumin 4.4 g/dL (3.8-4.9); Albumin/Globulin Ratio 1.78 (1.60-3.17); Anion Gap 12.4 mmol/L (10.00-18.00); BUN/Creat Ratio 12.84 Ratio (12.00-20.00); Blood Urea Nitrogen 14.9 mg/dL (9.0-27.0); Calcium 9.8 mg/dL (8.7-10.3); Carbon Dioxide 24.3 mmol/L (20.0-27.5); Globulin 2.5 g/dL (1.6-3.3); Non-African American GFR(CKD) 69.5 (60.0-200.0); Potassium 4.4 mmol/L (3.5-5.5); Total Bilirubin 0.3 mg/dL (0.30-1.20); Total Protein 6.9 g/dL (6.2-8.2)
== END | disposition home or self-care (01) ==
LOC: LABPAT 09:03
PROVIDERS: ATTEND Urology
DX: Z01.812 Encounter for preprocedural laboratory examination (principal); N20.0 Calculus of kidney; N13.30 Unspecified hydronephrosis; R31.29 Other microscopic hematuria
CPT/HCPCS: 80053; 81001; 85025; 87086

== ENCOUNTER 2022-06-19 06:24 | Day surgery (SDC) | payer MEDICARE, OTHER ==
--- NOTE | 2022-06-19 06:57 | XR ---
EXAMINATION TYPE: XR KUB DATE OF EXAM: 06/19/2022 COMPARISON: 11/14/2021 HISTORY: Preop cystoscopy TECHNIQUE: 2 views supine FINDINGS: There are bilateral renal calculi measuring up to 11 mm. No central intestinal obstruction or pneumoperitoneum. Fecal pattern is normal. No evidence of a mass. Lung bases are clear. IMPRESSION: Bilateral multiple renal calculi. Right-sided calculi are mostly new compared to old exam .
[2022-06-19] MEDS ORDERED: ONDANSETRON 4 MG/2 ML VIAL IVP ONE (07:14)
[2022-06-19] MEDS ORDERED: DEXAMETHASONE SOD PHOSPHATE 4 MG/ML 1 ML VIAL IV ONE (07:14)
[2022-06-19] MEDS ORDERED: LIDOCAINE 1% (10MG/ML) FOR IV START INTRADERMA PRN (07:14)
[2022-06-19] MEDS ORDERED: LACTATED RINGERS 1,000 ML IV SCH (07:14)
[2022-06-19] MEDS ORDERED: fentaNYL (PF) 50 MCG/ML 2 ML AMP IV PRN (07:14)
[2022-06-19] MEDS ORDERED: LABETALOL SYRINGE 5 MG/ML IVP ONE (08:10)
[2022-06-19] MEDS ORDERED: HYDROcodone/APAP 10-325MG 1 EACH TAB ONE ×2 (08:22→11:44)
[2022-06-19] MEDS ORDERED: SUCCINYLCHOLINE CHLORIDE 200 MG/10 ML VIAL IV ONE (08:22)
[2022-06-19] MEDS ORDERED: LIDOCAINE 2% INJ 20 MG/ML (2 ML VIAL) ONE (08:22)
[2022-06-19] MEDS ORDERED: PROPOFOL 10 MG/ML 20 ML VIAL IV ONE (08:22)
[2022-06-19] MEDS ORDERED: MIDAZOLAM 2 MG/2 ML VIAL ONE (08:22)
[2022-06-19] MEDS ORDERED: NEOSTIGMINE 1 MG/ML 10 ML VIAL ONE (08:22)
[2022-06-19] MEDS ORDERED: fentaNYL (PF) 50 MCG/ML 2 ML AMP ONE (08:22)
[2022-06-19] MEDS ORDERED: GLYCOPYRROLATE 0.2 MG/ML 2 ML VIAL ONE (08:22)
[2022-06-19] MEDS ORDERED: ROCURONIUM 10 MG/ML (5 ML VIAL) IV ONE (08:22)
[2022-06-19] MEDS ORDERED: PHENYLEPHRINE-0.9% NACL SYG 1,000 MCG/10 ML SYRINGE ONE (08:22)
[2022-06-19] MEDS ORDERED: IOPAMIDOL-370 50ML BTL IRRIGATION ONE ×2 (08:33→08:50)
[2022-06-19 09:53] VITALS: TEMP 96.8
--- NOTE | 2022-06-19 09:56 | P.OP ---
Date of Procedure: 06/19/22 Preoperative Diagnosis: Right ureteral stricture, left renal stone Postoperative Diagnosis: Same Procedure(s) Performed: Cystoscopy, right retrograde pyelogram, balloon dilation of ureteral stricture right, placement of 6 x 26 stent right, left ureteroscopy with laser lithotripsy and stone basketing Anesthesia: DEVONTE Surgeon: Jose Mayo Estimated Blood Loss (ml): 0 Pathology: other (Stone) Condition: stable Disposition: PACU Indications for Procedure: Patient is 56. He has a history of multiple stone passages and treatments over the years. He presented recently bilateral back pain. He has an 8 mm left midpole stone. He has right-sided hydronephrosis due to probably ureteral stricture due to multiple stone passages and manipulations over the years. He comes for right sided ureteral balloon dilation and stent placement and left sided ureteroscopy and laser lithotripsy Description of Procedure: Patient brought to the operating suite. Given general anesthesia. Placed lithotomy position with sterile prep and drape. Cystoscopy Foroblique lens and 21-English sheath identifies a normal anterior urethra. The prostate is somewhat obstructing. The bladder peoples unremarkable. Within a cone-tipped catheter right retrograde pyelograms performed and there is a short stricture in the right proximal ureter distal to the UPJ. An 035 Lubriglide wire is passed up the right ureter into the renal pelvis. Over the wires passed a 5-15-English ureteral dilating balloon. The stricture is dilated adequately. After several minutes I removed the dilating balloon passed a 6 x 26 double-J catheter that coils in the right renal pelvis and the bladder I then approached the left ureter. An 035 wires passed up the left ureter into the kidney. Over the wires passed 62-08-Pexchs reentry ureteral sheath up into the proximal left ureter. The inner sheath is removed. I passed the flexible ureteroscope up into the left kidney and identify the stone. I then used the 270 laser probe break the stone into tiny fragments. I basket the largest fragments which are 1-2 mm at most. At the end of the procedure there no significant remaining fragments. I do pullout ureteroscopy of the left ureter and there is no significant edema such that I will not leave a stent. The bladder is drained the patient is awakened and returned recovery room good condition. Blood loss is minimal. He tolerated procedure well be discharged home upon recovery.
--- NOTE | 2022-06-19 09:57 | FL ---
EXAMINATION TYPE: FL urography retrograde DATE OF EXAM: 06/19/2022 FLUOROSCOPY Fluoroscopy time of 1 minute 29 seconds was used during urologic intervention with right stent insert ion and left-sided lithotripsy. 6 image/s document/s the procedure.
[2022-06-19] MEDS ORDERED: HYDROmorphone 0.5 MG/0.5 ML SYRINGE IVP ONE ×3 (10:59→11:10)
[2022-06-19] MEDS ORDERED: hydrALAZINE HCL 20 MG/ML 1 ML VIAL IV ONE (11:25)
[2022-06-19] MEDS ORDERED: hydrALAZINE HCL 20 MG/ML 1 ML VIAL ONE (11:33)
[2022-06-19] MEDS ORDERED: HYDROcodone/APAP 10-325MG 1 EACH TAB PO ONE (11:44)
[2022-06-19] MEDS ORDERED: LABETALOL 5 MG/ML VIAL MDV IV ONE (12:17)
[2022-06-19] MEDS ORDERED: ONDANSETRON 4 MG/2 ML VIAL ONE (12:48)
[2022-06-19 13:27] VITALS: BP 140/107; PULSE 89; RESP 16
--- NOTE | 2022-06-20 15:43 | P.GSHP ---
History of Present Illness H&P Date: 06/18/22 56 yo male with a history of multiple stones and stone surgeries over the years. He has bilateral flank pain. A ct scan was obtaiend and he has an 8 mm left midpole stone and a right proximal ureteral stricture with hydronephrosis. He comes for left ureteroscopy with laser lithotripsy, possible stent and right ureteral stricture dilation with stent placement. - Constitutional Constitutional: Denies chills, Denies fever - EENT Eyes: denies blurred vision, denies pain Ears, nose, mouth and throat: Denies headache, Denies sore throat - Cardiovascular Cardiovascular: Denies chest pain, Denies shortness of breath - Respiratory Respiratory: Denies cough, Denies 7 - Gastrointestinal Gastrointestinal: Denies abdominal pain, Denies diarrhea, Denies nausea, Denies vomiting - Genitourinary (Female) Genitourinary: Denies dysuria, Denies hematuria - Genitourinary (Male) Genitourinary: Denies dysuria, Denies hematuria - Musculoskeletal Musculoskeletal: Denies myalgias - Integumentary Integumentary: Denies pruritus, Denies rash - Neurological Neurological: Denies numbness, Denies weakness - Psychiatric Psychiatric: Denies anxiety, Denies depression - Endocrine Endocrine: Denies fatigue, Denies weight change Past Medical History Past Medical History: Coronary Artery Disease (CAD), Chest Pain / Angina, GERD/Reflux, Hypertension, Osteoarthritis (OA), Sleep Apnea/CPAP/BIPAP Additional Past Medical History / Comment(s): SLEEP APNEA- NO C-PAP, SPINAL STENOSIS, BACK PAIN., WEARS NECK BRACE AT HS., WEARS BACK BRACE AND USES CANE., KIDNEY STONES, STATES NUMBNESS AT TIMES ON RIGHT SIDE., SOB WITH ACTIVITY. , SEE CARDIOLOGY H & P. History of Any Multi-Drug Resistant Organisms: None Reported Past Surgical History: Heart Catheterization With Stent, Tonsillectomy Additional Past Surgical History / Comment(s): 08/09/20 LEFT KIDNEY LITHROTRIPSY. Bilateral wrists & elbow surgery. Neck surgery. HEart cath with stents 08/19/2017 ([facility]) Past Anesthesia/Blood Transfusion Reactions: No Reported Reaction Date of Last Stent Placement:: 08/19/2017 Past Psychological History: No Psychological Hx Reported Smoking Status: Never smoker - Past Family History Brother(s) Family Medical History: Cancer Father Family Medical History: Cancer Mother Family Medical History: Cancer Medications and Allergies Home Medications Medication Instructions Recorded Confirmed Type HYDROcodone/APAP 10-325MG [[place] 1 tab PO QID PRN 05/22/20 06/19/22 History 10-325] Nitroglycerin Sl Tabs [Nitrostat] 0.4 mg SUBLINGUAL Q5M PRN 05/22/20 06/19/22 History carvediloL [Coreg] 25 mg PO BID-W/MEALS 11/13/21 06/19/22 History Albuterol Inhaler [Ventolin Hfa 2 puff INHALATION RT-Q6H PRN 05/19/22 06/19/22 History Inhaler] Ondansetron [Zofran] 4 mg PO Q6H PRN 05/19/22 06/19/22 History Aspirin 81 mg PO DAILY 30 Days #30 tab 05/20/22 06/19/22 Rx Atorvastatin [Lipitor] 40 mg PO DAILY 30 Days #30 tab 05/20/22 06/19/22 Rx Isosorbide Mononitrate ER [Imdur] 30 mg PO DAILY 06/14/22 06/19/22 History Chlorthalidone 50 mg PO DAILY 06/19/22 06/19/22 History cloNIDine HCL [Catapres] 0.3 mg PO DAILY 06/19/22 06/19/22 History Allergies Allergy/AdvReac Type Severity Reaction Status Date / Time morphine Allergy Rash/Hives Verified 06/19/22 07:51 Penicillins Allergy Rash/Hives Verified 06/19/22 07:51 Surgical - Exam - General well developed, well nourished, no distress - Eyes normal ocular movement, no icteric - ENT no hearing loss, no congestion - Neck no masses, trachea midline - Respiratory normal respiratory effort, clear to auscultation - Abdomen Abdomen: soft, non tender, no guarding, no rigid, no rebound - Integumentary no rash, no abnormal pigmentation - Neurologic no disoriented, no combative - Psychiatric oriented to time, oriented to person, oriented to place, speech is normal, memory intact Results - Imaging CT scan - abdomen: report reviewed, image reviewed CT scan - pelvis: report reviewed, image reviewed Assessment and Plan Assessment: Impression: bilateral flank pain. Left renal stone , right ureteral stricture with hydronephrosis. Plan: cysto with dilation of stricture right ureter and placement of stent. Left ureteroscopy with laser lithotripsy and possible stent.
== END 2022-06-19 13:37 | disposition home or self-care (01) ==
LOC: OR 06:24
PROVIDERS: ATTEND Urology
DX: N13.5 Crossing vessel and stricture of ureter without hydronephrosis (principal); N20.0 Calculus of kidney; I25.10 Atherosclerotic heart disease of native coronary artery without angina pectoris; K21.9 Gastro-esophageal reflux disease without esophagitis; I10 Essential (primary) hypertension; E78.5 Hyperlipidemia, unspecified; M19.90 Unspecified osteoarthritis, unspecified site; Z90.89 Acquired absence of other organs; Z79.51 Long term (current) use of inhaled steroids; Z79.899 Other long term (current) drug therapy; Z98.890 Other specified postprocedural states
CPT/HCPCS: 82365; 74420; 74018; 52356; 52344; C1758; C1769; J2250; J0330; J0360; J1100; J2710; J0690; J2405; J3010; J2370; J2704; J1170; Q9967; J2001

== ENCOUNTER 2022-08-18 20:53 | Inpatient (IN) | payer MEDICARE, OTHER ==
[~2022-08-18 20:53] MED LIST changes: -GENTAMICIN 100 MG in SODIUM CHLORIDE 0.9% 100 ML IVPB PRN; +LACTATED RINGERS 1,000 ML IV ONE; +SODIUM CHLORIDE 0.9% 1,000 ML IV ONE
[2022-08-18] MEDS ORDERED: SODIUM CHLORIDE 0.9% 1,000 ML IV ONE (21:22)
[2022-08-18] MEDS ORDERED: fentaNYL (PF) 50 MCG/ML 2 ML AMP IVP STA ×2 (21:23→22:20)
[2022-08-18] MEDS ORDERED: ONDANSETRON 4 MG/2 ML VIAL IVP STA (21:23)
[2022-08-18 21:46] LABS: Basophils # (A) 0.1 k/uL (0-0.2); Basophils % (A) 0 %; Eosinophils # (A) 0.2 k/uL (0-0.7); Eosinophils % (A) 1 %; HCT 47.2 % (39.0-53.0); HGB 15.3 gm/dL (13.0-17.5); Lymphocytes # (A) 2.4 k/uL (1.0-4.8); Lymphocytes % (A) 12 %; MCH 29.1 pg (25.0-35.0); MCHC 32.4 g/dL (31.0-37.0); MCV 89.8 fL (80.0-100.0); Mean Platelet Volume 7.4; Monocytes % (A) 5 %; Neutrophils # (A) 16.6 k/uL (1.3-7.7); Neutrophils % (A) 81 %; Platelet Count 292 k/uL (150-450); RBC 5.25 m/uL (4.30-5.90); RDW 14.6 % (11.5-15.5); WBC 20.4 k/uL (3.8-10.6)
[2022-08-18 21:55] LABS: INR 0.9 (<1.2); Partial Thromboplastin Time 22.1 sec (22.0-30.0); Prothrombin Time 10.1 sec (9.0-12.0)
--- NOTE | 2022-08-18 22:07 | ED ---
General Adult HPI - General Chief complaint: Abdominal Pain Stated complaint: abd pain Time Seen by Provider: 08/18/22 21:04 Source: patient, EMS Mode of arrival: EMS Limitations: no limitations - History of Present Illness Initial comments: This is a 56-year-old male with a past medical history including hypertension, multiple kidney stones as well as a known abdominal aneurysm measuring 5.7 cm on last scan presents emergency department via EMS for feeling lightheaded as well as having severe abdominal pain that radiated to his back. The patient stated that he does have a history of multiple kidney stones and stated that this abdominal pain is in his central abdomen and does radiate to the back, not similar to his previous episodes of kidney stones. The patient stated this occurred starting 4 hours prior to arrival. The patient reported associated nausea and vomiting as well as feeling "and clammy. The patient stated that he feels as if he would pass out if he stood up but denied any lightheadedness or dizziness while sitting. The patient had continued abdominal pain on exam but denied any other acute pain. The patient did state that he was scheduled to follow-up with the vascular surgeon on Friday for history of AAA however he has not been able to attend to that appointment yet. - Related Data Home Medications Medication Instructions Recorded Confirmed HYDROcodone/APAP 10-325MG [[place] 1 tab PO QID PRN 05/22/20 06/19/22 10-325] Nitroglycerin Sl Tabs [Nitrostat] 0.4 mg SUBLINGUAL Q5M PRN 05/22/20 06/19/22 carvediloL [Coreg] 25 mg PO BID-W/MEALS 11/13/21 06/19/22 Albuterol Inhaler [Ventolin Hfa 2 puff INHALATION RT-Q6H PRN 05/19/22 06/19/22 Inhaler] Ondansetron [Zofran] 4 mg PO Q6H PRN 05/19/22 06/19/22 Isosorbide Mononitrate ER [Imdur] 30 mg PO DAILY 06/14/22 06/19/22 Chlorthalidone 50 mg PO DAILY 06/19/22 06/19/22 cloNIDine HCL [Catapres] 0.3 mg PO DAILY 06/19/22 06/19/22 Previous Rx's Medication Instructions Recorded Aspirin 81 mg PO DAILY 30 Days #30 tab 05/20/22 Atorvastatin [Lipitor] 40 mg PO DAILY 30 Days #30 tab 05/20/22 Allergies Allergy/AdvReac Type Severity Reaction Status Date / Time morphine Allergy Rash/Hives Verified 08/18/22 20:57 Penicillins Allergy Rash/Hives Verified 08/18/22 20:57 Review of Systems ROS Statement: Those systems with pertinent positive or pertinent negative responses have been documented in the HPI. ROS Other: All systems not noted in ROS Statement are negative. Past Medical History Past Medical History: Coronary Artery Disease (CAD), Chest Pain / Angina, GERD/Reflux, Hypertension, Osteoarthritis (OA), Sleep Apnea/CPAP/BIPAP Additional Past Medical History / Comment(s): SLEEP APNEA- NO C-PAP, SPINAL STENOSIS, BACK PAIN., WEARS NECK BRACE AT HS., WEARS BACK BRACE AND USES CANE., KIDNEY STONES, STATES NUMBNESS AT TIMES ON RIGHT SIDE., SOB WITH ACTIVITY. , SEE CARDIOLOGY H & P. 5.7cm AAA History of Any Multi-Drug Resistant Organisms: None Reported Past Surgical History: Heart Catheterization With Stent, Tonsillectomy Additional Past Surgical History / Comment(s): 08/09/20 LEFT KIDNEY LITHROTRIPSY. Bilateral wrists & elbow surgery. Neck surgery. HEart cath with stents 08/19/2017 ([facility]) Past Anesthesia/Blood Transfusion Reactions: No Reported Reaction Date of Last Stent Placement:: 08/19/2017 Past Psychological History: No Psychological Hx Reported Smoking Status: Never smoker Past Alcohol Use History: None Reported Past Drug Use History: None Reported - Past Family History Mother Family Medical History: Cancer Additional Family Medical History / Comment(s): kidney stones Father Family Medical History: Cancer Brother(s) Family Medical History: Cancer Additional Family Medical History / Comment(s): pancreatic ( uncle as well) General Exam Limitations: no limitations General appearance: alert, in distress (Secondary to mid abdominal pain) Head exam: Present: atraumatic, normocephalic, normal inspection Eye exam: Present: normal appearance, PERRL Pupils: Present: normal accommodation ENT exam: Present: normal exam, normal oropharynx, mucous membranes moist Neck exam: Present: normal inspection, full ROM Respiratory exam: Present: normal lung sounds bilaterally Cardiovascular Exam: Present: normal rhythm, tachycardia GI/Abdominal exam: Present: tenderness (Noted throughout the abdomen, more severe over the umbilicus), guarding Extremities exam: Present: normal inspection, full ROM Back exam: Present: normal inspection, full ROM Neurological exam: Present: alert, oriented X3, CN II-XII intact Psychiatric exam: Present: normal affect, normal mood Skin exam: Present: warm, dry Course Vital Signs 08/18/22 08/18/22 08/18/22 20:57 21:05 21:11 Temperature 97.9 F Pulse Rate 129 H 117 H Respiratory 20 21 Rate Blood Pressure 90/65 103/71 O2 Sat by Pulse 95 91 L Oximetry 08/18/22 08/18/22 08/18/22 21:15 21:30 22:00 Temperature Pulse Rate 112 H 121 H 110 H Respiratory 19 17 27 H Rate Blood Pressure 103/71 99/76 125/96 O2 Sat by Pulse 90 L 97 Oximetry 08/18/22 08/18/22 08/18/22 22:15 22:30 22:45 Temperature Pulse Rate 110 H 113 H 115 H Respiratory 11 L 16 22 Rate Blood Pressure 133/102 118/58 112/89 O2 Sat by Pulse 97 95 91 L Oximetry EKG Findings - EKG Comments: EKG Findings:: An EKG was obtained and was interpreted by myself showing a rate of 122, OH interval of 123, QRS duration of 94 and QTC of 371. This EKG showed a sinus tachycardia without any ST segment elevation or depression noted. Medical Decision Making - Medical Decision Making Was pt. sent in by a medical professional or institution (, PA, ARRANGING FUNERAL DIRECTOR, urgent care, hospital, or fci...) When possible be specific @ -No Did you speak to anyone other than the patient for history (EMS, parent, family, police, friend...)? What history was obtained from this source @ -No Did you review nursing and triage notes (agree or disagree)? Why? @ -I reviewed and agree with nursing and triage notes Were old charts reviewed (outside hosp., previous admission, EMS record, old EKG, old radiological studies, urgent care reports/EKG's, fci records)? Report findings @ -No old charts were reviewed Differential Diagnosis (chest pain, altered mental status, abdominal pain women, abdominal pain men, vaginal bleeding, weakness, fever, dyspnea, syncope, headache, dizziness, GI bleed, back pain, seizure, CVA, palpatations, mental health)? @ -Ruptured AAA, infected kidney stone, perforated colon EKG interpreted by me (3pts min.). @ -As above X-rays interpreted by me (1pt min.). @ -None done CT interpreted by me (1pt min.). @ -CTA of the aorta with runoff was obtained and was interpreted by myself in addition to the radiology read showing 7.3 cm lower abdominal aortic aneurysm with thrombosis and acute retroperitoneal hemorrhage along the right psoas muscle measuring up to 4 cm in thickness. There is leaking abdominal aortic aneurysm. The acute hemorrhage is a change compared to the computed tomography scan on 08/06/2022. There was also right-sided hydronephrosis and hydroureter. There was apparent clearing of the obstructing calculi in the mid right ureter compared to the old exam. U/S interpreted by me (1pt. min.). @ -None done What testing was considered but not performed or refused? (CT, X-rays, U/S, labs)? Why? @ -None What meds were considered but not given or refused? Why? @ -None Did you discuss the management of the patient with other professionals (professionals i.e. DrAgustin, PA, ARRANGING FUNERAL DIRECTOR, lab, RT, psych nurse, health and social care teacher, target trimmer, teacher, parking control officer, corrections caseworker)? Give summary @ -Yes, Dr. Doran was contacted at [phone] who initially looked at the computed tomography scan. He did call back at [phone] to activate the Insurance Risk Manager and operating room for operative repair. Dean Of Admissions, Dr. Cole was contacted at [phone] for admission to the ICU after the operative intervention and did agree to this admission. Dr. Zelaya was also contacted for admission and was agreeable. Was smoking cessation discussed for >3mins.? @ -No Was critical care preformed (if so, how long)? @ -Yes, see above Were there social determinants of health that impacted care today? How? (Homelessness, low income, unemployed, alcoholism, drug addiction, transportation, low edu. Level, literacy, decrease access to med. care, long term, rehab)? @ -No Was there de-escalation of care discussed even if they declined (Discuss DNR or withdrawal of care, Hospice)? DNR status @ -No What co-morbidities impacted this encounter? (DM, HTN, Smoking, COPD, CAD, Cancer, CVA, ARF, Chemo, Hep., AIDS, mental health diagnosis, sleep apnea, morbid obesity)? @ -Previous AAA, multiple kidney stones, HTN Was patient admitted / discharged? Hospital course, mention meds given and route, prescriptions, significant lab abnormalities, going to OR and other pertinent info. @ -The patient was seen and evaluated in the emergency department. On physical exam, the patient had continued epigastric abdominal pain radiating to his back. The patient received several doses of pain medications without relief. Blood pressure did continue to remain stable and the patient was given 1 L normal saline fluid on arrival. Due to the patient's history of a previous AAA, CTA of the abdomen with runoff was obtained urgently and showed the findings above. Due to these findings, the vascular surgeon on-call was contacted per the above note. It was agreed to take the patient to the operating room for operative management. The patient was also found to have a right-sided hydronephrosis and neurology was placed on consult. The patient's blood pressure remain stable and the patient was taken urgently to the operating room for management of his ruptured AAA. Undiagnosed new problem with uncertain prognosis? @ -No Drug Therapy requiring intensive monitoring for toxicity (Heparin, Nitro, Insulin, Cardizem)? @ -No Were any procedures done? @ -No Diagnosis/symptom? @ -Ruptured AAA Acute, or Chronic, or Acute on Chronic? @ -Acute Uncomplicated (without systemic symptoms) or Complicated (systemic symptoms)? @ -Complicated Side effects of treatment? @ -No Exacerbation, Progression, or Severe Exacerbation? @ -No Poses a threat to life or bodily function? How? (Chest pain, [place], [place], pneumonia, PE, COPD, DKA, ARF, appy, cholecystitis, CVA, Diverticulitis, Homicidal, Suicidal, threat to staff... and all critical care pts) @ -Yes, ruptured AAA and retroperitoneal hematoma can cause continued bleeding and Diagnosis/symptom? @ -Right hydronephrosis with hydroureter Acute, or Chronic, or Acute on Chronic? @ -Acute on chronic Uncomplicated (without systemic symptoms) or Complicated (systemic symptoms)? @ -Complicated Side effects of treatment? @ -none Exacerbation, Progression, or Severe Exacerbation] @ -no Poses a threat to life or bodily function? @ -Yes, continued hydronephrosis and hydroureter can cause continued permanent kidney damage - Lab Data Result diagrams: 08/18/22 21:34 08/18/22 21:34 Lab Results 08/18/22 08/18/22 08/18/22 Range/Units 21:12 21:34 21:34 WBC 20.4 H (3.8-10.6) k/uL RBC 5.25 (4.30-5.90) m/uL Hgb 15.3 (13.0-17.5) gm/dL Hct 47.2 (39.0-53.0) % MCV 89.8 (80.0-100.0) fL MCH 29.1 (25.0-35.0) pg MCHC 32.4 (31.0-37.0) g/dL RDW 14.6 (11.5-15.5) % Plt Count 292 (150-450) k/uL MPV 7.4 Neutrophils % 81 % Lymphocytes % 12 % Monocytes % 5 % Eosinophils % 1 % Basophils % 0 % Neutrophils # 16.6 H (1.3-7.7) k/uL Lymphocytes # 2.4 (1.0-4.8) k/uL Monocytes # 1.0 (0-1.0) k/uL Eosinophils # 0.2 (0-0.7) k/uL Basophils # 0.1 (0-0.2) k/uL PT (9.0-12.0) sec INR (<1.2) APTT (22.0-30.0) sec Sodium 139 (137-145) mmol/L Potassium 5.1 (3.5-5.1) mmol/L Chloride 107 (98-107) mmol/L Carbon Dioxide 18 L (22-30) mmol/L Anion Gap 14 mmol/L BUN 20 (9-20) mg/dL Creatinine 1.46 H (0.66-1.25) mg/dL Est GFR (CKD-EPI)AfAm 61 (>60 ml/min/1.73 sqM) Est GFR (CKD-EPI)NonAf 53 (>60 ml/min/1.73 sqM) Glucose 192 H (74-99) mg/dL Calcium 9.5 (8.4-10.2) mg/dL Magnesium 1.9 (1.6-2.3) mg/dL Total Bilirubin 0.4 (0.2-1.3) mg/dL AST 22 (17-59) U/L ALT 24 (4-49) U/L Alkaline Phosphatase 67 (38-126) U/L Troponin I (0.000-0.034) ng/mL Total Protein 7.2 (6.3-8.2) g/dL Albumin 4.4 (3.5-5.0) g/dL Lipase 129 (23-300) U/L Blood Type O Positive Blood Type Recheck O Pos Bld Type Recheck Status No Antibody Screen NEGATIVE Spec Expiration Date 08/21/2022 - 233308/18/22 08/18/22 Range/Units 21:34 21:34 WBC (3.8-10.6) k/uL RBC (4.30-5.90) m/uL Hgb (13.0-17.5) gm/dL Hct (39.0-53.0) % MCV (80.0-100.0) fL MCH (25.0-35.0) pg MCHC (31.0-37.0) g/dL RDW (11.5-15.5) % Plt Count (150-450) k/uL MPV Neutrophils % % Lymphocytes % % Monocytes % % Eosinophils % % Basophils % % Neutrophils # (1.3-7.7) k/uL Lymphocytes # (1.0-4.8) k/uL Monocytes # (0-1.0) k/uL Eosinophils # (0-0.7) k/uL Basophils # (0-0.2) k/uL PT 10.1 (9.0-12.0) sec INR 0.9 (<1.2) APTT 22.1 (22.0-30.0) sec Sodium (137-145) mmol/L Potassium (3.5-5.1) mmol/L Chloride (98-107) mmol/L Carbon Dioxide (22-30) mmol/L Anion Gap mmol/L BUN (9-20) mg/dL Creatinine (0.66-1.25) mg/dL Est GFR (CKD-EPI)AfAm (>60 ml/min/1.73 sqM) Est GFR (CKD-EPI)NonAf (>60 ml/min/1.73 sqM) Glucose (74-99) mg/dL Calcium (8.4-10.2) mg/dL Magnesium (1.6-2.3) mg/dL Total Bilirubin (0.2-1.3) mg/dL AST (17-59) U/L ALT (4-49) U/L Alkaline Phosphatase (38-126) U/L Troponin I 0.041 H* (0.000-0.034) ng/mL Total Protein (6.3-8.2) g/dL Albumin (3.5-5.0) g/dL Lipase (23-300) U/L Blood Type Blood Type Recheck Bld Type Recheck Status Antibody Screen Spec Expiration Date Critical Care Time Critical Care Time: Yes Total Critical Care Time: 42 Disposition Clinical Impression: Ruptured abdominal aortic aneurysm (AAA), Kidney stone on right side, Hydronephrosis Disposition: ADMITTED IP TO THIS [facility] Condition: Serious Is patient prescribed a controlled substance at d/c from ED?: No Time of Disposition: 22:29 Decision to Admit Reason: Admit from EC Decision Date: 08/18/22 Decision Time: 22:29
[2022-08-18 22:09] LABS: Albumin 4.4 g/dL (3.5-5.0); Calcium 9.5 mg/dL (8.4-10.2); Magnesium 1.9 mg/dL (1.6-2.3); Potassium 5.1 mmol/L (3.5-5.1); Total Bilirubin 0.4 mg/dL (0.2-1.3); Total Protein 7.2 g/dL (6.3-8.2)
[2022-08-18] MEDS ORDERED: METOCLOPRAMIDE 5 MG/ML 2 ML VIAL IVP STA (22:23)
--- NOTE | 2022-08-18 22:24 | CT ---
CT angiogram chest abdomen and pelvis. With runoff History aortic aneurysm. Pain. Comparison abdomen CT scan 08/06/2022. FINDINGS: Images obtained from the thoracic inlet to the floor the pelvis without and subsequently with the IV contrast Isovue 100 mL. Images obtained from the pelvis to the bottom of the feet with the IV contras t. The lungs are clear of consolidation. Thoracic aorta shows mild atheromatous changes. No aneurysm. Th ere is coronary artery calcification. Heart size is normal. No pericardial effusion. No pleural effus ion. No evidence of filling defect in the pulmonary arteries. There is deformity of the anterior wall of the left ventricle consistent with left ventricle aneurysm with thinning of the wall. Liver spleen pancreas gallbladder appear intact. The bile ducts are not dilated. Stomach is intact. There is no adrenal mass. There is right-sided hydronephrosis and hydroureter. There are multiple payton culi in the right kidney that measure up to 1 cm. There is 3 cm cortical cyst posterior right kidney. Left kidney shows satisfactory contrast opacification with no sign of obstruction. The bladder diste nds smoothly. No inguinal hernia. There is large lower abdominal aortic aneurysm measuring 7.3 cm. There is thrombus on the wall of the aneurysm measuring up to 2.5 cm. There is extensive retroperitoneal acute hemorrhage on the right si de along the right psoas muscle. The hematoma measures up to 4 cm in thickness. No free fluid in the pelvis. There is prostatic calcification. There is arterial flow in the iliac and femoral arteries without evidence of stenosis. There is arter ial flow in both renal arteries. There is arterial flow in the celiac artery and superior mesenteric artery. There is arterial flow in the common femoral arteries and the profunda femoris arteries. There is karla ateral arterial flow in the superficial femoral arteries and the popliteal arteries. No significant c ontrast seen below the knees and this is probably due to timing of the exam and not due to occlusion. IMPRESSION: 7.3 cm lower abdominal aortic aneurysm with thrombus and acute retroperitoneal hemorrhage along the r ight psoas muscle measuring up to 4 cm in thickness. There is leaking abdominal aortic aneurysm. The acute hemorrhage is a change compared to CT scan of 08/06/2022. There is right-sided hydronephrosis and hydroureter similar to last exam. There is apparent clearing of obstructing calculus in the mid right ureter compared to old exam. No significant angiographic abnormality of the left and right femoral artery and popliteal artery. In sufficient contrast demonstrated in the lower legs for evaluation of the tibial arteries. Exam was discussed with emergency room attending staff at 10:20 PM.
[2022-08-18] MEDS ORDERED: NALOXONE 0.4 MG/ML 1 ML VIAL IV PRN (22:35)
[2022-08-18] MEDS ORDERED: LIDOCAINE 1% INJ 10MG/ML (20 ML MDV) ONE (23:23)
[2022-08-18] MEDS ORDERED: KETAMINE 10 MG/ML 20 ML VIAL ONE (23:27)
[2022-08-18] MEDS ORDERED: ALBUMIN HUMAN 5% (25gm) 500 ML VIAL IVPB ONE (23:27)
[2022-08-18] MEDS ORDERED: PROPOFOL 10 MG/ML 20 ML VIAL IV ONE (23:27)
[2022-08-18] MEDS ORDERED: HEPARIN SODIUM,PORCINE 5,000 UNIT/ML 1 ML VIAL ONE (23:27)
[2022-08-18] MEDS ORDERED: fentaNYL (PF) 50 MCG/ML 2 ML AMP ONE (23:27)
[2022-08-18] MEDS ORDERED: MIDAZOLAM 2 MG/2 ML VIAL ONE (23:27)
[2022-08-18] MEDS ORDERED: LABETALOL 5 MG/ML VIAL MDV ONE (23:27)
[2022-08-18] MEDS ORDERED: LIDOCAINE 1% INJ 10MG/ML (30 ML VIAL-PF) SQ ONE (23:39)
--- NOTE | 2022-08-19 00:34 | P.ANPRN ---
Procedure Note - Anesthesia - Invasive Line Left Arterial Line Time Out Performed: Yes Date of Procedure: 08/18/22 Time of Procedure: 11:45 Location of Patient: PreOp Preparation: Sterile Prep, Sterile Dressing Arterial Line Location: Briachial Ultrasound Used: No Purpose - Visualization and Identification of Vasculature: No Image Stored and Saved: No Narrative: Central line placement per sterile protocol utilized. Informed consent obtained from the patient. Procedure was performed under complete aseptic precautions. The left wrist is slightly extended and placed on a roll of cloth. Radial artery palpated and appeared to have a intact collateral circulation. Front of the wrist was cleaned with ChloraPrep. It was draped and 2 mL of 1% lidocaine was infiltrated and ability into the front of the wrist. After 2 failed attempts at radial artery, left brachial artery was cannulated. A 20-gauge two and half inch Arrow arterial catheter was inserted and a bright red blood/back was noticed. It was connected to the pressure monitoring line and the flashback was confirmed. The line was sutured into the skin. Tegaderm dressing was applied. Patient tolerated the procedure very well with no apparent complications.
[2022-08-19] MEDS ORDERED: IOPAMIDOL-370 125ML BTL INJ ONE ×2 (01:00→01:46)
--- NOTE | 2022-08-19 01:28 | P.GSHP ---
History of Present Illness H&P Date: 08/19/22 Chief Complaint: abdominal and back pain 56 year old gentleman with history of kidney stones, hypertension and known AAA previously measuring 5.7cm in May. At that time he was seen and recommended to undergo an aortic repair which he refused. He presented today to the ER after having severe abdominal pain, and radiating back pain. Stated this started approximately 4 hours prior to his arrival to the hospital. Upon evaluation in the ER he was clammy, nauseous and vomiting. He was worked up with a CTA which demonstrated an enlarged AAA now measuring 7.5cm with surrounding hemorrhage concern for rupture. - Review of Systems All systems: negative (what is mentioned in the PMH or HPI) Past Medical History Past Medical History: Coronary Artery Disease (CAD), Chest Pain / Angina, GERD/Reflux, Hypertension, Osteoarthritis (OA), Sleep Apnea/CPAP/BIPAP Additional Past Medical History / Comment(s): SLEEP APNEA- NO C-PAP, SPINAL STENOSIS, BACK PAIN., WEARS NECK BRACE AT HS., WEARS BACK BRACE AND USES CANE., KIDNEY STONES, STATES NUMBNESS AT TIMES ON RIGHT SIDE., SOB WITH ACTIVITY. , SEE CARDIOLOGY H & P. 5.7cm AAA History of Any Multi-Drug Resistant Organisms: None Reported Past Surgical History: Heart Catheterization With Stent, Tonsillectomy Additional Past Surgical History / Comment(s): 08/09/20 LEFT KIDNEY LITHROTRIPSY. Bilateral wrists & elbow surgery. Neck surgery. HEart cath with stents 08/19/2017 ([facility]) Past Anesthesia/Blood Transfusion Reactions: No Reported Reaction Date of Last Stent Placement:: 08/19/2017 Past Psychological History: No Psychological Hx Reported Smoking Status: Never smoker Past Alcohol Use History: None Reported Past Drug Use History: None Reported - Past Family History Mother Family Medical History: Cancer Additional Family Medical History / Comment(s): kidney stones Father Family Medical History: Cancer Brother(s) Family Medical History: Cancer Additional Family Medical History / Comment(s): pancreatic ( uncle as well) Medications and Allergies Home Medications Medication Instructions Recorded Confirmed Type HYDROcodone/APAP 10-325MG [[place] 1 tab PO QID PRN 05/22/20 06/19/22 History 10-325] Nitroglycerin Sl Tabs [Nitrostat] 0.4 mg SUBLINGUAL Q5M PRN 05/22/20 06/19/22 History carvediloL [Coreg] 25 mg PO BID-W/MEALS 11/13/21 06/19/22 History Albuterol Inhaler [Ventolin Hfa 2 puff INHALATION RT-Q6H PRN 05/19/22 06/19/22 History Inhaler] Ondansetron [Zofran] 4 mg PO Q6H PRN 05/19/22 06/19/22 History Aspirin 81 mg PO DAILY 30 Days #30 tab 05/20/22 06/19/22 Rx Atorvastatin [Lipitor] 40 mg PO DAILY 30 Days #30 tab 05/20/22 06/19/22 Rx Isosorbide Mononitrate ER [Imdur] 30 mg PO DAILY 06/14/22 06/19/22 History Chlorthalidone 50 mg PO DAILY 06/19/22 06/19/22 History cloNIDine HCL [Catapres] 0.3 mg PO DAILY 06/19/22 06/19/22 History Allergies Allergy/AdvReac Type Severity Reaction Status Date / Time morphine Allergy Rash/Hives Verified 08/18/22 20:57 Penicillins Allergy Rash/Hives Verified 08/18/22 20:57 Surgical - Exam Vital Signs Pulse Resp BP Pulse Ox 129 H 20 90/65 95 08/18/22 20:57 08/18/22 20:57 08/18/22 20:57 08/18/22 20:57 - General severe distress, severe pain - Eyes PERRL - ENT normal pinna, normal nares - Neck no masses, no bruits - Respiratory normal expansion, other (tachypnea) - Cardiovascular Heart Rate: 120 - Abdomen Abdomen: soft, tender, rigid, rebound - Integumentary no rash - Psychiatric oriented to time, oriented to person, oriented to place, speech is normal diminished femoral, popliteal, DP and PT pulses bilaterally. Results - Labs 08/18/22 21:34 08/18/22 21:34 Abnormal Lab Results - Last 24 Hours (Table) 08/18/22 08/18/22 08/18/22 Range/Units 21:34 21:34 21:34 WBC 20.4 H (3.8-10.6) k/uL Neutrophils # 16.6 H (1.3-7.7) k/uL Carbon Dioxide 18 L (22-30) mmol/L Creatinine 1.46 H (0.66-1.25) mg/dL Glucose 192 H (74-99) mg/dL Troponin I 0.041 H* (0.000-0.034) ng/mL Diabetes panel 08/18/22 Range/Units 21:34 Sodium 139 (137-145) mmol/L Potassium 5.1 (3.5-5.1) mmol/L Chloride 107 (98-107) mmol/L Carbon Dioxide 18 L (22-30) mmol/L BUN 20 (9-20) mg/dL Creatinine 1.46 H (0.66-1.25) mg/dL Glucose 192 H (74-99) mg/dL Calcium 9.5 (8.4-10.2) mg/dL AST 22 (17-59) U/L ALT 24 (4-49) U/L Alkaline Phosphatase 67 (38-126) U/L Total Protein 7.2 (6.3-8.2) g/dL Albumin 4.4 (3.5-5.0) g/dL Calcium panel 08/18/22 Range/Units 21:34 Calcium 9.5 (8.4-10.2) mg/dL Albumin 4.4 (3.5-5.0) g/dL Pituitary panel 08/18/22 Range/Units 21:34 Sodium 139 (137-145) mmol/L Potassium 5.1 (3.5-5.1) mmol/L Chloride 107 (98-107) mmol/L Carbon Dioxide 18 L (22-30) mmol/L BUN 20 (9-20) mg/dL Creatinine 1.46 H (0.66-1.25) mg/dL Glucose 192 H (74-99) mg/dL Calcium 9.5 (8.4-10.2) mg/dL Adrenal panel 08/18/22 Range/Units 21:34 Sodium 139 (137-145) mmol/L Potassium 5.1 (3.5-5.1) mmol/L Chloride 107 (98-107) mmol/L Carbon Dioxide 18 L (22-30) mmol/L BUN 20 (9-20) mg/dL Creatinine 1.46 H (0.66-1.25) mg/dL Glucose 192 H (74-99) mg/dL Calcium 9.5 (8.4-10.2) mg/dL Total Bilirubin 0.4 (0.2-1.3) mg/dL AST 22 (17-59) U/L ALT 24 (4-49) U/L Alkaline Phosphatase 67 (38-126) U/L Total Protein 7.2 (6.3-8.2) g/dL Albumin 4.4 (3.5-5.0) g/dL Assessment and Plan Assessment: Ruptured infrarenal AAA Hemorrhagic shock Leukocytosis History of kidney stones Morbid Obesity Sleep apnea Plan: To OR for emergent EVAR possible open Discussed with patient- understands gravity of situation. Risks, benefits and complications including were discussed.
--- NOTE | 2022-08-19 01:36 | P.OP ---
Description of Procedure: Date: 08/19/2022 Preoperative diagnosis: Ruptured 7.5 cm Infrarenal abdominal aortic aneurysm Postoperative diagnosis: Same Procedure: Percutaneous Endovascular aortic repair with AFX II device under ultrasound guided access Surgeon: Wilbert Doran DO Energy Operations Vice President: none Anesthesia: Local with sedation EBL: 50 mL Complications: None Condition: Stable Disposition: Palpable DP and PT pulse Indication for procedure: 56-year-old gentleman with history of known AAA last seen in May measuring 5.7 cm. At that time he was instructed to have this repaired and he wanted to wait to see a different physician closer to his house. He states he had an appointment coming up bites developed acute, sharp abdominal pain and back pain. He is taken to the emergency room where he was found to be clammy, hypotensive and on CTA demonstrated is aneurysm had increased in size to 7.5 cm and was now ruptured with adjacent hematoma. He was taken emergently for endovascular aortic repair. Operative Narrative: After written and informed consent was obtained the patient all risks benefits and complications were described the patient is b rought to the [facility] and laid in the supine position. The area of the groins were prepped and draped in usual sterile fashion after appropriate anesthetic was performed per the anesthesiologist. A timeout was performed in normal fashion antibiotics were administered prior to accessed. Under ultrasound guidance bilateral common femoral arteries were accessed and utilizing Seldinger technique a 7-Yemeni sheath was placed in the left femoral artery and 2 Perclose closure devices were placed in the right femoral artery followed by an 8-Yemeni sheath. 035 Glidewire was then placed through the 8-Yemeni sheath and replaced with a stiff Lunderquist wire through a comfy catheter. 035 guidewire was then placed in the 7-Yemeni sheath followed by pigtail catheter above the renal arteries at approximately L1-L2 vertebra level. Guidewire was removed and aortogram was obtained. The patient was then administered heparin and followed with serial ACTs for appropriate heparinization. The 8-Yemeni sheath was then removed and 19-Yemeni AFX introducer sheath was guided over the stiff wire to the area above the bifurcation. A 72852 cm AFX2 bifurcated device was then guided onto the stiff wire. The contralateral wire was then placed and through the 7-Yemeni sheath it was then snared and brought out to the contralateral 7- Yemeni sheath. The main body of the AFX was then advanced to above the bifurcation in normal fashion and deployed above the bifurcation ultimately then pulled down to the bifurcation. Once main body was deployed attention was then placed to the contralateral limb which was deployed by removing the yellow loop cover. A pigtail catheter was then placed over the wire and the contralateral wire was unlocked with the pigtail catheter. Pigtail catheter was then placed above the renal arteries. The ipsilateral limb was then obtained and the inner core and retracting AFX introducer sheath to deployed the ipsilateral limb. This inner deployment was removed and the obturator was placed and the sheath was then advanced through the above the renal arteries. A 34 x 100 mm suprarenal AFX [place] cuff was then deployed beneath the renal arteries once landing zone was visualized. Once completed the deployment sheath was removed and the left femoral sheath was removed and a perclose was placed and a 10F sheath was placed. A Q50 balloon was placed through the 10F sheath and the left iliac limb was ballooned. The pigtail catheter was then withdrawn and placed within the [place] cuff in usual fashion. Final angiogram was obtained demonstrating good seal with no evidence of endoleak. All guidewires and catheters were then removed and the Perclose closure device was utilized for hemostasis for both femoral arteries. Once hemostatic the areas were then cleansed and dressings were placed. The patient tolerated the procedure well and had palpable DP and PT pulses at the conclusion of the procedure. He was then sent to PACU for recovery.
[2022-08-19] MEDS ORDERED: NALOXONE 0.4 MG/ML 1 ML VIAL IVP PRN (01:37)
[2022-08-19] MEDS ORDERED: HYDROmorphone 1 MG/ML 1 ML SYRINGE IM PRN (01:42)
[2022-08-19] MEDS ORDERED: SODIUM CHLORIDE 0.9% 1,000 ML in EMPTY BAG 1 BAG IV SCH (01:45)
[2022-08-19] MEDS ORDERED: IOPAMIDOL-370 100ML BTL INJ ONE (01:46)
[2022-08-19] MEDS ORDERED: HYDROmorphone 0.5 MG/0.5 ML SYRINGE IVP ONE (01:53)
[2022-08-19 02:26] LABS: Glucose,Whole Blood 71 mg/dL (70-110)
[2022-08-19] MEDS ORDERED: hydrALAZINE HCL 20 MG/ML 1 ML VIAL IVP PRN (02:35)
[2022-08-19] MEDS ORDERED: HYDROmorphone 1 MG/ML 1 ML SYRINGE IVP PRN (02:38)
[2022-08-19] MEDS: SODIUM CHLORIDE 0.9% 1,000 ML IV SCH ×2 (02:53→14:22)
[2022-08-19 02:55] LABS: Basophils % (A) 0 %; Eosinophils % (A) 0 %; HCT 38.4 % (39.0-53.0); HGB 12.5 gm/dL (13.0-17.5); Lymphocytes # (A) 1.4 k/uL (1.0-4.8); Lymphocytes % (A) 6 %; MCH 29.6 pg (25.0-35.0); MCHC 32.6 g/dL (31.0-37.0); MCV 90.8 fL (80.0-100.0); Mean Platelet Volume 7.7; Monocytes % (A) 4 %; Neutrophils % (A) 89 %; Platelet Count 230 k/uL (150-450); RBC 4.23 m/uL (4.30-5.90); RDW 14.8 % (11.5-15.5); WBC 23.6 k/uL (3.8-10.6)
[2022-08-19 03:21] LABS: Calcium 7.9 mg/dL (8.4-10.2)
[2022-08-19] MEDS: ONDANSETRON 4 MG/2 ML VIAL IVP PRN ×3 (03:30→16:38)
[2022-08-19 04:07] LABS: Potassium 6.1 mmol/L (3.5-5.1)
[2022-08-19] MEDS ORDERED: INSULIN REGULAR 100 UNIT/ML VIAL (IV) IV ONE ×2 (04:31→04:51)
[2022-08-19] MEDS ORDERED: DEXTROSE 50% SYRINGE 50 ML IVP STA (04:31)
[2022-08-19] MEDS ORDERED: SODIUM BICARB 8.4% 50 ML SYR (1 MEQ/ML) IV STA (04:31)
[2022-08-19] MEDS ORDERED: CALCIUM GLUCONATE IN NACL 1 GM in SALINE 1 100ML.BAG IVPB ONE (04:31)
[2022-08-19] MEDS: HYDROcodone/APAP 5-325MG 1 EACH TAB PO PRN ×2 (04:42→21:38)
[2022-08-19 04:49] LABS: Glucose,Whole Blood 266 mg/dL (70-110)
[2022-08-19] MEDS ORDERED: SODIUM BICARB 8.4% 50 ML SYR (1 MEQ/ML) IV ONE (04:51)
[2022-08-19] MEDS ORDERED: DEXTROSE 50% SYRINGE 50 ML IVP ONE (04:51)
[2022-08-19 06:00] LABS: Glucose,Whole Blood 235 mg/dL (70-110)
[2022-08-19 07:03] LABS: HGB 11.5 gm/dL (13.0-17.5); MCH 28.8 pg (25.0-35.0); MCV 90.1 fL (80.0-100.0); Mean Platelet Volume 7.9; Platelet Count 193 k/uL (150-450); RBC 3.99 m/uL (4.30-5.90); RDW 14.9 % (11.5-15.5); WBC 19.4 k/uL (3.8-10.6)
[2022-08-19] MEDS ORDERED: HYDROmorphone 1 MG/ML 1 ML SYRINGE IM STA (07:50)
[2022-08-19] MEDS ORDERED: HYDROmorphone 1 MG/ML 1 ML SYRINGE IVP STA (07:53)
[2022-08-19] MEDS: FAMOTIDINE 20 MG/2 ML VIAL IV SCH ×2 (08:10→20:49)
--- NOTE | 2022-08-19 08:27 | IR ---
EXAMINATION TYPE: IR stent intravas non coronary DATE OF EXAM: 08/19/2022 CLINICAL HISTORY: Ruptured AAA TECHNIQUE: Fluoroscopy. COMPARISON: CTA same day FINDINGS: Fluoroscopic guidance was provided during procedure performed by Dr. Doran. A total of 22.6 minutes of fluoroscopic time was utilized during the procedure and 155 spot images was acquired. Please refer to procedure note for further details. IMPRESSION: As Above.
[2022-08-19] MEDS: METOPROLOL TARTRATE 50 MG TAB PO SCH ×2 (09:22→20:49)
[2022-08-19] MEDS: ASPIRIN 81 MG PO SCH (09:23)
[2022-08-19 10:15] LABS: Albumin 4.1 g/dL (3.5-5.0); Calcium 8.5 mg/dL (8.4-10.2); Potassium 4.7 mmol/L (3.5-5.1); Total Bilirubin 0.4 mg/dL (0.2-1.3); Total Protein 6.4 g/dL (6.3-8.2)
[2022-08-19] MEDS: HYDROmorphone 1 MG/ML 1 ML SYRINGE IVP PRN ×4 (10:15→23:38)
--- NOTE | 2022-08-19 10:27 | P.PN ---
Subjective Progress Note Date: 08/19/22 Principal diagnosis: Ruptured AAA Patient was seen and examined as a follow-up in the ICU. He is postop day #1 percutaneous endovascular repair of ruptured abdominal aortic aneurysm. Patient is lying in bed he does state that he has some abdominal and back discomfort. He's been requesting pain medication every 2-3 hours. He has some nausea but no vomiting. Patient has been tachycardic with heart rate in the 120s, blood pressure has been stable in the 120s to 140s over 70s and 80s. Hemoglobin 11.5, down from 12.5 yesterday. Morning labs patient had a sodium 137 potassium of 6.1, he's been medicated per medical team. BUN 21 creatinine 1.33. No other acute changes through the night. Patient denies any shortness of breath or chest pain. Objective - Vital Signs Vital signs: Vital Signs Temp 98.3 F 08/19/22 08:00 Pulse 111 H 08/19/22 10:00 Resp 16 08/19/22 10:00 BP 131/93 08/19/22 08:00 Pulse Ox 94 L 08/19/22 10:00 FiO2 Intake & Output 08/18/22 08/19/22 08/19/22 18:59 06:59 18:59 Intake Total 400 260 Output Total 650 215 Balance -250 45 Weight 101.7 kg Intake: Intake, IV Titration 400 160 Amount Sodium Chloride 0.9% 1, 400 160 000 ml @ 80 mls/hr IV . [id number] [facility] Rx#:[id number] Oral 100 Output: Urine 650 215 Other: Voiding Method Indwelling Catheter Indwelling Catheter ABP, PAP, CO, CI - Last Documented Arterial Blood Pressure 152/88 - Exam General appearance: The patient is alert, oriented, appears in no acute distress. HET: Head is normocephalic and atraumatic. Pupils are equal and reactive. Neck: Supple. Trachea midline. Heart: Regular. Lungs: Equal expansion, normal respiratory effort. Abdomen: Soft, mild tenderness to palpation,, nondistended. Extremities: Normal skin color and turgor. No cyanosis, rash, ulceration, clubbing, or edema. Bilateral groins with dressing clean dry and intact, no bleeding noted, no hematoma. Palpable DP pulses bilaterally. Neurological: No focal deficits. - Labs CBC & Chem 7: 08/19/22 18:45 03/20/23 09:30 Labs: Abnormal Lab Results - Last 24 Hours (Table) 08/18/22 08/18/22 08/18/22 Range/Units 21:34 21:34 21:34 WBC 20.4 H (3.8-10.6) k/uL RBC (4.30-5.90) m/uL Hgb (13.0-17.5) gm/dL Hct (39.0-53.0) % Neutrophils # 16.6 H (1.3-7.7) k/uL Potassium (3.5-5.1) mmol/L Chloride (98-107) mmol/L Carbon Dioxide 18 L (22-30) mmol/L BUN (9-20) mg/dL Creatinine 1.46 H (0.66-1.25) mg/dL Glucose 192 H (74-99) mg/dL POC Glucose (mg/dL) (70-110) mg/dL Calcium (8.4-10.2) mg/dL Troponin I 0.041 H* (0.000-0.034) ng/mL 08/19/22 08/19/22 08/19/22 Range/Units 02:35 02:35 04:45 WBC 23.6 H (3.8-10.6) k/uL RBC 4.23 L (4.30-5.90) m/uL Hgb 12.5 L (13.0-17.5) gm/dL Hct 38.4 L (39.0-53.0) % Neutrophils # 21.0 H (1.3-7.7) k/uL Potassium 6.1 H* (3.5-5.1) mmol/L Chloride 109 H (98-107) mmol/L Carbon Dioxide 16 L (22-30) mmol/L BUN 21 H (9-20) mg/dL Creatinine 1.33 H (0.66-1.25) mg/dL Glucose 210 H (74-99) mg/dL POC Glucose (mg/dL) 266 H (70-110) mg/dL Calcium 7.9 L (8.4-10.2) mg/dL Troponin I (0.000-0.034) ng/mL 08/19/22 08/19/22 Range/Units 05:58 06:38 WBC 19.4 H (3.8-10.6) k/uL RBC 3.99 L (4.30-5.90) m/uL Hgb 11.5 L (13.0-17.5) gm/dL Hct 36.0 L (39.0-53.0) % Neutrophils # (1.3-7.7) k/uL Potassium (3.5-5.1) mmol/L Chloride (98-107) mmol/L Carbon Dioxide (22-30) mmol/L BUN (9-20) mg/dL Creatinine (0.66-1.25) mg/dL Glucose (74-99) mg/dL POC Glucose (mg/dL) 235 H (70-110) mg/dL Calcium (8.4-10.2) mg/dL Troponin I (0.000-0.034) ng/mL Assessment and Plan Assessment: AAA Rupture s/p EVAR Tachycardia 1. Daily CBC 2. Consult cardiology for tachycardia 3. Incentive spirometer to bedside 4. Continue with pain control 5. Encourage ambulation 6. Continue medical management per primary team Thank you for this consultation, we'll continue to follow. The impression and plan of care has been dictated as directed. I performed a history and examination of this patient, discussed the same with the dictator. I agree with the dictator's note ,documented as a scribe. Any additional findings or plans will be noted.
--- NOTE | 2022-08-19 10:49 | P.CNPUL ---
History of Present Illness Consult date: 08/19/22 Requesting physician: Camilo Dwyer Reason for consult: other (Critical care management) Chief complaint: Severe abdominal pain, lightheaded History of present illness: This is a 56-year-old male patient with a known history of hypertension, multiple kidney stones, abdominal aortic aneurysm previously measuring 5.7 cm on most recent CAT scan 08/06/2022 and being followed in the outpatient setting. He presented here to the emergency room last evening with severe abdominal pain that radiated to his back. CT angiogram with runoff revealed a 7.3 cm lower abdominal aortic aneurysm with thrombus an acute retroperitoneal hemorrhage along the right psoas muscle measuring up to 4 cm in thickness. There is leaking abdominal aortic aneurysm. He had undergone emergent endovascular aortic repair with aa AFX II device under ultrasound-guided access by Dr. Doran. Both femoral arteries were accessed for the procedure. He was admitted to the intensive care unit following the surgery. Seen today in consultation. He is awake and alert in no acute distress. He is maintaining good O2 saturations in the 90s on 3 L/m per nasal cannula. He has normal saline at 80 mL per hour. White count 19.4. Hemoglobin 11.5. Sodium 141. Potassium 4.7. Bicarb 21. BUN 23. Creatinine 1.40. Glucose 175. His home medications have been resumed. Review of Systems REVIEW OF SYSTEMS: CONSTITUTIONAL: Denies any recent significant weight loss or weight gain. EYES: Denies change in vision. EARS, NOSE, MOUTH, THROAT: Denies headaches, denies sore throat. CARDIOVASCULAR: Denies chest pain, palpitations or syncopal episodes. RESPIRATORY: Denies shortness of breath, cough, congestion or hemoptysis. GASTROINTESTINAL: Severe abdominal pain radiating to his back. GENITOURINARY: Denies hematuria, denies infections. MUSKULOSKELETAL: Denies pain, denies swelling. INTEGUMENTARY: Denies rash, denies eczema. NEUROLOGICAL: Denies recent memory loss, no recent seizure activity. PSYCHIATRIC: Denies anxiety, denies depression. HEMATOLOGIC/LYMPHATIC: Denies anemia, denies enlarged lymph nodes. Past Medical History Past Medical History: Coronary Artery Disease (CAD), Chest Pain / Angina, GERD/Reflux, Hypertension, Osteoarthritis (OA), Sleep Apnea/CPAP/BIPAP Additional Past Medical History / Comment(s): SLEEP APNEA- NO C-PAP, SPINAL STENOSIS, BACK PAIN., WEARS NECK BRACE AT HS., WEARS BACK BRACE AND USES CANE., KIDNEY STONES, STATES NUMBNESS AT TIMES ON RIGHT SIDE., SOB WITH ACTIVITY. , SEE CARDIOLOGY H & P. 5.7cm AAA History of Any Multi-Drug Resistant Organisms: None Reported Past Surgical History: Heart Catheterization With Stent, Tonsillectomy Additional Past Surgical History / Comment(s): 08/09/20 LEFT KIDNEY LITHROTRIPSY. Bilateral wrists & elbow surgery. Neck surgery. HEart cath with stents 08/19/2017 ([facility]) Past Anesthesia/Blood Transfusion Reactions: No Reported Reaction Date of Last Stent Placement:: 08/19/2017 Past Psychological History: No Psychological Hx Reported Smoking Status: Never smoker Past Alcohol Use History: None Reported Past Drug Use History: None Reported - Past Family History Mother Family Medical History: Cancer Additional Family Medical History / Comment(s): kidney stones Father Family Medical History: Cancer Brother(s) Family Medical History: Cancer Additional Family Medical History / Comment(s): pancreatic ( uncle as well) Medications and Allergies Home Medications Medication Instructions Recorded Confirmed Type HYDROcodone/APAP 10-325MG [[place] 1 tab PO QID PRN 05/22/20 06/19/22 History 10-325] Nitroglycerin Sl Tabs [Nitrostat] 0.4 mg SUBLINGUAL Q5M PRN 05/22/20 06/19/22 History carvediloL [Coreg] 25 mg PO BID-W/MEALS 11/13/21 06/19/22 History Albuterol Inhaler [Ventolin Hfa 2 puff INHALATION RT-Q6H PRN 05/19/22 06/19/22 History Inhaler] Ondansetron [Zofran] 4 mg PO Q6H PRN 05/19/22 06/19/22 History Aspirin 81 mg PO DAILY 30 Days #30 tab 05/20/22 06/19/22 Rx Atorvastatin [Lipitor] 40 mg PO DAILY 30 Days #30 tab 05/20/22 06/19/22 Rx Isosorbide Mononitrate ER [Imdur] 30 mg PO DAILY 06/14/22 06/19/22 History Chlorthalidone 50 mg PO DAILY 06/19/22 06/19/22 History cloNIDine HCL [Catapres] 0.3 mg PO DAILY 06/19/22 06/19/22 History Allergies Allergy/AdvReac Type Severity Reaction Status Date / Time morphine Allergy Rash/Hives Verified 08/18/22 20:57 Penicillins Allergy Rash/Hives Verified 08/18/22 20:57 Physical Exam Vitals: Vital Signs Temp Pulse Pulse Resp BP BP Pulse Ox 08/19/22 10:00 111 H 16 94 L 08/19/22 09:00 120 H 16 95 08/19/22 08:00 98.3 F 123 H 16 131/93 96 08/19/22 07:00 97.8 F 128 H 15 95 08/19/22 06:00 126 H 18 96 08/19/22 05:00 112 H 15 96 08/19/22 04:00 99 18 96 08/19/22 03:30 96 18 97 08/19/22 03:00 93 17 97 08/19/22 02:22 97.6 F 90 18 97 08/19/22 02:17 87 16 158/96 97 08/19/22 02:02 85 16 156/96 98 08/19/22 01:47 88 16 138/79 95 08/19/22 01:32 98.6 F 87 12 148/88 97 08/18/22 22:45 115 H 22 112/89 91 L 08/18/22 22:30 113 H 16 118/58 95 08/18/22 22:15 110 H 11 L 133/102 97 08/18/22 22:00 110 H 27 H 125/96 97 08/18/22 21:30 121 H 17 99/76 08/18/22 21:15 112 H 19 103/71 90 L 08/18/22 21:11 117 H 21 103/71 91 L 08/18/22 21:05 97.9 F 08/18/22 20:57 129 H 20 90/65 95 Intake and Output 08/18/22 08/19/22 08/19/22 22:59 06:59 14:59 Intake Total 400 260 Output Total 650 215 Balance -250 45 Intake: Intake, IV Titration 400 160 Amount Sodium Chloride 0.9% 1, 400 160 000 ml @ 80 mls/hr IV . [id number] [facility] Rx#:[id number] Oral 100 Output: Urine 650 215 Other: Voiding Method Indwelling Catheter Indwelling Catheter Weight 95.254 kg 101.7 kg ABP, PAP, CO, CI - Last 8 Hours Arterial Blood Pressure 152/88 Arterial Blood Pressure 151/90 Arterial Blood Pressure 148/82 Arterial Blood Pressure 129/79 Arterial Blood Pressure 114/72 Arterial Blood Pressure 119/73 Arterial Blood Pressure 112/65 Arterial Blood Pressure 101/57 Arterial Blood Pressure 165/102 GENERAL EXAM: Alert, pleasant 56-year-old male, on 3 L nasal cannula, fairly comfortable in no apparent distress. HEAD: Normocephalic. EYES: Normal reaction of pupils, equal size. NOSE: Clear with pink turbinates. THROAT: No erythema or exudates. NECK: No masses, no JVD. CHEST: No chest wall deformity. LUNGS: Equal air entry with no crackles, wheeze, rhonchi or dullness. CVS: S1 and S2 normal with no audible murmur, regular rhythm. ABDOMEN: No hepatosplenomegaly, normal bowel sounds, no guarding or rigidity. SPINE: No scoliosis or deformity SKIN: No rashes CENTRAL NERVOUS SYSTEM: No focal deficits, tone is normal in all 4 extremities. EXTREMITIES: Bilateral groin dressings dry and intact. There is no peripheral edema. No clubbing, no cyanosis. Peripheral pulses are intact. Results - Laboratory Findings CBC and BMP: 08/19/22 06:38 08/19/22 09:30 PT/INR, D-dimer PT 10.1 sec (9.0-12.0) 08/18/22 21:34 INR 0.9 (<1.2) 08/18/22 21:34 Abnormal lab findings: Abnormal Labs 08/18/22 08/18/22 08/18/22 21:34 21:34 21:34 WBC 20.4 H RBC Hgb Hct Neutrophils # 16.6 H Potassium Chloride Carbon Dioxide 18 L BUN Creatinine 1.46 H Glucose 192 H POC Glucose (mg/dL) Calcium Troponin I 0.041 H* 08/19/22 08/19/22 08/19/22 02:35 02:35 04:45 WBC 23.6 H RBC 4.23 L Hgb 12.5 L Hct 38.4 L Neutrophils # 21.0 H Potassium 6.1 H* Chloride 109 H Carbon Dioxide 16 L BUN 21 H Creatinine 1.33 H Glucose 210 H POC Glucose (mg/dL) 266 H Calcium 7.9 L Troponin I 03/20/23 03/20/23 03/20/23 05:58 06:38 09:30 WBC 19.4 H RBC 3.99 L Hgb 11.5 L Hct 36.0 L Neutrophils # Potassium Chloride 111 H Carbon Dioxide 21 L BUN 23 H Creatinine 1.40 H Glucose 175 H POC Glucose (mg/dL) 235 H Calcium Troponin I Assessment and Plan Assessment: Ruptured abdominal aortic aneurysm status post percutaneous endovascular repair. Postoperative day #1 Acute kidney injury Obesity History of nephrolithiasis with previous lithotripsy Obstructive sleep apnea not utilizing CPAP Coronary artery disease with previous stent placements Gastroesophageal reflux disease History of hypertension Plan: The patient was seen and evaluated Medications and labs reviewed Encourage increased use of the incentive spirometer Titrate the FiO2 as tolerated Continue IV hydration We will continue to follow and make further recommendations based on his clinical status I have personally seen and examined the patient, performed the documentation and the assessment and plan as written. Number of minutes spent on the visit: 20.
--- NOTE | 2022-08-19 10:56 | CONS ---
CONSULTATION HISTORY OF PRESENT ILLNESS: This is a 56-year-old gentleman with a known history of ischemic cardiomyopathy, prior PCI in 2019 or before of LAD and circumflex. He has hypertension, hyperlipidemia, ejection fraction in the 35% to 40% range. He is also known to have abdominal aortic aneurysm and was advised to have a stent graft performed by Dr. Doran. However, this gentleman came into the hospital with abdominal pain and back pain, was taken to the emergency room, was found to be cold, clammy, and CTA demonstrated aneurysm that has increased in size and now ruptured with an adjacent hematoma and was emergently taken for endovascular aortic valve repair that was performed expeditiously and successfully by Dr. Wilbert Doran. The patient at this time is more stable. He is tachycardic. Has some abdominal tenderness and some discomfort, but feels much better. He is not clammy. Blood pressure is good. He also has some decent urine output. He is known to have CAD and Dr. Rosario performed stenting of circumflex in 2019. He also sees Dr. Berry in the office on a regular basis. The patient acknowledges that he was advised, but did not seek medical attention for aneurysm because they felt it did not bother him. At the time of my evaluation, he is more comfortable and resting. PAST MEDICAL HISTORY: 1. Ischemic cardiomyopathy with previous multivessel stenting. 2. Hypertension. 3. Hyperlipidemia. 4. History of known abdominal aortic aneurysm, now presented with a rupture. MEDICATIONS: Medications at home include; 1. Catapres. 2. Coreg. 3. Lipitor. 4. Aspirin. 5. Imdur. 6. Manson. ALLERGIES: Penicillin and morphine. PHYSICAL EXAMINATION: VITAL SIGNS: Blood pressure is 134/80, pulse rate is about 120, regular sinus. HEENT: Unremarkable. Fundus was not examined by me. NECK: Supple. There is no JVD. I do not hear a carotid bruit. HEART: Reveals S1, S2. Tachycardia. Short systolic murmur noted in left sternal border. LUNGS: Revealed bilateral decent air entry. ABDOMEN: Soft. Bowel sounds are audible. EXTREMITIES: Lower extremities revealed diminished pulses. CENTRAL NERVOUS SYSTEM: Grossly no focal deficits. EKG revealed sinus tachycardia with poor R-wave progression. Nonspecific ST abnormality. IMPRESSION: 1. Abdominal aortic aneurysm with rupture, status post urgent endovascular repair. 2. Coronary artery disease with ischemic cardiomyopathy, prior multivessel stenting. 3. Hypertension. 4. Hyperlipidemia. RECOMMENDATIONS: I am recommending that we resume beta chelsea with Lopressor 50 mg b.i.d., obtain echocardiogram to assess LV function. Also resume losartan 50 mg daily and Lipitor 40 mg daily. We will also hydrate him cautiously. His tachycardia could be related to some blood loss. We will therefore monitor his hemoglobin closely as well. Prognosis remains guarded. Discussed my thoughts in detail with the patient. Thank you very much for the consult. DIMAS / IJN: [id number] /
--- NOTE | 2022-08-19 12:20 | P.GSCN ---
History of Present Illness Consult date: 08/19/22 Reason for Consult: kidney stone with hydronephrosis Requesting physician: Rashard Hernandez History of present illness: The patient is a 56-year-old male with a past medical history significant for hypertension, multiple kidney stones, and an abdominal aortic aneurysm measuring 5.7cm in May 2022. At that time he was seen and recommended to undergo an aortic repair which he refused. He presented to the emergency department on 08/18/22 with severe abdominal pain that radiated to his back. He was worked up with a CTA which demonstrated an enlarged infrarenal AAA, now measuring 7.5cm with surrounding hemorrhage concern for rupture. The CTA also showed right-sided hydronephrosis and hydroureter similar to his last exam on 05/19/22. There are multiple calculi in the right kidney that measure up to 1 cm. There is a 3 cm cortical cyst posterior right kidney. The kidney with no signs of obstruction. There is also apparent clearing of obstructing calculus in the mid right ureter compared to the old exam on. On 08/29/22 he went to the OR with Dr. Doran for a percutaneous endovascular aortic repair. Review of Systems - Constitutional Denies fever - Gastrointestinal Reports nausea, Reports vomiting - Genitourinary Denies hematuria Past Medical History Past Medical History: Coronary Artery Disease (CAD), Chest Pain / Angina, GERD/Reflux, Hypertension, Osteoarthritis (OA), Sleep Apnea/CPAP/BIPAP Additional Past Medical History / Comment(s): SLEEP APNEA- NO C-PAP, SPINAL STENOSIS, BACK PAIN., WEARS NECK BRACE AT HS., WEARS BACK BRACE AND USES CANE., KIDNEY STONES, STATES NUMBNESS AT TIMES ON RIGHT SIDE., SOB WITH ACTIVITY. , SEE CARDIOLOGY H & P. 5.7cm AAA History of Any Multi-Drug Resistant Organisms: None Reported Past Surgical History: Heart Catheterization With Stent, Tonsillectomy Additional Past Surgical History / Comment(s): 08/09/20 LEFT KIDNEY LITHROTRIPSY. Bilateral wrists & elbow surgery. Neck surgery. HEart cath with stents 08/19/2017 ([facility]) Past Anesthesia/Blood Transfusion Reactions: No Reported Reaction Date of Last Stent Placement:: 08/19/2017 Past Psychological History: No Psychological Hx Reported Smoking Status: Never smoker Past Alcohol Use History: None Reported Past Drug Use History: None Reported - Past Family History Mother Family Medical History: Cancer Additional Family Medical History / Comment(s): kidney stones Father Family Medical History: Cancer Brother(s) Family Medical History: Cancer Additional Family Medical History / Comment(s): pancreatic ( uncle as well) Medications and Allergies Home Medications Medication Instructions Recorded Confirmed Type HYDROcodone/APAP 10-325MG [Haugan 1 tab PO QID PRN 05/22/20 08/19/22 History 10-325] Nitroglycerin Sl Tabs [Nitrostat] 0.4 mg SUBLINGUAL Q5M PRN 05/22/20 08/19/22 History carvediloL [Coreg] 25 mg PO BID-W/MEALS 11/13/21 08/19/22 History Albuterol Inhaler [Ventolin Hfa 2 puff INHALATION RT-Q6H PRN 05/19/22 08/19/22 History Inhaler] Ondansetron [Zofran] 4 mg PO Q6H PRN 05/19/22 08/19/22 History Aspirin 81 mg PO DAILY 30 Days #30 tab 05/20/22 08/19/22 Rx Atorvastatin [Lipitor] 40 mg PO DAILY 30 Days #30 tab 05/20/22 08/19/22 Rx Isosorbide Mononitrate ER [Imdur] 30 mg PO DAILY 06/14/22 08/19/22 History Baclofen 10 mg PO TID 08/19/22 08/19/22 History Olmesartan/Hydrochlorothiazide 1 tab PO DAILY 08/19/22 08/19/22 History [Olmesartan-Hctz 40-25 mg Tab] Potassium Citrate [Urocit-K] 15 meq PO HS 08/19/22 08/19/22 History Potassium Citrate [Urocit-K] 30 meq PO QAM 08/19/22 08/19/22 History Valsartan/Hydrochlorothiazide 1 tab PO DAILY 08/19/22 08/19/22 History [Valsartan-Hctz 320-25 mg Tab] allopurinoL 200 mg PO BID 08/19/22 08/19/22 History hydroCHLOROthiazide 25 mg PO DAILY 08/19/22 08/19/22 History Allergies Allergy/AdvReac Type Severity Reaction Status Date / Time morphine Allergy Rash/Hives Verified 08/19/22 12:00 Penicillins Allergy Rash/Hives Verified 08/19/22 12:00 Surgical - Exam Vital Signs Pulse Resp BP Pulse Ox 129 H 20 90/65 95 08/18/22 20:57 08/18/22 20:57 08/18/22 20:57 08/18/22 20:57 General: Well developed, well nourished. HEENT: Head is atraumatic, normocephalic. Lungs: Respirations even and nonlabored. On 3L NC Abdomen/GI: Soft, non-distended. No guarding, rigidity. : No suprapubic tenderness. Normal phallus, normal urethral meatus. The scrotum and testes are normal. Massey catheter present draining clear yellow urine Skin: Warm and dry Neurologic: Alert and oriented 3, CN II-XII grossly intact. No focal deficits. Psychiatric: Appropriate mood and affect. Results - Labs 08/19/22 06:38 08/19/22 09:30 Abnormal Lab Results - Last 24 Hours (Table) 08/18/22 08/18/22 08/18/22 Range/Units 21:34 21:34 21:34 WBC 20.4 H (3.8-10.6) k/uL RBC (4.30-5.90) m/uL Hgb (13.0-17.5) gm/dL Hct (39.0-53.0) % Neutrophils # 16.6 H (1.3-7.7) k/uL Potassium (3.5-5.1) mmol/L Chloride (98-107) mmol/L Carbon Dioxide 18 L (22-30) mmol/L BUN (9-20) mg/dL Creatinine 1.46 H (0.66-1.25) mg/dL Glucose 192 H (74-99) mg/dL POC Glucose (mg/dL) (70-110) mg/dL Calcium (8.4-10.2) mg/dL Troponin I 0.041 H* (0.000-0.034) ng/mL 08/19/22 08/19/22 08/19/22 Range/Units 02:35 02:35 04:45 WBC 23.6 H (3.8-10.6) k/uL RBC 4.23 L (4.30-5.90) m/uL Hgb 12.5 L (13.0-17.5) gm/dL Hct 38.4 L (39.0-53.0) % Neutrophils # 21.0 H (1.3-7.7) k/uL Potassium 6.1 H* (3.5-5.1) mmol/L Chloride 109 H (98-107) mmol/L Carbon Dioxide 16 L (22-30) mmol/L BUN 21 H (9-20) mg/dL Creatinine 1.33 H (0.66-1.25) mg/dL Glucose 210 H (74-99) mg/dL POC Glucose (mg/dL) 266 H (70-110) mg/dL Calcium 7.9 L (8.4-10.2) mg/dL Troponin I (0.000-0.034) ng/mL 08/19/22 08/19/22 08/19/22 Range/Units 05:58 06:38 09:30 WBC 19.4 H (3.8-10.6) k/uL RBC 3.99 L (4.30-5.90) m/uL Hgb 11.5 L (13.0-17.5) gm/dL Hct 36.0 L (39.0-53.0) % Neutrophils # (1.3-7.7) k/uL Potassium (3.5-5.1) mmol/L Chloride 111 H (98-107) mmol/L Carbon Dioxide 21 L (22-30) mmol/L BUN 23 H (9-20) mg/dL Creatinine 1.40 H (0.66-1.25) mg/dL Glucose 175 H (74-99) mg/dL POC Glucose (mg/dL) 235 H (70-110) mg/dL Calcium (8.4-10.2) mg/dL Troponin I (0.000-0.034) ng/mL Diabetes panel 08/18/22 08/19/22 08/19/22 Range/Units 21:34 02:35 09:30 Sodium 139 137 141 (137-145) mmol/L Potassium 5.1 6.1 H* 4.7 (3.5-5.1) mmol/L Chloride 107 109 H 111 H (98-107) mmol/L Carbon Dioxide 18 L 16 L 21 L (22-30) mmol/L BUN 20 21 H 23 H (9-20) mg/dL Creatinine 1.46 H 1.33 H 1.40 H (0.66-1.25) mg/dL Glucose 192 H 210 H 175 H (74-99) mg/dL Calcium 9.5 7.9 L 8.5 (8.4-10.2) mg/dL AST 22 33 (17-59) U/L ALT 24 26 (4-49) U/L Alkaline Phosphatase 67 48 (38-126) U/L Total Protein 7.2 6.4 (6.3-8.2) g/dL Albumin 4.4 4.1 (3.5-5.0) g/dL Calcium panel 08/18/22 08/19/22 08/19/22 Range/Units 21:34 02:35 09:30 Calcium 9.5 7.9 L 8.5 (8.4-10.2) mg/dL Albumin 4.4 4.1 (3.5-5.0) g/dL Pituitary panel 08/18/22 08/19/22 08/19/22 Range/Units 21:34 02:35 09:30 Sodium 139 137 141 (137-145) mmol/L Potassium 5.1 6.1 H* 4.7 (3.5-5.1) mmol/L Chloride 107 109 H 111 H (98-107) mmol/L Carbon Dioxide 18 L 16 L 21 L (22-30) mmol/L BUN 20 21 H 23 H (9-20) mg/dL Creatinine 1.46 H 1.33 H 1.40 H (0.66-1.25) mg/dL Glucose 192 H 210 H 175 H (74-99) mg/dL Calcium 9.5 7.9 L 8.5 (8.4-10.2) mg/dL Adrenal panel 08/18/22 08/19/22 08/19/22 Range/Units 21:34 02:35 09:30 Sodium 139 137 141 (137-145) mmol/L Potassium 5.1 6.1 H* 4.7 (3.5-5.1) mmol/L Chloride 107 109 H 111 H (98-107) mmol/L Carbon Dioxide 18 L 16 L 21 L (22-30) mmol/L BUN 20 21 H 23 H (9-20) mg/dL Creatinine 1.46 H 1.33 H 1.40 H (0.66-1.25) mg/dL Glucose 192 H 210 H 175 H (74-99) mg/dL Calcium 9.5 7.9 L 8.5 (8.4-10.2) mg/dL Total Bilirubin 0.4 0.4 (0.2-1.3) mg/dL AST 22 33 (17-59) U/L ALT 24 26 (4-49) U/L Alkaline Phosphatase 67 48 (38-126) U/L Total Protein 7.2 6.4 (6.3-8.2) g/dL Albumin 4.4 4.1 (3.5-5.0) g/dL - Imaging CT scan - abdomen: report reviewed, image reviewed Assessment and Plan Assessment: The patient was examined in the ICU. He complains of intermittent right flank pain. He reports a history of multiple kidney stones that have required surgical intervention. He also has a history of right ureteral stricture and underwent a balloon dilation in June 2022. He is well known to Dr. Mayo. His current hydronephrosis could be secondary to a recurrence of his ureteral stricture or be a result of inflammation from the ruptured AAA. Given the patient underwent surgery yesterday, will continue to trend his creatinine. Serum creatinine 1.4 today. The patient may require stent placement or ureteroplasty once he recovers from his AAA repair. (1) Hydronephrosis, right Current Visit: No Status: Acute Code(s): N13.30 - UNSPECIFIED HYDRONEPHROSIS SNOMED Code(s): 98487235 (2) Kidney stone on right side Current Visit: Yes Status: Acute Code(s): N20.0 - CALCULUS OF KIDNEY SNOMED Code(s): 57090637 Plan: - Maintain Massey catheter - Monitor creatinine - Pain management per vascular surgery team - Consider right ureteral stent reinsertion if creatinine fails to return to baseline and/or the right flank pain persists, though the right flank pain may be the result of a right flank hematoma Impression and plan of care have been directed as dictated by the signing physician. Aby Russell nurse practitioner acting as scribe for signing physician. Aby Russell [facility] Palliative Care/Urology [facility] [id number] Email: [email or web address] I have personally seen and examined the patient, reviewed the documentation and agree with the assessment and plan as written. Number of minutes spent on the visit: 35. Kali Mohr MD Time with Patient: Greater than 30
--- NOTE | 2022-08-19 12:38 | P.CONS ---
History of Present Illness - History of Present Illness This is a pleasant 56 years old male with past medical history of aortic abdo juan luis aneurysm about 5.7 cm there was admitted with abdominal pain about 34 months ago and the evaluated for abdominal aortic aneurysm and found stable and sent home also with evidence of right kidney stones and right hydronephrosis which looks chronic. Other medical problems including coronary artery disease, GERD, hypertension, sleep apnea and osteoarthritis. Patient presents this time because of abdominal pain. Patient states that he had 2 severe pain, the abdominal pain was severe when he came in but now states is much improved after he underwent surgical repair of his aortic aneurysm. However he is complaining of from right back pain radiating to the right flank and to the right groin also reported yesterday with no associated nausea vomiting. He says his Increased Frequency of Urination but No Dysuria or Urgency. Patient was hemodynamically stable. Patient is mildly tachycardic Labs showed leukocytosis with 19.4 k , hemoglobin 11.5. Associated is is unremarkable. Potassium elevated at 6.1 and creatinine elevated at 1.3 ct scan of the Aorta with runoff: 7.3 cm lower abdominal aortic aneurysm with retroperitoneal hemorrhage and along the right psoas muscle. Also that his right sided hydronephrosis and hydroureter similar to last exam and cleared and obstructing calculus in the right mid to ureter. Review of Systems Review of systems CONSTITUTIONAL: No fever, no malaise, no fatigue. HEENT: No recent visual problems or hearing problems. Denied any sore throat. CARDIOVASCULAR: No orthopnea, PND, no palpitations, no syncope. PULMONARY: No shortness of breath, no cough, no hemoptysis. GASTROINTESTINAL: No diarrhea, . Normoactive bowel sounds. NEUROLOGICAL: No headaches, no weakness, no numbness. HEMATOLOGICAL: Denies any bleeding or petechiae. GENITOURINARY: Denies any burning micturition, frequency, or urgency. MUSCULOSKELETAL/RHEUMATOLOGICAL: Denies any joint pain, swelling, or any muscle pain. ENDOCRINE: Denies any polyuria or polydipsia. Past Medical History Past Medical History: Coronary Artery Disease (CAD), Chest Pain / Angina, GERD/Reflux, Hypertension, Osteoarthritis (OA), Sleep Apnea/CPAP/BIPAP Additional Past Medical History / Comment(s): SLEEP APNEA- NO C-PAP, SPINAL STENOSIS, BACK PAIN., WEARS NECK BRACE AT HS., WEARS BACK BRACE AND USES CANE., KIDNEY STONES, STATES NUMBNESS AT TIMES ON RIGHT SIDE., SOB WITH ACTIVITY. , SEE CARDIOLOGY H & P. 5.7cm AAA History of Any Multi-Drug Resistant Organisms: None Reported Past Surgical History: Heart Catheterization With Stent, Tonsillectomy Additional Past Surgical History / Comment(s): 08/09/20 LEFT KIDNEY LITHROTRIPSY. Bilateral wrists & elbow surgery. Neck surgery. HEart cath with stents 08/19/2017 ([facility]) Past Anesthesia/Blood Transfusion Reactions: No Reported Reaction Date of Last Stent Placement:: 08/19/2017 Past Psychological History: No Psychological Hx Reported Smoking Status: Never smoker Past Alcohol Use History: None Reported Past Drug Use History: None Reported - Past Family History Mother Family Medical History: Cancer Additional Family Medical History / Comment(s): kidney stones Father Family Medical History: Cancer Brother(s) Family Medical History: Cancer Additional Family Medical History / Comment(s): pancreatic ( uncle as well) Medications and Allergies Home Medications Medication Instructions Recorded Confirmed Type RX: HYDROcodone/APAP 10-325MG 1 tab PO QID PRN 05/22/20 08/19/22 History [Joffre 10-325] RX: Nitroglycerin Sl Tabs 0.4 mg SUBLINGUAL Q5M PRN 05/22/20 08/19/22 History [Nitrostat] RX: carvediloL [Coreg] 25 mg PO BID-W/MEALS 11/13/21 08/19/22 History RX: Albuterol Inhaler [Ventolin 2 puff INHALATION RT-Q6H PRN 05/19/22 08/19/22 History Hfa Inhaler] RX: Ondansetron [Zofran] 4 mg PO Q6H PRN 05/19/22 08/19/22 History RX: Aspirin 81 mg PO DAILY 30 Days #30 tab 05/20/22 08/19/22 Rx RX: Atorvastatin [Lipitor] 40 mg PO DAILY 30 Days #30 tab 05/20/22 08/19/22 Rx Isosorbide Mononitrate ER [Imdur] 30 mg PO DAILY 06/14/22 08/19/22 History Olmesartan/Hydrochlorothiazide 1 tab PO DAILY 08/19/22 08/19/22 History [Olmesartan-Hctz 40-25 mg Tab] Potassium Citrate [Urocit-K] 15 meq PO HS 08/19/22 08/19/22 History Potassium Citrate [Urocit-K] 30 meq PO QAM 08/19/22 08/19/22 History RX: Baclofen 10 mg PO TID 08/19/22 08/19/22 History RX: allopurinoL 200 mg PO BID 08/19/22 08/19/22 History RX: hydroCHLOROthiazide 25 mg PO DAILY 08/19/22 08/19/22 History Valsartan/Hydrochlorothiazide 1 tab PO DAILY 08/19/22 08/19/22 History [Valsartan-Hctz 320-25 mg Tab] Allergies Allergy/AdvReac Type Severity Reaction Status Date / Time morphine Allergy Rash/Hives Verified 08/19/22 12:00 Penicillins Allergy Rash/Hives Verified 08/19/22 12:00 Physical Exam Vitals: Vital Signs Temp Pulse Pulse Resp BP BP Pulse Ox 08/19/22 06:00 126 H 18 96 08/19/22 05:00 112 H 15 96 08/19/22 04:00 99 18 96 08/19/22 03:30 96 18 97 08/19/22 03:00 93 17 97 08/19/22 02:22 97.6 F 90 18 97 08/19/22 02:17 87 16 158/96 97 08/19/22 02:02 85 16 156/96 98 08/19/22 01:47 88 16 138/79 95 08/19/22 01:32 98.6 F 87 12 148/88 97 08/18/22 22:45 115 H 22 112/89 91 L 08/18/22 22:30 113 H 16 118/58 95 08/18/22 22:15 110 H 11 L 133/102 97 08/18/22 22:00 110 H 27 H 125/96 97 08/18/22 21:30 121 H 17 99/76 08/18/22 21:15 112 H 19 103/71 90 L 08/18/22 21:11 117 H 21 103/71 91 L 08/18/22 21:05 97.9 F 08/18/22 20:57 129 H 20 90/65 95 Intake and Output 08/18/22 08/18/22 08/19/22 14:59 22:59 06:59 Intake Total 400 Output Total 650 Balance -250 Intake: Intake, IV Titration 400 Amount Sodium Chloride 0.9% 1, 400 000 ml @ 80 mls/hr IV . [id number] [facility] Rx#:[id number] Output: Urine 650 Other: Voiding Method Indwelling Catheter Weight 95.254 kg 101.7 kg ABP, PAP, CO, CI - Last 8 Hours Arterial Blood Pressure 114/72 Arterial Blood Pressure 119/73 Arterial Blood Pressure 112/65 Arterial Blood Pressure 101/57 Arterial Blood Pressure 165/102 Arterial Blood Pressure 161/99 GENERAL: The patient is alert and oriented x3, not in any acute distress. Well developed, well nourished. HEENT: Pupils are round and equally reacting to light. EOMI. No scleral icterus. No conjunctival pallor. Normocephalic, atraumatic. No pharyngeal erythema. No thyromegaly. CARDIOVASCULAR: S1 and S2 present. No murmurs, rubs, or gallops. PULMONARY: Chest is clear to auscultation, no wheezing or crackles. -ABDOMEN: Soft, epigastric tenderness, right flank tenderness, no guarding or rebound tenderness, nondistended, normoactive bowel sounds. No palpable organomegaly. MUSCULOSKELETAL: No joint swelling or deformity. EXTREMITIES: No cyanosis, clubbing, or pedal edema. NEUROLOGICAL: Gross neurological examination did not reveal any focal deficits. SKIN: No rashes. no petechiae. Results CBC & Chem 7: 08/19/22 06:38 08/19/22 09:30 Labs: Abnormal Lab Results - Last 24 Hours (Table) 08/18/22 08/18/22 08/18/22 Range/Units 21:34 21:34 21:34 WBC 20.4 H (3.8-10.6) k/uL RBC (4.30-5.90) m/uL Hgb (13.0-17.5) gm/dL Hct (39.0-53.0) % Neutrophils # 16.6 H (1.3-7.7) k/uL Potassium (3.5-5.1) mmol/L Chloride (98-107) mmol/L Carbon Dioxide 18 L (22-30) mmol/L BUN (9-20) mg/dL Creatinine 1.46 H (0.66-1.25) mg/dL Glucose 192 H (74-99) mg/dL POC Glucose (mg/dL) (70-110) mg/dL Calcium (8.4-10.2) mg/dL Troponin I 0.041 H* (0.000-0.034) ng/mL 08/19/22 08/19/22 08/19/22 Range/Units 02:35 02:35 04:45 WBC 23.6 H (3.8-10.6) k/uL RBC 4.23 L (4.30-5.90) m/uL Hgb 12.5 L (13.0-17.5) gm/dL Hct 38.4 L (39.0-53.0) % Neutrophils # 21.0 H (1.3-7.7) k/uL Potassium 6.1 H* (3.5-5.1) mmol/L Chloride 109 H (98-107) mmol/L Carbon Dioxide 16 L (22-30) mmol/L BUN 21 H (9-20) mg/dL Creatinine 1.33 H (0.66-1.25) mg/dL Glucose 210 H (74-99) mg/dL POC Glucose (mg/dL) 266 H (70-110) mg/dL Calcium 7.9 L (8.4-10.2) mg/dL Troponin I (0.000-0.034) ng/mL 08/19/22 Range/Units 05:58 WBC (3.8-10.6) k/uL RBC (4.30-5.90) m/uL Hgb (13.0-17.5) gm/dL Hct (39.0-53.0) % Neutrophils # (1.3-7.7) k/uL Potassium (3.5-5.1) mmol/L Chloride (98-107) mmol/L Carbon Dioxide (22-30) mmol/L BUN (9-20) mg/dL Creatinine (0.66-1.25) mg/dL Glucose (74-99) mg/dL POC Glucose (mg/dL) 235 H (70-110) mg/dL Calcium (8.4-10.2) mg/dL Troponin I (0.000-0.034) ng/mL Assessment and Plan Assessment: Ruptured aortic aneurysm with worsening size 5.7 cm up to 7.3 this admission with evidence of bleeding into the right psoas muscle with retroperitoneal bleeding, status post surgical repair Acute kidney injury with hyperkalemia Right hydronephrosis and hydroureter, looks chronic right kidney stone , Hypertension History of coronary artery disease status post stent History of GERD and history of sleep apnea History of osteoarthritis Plan: Patient is status post surgical repair of aortic aneurysm, follow-up with vascular surgery to recommendation and pain management Continue monitor sugar Continue with IV hydration Continue with hydralazine when necessary Vascular surgery team on the case, pulmonary/critical care team Labs and medication were reviewed.. Continue same treatment. Continue with symptomatic treatment. Resume home medication. Monitor labs and vitals. DVT and GI prophylaxis. Further recommendations as per clinical course of the patient DVT prophylaxis: no Subcutaneous heparin for bleeding aneurysm GI Prophylaxis: Pepcid PT/OT: Pending Prognosis is guarded thank you for consulting us, we will follow up
[2022-08-19 18:54] LABS: Basophils % (A) 0 %; Eosinophils % (A) 0 %; HCT 32.2 % (39.0-53.0); HGB 10.6 gm/dL (13.0-17.5); Lymphocytes # (A) 2.2 k/uL (1.0-4.8); Lymphocytes % (A) 13 %; MCH 29.4 pg (25.0-35.0); MCHC 32.8 g/dL (31.0-37.0); MCV 89.7 fL (80.0-100.0); Mean Platelet Volume 9.4; Monocytes # (A) 1.2 k/uL (0-1.0); Monocytes % (A) 8 %; Neutrophils # (A) 12.6 k/uL (1.3-7.7); Neutrophils % (A) 77 %; Platelet Count 143 k/uL (150-450); RBC 3.59 m/uL (4.30-5.90); WBC 16.4 k/uL (3.8-10.6)
[2022-08-19] MEDS: LOSARTAN 50 MG TAB PO SCH (20:49)
[2022-08-19] MEDS: ATORVASTATIN 40 MG TAB PO SCH (20:49)
[2022-08-19] MEDS ORDERED: PRAVASTATIN SODIUM 40 MG TAB PO SCH (21:00)
[2022-08-20] MEDS: HYDROcodone/APAP 5-325MG 1 EACH TAB PO PRN ×3 (04:46→19:51)
[2022-08-20] MEDS: SODIUM CHLORIDE 0.9% 1,000 ML IV SCH ×2 (04:47→16:25)
[2022-08-20] MEDS: HYDROmorphone 1 MG/ML 1 ML SYRINGE IVP PRN ×5 (06:42→23:25)
[2022-08-20] MEDS: ASPIRIN 81 MG PO SCH (09:12)
[2022-08-20] MEDS: DOCUSATE 100 MG CAP PO SCH (09:12)
[2022-08-20] MEDS: METOPROLOL TARTRATE 50 MG TAB PO SCH ×3 (09:12→19:51)
[2022-08-20] MEDS: FAMOTIDINE 20 MG/2 ML VIAL IV SCH (09:12)
[2022-08-20 10:46] LABS: Basophils % (A) 0 %; Eosinophils % (A) 0 %; HGB 9.9 gm/dL (13.0-17.5); Lymphocytes # (A) 2.1 k/uL (1.0-4.8); Lymphocytes % (A) 12 %; MCH 29.9 pg (25.0-35.0); MCHC 32.9 g/dL (31.0-37.0); MCV 90.9 fL (80.0-100.0); Mean Platelet Volume 7.8; Monocytes # (A) 1.2 k/uL (0-1.0); Monocytes % (A) 7 %; Neutrophils # (A) 14.1 k/uL (1.3-7.7); Neutrophils % (A) 79 %; Platelet Count 142 k/uL (150-450); RDW 15.1 % (11.5-15.5); WBC 17.8 k/uL (3.8-10.6)
[2022-08-20 11:08] LABS: African American GFR (CKD) 74 (>60 ml/min/1.73 sqM); Anion Gap 8 mmol/L; Blood Urea Nitrogen 27 mg/dL (9-20); Calcium 8.3 mg/dL (8.4-10.2); Carbon Dioxide 24 mmol/L (22-30); Chloride 106 mmol/L (98-107); Glucose 118 mg/dL (74-99); Non-African American GFR(CKD) 64 (>60 ml/min/1.73 sqM); Sodium 138 mmol/L (137-145)
[2022-08-20 11:33] LABS: Potassium 4.3 mmol/L (3.5-5.1)
--- NOTE | 2022-08-20 12:06 | P.PN ---
Subjective Progress Note Date: 08/20/22 Principal diagnosis: Ruptured AAA Patient was seen and examined as a follow-up. He was transferred out of the ICU to cardiac stepdown unit yesterday. He is postop day #2 percutaneous endovascular repair of ruptured abdominal aortic aneurysm. Abdominal pain improving. Has some discomfort at bilateral groins. He denies any chest pain or shortness of breath. He has not been up and ambulating. Urology was consulted for patient's history with kidney stones, hydronephrosis. They recommend continued Massey catheter at this time. Patient is having good urine output. Objective - Vital Signs Vital signs: Vital Signs Temp 98.0 F 08/19/22 23:32 Pulse 110 H 08/20/22 04:00 Resp 19 08/20/22 04:00 BP 148/80 08/20/22 04:00 Pulse Ox 92 L 08/20/22 04:00 FiO2 Intake & Output 08/19/22 08/20/22 08/20/22 18:59 06:59 18:59 Intake Total 1460 949 Output Total 770 330 Balance 690 619 Intake: IV 329 Sodium Chloride 0.9% 1, 320 000 ml @ 80 mls/hr IV . [id number] [facility] Rx#:[id number] pressure bag 9 Intake, IV Titration 880 80 Amount Sodium Chloride 0.9% 1, 880 80 000 ml @ 80 mls/hr IV . [id number] [facility] Rx#:[id number] Oral 580 540 Output: Urine 770 330 Other: Voiding Method Indwelling Catheter Indwelling Catheter ABP, PAP, CO, CI - Last Documented Arterial Blood Pressure 156/87 - Exam General appearance: The patient is alert, oriented, appears in no acute distress. HET: Head is normocephalic and atraumatic. Pupils are equal and reactive. Neck: Supple. Trachea midline. Heart: Regular. Lungs: Equal expansion, normal respiratory effort. Abdomen: Soft, mild tenderness to palpation,, nondistended. Extremities: Normal skin color and turgor. No cyanosis, rash, ulceration, clubbing, or edema. Bilateral groins with dressing clean dry and intact, no bleeding noted, no hematoma. Palpable DP pulses bilaterally. Neurological: No focal deficits. - Labs CBC & Chem 7: 08/20/22 09:39 08/20/22 09:39 Labs: Abnormal Lab Results - Last 24 Hours (Table) 08/19/22 08/19/22 Range/Units 09:30 18:45 WBC 16.4 H (3.8-10.6) k/uL RBC 3.59 L (4.30-5.90) m/uL Hgb 10.6 L (13.0-17.5) gm/dL Hct 32.2 L (39.0-53.0) % Plt Count 143 L (150-450) k/uL Neutrophils # 12.6 H (1.3-7.7) k/uL Monocytes # 1.2 H (0-1.0) k/uL Chloride 111 H (98-107) mmol/L Carbon Dioxide 21 L (22-30) mmol/L BUN 23 H (9-20) mg/dL Creatinine 1.40 H (0.66-1.25) mg/dL Glucose 175 H (74-99) mg/dL Assessment and Plan Assessment: 1. Ruptured 7.5 cm infrarenal abdominal aortic aneurysm status post per cutaneous endovascular aortic repair 2. Tachycardia 3. Abdominal pain 4. Right hydronephrosis 5. Kidney stone Plan: 1. Daily CBC 2. Continue with recommendations from cardiology 3. Incentive spirometer to bedside, encourage use 4. Continue with pain control 5. Encourage ambulation 6. Continue medical management per primary team 7. Heart healthy diet Thank you for this consultation, we'll continue to follow. The impression and plan of care has been dictated as directed. I performed a history and examination of this patient, discussed the same with the dictator. I agree with the dictator's note ,documented as a scribe. Any additional findings or plans will be noted.
--- NOTE | 2022-08-20 13:12 | P.PN ---
Subjective Progress Note Date: 08/20/22 Principal diagnosis: Right hydronephrosis The patient is a 56-year-old male with a past medical history significant for hypertension, multiple kidney stones, and an abdominal aortic aneurysm measuring 5.7cm in May 2022. At that time he was seen and recommended to undergo an aortic repair which he refused. He presented to the emergency department on 08/18/22 with severe abdominal pain that radiated to his back. He was worked up with a CTA which demonstrated an enlarged infrarenal AAA, now measuring 7.5cm with surrounding hemorrhage concern for rupture. The CTA also showed right-sided hydronephrosis and hydroureter similar to his last exam on 05/19/22. There are multiple calculi in the right kidney that measure up to 1 cm. There is a 3 cm cortical cyst posterior right kidney. The kidney with no signs of obstruction. There is also apparent clearing of obstructing calculus in the mid right ureter compared to the old exam on. On 08/29/22 he went to the OR with Dr. Doran for a percutaneous endovascular aortic repair. 08/19 The patient was examined in the ICU. He complains of intermittent right flank pain. He reports a history of multiple kidney stones that have required surgical intervention. He also has a history of right ureteral stricture and underwent a balloon dilation in June 2022. He is well known to Dr. Mayo. His current hydronephrosis could be secondary to a recurrence of his ureteral stricture or be a result of inflammation from the ruptured AAA. Given the patient underwent surgery yesterday, will continue to trend his creatinine. Serum creatinine 1.4 today. The patient may require stent placement or ureteroplasty once he recovers from his AAA repair. Objective - Vital Signs Vital signs: Vital Signs Temp 98.0 F 08/19/22 23:32 Pulse 110 H 08/20/22 04:00 Resp 19 08/20/22 04:00 BP 148/80 08/20/22 04:00 Pulse Ox 92 L 08/20/22 04:00 FiO2 Intake & Output 08/19/22 08/20/22 08/20/22 18:59 06:59 18:59 Intake Total 1460 949 Output Total 770 330 Balance 690 619 Intake: IV 329 Sodium Chloride 0.9% 1, 320 000 ml @ 80 mls/hr IV . [id number] [facility] Rx#:[id number] pressure bag 9 Intake, IV Titration 880 80 Amount Sodium Chloride 0.9% 1, 880 80 000 ml @ 80 mls/hr IV . [id number] [facility] Rx#:[id number] Oral 580 540 Output: Urine 770 330 Other: Voiding Method Indwelling Catheter Indwelling Catheter ABP, PAP, CO, CI - Last Documented Arterial Blood Pressure 156/87 - Exam HEENT: Head is atraumatic, normocephalic. Lungs: Respirations even and nonlabored. On RA : Normal phallus, normal urethral meatus. The scrotum and testes are normal. Massey catheter present draining clear yellow urine Skin: Warm and dry Neurologic: Alert and oriented 3, CN II-XII grossly intact. No focal deficits. Psychiatric: Appropriate mood and affect. - Labs CBC & Chem 7: 08/20/22 09:39 08/20/22 09:39 Labs: Abnormal Lab Results - Last 24 Hours (Table) 08/19/22 08/19/22 Range/Units 09:30 18:45 WBC 16.4 H (3.8-10.6) k/uL RBC 3.59 L (4.30-5.90) m/uL Hgb 10.6 L (13.0-17.5) gm/dL Hct 32.2 L (39.0-53.0) % Plt Count 143 L (150-450) k/uL Neutrophils # 12.6 H (1.3-7.7) k/uL Monocytes # 1.2 H (0-1.0) k/uL Chloride 111 H (98-107) mmol/L Carbon Dioxide 21 L (22-30) mmol/L BUN 23 H (9-20) mg/dL Creatinine 1.40 H (0.66-1.25) mg/dL Glucose 175 H (74-99) mg/dL Assessment and Plan Assessment: The patient is awake and eating breakfast. He is no longer in the ICU. He continues to have right flank pain. At this time it is unclear if the pain is related to inflammation/hematoma from his AAA or from his hydronephrosis. We will continue to allow the patient to recover from his AAA repair and monitor his creatinine. If the creatinine fails to return to baseline, a right ureteral stent reinsertion will be considered. His baseline creatinine over the last year was 0.8-1.2. Today's creatinine is 1.25. (1) Hydronephrosis, right Current Visit: No Status: Acute Code(s): N13.30 - UNSPECIFIED HYDRONEPHROSIS SNOMED Code(s): 28556459 (2) Kidney stone on right side Current Visit: Yes Status: Acute Code(s): N20.0 - CALCULUS OF KIDNEY SNOMED Code(s): 96365613 Plan: - Maintain Massey catheter - No urological interventions warranted at this time - Continue to monitor creatinine Impression and plan of care have been directed as dictated by the signing physician. Aby Russell nurse practitioner acting as scribe for signing physician. Aby Russell [facility] Palliative Care/Urology Spectralink [id number] Email: [email or web address] I have personally seen and examined the patient, reviewed the documentation and agree with the assessment and plan as written. Number of minutes spent on the visit: 15. Kali Mohr MD
--- NOTE | 2022-08-20 14:03 | P.PN ---
Subjective Progress Note Date: 08/20/22 Principal diagnosis: Ruptured AAA. This is a 56-year-old male patient with a known history of hypertension, multiple kidney stones, abdominal aortic aneurysm previously measuring 5.7 cm on most recent CAT scan 08/06/2022 and being followed in the outpatient setting. He presented here to the emergency room last evening with severe abdominal pain that radiated to his back. CT angiogram with runoff revealed a 7.3 cm lower abdominal aortic aneurysm with thrombus an acute retroperitoneal hemorrhage along the right psoas muscle measuring up to 4 cm in thickness. There is leak ing abdominal aortic aneurysm. He had undergone emergent endovascular aortic repair with aa AFX II device under ultrasound-guided access by Dr. Doran. Both femoral arteries were accessed for the procedure. He was admitted to the intensive care unit following the surgery. Seen today in consultation. He is awake and alert in no acute distress. He is maintaining good O2 saturations in the 90s on 3 L/m per nasal cannula. He has normal saline at 80 mL per hour. White count 19.4. Hemoglobin 11.5. Sodium 141. Potassium 4.7. Bicarb 21. BUN 23. Creatinine 1.40. Glucose 175. His home medications have been resumed. Progress note dated 08/20/2022. The patient was seen yesterday in consultation, in the intensive care unit. He is a 56-year-old male patient with a known history of hypertension, kidney stones, abdominal aortic aneurysm, which previously measured 5.7 cm. The patient was sent here to the emergency room, severe abdominal pain, that radiated to his back. CT angiogram with runoff revealed 7.3 cm lower abdominal aortic aneurysm, with thrombus, with acute retroperitoneal hemorrhage. The patient underwent emergent endovascular aortic repair with a AFX 2 device, under ultrasound-guided access. Currently, the patient's doing well. He was transferred out of the intensive care unit last night. He is on room air. Today's postop day #2. Is getting saline at 80 mL an hour. He has no specific complaints today. White count 17.8, hemoglobin 9.9, hematocrit 30, and platelet count 142,000. Sodium 138, potassium 4.3, chloride 106, CO2 24, BUN 27, and creatinine 1.25. Objective - Vital Signs Vital signs: Vital Signs Temp 100.3 F H 08/20/22 11:17 Pulse 127 H 08/20/22 11:17 Resp 20 08/20/22 11:17 BP 115/75 08/20/22 11:17 Pulse Ox 93 L 08/20/22 11:17 FiO2 Intake & Output 08/19/22 08/20/22 08/20/22 18:59 06:59 18:59 Intake Total 1460 949 200 Output Total 770 330 275 Balance 690 619 -75 Intake: IV 329 Sodium Chloride 0.9% 1, 320 000 ml @ 80 mls/hr IV . [id number] [facility] Rx#:[id number] pressure bag 9 Intake, IV Titration 880 80 200 Amount Sodium Chloride 0.9% 1, 880 80 200 000 ml @ 80 mls/hr IV . [id number] [facility] Rx#:[id number] Oral 580 540 Output: Urine 770 330 275 Other: Voiding Method Indwelling Catheter Indwelling Catheter Indwelling Catheter ABP, PAP, CO, CI - Last Documented Arterial Blood Pressure 156/87 - Exam No acute distress, oriented 3. Currently on room air. Saturations are between 93 and 95%. HEENT examination is grossly unremarkable. Neck supple. Full range of motion. No adenopathy thyromegaly or neck vein distention. Cardiovascular examination reveals regular rhythm rate. S1-S2 normal. No S3 or S4. No discernible murmur noted. Heart rate 110 bpm. Lungs reveal mostly clear breath sounds. Breath sounds equal bilaterally. No wheezes. No crackles. Scattered rhonchi noted. Abdomen soft bowel sounds are heard. No masses or tenderness. Extremities are intact. No cyanosis clubbing or edema. Skin is without rash or lesion. Neurologic examination is brief but nonfocal. - Labs CBC & Chem 7: 08/20/22 09:39 08/20/22 09:39 Labs: Abnormal Lab Results - Last 24 Hours (Table) 08/19/22 08/20/22 08/20/22 Range/Units 18:45 09:39 09:39 WBC 16.4 H 17.8 H (3.8-10.6) k/uL RBC 3.59 L 3.30 L (4.30-5.90) m/uL Hgb 10.6 L 9.9 L (13.0-17.5) gm/dL Hct 32.2 L 30.0 L (39.0-53.0) % Plt Count 143 L 142 L (150-450) k/uL Neutrophils # 12.6 H 14.1 H (1.3-7.7) k/uL Monocytes # 1.2 H 1.2 H (0-1.0) k/uL BUN 27 H (9-20) mg/dL Glucose 118 H (74-99) mg/dL Calcium 8.3 L (8.4-10.2) mg/dL Assessment and Plan Assessment: Ruptured abdominal aortic aneurysm status post percutaneous endovascular repair. Postoperative day #2 Acute kidney injury. Obesity. History of nephrolithiasis with previous lithotripsy. Obstructive sleep apnea not utilizing CPAP. Coronary artery disease with previous stent placements. Gastroesophageal reflux disease. History of hypertension. Plan: Plan dated 08/20/2022. The patient appears to be doing reasonably well. He was moved out of the intensive care unit yesterday. He is hemodynamically stable. His respiratory status is stable. He is not requiring any supplemental oxygen. Labs, x-rays, and medications are reviewed. Encouraged him to use the incentive spirometer, every hour while awake. We will continue to follow make recommendations along the way. Prognosis is guarded. Time with Patient: Less than 30
[2022-08-20] MEDS: ONDANSETRON 4 MG/2 ML VIAL IVP PRN (14:37)
--- NOTE | 2022-08-20 15:42 | CT ---
EXAMINATION TYPE: CT angio abdomen pelvis CT DLP: 2670 mGycm, Automated exposure control for dose reduction was used. DATE OF EXAM: 08/20/2022 3:20 PM COMPARISON: CTA thoro abdomen with runoff 08/18/2022, CTA abdomen pelvis 05/19/2022. . CLINICAL INDICATION:Male, 56 years old with history of Tachycardia, postop AAA rupture with repair; P ost op AAA with rupture repair. TECHNIQUE: Multiple thin slice sub-millimeter images were obtained through the abdomen and pelvis bef ore and after administration of contrast. Patient was given Isovue 370, 100 cc intravenously. 3-D r econstructed images and maximum intensity projection images were obtained of the aorta. FINDINGS: CTA Abdomen and pelvis: Postsurgical changes with aortobiiliac stent graft placement for leaking abdo juan luis aortic aneurysm. There is a few foci gas around the grafts within the kas[place] aortic lumen attri buted to surgery. The infrarenal abdominal aortic aneurysm measures 8.6 x 6.2 cm., Previously measure d 8.8 x 6.4 cm on measuring with similar technique. No extraluminal contrast to suggest endoleak. The celiac axis and SMA are widely pain. The PRATIBHA is poorly visualized proximally with the distal portion s opacified. The single bilateral renal arteries are patent. The renal veins appear patent bilaterall y. The common iliac arteries are patent. The internal/external iliac arteries are patent bilaterally. There is a slitlike but opacified appearance of the IVC at the region of the retroperitoneum hematom a. VISCERA: The liver, spleen, adrenal glands, kidneys, pancreas, and gallbladder are not optimally enha nced due the arterial phase utilized. LIVER: Diffusely hypoattenuating parenchyma. GALLBLADDER AND BILE DUCTS: Vicarious excretion of contrast within the gallbladder. PANCREAS: Unremarkable. SPLEEN: Unremarkable. ADRENAL GLANDS: Unremarkable. KIDNEYS AND URETERS: Similar right-sided hydronephrosis and hydroureter. No obstructing calculus iden tified. Nonobstructive bilateral renal calculi demonstrated. New wedge-shaped regions of hypodensity demonstrated within the superior pole of the left kidney. Stable bilateral renal cysts. PELVIS BLADDER: Nondistended with Massey catheter in place. REPRODUCTIVE: Coarse calcifications of the prostate gland are identified. ABDOMEN & PELVIS STOMACH AND BOWEL: Unremarkable. No evidence of bowel obstruction. PERITONEUM/RETROPERITONEUM: No evidence of pneumoperitoneum. Marginal decrease in size of retroperito perico hemorrhage most pronounced along the right iliopsoas and around the aorta. MUSCULOSKELETAL: No acute osseous abnormalities LYMPH NODES: No gross evidence for lymphadenopathy. SOFT TISSUE/ABDOMINAL WALL: Unremarkable LOWER CHEST: Bibasilar subsegmental atelectasis. Mildly prominent heart. No pericardial effusion. Cor onary arterial calcifications. No deformity of the anterior wall of the left ventricle consistent wit h a left ventricular aneurysm. IMPRESSION 1. Postsurgical changes from aortobiiliac stent graft with mild decreased size of infrarenal abdomin al aortic aneurysm which was previously documented to be leaking with marginal decrease in size of re troperitoneal hemorrhage. No evidence for endoleak. 2. Wedge-shaped regions of low-attenuation within the upper pole the left kidney favored to represent infarcts. The renal arteries and renal veins appear to be patent. 3. Stable right-sided hydronephrosis without obstructing calculus identified. 4. Nonobstructive bilateral renal calculi. 5. Similar appearance of left ventricular aneurysm.
--- NOTE | 2022-08-20 16:26 | PN ---
PROGRESS NOTE SUBJECTIVE: This is a 56-year-old gentleman came with abdominal aortic aneurysm with rupture, underwent an endovascular repair by Dr. Doran. He is still tachycardic. I am recommending we obtain a hemoglobin level, which is not available from today. I am concerned about blood loss for this patient. I would increase the beta chelsea. He is reasonably stable hemodynamically, but tachycardia is definitely a concern and unfortunately labs are not available from this morning even that was written. Vitals are stable. Heart rate is about 120. S1, S2 with tachycardia. Short systolic murmur at the base. Abdomen is soft. No tenderness. Lower extremities reveal diminished pulses. Central nervous system is normal. I will check the hemoglobin and if it is low, we will discuss with Dr. Doran to see if he has any thoughts and a CT angio maybe a good idea or at least an ultrasound. MMODL / IJN: [id number] /
[2022-08-20] MEDS: ATORVASTATIN 40 MG TAB PO SCH (19:51)
[2022-08-20] MEDS: FAMOTIDINE 20 MG TAB PO SCH (19:51)
[2022-08-20] MEDS: LOSARTAN 50 MG TAB PO SCH (19:51)
--- NOTE | 2022-08-20 20:20 | P.PN ---
Subjective This is a pleasant 56 years old male with past medical history of aortic abdominal aneurysm about 5.7 cm there was admitted with abdominal pain about 34 months ago and the evaluated for abdominal aortic aneurysm and found stable and sent home also with evidence of right kidney stones and right hydronephrosis which looks chronic. Other medical problems including coronary artery disease, GERD, hypertension, sleep apnea and osteoarthritis. Patient presents this time because of abdominal pain. Patient states that he had 2 severe pain, the abdominal pain was severe when he came in but now states is much improved after he underwent surgical repair of his aortic aneurysm. However he is complaining of from right back pain radiating to the right flank and to the right groin also reported yesterday with no associated nausea vomiting. He says his Increased Frequency of Urination but No Dysuria or Urgency. Patient was hemodynamically stable. Patient is mildly tachycardic Labs showed leukocytosis with 19.4 k , hemoglobin 11.5. Associated is is unremarkable. Potassium elevated at 6.1 and creatinine elevated at 1.3 ct scan of the Aorta with runoff: 7.3 cm lower abdominal aortic aneurysm with retroperitoneal hemorrhage and along the right psoas muscle. Also that his right sided hydronephrosis and hydroureter similar to last exam and cleared and obstructing calculus in the right mid to ureter. 08/20/2022 Patient is a status post ruptured aortic aneurysm repair. Today's postop day #1. Distal complain from prior total abdominal pain and a lesser extent right- sided abdominal pain. Patient is hemodynamically stable. Afebrile. He has significant periumbilical and right-sided flank AbdominalPain and tenderness. CT of the brain was ordered and results showing decreased size of the aortic aneurysm and retroperitoneal bleed with left kidney infarcts is detected, also right hydronephrosis with no obstruction and bilateral nonobstructive renal calculi. His last leukocytosis was 17,000, slightly low at 9.9 creatinine improving 1. Patient remains on IV hydration and normal saline at 50 mL Objective - Vital Signs Vital signs: Vital Signs Temp 100.3 F H 08/20/22 11:17 Pulse 127 H 08/20/22 11:17 Resp 20 08/20/22 11:17 BP 115/75 08/20/22 11:17 Pulse Ox 93 L 08/20/22 11:17 FiO2 Intake & Output 08/19/22 08/20/22 08/20/22 18:59 06:59 18:59 Intake Total 1460 949 200 Output Total 770 330 275 Balance 690 619 -75 Intake: IV 329 Sodium Chloride 0.9% 1, 320 000 ml @ 80 mls/hr IV . [id number] [facility] Rx#:[id number] pressure bag 9 Intake, IV Titration 880 80 200 Amount Sodium Chloride 0.9% 1, 880 80 200 000 ml @ 80 mls/hr IV . [id number] [facility] Rx#:[id number] Oral 580 540 Output: Urine 770 330 275 Other: Voiding Method Indwelling Catheter Indwelling Catheter Indwelling Catheter ABP, PAP, CO, CI - Last Documented Arterial Blood Pressure 156/87 - Exam GENERAL: The patient is alert and oriented x3, not in any acute distress. Well developed, well nourished. HEENT: Pupils are round and equally reacting to light. EOMI. No scleral icterus. No conjunctival pallor. Normocephalic, atraumatic. No pharyngeal erythema. No thyromegaly. CARDIOVASCULAR: S1 and S2 present. No murmurs, rubs, or gallops. PULMONARY: Chest is clear to auscultation, no wheezing or crackles. -ABDOMEN: Soft, periumbilical tenderness, right flank tenderness, no guarding or rebound tenderness, nondistended, normoactive bowel sounds. No palpable organomegaly. MUSCULOSKELETAL: No joint swelling or deformity. EXTREMITIES: No cyanosis, clubbing, or pedal edema. NEUROLOGICAL: Gross neurological examination did not reveal any focal deficits. SKIN: No rashes. no petechiae. - Labs CBC & Chem 7: 08/20/22 09:39 08/20/22 09:39 Labs: Abnormal Lab Results - Last 24 Hours (Table) 08/19/22 08/20/22 08/20/22 Range/Units 18:45 09:39 09:39 WBC 16.4 H 17.8 H (3.8-10.6) k/uL RBC 3.59 L 3.30 L (4.30-5.90) m/uL Hgb 10.6 L 9.9 L (13.0-17.5) gm/dL Hct 32.2 L 30.0 L (39.0-53.0) % Plt Count 143 L 142 L (150-450) k/uL Neutrophils # 12.6 H 14.1 H (1.3-7.7) k/uL Monocytes # 1.2 H 1.2 H (0-1.0) k/uL BUN 27 H (9-20) mg/dL Glucose 118 H (74-99) mg/dL Calcium 8.3 L (8.4-10.2) mg/dL Assessment and Plan Assessment: Ruptured aortic aneurysm with worsening size 5.7 cm up to 7.3 this admission with evidence of bleeding into the right psoas muscle with retroperitoneal bleeding, status post surgical repair Right hydronephrosis and hydroureter, looks chronic right bilateral nonobstructing kidney stone , Acute kidney injury with hyperkalemia, improving Hypertension History of coronary artery disease status post stent History of GERD and history of sleep apnea History of osteoarthritis Plan: Patient is status post surgical repair of aortic aneurysm, follow-up with vascular surgery to recommendation and pain management Continue monitor sugar Continue with IV hydration Continue with hydralazine when necessary We will keep monitoring and vitals closely Vascular surgery team on the case, pulmonary/critical care 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 Continue same treatment. Continue with symptomatic treatment. Resume home medication. Monitor labs and vitals. DVT and GI prophylaxis. Further recommendations as per clinical course of the patient DVT prophylaxis: no Subcutaneous heparin for bleeding aneurysm GI Prophylaxis: Pepcid PT/OT: Pending Prognosis is guarded thank you for consulting us, we will follow up
[2022-08-20 21:11] VITALS: RESP 18
[2022-08-21] MEDS: SODIUM CHLORIDE 0.9% 1,000 ML IV SCH ×2 (05:53→20:09)
--- NOTE | 2022-08-21 08:58 | CA ---
Transthoracic Echo Report Name: Giorgi Lance Age: 56 Gender: M : 1965 Exam Date: 08/20/2022 13:17 Exam Location: [place] [facility] Ht (in): 63 Wt (lb): 224 Ordering Physician: Neida Solano MD ([id number]) Attending/Referring Phys: Sanitary Aide Rick Lo RDCS Procedure CPT: Indications: LV function Cardiac Hx: Technical Quality: Technically difficult study Contrast 1: Total Dose (mL): Contrast 2: Total Dose (mL): MEASUREMENTS (Male / Female) Normal Values M-MODE Aortic Root Diameter MM 3.0 cm AV Cusp Separation MM 2.0 cm DOPPLER MV Area PHT 12.0 cm??? Mitral E Point Velocity 53.9 cm/s Mitral A Point Velocity 90.8 cm/s Mitral E to A Ratio 0.6 MV Deceleration Time 63.5 ms TR Peak Velocity 222.8 cm/s TR Peak Gradient 19.9 mmHg FINDINGS Left Ventricle Left ventricular ejection fraction is estimated at 35-40 %. Aneurysmal apex. Right Ventricle Normal right ventricular size. Right Atrium Right atrium not well visualized. Left Atrium Normal left atrial size. Mitral Valve Trace to mild mitral regurgitation. Aortic Valve Aortic valve not well visualized. Tricuspid Valve Trace tricuspid regurgitation. Pulmonic Valve Pulmonic valve not well visualized. Pericardium No pericardial or pleural effusion. Aorta Normal size aortic root and proximal ascending aorta. CONCLUSIONS Impaired only function was EF between 35-40% with apical hypokinesia/akinesia. The apex of the LV appears to be aneurysmal Poorly visualized aortic valve Poorly visualized mitral valve No evidence of pericardial effusion Previewed by: Dr. Ajit Berry MD (Electronically Signed) Final Date: 21 August 2022 08:57
[2022-08-21] MEDS: ASPIRIN 81 MG PO SCH (08:59)
[2022-08-21] MEDS: METOPROLOL TARTRATE 50 MG TAB PO SCH ×3 (08:59→20:17)
[2022-08-21] MEDS: DOCUSATE 100 MG CAP PO SCH (08:59)
[2022-08-21] MEDS: HYDROcodone/APAP 5-325MG 1 EACH TAB PO PRN ×2 (08:59→17:02)
[2022-08-21] MEDS: FAMOTIDINE 20 MG TAB PO SCH ×2 (08:59→20:16)
[2022-08-21 09:00] LABS: Basophils % (A) 0 %; Eosinophils # (A) 0.1 k/uL (0-0.7); Eosinophils % (A) 0 %; HCT 28.5 % (39.0-53.0); HGB 9.3 gm/dL (13.0-17.5); Lymphocytes # (A) 1.9 k/uL (1.0-4.8); Lymphocytes % (A) 12 %; MCH 29.4 pg (25.0-35.0); MCHC 32.6 g/dL (31.0-37.0); Mean Platelet Volume 7.8; Monocytes # (A) 0.9 k/uL (0-1.0); Monocytes % (A) 6 %; Neutrophils # (A) 12.6 k/uL (1.3-7.7); Neutrophils % (A) 81 %; Platelet Count 132 k/uL (150-450); RBC 3.17 m/uL (4.30-5.90); RDW 14.9 % (11.5-15.5); WBC 15.6 k/uL (3.8-10.6)
[2022-08-21 09:14] LABS: African American GFR (CKD) >90 (>60 ml/min/1.73 sqM); Anion Gap 6 mmol/L; Blood Urea Nitrogen 23 mg/dL (9-20); Calcium 8.7 mg/dL (8.4-10.2); Carbon Dioxide 24 mmol/L (22-30); Chloride 108 mmol/L (98-107); Glucose 135 mg/dL (74-99); Non-African American GFR(CKD) 83 (>60 ml/min/1.73 sqM); Sodium 138 mmol/L (137-145)
--- NOTE | 2022-08-21 09:27 | P.PN ---
Subjective Progress Note Date: 08/21/22 Principal diagnosis: Right hydronephrosis The patient is a 56-year-old male with a past medical history significant for hypertension, multiple kidney stones, and an abdominal aortic aneurysm measuring 5.7cm in May 2022. At that time he was seen and recommended to undergo an aortic repair which he refused. He presented to the emergency department on 08/18/22 with severe abdominal pain that radiated to his back. He was worked up with a CTA which demonstrated an enlarged infrarenal AAA, now measuring 7.5cm with surrounding hemorrhage concern for rupture. The CTA also showed right-sided hydronephrosis and hydroureter similar to his last exam on 05/19/22. There are multiple calculi in the right kidney that measure up to 1 cm. There is a 3 cm cortical cyst posterior right kidney. The kidney with no signs of obstruction. There is also apparent clearing of obstructing calculus in the mid right ureter compared to the old exam on. On 08/29/22 he went to the OR with Dr. Doran for a percutaneous endovascular aortic repair. 08/19 The patient was examined in the ICU. He complains of intermittent right flank pain. He reports a history of multiple kidney stones that have required surgical intervention. He also has a history of right ureteral stricture and underwent a balloon dilation in June 2022. He is well known to Dr. Mayo. His current hydronephrosis could be secondary to a recurrence of his ureteral stricture or be a result of inflammation from the ruptured AAA. Given the patient underwent surgery yesterday, will continue to trend his creatinine. Serum creatinine 1.4 today. The patient may require stent placement or ureteroplasty once he recovers from his AAA repair. 08/20 The patient is awake and eating breakfast. He is no longer in the ICU. He continues to have right flank pain. At this time it is unclear if the pain is related to inflammation/hematoma from his AAA or from his hydronephrosis. We will continue to allow the patient to recover from his AAA repair and monitor his creatinine. If the creatinine fails to return to baseline, a right ureteral stent reinsertion will be considered. His baseline creatinine over the last year was 0.8-1.2. Today's creatinine is 1.25. Objective - Vital Signs Vital signs: Vital Signs Temp 98.3 F 08/21/22 08:00 Pulse 103 H 08/21/22 08:00 Resp 18 08/21/22 08:00 BP 160/90 08/21/22 08:00 Pulse Ox 92 L 08/21/22 08:00 FiO2 Intake & Output 08/20/22 08/21/22 08/21/22 18:59 06:59 18:59 Intake Total 200 118 Output Total 850 1000 Balance -650 -1000 118 Intake: Intake, IV Titration 200 Amount Sodium Chloride 0.9% 1, 200 000 ml @ 80 mls/hr IV . [id number] [facility] Rx#:[id number] Oral 118 Output: Urine 850 1000 Other: Voiding Method Indwelling Catheter Indwelling Catheter ABP, PAP, CO, CI - Last Documented Arterial Blood Pressure 156/87 - Exam HEENT: Head is atraumatic, normocephalic. Lungs: Respirations even and nonlabored. On RA : Normal phallus, normal urethral meatus. The scrotum and testes are normal. Massey catheter present draining clear yellow urine Skin: Warm and dry Neurologic: Alert and oriented 3, CN II-XII grossly intact. No focal deficits. Psychiatric: Appropriate mood and affect. - Labs CBC & Chem 7: 08/21/22 08:27 08/21/22 08:27 Labs: Abnormal Lab Results - Last 24 Hours (Table) 08/20/22 08/20/22 08/21/22 Range/Units 09:39 09:39 08:27 WBC 17.8 H 15.6 H (3.8-10.6) k/uL RBC 3.30 L 3.17 L (4.30-5.90) m/uL Hgb 9.9 L 9.3 L (13.0-17.5) gm/dL Hct 30.0 L 28.5 L (39.0-53.0) % Plt Count 142 L 132 L (150-450) k/uL Neutrophils # 14.1 H 12.6 H (1.3-7.7) k/uL Monocytes # 1.2 H (0-1.0) k/uL BUN 27 H (9-20) mg/dL Glucose 118 H (74-99) mg/dL Calcium 8.3 L (8.4-10.2) mg/dL Assessment and Plan Assessment: The patient is sitting up in the chair this morning. He states he is feeling a little better everyday. His right flank pain has improved. Hgb stable at 9.3, creatinine continues to trend down and it 1.0 today. No urological intervention warranted at this time. (1) Hydronephrosis, right Current Visit: No Status: Acute Code(s): N13.30 - UNSPECIFIED HYDRONEPHROSIS SNOMED Code(s): 91039235 (2) Kidney stone on right side Current Visit: Yes Status: Acute Code(s): N20.0 - CALCULUS OF KIDNEY SNOMED Code(s): 21024239 Plan: - Remove Massey catheter today - Continue to monitor creatinine Impression and plan of care have been directed as dictated by the signing physician. Aby Russell nurse practitioner acting as scribe for signing physician. Aby Russell [facility] Palliative Care/Urology [facility] [id number] Email: [email or web address] I have personally seen and examined the patient, reviewed the documentation and agree with the assessment and plan as written. Number of minutes spent on the visit: 15. Kali Mohr MD
--- NOTE | 2022-08-21 10:21 | P.PN ---
Subjective Progress Note Date: 08/21/22 Principal diagnosis: Ruptured AAA Patient was seen and examined as a follow-up. He is sitting up in the bedside chair. Massey catheter remains in place. Has good urine output. He is postop day #3 percutaneous endovascular repair of ruptured abdominal aortic aneurysm. Has some complaints of abdominal discomfort however improved from admission. He denies any chest pain or shortness of breath. He is passing flatus, no bowel movement. He has been afebrile. Today's vitals temp 98.3 heart rate 97, blood pressure 154/90 oxygen level 93% on room air. Yesterday cardiology was concerned for possible bleed due to tachycardia. CT angiogram abdomen and pelvis ordered which reported postsurgical changes from aortobiiliac stent graft with mild decreased size of infrarenal abdominal aortic aneurysm which was previously documented to be leaking with marginal decrease in size of retroperitoneal hemorrhage. No evidence of endoleak. Wedge-shaped regions of low attenuation within the upper pole left kidney favored to represent infarcts. Renal arteries renal veins appear patent. Today's labs WBC 15.6 hemoglobin 9.3 platelet count 132,000 sodium 138 potassium 4.0 BUN 23 creatinine 1.0 glucose 135 Objective - Vital Signs Vital signs: Vital Signs Temp 98.7 F 08/21/22 00:00 Pulse 97 08/21/22 04:00 Resp 18 08/21/22 04:00 BP 154/90 08/21/22 04:00 Pulse Ox 93 L 08/21/22 04:00 FiO2 Intake & Output 08/20/22 08/21/22 08/21/22 18:59 06:59 18:59 Intake Total 200 Output Total 850 1000 Balance -650 -1000 Intake: Intake, IV Titration 200 Amount Sodium Chloride 0.9% 1, 200 000 ml @ 80 mls/hr IV . [id number] [facility] Rx#:[id number] Output: Urine 850 1000 Other: Voiding Method Indwelling Catheter Indwelling Catheter ABP, PAP, CO, CI - Last Documented Arterial Blood Pressure 156/87 - Exam General appearance: The patient is alert, oriented, appears in no acute distress. HET: Head is normocephalic and atraumatic. Pupils are equal and reactive. Neck: Supple. Trachea midline. Heart: Regular. Lungs: Equal expansion, normal respiratory effort. Abdomen: Soft, mild tenderness to palpation,, nondistended. Extremities: Normal skin color and turgor. No cyanosis, rash, ulceration, clubb ing, or edema. Bilateral groins with dressing clean dry and intact, no bleeding noted, no hematoma. Palpable DP pulses bilaterally. Neurological: No focal deficits. - Labs CBC & Chem 7: 08/21/22 08:27 08/21/22 08:27 Labs: Abnormal Lab Results - Last 24 Hours (Table) 08/20/22 08/20/22 Range/Units 09:39 09:39 WBC 17.8 H (3.8-10.6) k/uL RBC 3.30 L (4.30-5.90) m/uL Hgb 9.9 L (13.0-17.5) gm/dL Hct 30.0 L (39.0-53.0) % Plt Count 142 L (150-450) k/uL Neutrophils # 14.1 H (1.3-7.7) k/uL Monocytes # 1.2 H (0-1.0) k/uL BUN 27 H (9-20) mg/dL Glucose 118 H (74-99) mg/dL Calcium 8.3 L (8.4-10.2) mg/dL Assessment and Plan Assessment: 1. Ruptured 7.5 cm infrarenal abdominal aortic aneurysm status post percutaneous endovascular aortic repair 2. Tachycardia 3. Abdominal pain 4. Right hydronephrosis 5. Kidney stone Plan: 1. Daily CBC 2. Continue with recommendations from cardiology 3. Incentive spirometer to bedside, encourage use 4. Continue with pain control 5. Encourage ambulation 6. Continue medical management per primary team 7. Heart healthy diet 8. CT angiogram abdomen and pelvis ordered and reviewed, with no evidence of active bleed 9. Massey catheter may be discontinued from a vascular surgical standpoint 10. Anticipate discharge in the next 24-48 hours Thank you for this consultation, we'll continue to follow. The impression and plan of care has been dictated as directed. I performed a history and examination of this patient, discussed the same with the dictator. I agree with the dictator's note ,documented as a scribe. Any additional findings or plans will be noted.
--- NOTE | 2022-08-21 11:41 | P.PN ---
Subjective Progress Note Date: 08/21/22 HISTORY OF PRESENT ILLNESS: Patient examined this morning. He is sitting up in the chair. Patient is POD #3 percutaneous endovascular repair of ruptured abdominal aortic aneurysm. He denies chest pain or pressure. He denies shortness of breath. Patient underwent CTA yesterday revealing postsurgical changes from aortobiiliac stent graft with mild decreased size of infrarenal abdominal aortic aneurysm which was previously documented to be leaking with marginal decrease in size of retroperitoneal hemorrhage. No evidence of endoleak. Wedge-shaped regions of low attenuation within the upper pole left kidney favored to represent infarcts. Renal arteries renal veins appear patent. telemetry reveals sinus mechanism. Patient's tachycardia has resolved. He is afebrile this morning.hemoglobin this morning 9.3. Echocardiogram revealed ejection fraction 35-40%. PHYSICAL EXAM: VITAL SIGNS: Reviewed. GENERAL: Well-developed in no acute distress. NECK: Supple. No JVD or thyromegaly LUNGS: Respirations even and unlabored. Lungs essentially clear to auscultation bilaterally. HEART: Regular rate and rhythm. S1 and S2 heard. EXTREMITIES: Normal range of motion. No clubbing or cyanosis. Peripheral pulses intact. No lower extremity edema ASSESSMENT: Ruptured 7.5 cm infrarenal abdominal aortic aneurysm status post percutaneous endovascular aortic repair Sinus tachycardia, improved Coronary artery disease with previous stenting Ischemic cardiomyopathy Hypertension Hyperlipidemia PLAN: Continue current cardiac medications Monitor hemoglobin Continue telemetry monitoring Further recommendations pending patient course Nurse practitioner note has been reviewed by physician. Signing provider agrees with the documented findings, assessment, and plan of care. Objective - Vital Signs Vital signs: Vital Signs Temp 98.3 F 08/21/22 08:00 Pulse 103 H 08/21/22 08:00 Resp 18 08/21/22 08:00 BP 160/90 08/21/22 08:00 Pulse Ox 92 L 08/21/22 08:00 FiO2 Intake & Output 08/20/22 08/21/22 08/21/22 18:59 06:59 18:59 Intake Total 200 118 Output Total 850 1000 1300 Balance -650 -1000 -1182 Intake: Intake, IV Titration 200 Amount Sodium Chloride 0.9% 1, 200 000 ml @ 80 mls/hr IV . [id number] [facility] Rx#:[id number] Oral 118 Output: Urine 850 1000 1300 Uretheral (Massey) 300 Other: Voiding Method Indwelling Catheter Indwelling Catheter Indwelling Catheter ABP, PAP, CO, CI - Last Documented Arterial Blood Pressure 156/87 - Labs CBC & Chem 7: 08/21/22 08:27 08/21/22 08:27 Labs: Abnormal Lab Results - Last 24 Hours (Table) 08/21/22 08/21/22 Range/Units 08:27 08:27 WBC 15.6 H (3.8-10.6) k/uL RBC 3.17 L (4.30-5.90) m/uL Hgb 9.3 L (13.0-17.5) gm/dL Hct 28.5 L (39.0-53.0) % Plt Count 132 L (150-450) k/uL Neutrophils # 12.6 H (1.3-7.7) k/uL Chloride 108 H (98-107) mmol/L BUN 23 H (9-20) mg/dL Glucose 135 H (74-99) mg/dL
--- NOTE | 2022-08-21 12:06 | P.PN ---
Subjective This is a pleasant 56 years old male with past medical history of aortic abdominal aneurysm about 5.7 cm there was admitted with abdominal pain about 34 months ago and the evaluated for abdominal aortic aneurysm and found stable and sent home also with evidence of right kidney stones and right hydronephrosis which looks chronic. Other medical problems including coronary artery disease, GERD, hypertension, sleep apnea and osteoarthritis. Patient presents this time because of abdominal pain. Patient states that he had 2 severe pain, the abdominal pain was severe when he came in but now states is much improved after he underwent surgical repair of his aortic aneurysm. However he is complaining of from right back pain radiating to the right flank and to the right groin also reported yesterday with no associated nausea vomiting. He says his Increased Frequency of Urination but No Dysuria or Urgency. Patient was hemodynamically stable. Patient is mildly tachycardic Labs showed leukocytosis with 19.4 k , hemoglobin 11.5. Associated is is unremarkable. Potassium elevated at 6.1 and creatinine elevated at 1.3 ct scan of the Aorta with runoff: 7.3 cm lower abdominal aortic aneurysm with retroperitoneal hemorrhage and along the right psoas muscle. Also that his right sided hydronephrosis and hydroureter similar to last exam and cleared and obstructing calculus in the right mid to ureter. 08/20/2022 Patient is a status post ruptured aortic aneurysm repair. Today's postop day #1. Distal complain from prior total abdominal pain and a lesser extent right- sided abdominal pain. Patient is hemodynamically stable. Afebrile. He has significant periumbilical and right-sided flank AbdominalPain and tenderness. CT of the brain was ordered and results showing decreased size of the aortic aneurysm and retroperitoneal bleed with left kidney infarcts is detected, also right hydronephrosis with no obstruction and bilateral nonobstructive renal calculi. His last leukocytosis was 17,000, slightly low at 9.9 creatinine improving 1. Patient remains on IV hydration and normal saline at 50 mL 08/21/2022 Patient still complaining of from periumbilical abdominal pain with right flank pain, in the morning states that looks similar to yesterday, however his abdomen looks more soft today. His total has poor appetite. Also he had low-grade temperature yesterday of 100.4, no more fevers since then, also his leukocytosis is improving slowly and gradually. We'll keep monitoring. Currently patient is not on antibiotic. Also we can repeat labs in the morning. Massey catheter in place with urologist recommend discontinuing the Massey catheter. Repeat CAT scan from yesterday showing decreased size of the aneurysm and the retroperitoneal area and bleed. Showing left kidney infarcts which looks as symptomatic. Also showing high right-sided hydronephrosis with bilateral nonobstructive renal calculi. Currently patient on aspirin 81 mg and normal saline at 80 mL per hour. Objective - Vital Signs Vital signs: Vital Signs Temp 98.3 F 08/21/22 08:00 Pulse 103 H 08/21/22 08:00 Resp 18 08/21/22 08:00 BP 160/90 08/21/22 08:00 Pulse Ox 92 L 08/21/22 08:00 FiO2 Intake & Output 08/20/22 08/21/22 08/21/22 18:59 06:59 18:59 Intake Total 200 118 Output Total 850 1000 1300 Balance -650 -1000 -1182 Intake: Intake, IV Titration 200 Amount Sodium Chloride 0.9% 1, 200 000 ml @ 80 mls/hr IV . [id number] [facility] Rx#:[id number] Oral 118 Output: Urine 850 1000 1300 Uretheral (Massey) 300 Other: Voiding Method Indwelling Catheter Indwelling Catheter Indwelling Catheter ABP, PAP, CO, CI - Last Documented Arterial Blood Pressure 156/87 - Exam GENERAL: The patient is alert and oriented x3, not in any acute distress. Well developed, well nourished. HEENT: Pupils are round and equally reacting to light. EOMI. No scleral icterus. No conjunctival pallor. Normocephalic, atraumatic. No pharyngeal erythema. No thyromegaly. CARDIOVASCULAR: S1 and S2 present. No murmurs, rubs, or gallops. PULMONARY: Chest is clear to auscultation, no wheezing or crackles. -ABDOMEN: Soft, periumbilical tenderness, right flank tenderness, no guarding or rebound tenderness, nondistended, normoactive bowel sounds. No palpable organomegaly. MUSCULOSKELETAL: No joint swelling or deformity. EXTREMITIES: No cyanosis, clubbing, or pedal edema. NEUROLOGICAL: Gross neurological examination did not reveal any focal deficits. SKIN: No rashes. no petechiae. - Labs CBC & Chem 7: 08/21/22 08:27 03/22/23 08:27 Labs: Abnormal Lab Results - Last 24 Hours (Table) 08/21/22 08/21/22 Range/Units 08:27 08:27 WBC 15.6 H (3.8-10.6) k/uL RBC 3.17 L (4.30-5.90) m/uL Hgb 9.3 L (13.0-17.5) gm/dL Hct 28.5 L (39.0-53.0) % Plt Count 132 L (150-450) k/uL Neutrophils # 12.6 H (1.3-7.7) k/uL Chloride 108 H (98-107) mmol/L BUN 23 H (9-20) mg/dL Glucose 135 H (74-99) mg/dL Assessment and Plan Assessment: Ruptured aortic aneurysm with worsening size 5.7 cm up to 7.3 this admission with evidence of bleeding into the right psoas muscle with retroperitoneal bleeding, status post surgical repair Right hydronephrosis and hydroureter, looks chronic right bilateral nonobstructing kidney stone , Acute kidney injury with hyperkalemia, improving Hypertension History of coronary artery disease status post stent History of GERD and history of sleep apnea History of osteoarthritis Plan: Patient is status post surgical repair of aortic aneurysm, follow-up with vascular surgery to recommendation and pain management Continue monitor sugar Continue with IV hydration Continue with hydralazine when necessary We will keep monitoring and vitals closely Monitor leukocytosis or any further fever Vascular surgery team on the case, pulmonary/critical care team as well as celebrity manager Labs and medication were reviewed.. Continue same treatment. Continue with symptomatic treatment. Resume home medication. Monitor labs and vitals. DVT and GI prophylaxis. Further recommendations as per clinical course of the patient DVT prophylaxis: no Subcutaneous heparin for bleeding aneurysm GI Prophylaxis: Pepcid PT/OT: Pending Prognosis is guarded thank you for consulting us, we will follow up
--- NOTE | 2022-08-21 14:01 | P.PN ---
Subjective Progress Note Date: 08/21/22 Principal diagnosis: Ruptured AAA. This is a 56-year-old male patient with a known history of hypertension, multiple kidney stones, abdominal aortic aneurysm previously measuring 5.7 cm on most recent CAT scan 08/06/2022 and being followed in the outpatient setting. He presented here to the emergency room last evening with severe abdominal pain that radiated to his back. CT angiogram with runoff revealed a 7.3 cm lower abdominal aortic aneurysm with thrombus an acute retroperitoneal hemorrhage along the right psoas muscle measuring up to 4 cm in thickness. There is leak ing abdominal aortic aneurysm. He had undergone emergent endovascular aortic repair with aa AFX II device under ultrasound-guided access by Dr. Doran. Both femoral arteries were accessed for the procedure. He was admitted to the intensive care unit following the surgery. Seen today in consultation. He is awake and alert in no acute distress. He is maintaining good O2 saturations in the 90s on 3 L/m per nasal cannula. He has normal saline at 80 mL per hour. White count 19.4. Hemoglobin 11.5. Sodium 141. Potassium 4.7. Bicarb 21. BUN 23. Creatinine 1.40. Glucose 175. His home medications have been resumed. Progress note dated 08/20/2022. The patient was seen yesterday in consultation, in the intensive care unit. He is a 56-year-old male patient with a known history of hypertension, kidney stones, abdominal aortic aneurysm, which previously measured 5.7 cm. The patient was sent here to the emergency room, severe abdominal pain, that radiated to his back. CT angiogram with runoff revealed 7.3 cm lower abdominal aortic aneurysm, with thrombus, with acute retroperitoneal hemorrhage. The patient underwent emergent endovascular aortic repair with a AFX 2 device, under ultrasound-guided access. Currently, the patient's doing well. He was transferred out of the intensive care unit last night. He is on room air. Today's postop day #2. Is getting saline at 80 mL an hour. He has no specific complaints today. White count 17.8, hemoglobin 9.9, hematocrit 30, and platelet count 142,000. Sodium 138, potassium 4.3, chloride 106, CO2 24, BUN 27, and creatinine 1.25. Progress note dated 08/21/2022. 56-year-old male with a history of hypertension, kidney stones, and abdominal aortic aneurysm. The patient came to the emergency department with severe abdominal pain, and underwent a repair of his aortic aneurysm. He underwent an emergent endovascular aortic repair with a AFX 2 device. Currently, the patient is seen in room 363. The patient is on room air. He is getting saline at 80 mL an hour. Today's postop day #3. Labs include a white count of 15.6, hemoglobin 9.3, hematocrit 28.5, and platelet count of 232,000. Sodium 138, potassium 4, chlorides 108, CO2 24, anion gap 6, BUN 23, and creatinine 1. Objective - Vital Signs Vital signs: Vital Signs Temp 98.3 F 08/21/22 08:00 Pulse 81 08/21/22 12:00 Resp 18 08/21/22 12:00 BP 136/82 08/21/22 12:00 Pulse Ox 96 08/21/22 12:00 FiO2 Intake & Output 08/20/22 08/21/22 08/21/22 18:59 06:59 18:59 Intake Total 200 118 Output Total 850 1000 1600 Balance -056 -5897 -1285 Intake: Intake, IV Titration 200 Amount Sodium Chloride 0.9% 1, 200 000 ml @ 80 mls/hr IV . [id number] [facility] Rx#:[id number] Oral 118 Output: Urine 850 1000 1600 Uretheral (Massey) 300 Other: Voiding Method Indwelling Catheter Indwelling Catheter Indwelling Catheter ABP, PAP, CO, CI - Last Documented Arterial Blood Pressure 156/87 - Exam No acute distress, oriented 3. Currently on room air. Saturations are 96%. HEENT examination is grossly unremarkable. Neck supple. Full range of motion. No adenopathy thyromegaly or neck vein distention. Cardiovascular examination reveals regular rhythm rate. S1-S2 normal. No S3 or S4. No discernible murmur noted. Heart rate 81 bpm. Lungs reveal mostly clear breath sounds. Breath sounds equal bilaterally. No wheezes. No crackles. Scattered rhonchi noted. Abdomen soft bowel sounds are heard. No masses or tenderness. Extremities are intact. No cyanosis clubbing or edema. Skin is without rash or lesion. Neurologic examination is brief but nonfocal. - Labs CBC & Chem 7: 08/21/22 08:27 08/21/22 08:27 Labs: Abnormal Lab Results - Last 24 Hours (Table) 08/21/22 08/21/22 Range/Units 08:27 08:27 WBC 15.6 H (3.8-10.6) k/uL RBC 3.17 L (4.30-5.90) m/uL Hgb 9.3 L (13.0-17.5) gm/dL Hct 28.5 L (39.0-53.0) % Plt Count 132 L (150-450) k/uL Neutrophils # 12.6 H (1.3-7.7) k/uL Chloride 108 H (98-107) mmol/L BUN 23 H (9-20) mg/dL Glucose 135 H (74-99) mg/dL Assessment and Plan Assessment: Ruptured abdominal aortic aneurysm status post percutaneous endovascular repair. Postoperative day #3. Acute kidney injury. Obesity. History of nephrolithiasis with previous lithotripsy. Obstructive sleep apnea not utilizing CPAP. Coronary artery disease with previous stent placements. Gastroesophageal reflux disease. History of hypertension. Plan: Plan dated 08/20/2022. The patient appears to be doing reasonably well. He was moved out of the intensive care unit yesterday. He is hemodynamically stable. His respiratory status is stable. He is not requiring any supplemental oxygen. Labs, x-rays, and medications are reviewed. Encouraged him to use the incentive spirometer, every hour while awake. We will continue to follow make recommendations along the way. Prognosis is guarded. Plan dated 08/21/2022. The patient is seen today in room 363. He is on room air. He is getting saline at 80 mL an hour. Overall, the patient is doing very well. Labs, x-rays, and medications are reviewed. We continue to recommend incentive spirometer, every hour while awake. We also recommend deep breathing, coughing, clearing of secretions. Prognosis is guarded. We will continue to follow along and make recommendations along the way. Time with Patient: Less than 30
[2022-08-21] MEDS: LOSARTAN 50 MG TAB PO SCH (20:16)
[2022-08-21] MEDS: ATORVASTATIN 40 MG TAB PO SCH (20:16)
[2022-08-22] MEDS: HYDROcodone/APAP 5-325MG 1 EACH TAB PO PRN (00:18)
[2022-08-22] MEDS: SODIUM CHLORIDE 0.9% 1,000 ML IV SCH (04:46)
[2022-08-22 07:59] LABS: Basophils % (A) 0 %; Eosinophils # (A) 0.3 k/uL (0-0.7); Eosinophils % (A) 2 %; HCT 27.8 % (39.0-53.0); HGB 9.1 gm/dL (13.0-17.5); Lymphocytes # (A) 1.6 k/uL (1.0-4.8); Lymphocytes % (A) 13 %; MCH 29.6 pg (25.0-35.0); MCHC 32.8 g/dL (31.0-37.0); MCV 90.2 fL (80.0-100.0); Mean Platelet Volume 8.1; Monocytes # (A) 0.8 k/uL (0-1.0); Monocytes % (A) 6 %; Neutrophils # (A) 9.3 k/uL (1.3-7.7); Neutrophils % (A) 76 %; Platelet Count 134 k/uL (150-450); RBC 3.08 m/uL (4.30-5.90); RDW 14.8 % (11.5-15.5); WBC 12.2 k/uL (3.8-10.6)
[2022-08-22 08:12] LABS: African American GFR (CKD) >90 (>60 ml/min/1.73 sqM); Anion Gap 5 mmol/L; Blood Urea Nitrogen 22 mg/dL (9-20); Calcium 8.5 mg/dL (8.4-10.2); Carbon Dioxide 27 mmol/L (22-30); Chloride 108 mmol/L (98-107); Glucose 100 mg/dL (74-99); Non-African American GFR(CKD) 81 (>60 ml/min/1.73 sqM); Potassium 3.9 mmol/L (3.5-5.1); Sodium 140 mmol/L (137-145)
[2022-08-22] MEDS: ASPIRIN 81 MG PO SCH (09:44)
[2022-08-22] MEDS: HYDROmorphone 1 MG/ML 1 ML SYRINGE IVP PRN (09:44)
[2022-08-22] MEDS: FAMOTIDINE 20 MG TAB PO SCH (09:44)
[2022-08-22] MEDS: METOPROLOL TARTRATE 50 MG TAB PO SCH (09:44)
[2022-08-22] MEDS: DOCUSATE 100 MG CAP PO SCH (09:45)
--- NOTE | 2022-08-22 11:27 | P.PN ---
Subjective Progress Note Date: 08/22/22 Principal diagnosis: Right hydronephrosis The patient is a 56-year-old male with a past medical history significant for hypertension, multiple kidney stones, and an abdominal aortic aneurysm measuring 5.7cm in May 2022. At that time he was seen and recommended to undergo an aortic repair which he refused. He presented to the emergency department on 08/18/22 with severe abdominal pain that radiated to his back. He was worked up with a CTA which demonstrated an enlarged infrarenal AAA, now measuring 7.5cm with surrounding hemorrhage concern for rupture. The CTA also showed right-sided hydronephrosis and hydroureter similar to his last exam on 05/19/22. There are multiple calculi in the right kidney that measure up to 1 cm. There is a 3 cm cortical cyst posterior right kidney. The kidney with no signs of obstruction. There is also apparent clearing of obstructing calculus in the mid right ureter compared to the old exam on. On 08/29/22 he went to the OR with Dr. Doran for a percutaneous endovascular aortic repair. 08/19 The patient was examined in the ICU. He complains of intermittent right flank pain. He reports a history of multiple kidney stones that have required surgical intervention. He also has a history of right ureteral stricture and underwent a balloon dilation in June 2022. He is well known to Dr. Mayo. His current hydronephrosis could be secondary to a recurrence of his ureteral stricture or be a result of inflammation from the ruptured AAA. Given the patient underwent surgery yesterday, will continue to trend his creatinine. Serum creatinine 1.4 today. The patient may require stent placement or ureteroplasty once he recovers from his AAA repair. 08/20 The patient is awake and eating breakfast. He is no longer in the ICU. He continues to have right flank pain. At this time it is unclear if the pain is related to inflammation/hematoma from his AAA or from his hydronephrosis. We will continue to allow the patient to recover from his AAA repair and monitor his creatinine. If the creatinine fails to return to baseline, a right ureteral stent reinsertion will be considered. His baseline creatinine over the last year was 0.8-1.2. Today's creatinine is 1.25. 08/21 The patient is sitting up in the chair this morning. He states he is feeling a little better everyday. His right flank pain has improved. Hgb sta ble at 9.3, creatinine continues to trend down and it 1.0 today. No urological intervention warranted at this time. Objective - Vital Signs Vital signs: Vital Signs Temp 98.4 F 08/21/22 20:00 Pulse 89 08/22/22 04:00 Resp 18 08/22/22 04:00 BP 166/95 08/22/22 04:00 Pulse Ox 96 08/22/22 04:00 FiO2 Intake & Output 08/21/22 08/22/22 08/22/22 18:59 06:59 18:59 Intake Total 354 120 Output Total 1900 300 0 Balance -1546 -300 120 Intake: Oral 354 120 Output: Urine 1900 300 0 Uretheral (Massey) 300 Stool 0 Urine/Stool Mix 0 Emesis 0 Other: Voiding Method Toilet Toilet # Voids 0 # Bowel Movements 0 ABP, PAP, CO, CI - Last Documented Arterial Blood Pressure 156/87 - Exam HEENT: Head is atraumatic, normocephalic. Lungs: Respirations even and nonlabored. On RA : No suprapubic tenderness. Normal phallus, normal urethral meatus. The scrotum and testes are normal. Skin: Warm and dry Neurologic: Alert and oriented 3, CN II-XII grossly intact. No focal deficits. Psychiatric: Appropriate mood and affect. - Labs CBC & Chem 7: 08/22/22 07:06 08/22/22 07:06 Labs: Abnormal Lab Results - Last 24 Hours (Table) 08/22/22 08/22/22 08/22/22 Range/Units 07:06 07:06 07:06 WBC 12.2 H (3.8-10.6) k/uL RBC 3.08 L (4.30-5.90) m/uL Hgb 9.1 L (13.0-17.5) gm/dL Hct 27.8 L (39.0-53.0) % Plt Count 134 L (150-450) k/uL Neutrophils # 9.3 H (1.3-7.7) k/uL Chloride 108 H (98-107) mmol/L BUN 22 H (9-20) mg/dL Glucose 100 H (74-99) mg/dL Procalcitonin 0.21 H (0.02-0.09) ng/mL Assessment and Plan Assessment: The patient is sitting up in the chair eating breakfast. He continues to have right flank pain. He understands that this is likely a result of inflammation and a hematoma from his AAA and will take time to resolve. His creatinine is normal at 1.02. His Massey catheter was removed yesterday. He reports voiding without difficulty. No dysuria or hematuria. He feels as if he is emptying his bladder completely. He is stable to be discharged from a urological standpoint. (1) Hydronephrosis, right Status: Acute Code(s): N13.30 - UNSPECIFIED HYDRONEPHROSIS SNOMED Code(s): 53848402 (2) Kidney stone on right side Status: Acute Code(s): N20.0 - CALCULUS OF KIDNEY SNOMED Code(s): 64704446 Plan: - Stable to discharge from a urological standpoint - Follow up with Dr. Mayo in 1-2 weeks Impression and plan of care have been directed as dictated by the signing physician. bAy Russell nurse practitioner acting as scribe for signing physician. Aby Russell [facility] Palliative Care/Urology Spectralink [id number] Email: [email or web address] I have personally seen and examined the patient, reviewed the documentation and agree with the assessment and plan as written. Number of minutes spent on the visit: 10. Kali Mohr MD
--- NOTE | 2022-08-22 12:16 | P.PN ---
Subjective Progress Note Date: 08/22/22 HISTORY OF PRESENT ILLNESS: Patient examined this morning. He is sitting up in the chair. Patient is POD #3 percutaneous endovascular repair of ruptured abdominal aortic aneurysm. He denies chest pain or pressure. He denies shortness of breath. Patient underwent CTA yesterday revealing postsurgical changes from aortobiiliac stent graft with mild decreased size of infrarenal abdominal aortic aneurysm which was previously documented to be leaking with marginal decrease in size of retroperitoneal hemorrhage. No evidence of endoleak. Wedge-shaped regions of low attenuation within the upper pole left kidney favored to represent infarcts. Renal arteries renal veins appear patent. telemetry reveals sinus mechanism. Patient's tachycardia has resolved. He is afebrile this morning.hemoglobin this morning 9.3. Echocardiogram revealed ejection fraction 35-40%. 08/23/2022 Patient examined this morning. Patient is sitting up in the chair. Patient denies chest pain or pressure. He denies shortness of breath. Vital signs are stable. He is hoping to be discharged home today. PHYSICAL EXAM: VITAL SIGNS: Reviewed. GENERAL: Well-developed in no acute distress. NECK: Supple. No JVD or thyromegaly LUNGS: Respirations even and unlabored. Lungs essentially clear to auscultation bilaterally. HEART: Regular rate and rhythm. S1 and S2 heard. EXTREMITIES: Normal range of motion. No clubbing or cyanosis. Peripheral pulses intact. No lower extremity edema ASSESSMENT: Ruptured 7.5 cm infrarenal abdominal aortic aneurysm status post percutaneous endovascular aortic repair Sinus tachycardia, resolved Coronary artery disease with previous stenting Ischemic cardiomyopathy Hypertension Hyperlipidemia PLAN: Continue current cardiac medications Patient is stable for discharge home today from a cardiac standpoint Nurse practitioner note has been reviewed by physician. Signing provider agrees with the documented findings, assessment, and plan of care. Objective - Vital Signs Vital signs: Vital Signs Temp 98.2 F 08/22/22 08:00 Pulse 91 08/22/22 08:00 Resp 18 08/22/22 08:00 BP 150/90 08/22/22 08:00 Pulse Ox 96 08/22/22 08:00 FiO2 Intake & Output 08/21/22 08/22/22 08/22/22 18:59 06:59 18:59 Intake Total 354 120 Output Total 1900 300 0 Balance -1546 -300 120 Intake: Oral 354 120 Output: Urine 1900 300 0 Uretheral (Massey) 300 Stool 0 Urine/Stool Mix 0 Emesis 0 Other: Voiding Method Toilet Toilet Toilet # Voids 0 # Bowel Movements 0 ABP, PAP, CO, CI - Last Documented Arterial Blood Pressure 156/87 - Labs CBC & Chem 7: 08/22/22 07:06 08/22/22 07:06 Labs: Abnormal Lab Results - Last 24 Hours (Table) 08/22/22 08/22/22 08/22/22 Range/Units 07:06 07:06 07:06 WBC 12.2 H (3.8-10.6) k/uL RBC 3.08 L (4.30-5.90) m/uL Hgb 9.1 L (13.0-17.5) gm/dL Hct 27.8 L (39.0-53.0) % Plt Count 134 L (150-450) k/uL Neutrophils # 9.3 H (1.3-7.7) k/uL Chloride 108 H (98-107) mmol/L BUN 22 H (9-20) mg/dL Glucose 100 H (74-99) mg/dL Procalcitonin 0.21 H (0.02-0.09) ng/mL
--- NOTE | 2022-08-22 12:20 | P.DS ---
Providers Date of admission: 08/18/22 22:35 Expected date of discharge: 08/22/22 Attending physician: Camilo Dwyer Consults: 08/18/22 22:35 Consult Physician Stat Consulting Provider: Wilbert Doran Consult Reason/Comments: Ruptured AAA Do you want consulting provider notified?: Already Contacted Consult Physician Stat Consulting Provider: Alex Cole Consult Reason/Comments: Ruptured AAA Do you want consulting provider notified?: Already Contacted 08/18/22 22:45 Consult Physician Routine Consulting Provider: Anthony Calderon Consult Reason/Comments: Kidney stone with hydronephrosis Do you want consulting provider notified?: Yes, Notify in am 08/19/22 01:41 Consult Physician Routine Consulting Provider: Zahra Aquino Consult Reason/Comments: medical management Do you want consulting provider notified?: Yes 08/19/22 08:29 Consult Physician Urgent Consulting Provider: Ajit Berry Consult Reason/Comments: tachycardia, AAA rupture/repair Do you want consulting provider notified?: Yes Primary care physician: Physician Nonstaff Hospital Course: The same pleasant 56-year-old gentleman with a history of known abdominal aortic aneurysm last seen in May measuring 5.7 cm. Patient came into the emergency department with complaints of abdominal pain, was hypotensive and clammy. CT angiogram demonstrated aneurysm that had increased to the sinuses 7.5 cm and was now ruptured with adjacent hematoma. Patient underwent emergent percutaneous endovascular aortic repair with graft. He is postop day #3. Postprocedure he was admitted to the ICU for postop care. He was transferred to the medical floor. Postop patient was having some tachycardia, cardiology was consulted for management. Beta blockers were added. CT angiogram abdomen and pelvis was ordered without any findings of acute bleed. Patient has known history of hydronephrosis, and kidney stones for which urology had been consulted on admission. Urology had followed patient there was no plans for any surgical intervention. They did keep Massey catheter in for 1-2 days longer. That has been discontinued yesterday and patient is voiding well. Patient has been hemodynamically stable, he has been afebrile. He has been up and ambulating, tolerating a regular diet. He denies any shortness of breath or chest pain, no abdominal pain or nausea or vomiting and back pain has improved. Patient is passing flatus, no bowel movement. Cardiology, medicine, urology, and pulmonology have cleared patient for discharge. Exam General appearance: The patient is alert, oriented, appears in no acute distress. HET: Head is normocephalic and atraumatic. Pupils are equal and reactive. Neck: Supple. Trachea midline. Heart: Regular. Lungs: Equal expansion, normal respiratory effort. Abdomen: Soft, mild tenderness to palpation, nondistended. Extremities: Normal skin color and turgor. No cyanosis, rash, ulceration, clubbing, or edema. Bilateral groin access site well approximated, clean dry and intact with no bleeding, no hematoma. Palpable DP pulses bilaterally. Neurological: No focal deficits. Assessment 1. Ruptured 7.5 cm infrarenal abdominal aortic aneurysm status post percutaneous endovascular aortic repair 2. Tachycardia 3. Abdominal pain 4. Right hydronephrosis 5. Kidney stone Plan Plan for discharge home today. Medicine, urology, cardiology, and pulmonology all cleared patient for discharge. Discussed with patient no heavy lifting, otherwise activity not restricted. Continue with a high-fiber low-fat diet. Monitor access sites for bleeding, infection. Follow-up with Dr. Doran in 2 weeks. The impression and plan of care has been dictated as directed. I performed a history and examination of this patient, discussed the same with the dictator. I agree with the dictator's note ,documented as a scribe. Any additional findings or plans will be noted. Procedures: Preoperative diagnosis: Ruptured 7.5 cm Infrarenal abdominal aortic aneurysm Postoperative diagnosis: Same Procedure: Percutaneous Endovascular aortic repair with AFX II device under ultrasound guided access Surgeon: Wilbert Doran DO Patient Condition at Discharge: Serious Plan - Discharge Summary Discharge Rx Participant: No New Discharge Prescriptions: No Action HYDROcodone/APAP 10-325MG [[place] 10-325] 1 tab PO QID PRN PRN Reason: Pain Nitroglycerin Sl Tabs [Nitrostat] 0.4 mg SUBLINGUAL Q5M PRN PRN Reason: Chest Pain Albuterol Inhaler [Ventolin Hfa Inhaler] 2 puff INHALATION RT-Q6H PRN PRN Reason: Shortness Of Breath Aspirin 81 mg PO DAILY 30 Days #30 tab Valsartan/Hydrochlorothiazide [Valsartan-Hctz 320-25 mg Tab] 1 tab PO DAILY allopurinoL 200 mg PO BID Potassium Citrate [Urocit-K] 30 meq PO QAM Baclofen 10 mg PO TID hydroCHLOROthiazide 25 mg PO DAILY carvediloL [Coreg] 25 mg PO BID-W/MEALS Ondansetron [Zofran] 4 mg PO Q6H PRN PRN Reason: Nausea Atorvastatin [Lipitor] 40 mg PO DAILY 30 Days #30 tab Isosorbide Mononitrate ER [Imdur] 30 mg PO DAILY Potassium Citrate [Urocit-K] 15 meq PO HS Olmesartan/Hydrochlorothiazide [Olmesartan-Hctz 40-25 mg Tab] 1 tab PO DAILY Discharge Medication List HYDROcodone/APAP 10-325MG [[place] 10-325] 1 tab PO QID PRN 05/22/20 [History] Nitroglycerin Sl Tabs [Nitrostat] 0.4 mg SUBLINGUAL Q5M PRN 05/22/20 [History] carvediloL [Coreg] 25 mg PO BID-W/MEALS 11/13/21 [History] Albuterol Inhaler [Ventolin Hfa Inhaler] 2 puff INHALATION RT-Q6H PRN 05/19/22 [History] Ondansetron [Zofran] 4 mg PO Q6H PRN 05/19/22 [History] Aspirin 81 mg PO DAILY 30 Days #30 tab 05/20/22 [Rx] Atorvastatin [Lipitor] 40 mg PO DAILY 30 Days #30 tab 05/20/22 [Rx] Isosorbide Mononitrate ER [Imdur] 30 mg PO DAILY 06/14/22 [History] Baclofen 10 mg PO TID 08/19/22 [History] Olmesartan/Hydrochlorothiazide [Olmesartan-Hctz 40-25 mg Tab] 1 tab PO DAILY 08/19/22 [History] Potassium Citrate [Urocit-K] 15 meq PO HS 08/19/22 [History] Potassium Citrate [Urocit-K] 30 meq PO QAM 08/19/22 [History] Valsartan/Hydrochlorothiazide [Valsartan-Hctz 320-25 mg Tab] 1 tab PO DAILY 08/19/22 [History] allopurinoL 200 mg PO BID 08/19/22 [History] hydroCHLOROthiazide 25 mg PO DAILY 08/19/22 [History] Follow up Appointment(s)/Referral(s): Ajit Berry MD [STAFF PHYSICIAN] - 2 Weeks Wilbert Doran DO [STAFF PHYSICIAN] - 2 Weeks Nonstaff,Physician [Primary Care Provider] - 1-2 days Jose Mayo MD [STAFF PHYSICIAN] - 2 Weeks
--- NOTE | 2022-08-22 12:28 | P.PN ---
Subjective This is a pleasant 56 years old male with past medical history of aortic abdominal aneurysm about 5.7 cm there was admitted with abdominal pain about 34 months ago and the evaluated for abdominal aortic aneurysm and found stable and sent home also with evidence of right kidney stones and right hydronephrosis which looks chronic. Other medical problems including coronary artery disease, GERD, hypertension, sleep apnea and osteoarthritis. Patient presents this time because of abdominal pain. Patient states that he had 2 severe pain, the abdominal pain was severe when he came in but now states is much improved after he underwent surgical repair of his aortic aneurysm. However he is complaining of from right back pain radiating to the right flank and to the right groin also reported yesterday with no associated nausea vomiting. He says his Increased Frequency of Urination but No Dysuria or Urgency. Patient was hemodynamically stable. Patient is mildly tachycardic Labs showed leukocytosis with 19.4 k , hemoglobin 11.5. Associated is is unremarkable. Potassium elevated at 6.1 and creatinine elevated at 1.3 ct scan of the Aorta with runoff: 7.3 cm lower abdominal aortic aneurysm with retroperitoneal hemorrhage and along the right psoas muscle. Also that his right sided hydronephrosis and hydroureter similar to last exam and cleared and obstructing calculus in the right mid to ureter. 08/20/2022 Patient is a status post ruptured aortic aneurysm repair. Today's postop day #1. Distal complain from prior total abdominal pain and a lesser extent right- sided abdominal pain. Patient is hemodynamically stable. Afebrile. He has significant periumbilical and right-sided flank AbdominalPain and tenderness. CT of the brain was ordered and results showing decreased size of the aortic aneurysm and retroperitoneal bleed with left kidney infarcts is detected, also right hydronephrosis with no obstruction and bilateral nonobstructive renal calculi. His last leukocytosis was 17,000, slightly low at 9.9 creatinine improving 1. Patient remains on IV hydration and normal saline at 50 mL 08/21/2022 Patient still complaining of from periumbilical abdominal pain with right flank pain, in the morning states that looks similar to yesterday, however his abdomen looks more soft today. His total has poor appetite. Also he had low-grade temperature yesterday of 100.4, no more fevers since then, also his leukocytosis is improving slowly and gradually. We'll keep monitoring. Currently patient is not on antibiotic. Also we can repeat labs in the morning. Massey catheter in place with urologist recommend discontinuing the Massey catheter. Repeat CAT scan from yesterday showing decreased size of the aneurysm and the retroperitoneal area and bleed. Showing left kidney infarcts which looks as symptomatic. Also showing high right-sided hydronephrosis with bilateral nonobstructive renal calculi. Currently patient on aspirin 81 mg and normal saline at 80 mL per hour. 08/22/2022 Patient clinically doing well, reports improvement in his abdominal pain was not completely resolved as well as right flank pain and is satisfied with the improvement he is making. He rates his pain about 7/10 in severity. However he tolerates diet well and had regular bowel movement this morning and she confirmed to me. He is been afebrile for more than 24 hours Patient also has leukocytosis improvement down to 12.2 today, hemoglobin stable at 9.1, platelet count is normal at 134. BMP and creatinine normal and stable. However procalcitonin0.21 which is low. As per documented recommendation in this system the portcalcitonin 0.1-0.25 been low likelihood for bacterial infection and antibiotics discouraged. Impression currently not on antibiotic, no fever symptoms and we will contact improving. However patient will need close outpatient follow-up. As per patient is following up with pumper helper rj salgado and recommended for the patient and the thickness flap was outpatient follow-up in one week. Abdomen the patient clinically improving, he denies any other symptoms no chest pain dyspnea, no urinary symptoms patient himself thinks he can go home today. I discussed the case with surgical team and they also patient can go home today. Objective - Vital Signs Vital signs: Vital Signs Temp 98.2 F 08/22/22 08:00 Pulse 91 08/22/22 08:00 Resp 18 08/22/22 08:00 BP 150/90 08/22/22 08:00 Pulse Ox 96 08/22/22 08:00 FiO2 Intake & Output 08/21/22 08/22/22 08/22/22 18:59 06:59 18:59 Intake Total 354 120 Output Total 1900 300 0 Balance -1546 -300 120 Intake: Oral 354 120 Output: Urine 1900 300 0 Uretheral (Massey) 300 Stool 0 Urine/Stool Mix 0 Emesis 0 Other: Voiding Method Toilet Toilet Toilet # Voids 0 # Bowel Movements 0 ABP, PAP, CO, CI - Last Documented Arterial Blood Pressure 156/87 - Exam GENERAL: The patient is alert and oriented x3, not in any acute distress. Well developed, well nourished. HEENT: Pupils are round and equally reacting to light. EOMI. No scleral icterus. No conjunctival pallor. Normocephalic, atraumatic. No pharyngeal erythema. No thyromegaly. CARDIOVASCULAR: S1 and S2 present. No murmurs, rubs, or gallops. PULMONARY: Chest is clear to auscultation, no wheezing or crackles. -ABDOMEN: Soft, periumbilical tenderness (improving), right flank tenderness (improving), no guarding or rebound tenderness, nondistended, normoactive bowel sounds. No palpable organomegaly. MUSCULOSKELETAL: No joint swelling or deformity. EXTREMITIES: No cyanosis, clubbing, or pedal edema. NEUROLOGICAL: Gross neurological examination did not reveal any focal deficits. SKIN: No rashes. no petechiae. - Labs CBC & Chem 7: 08/22/22 07:06 08/22/22 07:06 Labs: Abnormal Lab Results - Last 24 Hours (Table) 08/22/22 08/22/22 08/22/22 Range/Units 07:06 07:06 07:06 WBC 12.2 H (3.8-10.6) k/uL RBC 3.08 L (4.30-5.90) m/uL Hgb 9.1 L (13.0-17.5) gm/dL Hct 27.8 L (39.0-53.0) % Plt Count 134 L (150-450) k/uL Neutrophils # 9.3 H (1.3-7.7) k/uL Chloride 108 H (98-107) mmol/L BUN 22 H (9-20) mg/dL Glucose 100 H (74-99) mg/dL Procalcitonin 0.21 H (0.02-0.09) ng/mL Assessment and Plan Assessment: Ruptured aortic aneurysm with worsening size 5.7 cm up to 7.3 this admission with evidence of bleeding into the right psoas muscle with retroperitoneal bleeding, status post surgical repair Right hydronephrosis and hydroureter, looks chronic right bilateral nonobstructing kidney stone mildly elevated leukocytosis, improving without antibiotic. No more fever. low pro-calcitonin Acute kidney injury with hyperkalemia, improving Hypertension History of coronary artery disease status post stent History of GERD and history of sleep apnea History of osteoarthritis Plan: Patient is status post surgical repair of aortic aneurysm, follow-up with vascular surgery to recommendation and pain management Continue monitor sugar I don't think patient need antibiotic right now but he needs close outpatient follow-up. I discussed with the bedside vitrectomy appointment for the patient PCP office in one week, patient was instructed with the same and he verbalized understanding and acceptance Continue with hydralazine when necessary We will keep monitoring and vitals closely Monitor leukocytosis or any further fever Vascular surgery team on the case, pulmonary/critical care team as well as production posting clerk Labs and medication were reviewed.. Continue same treatment. Continue with symptomatic treatment. Resume home medication. Monitor labs and vitals. DVT and GI prophylaxis. Further recommendations as per clinical course of the patient DVT prophylaxis: no Subcutaneous heparin for bleeding aneurysm GI Prophylaxis: Pepci Patient is medically stable for discharge once cleared by vascular surgery primary team and other consultants including neurologist and pulmonary team thank you for consulting us
[2022-08-22 13:08] VITALS: BP 125/80; PULSE 87; TEMP 98
--- NOTE | 2022-08-22 13:44 | P.PN ---
Subjective Progress Note Date: 08/22/22 Principal diagnosis: Ruptured AAA. This is a 56-year-old male patient with a known history of hypertension, multiple kidney stones, abdominal aortic aneurysm previously measuring 5.7 cm on most recent CAT scan 08/06/2022 and being followed in the outpatient setting. He presented here to the emergency room last evening with severe abdominal pain that radiated to his back. CT angiogram with runoff revealed a 7.3 cm lower abdominal aortic aneurysm with thrombus an acute retroperitoneal hemorrhage along the right psoas muscle measuring up to 4 cm in thickness. There is leak ing abdominal aortic aneurysm. He had undergone emergent endovascular aortic repair with aa AFX II device under ultrasound-guided access by Dr. Doran. Both femoral arteries were accessed for the procedure. He was admitted to the intensive care unit following the surgery. Seen today in consultation. He is awake and alert in no acute distress. He is maintaining good O2 saturations in the 90s on 3 L/m per nasal cannula. He has normal saline at 80 mL per hour. White count 19.4. Hemoglobin 11.5. Sodium 141. Potassium 4.7. Bicarb 21. BUN 23. Creatinine 1.40. Glucose 175. His home medications have been resumed. Progress note dated 08/20/2022. The patient was seen yesterday in consultation, in the intensive care unit. He is a 56-year-old male patient with a known history of hypertension, kidney stones, abdominal aortic aneurysm, which previously measured 5.7 cm. The patient was sent here to the emergency room, severe abdominal pain, that radiated to his back. CT angiogram with runoff revealed 7.3 cm lower abdominal aortic aneurysm, with thrombus, with acute retroperitoneal hemorrhage. The patient underwent emergent endovascular aortic repair with a AFX 2 device, under ultrasound-guided access. Currently, the patient's doing well. He was transferred out of the intensive care unit last night. He is on room air. Today's postop day #2. Is getting saline at 80 mL an hour. He has no specific complaints today. White count 17.8, hemoglobin 9.9, hematocrit 30, and platelet count 142,000. Sodium 138, potassium 4.3, chloride 106, CO2 24, BUN 27, and creatinine 1.25. Progress note dated 08/21/2022. 56-year-old male with a history of hypertension, kidney stones, and abdominal aortic aneurysm. The patient came to the emergency department with severe abdominal pain, and underwent a repair of his aortic aneurysm. He underwent an emergent endovascular aortic repair with a AFX 2 device. Currently, the patient is seen in room 363. The patient is on room air. He is getting saline at 80 mL an hour. Today's postop day #3. Labs include a white count of 15.6, hemoglobin 9.3, hematocrit 28.5, and platelet count of 232,000. Sodium 138, potassium 4, chlorides 108, CO2 24, anion gap 6, BUN 23, and creatinine 1. Progress note dated 08/22/2022. 56-year-old male with history of hypertension, kidney stones, and abdominal aortic aneurysm. The patient underwent a repair of his aortic aneurysm. He had a emergent endovascular aortic repair, with an AFX 2 device. Currently, he is resting comfortably in room 363. He's on room air. He's not receiving any IV fluids. He mentions that somebody said to him that he might be discharged today. White count 12.2, hemoglobin 9.1, hematocrit 27.8, and platelet count 134,000. Sodium 140, potassium 3.9, chlorides 108, CO2 27, BUN 22, and creatinine 1.02. Objective - Vital Signs Vital signs: Vital Signs Temp 98 F 08/22/22 12:00 Pulse 87 08/22/22 12:00 Resp 18 08/22/22 12:00 BP 125/80 08/22/22 12:00 Pulse Ox 97 08/22/22 12:00 FiO2 Intake & Output 08/21/22 08/22/22 08/22/22 18:59 06:59 18:59 Intake Total 354 240 Output Total 1900 300 0 Balance -1546 -300 240 Intake: Oral 354 240 Output: Urine 1900 300 0 Uretheral (Massey) 300 Stool 0 Urine/Stool Mix 0 Emesis 0 Other: Voiding Method Toilet Toilet Toilet # Voids 0 # Bowel Movements 0 ABP, PAP, CO, CI - Last Documented Arterial Blood Pressure 156/87 - Exam No acute distress, oriented 3. Currently on room air. Saturations are 97 %. HEENT examination is grossly unremarkable. Neck supple. Full range of motion. No adenopathy thyromegaly or neck vein distention. Cardiovascular examination reveals regular rhythm rate. S1-S2 normal. No S3 or S4. No discernible murmur noted. Heart rate 87 bpm. Lungs reveal mostly clear breath sounds. Breath sounds equal bilaterally. No wheezes. No crackles. Scattered rhonchi noted. Abdomen soft bowel sounds are heard. No masses or tenderness. Extremities are intact. No cyanosis clubbing or edema. Skin is without rash or lesion. Neurologic examination is brief but nonfocal. - Labs CBC & Chem 7: 08/22/22 07:06 08/22/22 07:06 Labs: Abnormal Lab Results - Last 24 Hours (Table) 08/22/22 08/22/22 08/22/22 Range/Units 07:06 07:06 07:06 WBC 12.2 H (3.8-10.6) k/uL RBC 3.08 L (4.30-5.90) m/uL Hgb 9.1 L (13.0-17.5) gm/dL Hct 27.8 L (39.0-53.0) % Plt Count 134 L (150-450) k/uL Neutrophils # 9.3 H (1.3-7.7) k/uL Chloride 108 H (98-107) mmol/L BUN 22 H (9-20) mg/dL Glucose 100 H (74-99) mg/dL Procalcitonin 0.21 H (0.02-0.09) ng/mL Assessment and Plan Assessment: Ruptured abdominal aortic aneurysm status post percutaneous endovascular repair. Postoperative day #4. Acute kidney injury. Obesity. History of nephrolithiasis with previous lithotripsy. Obstructive sleep apnea not utilizing CPAP. Coronary artery disease with previous stent placements. Gastroesophageal reflux disease. History of hypertension. Plan: Plan dated 08/20/2022. The patient appears to be doing reasonably well. He was moved out of the intensive care unit yesterday. He is hemodynamically stable. His respiratory status is stable. He is not requiring any supplemental oxygen. Labs, x-rays, and medications are reviewed. Encouraged him to use the incentive spirometer, every hour while awake. We will continue to follow make recommendations along the way. Prognosis is guarded. Plan dated 08/21/2022. The patient is seen today in room 363. He is on room air. He is getting saline at 80 mL an hour. Overall, the patient is doing very well. Labs, x-rays, and medications are reviewed. We continue to recommend incentive spirometer, every hour while awake. We also recommend deep breathing, coughing, clearing of secretions. Prognosis is guarded. We will continue to follow along and make recommendations along the way. Plan dated 08/22/2022. The patient appears to be doing very well. Labs, x-rays, medications are reviewed. Currently, the patient's hospital supplemental oxygen, and not receiving any IV the patient states he he may be discharged home today. He is not sure. He continues to do well without complaints including shortness of breath, cough, wheezing, phlegm production, chest pain, chest discomfort, GI or issues, or any other complaints for that matter. Time with Patient: Less than 30
== END 2022-08-22 14:06 | disposition home or self-care (01) | DRG 268 ==
LOC: EC 20:53 → 2SICU 22:35 → 3SCARD 08-19 23:46
PROVIDERS: ADMIT Hospitalist; ATTEND Hospitalist
PROC: 04V03DZ Restriction of Abdominal Aorta with Intraluminal Device, Percutaneous Approach (ICD-10-PCS; principal; 2022-08-19)
DX: I71.33 Infrarenal abdominal aortic aneurysm, ruptured (principal); R57.8 Other shock; N13.2 Hydronephrosis with renal and ureteral calculous obstruction; N17.9 Acute kidney failure, unspecified; Z87.442 Personal history of urinary calculi; E66.01 Morbid (severe) obesity due to excess calories; Z68.39 Body mass index [BMI] 39.0-39.9, adult; E78.5 Hyperlipidemia, unspecified; E87.5 Hyperkalemia; G47.33 Obstructive sleep apnea (adult) (pediatric); R00.0 Tachycardia, unspecified; M62.89 Other specified disorders of muscle; I10 Essential (primary) hypertension; K21.9 Gastro-esophageal reflux disease without esophagitis; G47.30 Sleep apnea, unspecified; Z95.5 Presence of coronary angioplasty implant and graft; I25.10 Atherosclerotic heart disease of native coronary artery without angina pectoris; I25.5 Ischemic cardiomyopathy; M19.90 Unspecified osteoarthritis, unspecified site; Z28.311 Partially vaccinated for COVID-19; Z88.5 Allergy status to narcotic agent; Z88.0 Allergy status to penicillin; Z79.82 Long term (current) use of aspirin; Z79.899 Other long term (current) drug therapy; Z84.1 Family history of disorders of kidney and ureter
CPT/HCPCS: 34706; 36415; 71275; 74174; 75635; 80048; 80053; 83690; 83735; 84145; 84443; 84484; 85025; 85027; 85610; 85730; 86850; 86900; 86901; 93005; 93306; 96374; 96375; 96376; 99291

== ENCOUNTER 2022-09-11 21:10 | Emergency (ER) | payer MEDICARE, OTHER ==
[2022-09-11 21:22] VITALS: RESP 16; TEMP 97.8
[2022-09-11] MEDS ORDERED: VANCOMYCIN 2,000 MG in SODIUM CHLORIDE 0.9% 500 ML 500 ML IVPB ONE (22:00)
--- NOTE | 2022-09-11 22:05 | ED ---
General Adult HPI - General Chief complaint: Dizziness Stated complaint: transfer Time Seen by Provider: 09/11/22 21:11 Source: patient, EMS, RN notes reviewed, old records reviewed Mode of arrival: EMS Limitations: no limitations - History of Present Illness Initial comments: 76-year-old male who presented for evaluation of possible infected hematoma a djacent to the aortic graft. Patient had a ruptured AAA a proximally 3 weeks ago and underwent endovascular repair. He states that he seen his primary care provider on Friday with chief complaint of dizziness and lightheadedness. He did not report fevers. He had imaging performed on Friday apparently these results are not available. He had a computed tomography scan performed at outside emergency department today which did show the possibility of the infected hematoma adjacent to the right psoas muscle. I have the report for this imaging but have not been able to evaluate the images myself. Patient denies abdominal pain. Denies lower extremity pain. Denies vomiting. Denies URI symptoms. - Related Data Home Medications Medication Instructions Recorded Confirmed HYDROcodone/APAP 10-325MG [[place] 1 tab PO QID PRN 05/22/20 08/19/22 10-325] Nitroglycerin Sl Tabs [Nitrostat] 0.4 mg SUBLINGUAL Q5M PRN 05/22/20 08/19/22 Albuterol Inhaler [Ventolin Hfa 2 puff INHALATION RT-Q6H PRN 05/19/22 08/19/22 Inhaler] Ondansetron [Zofran] 4 mg PO Q6H PRN 05/19/22 08/19/22 Isosorbide Mononitrate ER [Imdur] 30 mg PO DAILY 06/14/22 08/19/22 Baclofen 10 mg PO TID 08/19/22 08/19/22 Potassium Citrate [Urocit-K] 15 meq PO HS 08/19/22 08/19/22 Potassium Citrate [Urocit-K] 30 meq PO QAM 08/19/22 08/19/22 allopurinoL 200 mg PO BID 08/19/22 08/19/22 hydroCHLOROthiazide 25 mg PO DAILY 08/19/22 08/19/22 Previous Rx's Medication Instructions Recorded Aspirin 81 mg PO DAILY 30 Days #30 tab 05/20/22 Atorvastatin [Lipitor] 40 mg PO DAILY 30 Days #30 tab 05/20/22 Docusate [Colace] 100 mg PO DAILY cap 08/22/22 Losartan [Cozaar] 50 mg PO HS #30 tab 08/22/22 Metoprolol Tartrate [Lopressor] 50 mg PO TID 30 Days #90 tab 08/22/22 Allergies Allergy/AdvReac Type Severity Reaction Status Date / Time morphine Allergy Rash/Hives Verified 08/19/22 12:00 Penicillins Allergy Rash/Hives Verified 08/19/22 12:00 Review of Systems ROS Statement: Those systems with pertinent positive or pertinent negative responses have been documented in the HPI. ROS Other: All systems not noted in ROS Statement are negative. Past Medical History Past Medical History: Coronary Artery Disease (CAD), Chest Pain / Angina, GERD/Reflux, Hypertension, Osteoarthritis (OA), Sleep Apnea/CPAP/BIPAP Additional Past Medical History / Comment(s): SLEEP APNEA- NO C-PAP, SPINAL STENOSIS, BACK PAIN., WEARS NECK BRACE AT HS., WEARS BACK BRACE AND USES CANE., KIDNEY STONES, STATES NUMBNESS AT TIMES ON RIGHT SIDE., SOB WITH ACTIVITY. , SEE CARDIOLOGY H & P. 5.7cm AAA History of Any Multi-Drug Resistant Organisms: None Reported Past Surgical History: Heart Catheterization With Stent, Tonsillectomy Additional Past Surgical History / Comment(s): 08/09/20 LEFT KIDNEY LITHROTRIPSY. Bilateral wrists & elbow surgery. Neck surgery. HEart cath with stents 08/19/2017 ([facility]) Past Anesthesia/Blood Transfusion Reactions: No Reported Reaction Date of Last Stent Placement:: 08/19/2017 Past Psychological History: No Psychological Hx Reported Smoking Status: Never smoker Past Alcohol Use History: None Reported Past Drug Use History: None Reported - Past Family History Mother Family Medical History: Cancer Additional Family Medical History / Comment(s): kidney stones Father Family Medical History: Cancer Brother(s) Family Medical History: Cancer Additional Family Medical History / Comment(s): pancreatic ( uncle as well) General Exam Limitations: no limitations General appearance: alert, in no apparent distress Head exam: Present: atraumatic, normocephalic Eye exam: Present: normal appearance, PERRL ENT exam: Present: normal exam Neck exam: Present: normal inspection, tenderness Respiratory exam: Present: normal lung sounds bilaterally. Absent: respiratory distress Cardiovascular Exam: Present: normal rhythm, tachycardia GI/Abdominal exam: Present: soft. Absent: distended, tenderness, guarding Extremities exam: Present: normal inspection, normal capillary refill Neurological exam: Present: alert, oriented X3, CN II-XII intact. Absent: motor sensory deficit Psychiatric exam: Present: normal affect, normal mood Skin exam: Present: warm, dry, intact. Absent: cyanosis, diaphoretic Course Vital Signs 09/11/22 21:13 Temperature 97.8 F Pulse Rate 111 H Respiratory 16 Rate Blood Pressure 128/100 O2 Sat by Pulse 98 Oximetry - Reevaluation(s) Reevaluation #1: 09/11/22 22:40 I discussed case with Dr. Massey who was able to discuss case with Dr. Doran, and review the images from [address] The patient will require interventional radiology and she recommends the patient be transferred to [facility]. Medical Decision Making - Medical Decision Making Was pt. sent in by a medical professional or institution (, PA, [employer], urgent care, hospital, or [facility]...) When possible be specific @ -Sent from outside emergency department Did you speak to anyone other than the patient for history (EMS, parent, family, police, friend...)? What history was obtained from this source @ -No Did you review nursing and triage notes (agree or disagree)? Why? @ -I reviewed and agree with nursing and triage notes Were old charts reviewed (outside hosp., previous admission, EMS record, old EKG, old radiological studies, urgent care reports/EKG's, [facility] records)? Report findings @ -Reviewed previous operative notes from AAA repair Differential Diagnosis (chest pain, altered mental status, abdominal pain women, abdominal pain men, vaginal bleeding, weakness, fever, dyspnea, syncope, headache, dizziness, GI bleed, back pain, seizure, CVA, palpatations, mental health, musculoskeletal)? @ -Infected hematoma EKG interpreted by me (3pts min.). @ -As above X-rays interpreted by me (1pt min.). @ -None done CT interpreted by me (1pt min.). @ -CT images from outside of being loaded not available for review currently U/S interpreted by me (1pt. min.). @ -None done What testing was considered but not performed or refused? (CT, X-rays, U/S, labs)? Why? @ -None What meds were considered but not given or refused? Why? @ -None Did you discuss the management of the patient with other professionals (professionals i.e. , PA, [employer], lab, RT, psych nurse, social media analyst, production line welder, teacher, fisheries officer, case monitor)? Give summary @ -Case discussed with Dr. Massey who recommends transfer to [facility] Was smoking cessation discussed for >3mins.? @ -No Was critical care preformed (if so, how long)? @ -No Were there social determinants of health that impacted care today? How? (Homel essness, low income, unemployed, alcoholism, drug addiction, transportation, low edu. Level, literacy, decrease access to med. care, senior care, rehab)? @ -No Was there de-escalation of care discussed even if they declined (Discuss DNR or withdrawal of care, Hospice)? DNR status @ -No What co-morbidities impacted this encounter? (DM, HTN, Smoking, COPD, CAD, Cancer, CVA, ARF, Chemo, Hep., AIDS, mental health diagnosis, sleep apnea, morbid obesity)? @ -Hypertension, abdominal aortic aneurysm Was patient admitted / discharged? Hospital course, mention meds given and route, prescriptions, significant lab abnormalities, going to OR and other pertinent info. @ -56-year-old male with suspected infected hematoma adjacent to the aorta. Patient has mild tachycardia but is hemodynamically stable. He is afebrile. He had been given Rocephin and Flagyl prior to transfer. A dose of vancomycin is given in the emergency department at [facility]. Patient will be transferred to [facility], case discussed with the ER physician Dr. Messina Undiagnosed new problem with uncertain prognosis? @ -No Drug Therapy requiring intensive monitoring for toxicity (Heparin, Nitro, Insulin, Cardizem)? @ -No Were any procedures done? @ -No Diagnosis/symptom? @ -Possible infected hematoma adjacent to the aorta Acute, or Chronic, or Acute on Chronic? @ -Acute Uncomplicated (without systemic symptoms) or Complicated (systemic symptoms)? @ -Complicated Side effects of treatment? @ -No Exacerbation, Progression, or Severe Exacerbation? @ -No Poses a threat to life or bodily function? How? (Chest pain, [place], [place], pneumonia, PE, COPD, DKA, ARF, appy, cholecystitis, CVA, Diverticulitis, Homicidal, Suicidal, threat to staff... and all critical care pts) @ -Yes, progressive infection, sepsis Disposition Clinical Impression: Ruptured abdominal aortic aneurysm (AAA), Infected hematoma Disposition: OTHER INSTITUTION NOT DEFINED Condition: Stable Is patient prescribed a controlled substance at d/c from ED?: No Referrals: Nonstaff,Physician [Primary Care Provider] - 1-2 days Time of Disposition: 22:05 - Out of Hospital Transfer - Req. Specs Out of Hospital Transfer - Requested Specifics: Other Emergency Center ([facility])
[2022-09-11] MEDS ORDERED: SODIUM CHLORIDE 0.9% 1,000 ML IV SCH (22:15)
[2022-09-11 23:09] VITALS: BP 107/76; PULSE 93
== END 2022-09-12 00:01 | disposition other institution (70) ==
LOC: EC 21:10
DX: I71.30 Abdominal aortic aneurysm, ruptured, unspecified (principal); I25.10 Atherosclerotic heart disease of native coronary artery without angina pectoris; I10 Essential (primary) hypertension; M19.90 Unspecified osteoarthritis, unspecified site; Z88.0 Allergy status to penicillin; Z88.5 Allergy status to narcotic agent; Z79.899 Other long term (current) drug therapy
CPT/HCPCS: 99285; 96365; J3370

== ENCOUNTER 2024-04-28 06:15 | Day surgery (SDC) | payer MEDICARE, OTHER ==
--- NOTE | 2024-04-27 12:02 | P.GSHP ---
History of Present Illness H&P Date: 04/27/24 58 yo male with a history of stones who has two proximal right ureteral stones for several weeks. He also has chronic right hydro that has worsened. He comes for cysto, right ureteroscopy with laser lithotripsy and possible stent. - Constitutional Constitutional: Denies chills, Denies fever - EENT Eyes: denies blurred vision, denies pain Ears, nose, mouth and throat: Denies headache, Denies sore throat - Cardiovascular Cardiovascular: Denies chest pain, Denies shortness of breath - Respiratory Respiratory: Denies cough, Denies 7 - Gastrointestinal Gastrointestinal: Denies abdominal pain, Denies diarrhea, Denies nausea, Denies vomiting - Genitourinary (Female) Genitourinary: Denies dysuria, Denies hematuria - Genitourinary (Male) Genitourinary: Denies dysuria, Denies hematuria - Musculoskeletal Musculoskeletal: Denies myalgias - Integumentary Integumentary: Denies pruritus, Denies rash - Neurological Neurological: Denies numbness, Denies weakness - Psychiatric Psychiatric: Denies anxiety, Denies depression - Endocrine Endocrine: Denies fatigue, Denies weight change Past Medical History Past Medical History: Coronary Artery Disease (CAD), Chest Pain / Angina, GERD/Reflux, Hyperlipidemia, Hypertension, Osteoarthritis (OA), Sleep Apnea/CPAP/BIPAP Additional Past Medical History / Comment(s): SLEEP APNEA - NO C-PAP, SPINAL STENOSIS, BACK PAIN., WEARS NECK BRACE AT HS., WEARS BACK BRACE AND USES CANE., KIDNEY STONES, STATES NUMBNESS AT TIMES ON RIGHT SIDE "FROM NERVE DAMAGE"., SOB WITH ACTIVITY. , SEE CARDIOLOGY H & P. 5.7cm AAA History of Any Multi-Drug Resistant Organisms: None Reported Past Surgical History: Heart Catheterization With Stent, Tonsillectomy Additional Past Surgical History / Comment(s): 08/09/20 LEFT KIDNEY LITHROTRIPSY. Bilateral wrists & elbow surgery. Neck surgery. Heart cath with stents 08/19/2017 ([facility]) Past Anesthesia/Blood Transfusion Reactions: No Reported Reaction Date of Last Stent Placement:: 08/19/2017 Smoking Status: Former smoker - Past Family History Mother Family Medical History: Cancer Additional Family Medical History / Comment(s): kidney stones. maternal grandfather cancer Father Family Medical History: Cancer Brother(s) Family Medical History: Cancer Additional Family Medical History / Comment(s): pancreatic (uncle as well) Medications and Allergies Home Medications Medication Instructions Recorded Confirmed Type HYDROcodone/APAP 10-325MG [[place] 1 tab PO QID PRN 05/22/20 04/26/24 History 10-325] Nitroglycerin Sl Tabs [Nitrostat] 0.4 mg SUBLINGUAL Q5M PRN 05/22/20 04/26/24 History Aspirin 81 mg PO DAILY 30 Days #30 tab 05/20/22 04/26/24 Rx Atorvastatin [Lipitor] 40 mg PO DAILY 30 Days #30 tab 05/20/22 04/26/24 Rx Isosorbide Mononitrate ER [Imdur] 30 mg PO DAILY 06/14/22 04/26/24 History Allergies Allergy/AdvReac Type Severity Reaction Status Date / Time morphine Allergy Rash/Hives Verified 04/26/24 15:33 Penicillins Allergy Rash/Hives Verified 04/26/24 15:33 Results - Imaging CT scan - abdomen: report reviewed, image reviewed CT scan - pelvis: report reviewed, image reviewed Assessment and Plan Assessment: Impression: right ureteral stones with obstruction Plan: right ureteroscopy with laser lithotripsy
[~2024-04-28 06:15] MED LIST changes: +GENTAMICIN 100 MG in SODIUM CHLORIDE 0.9% 100 ML IVPB PRN; -LACTATED RINGERS 1,000 ML IV ONE; +LIDOCAINE 1% (10MG/ML) FOR IV START INTRADERMA PRN; -SODIUM CHLORIDE 0.9% 1,000 ML IV ONE; +droPERidol 5 MG/2 ML VIAL IVP ONE
[2024-04-28] MEDS ORDERED: fentaNYL (PF) 50 MCG/ML 2 ML AMP IV PRN (07:00)
--- NOTE | 2024-04-28 07:23 | XR ---
EXAMINATION TYPE: XR KUB DATE OF EXAM: 04/28/2024 6:34 AM COMPARISON: 06/19/2022 CLINICAL INDICATION: Male, 58 years old with history of N20.1 right ureteral stone, , FINDINGS: Aortobiiliac endovascular stent graft noted. Bilateral pelvic phleboliths. Right-sided renal calculi have increased from patient's 4023 radiograph with multiple stones, largest measuring 1.4 cm. At leas t one left-sided renal stone measuring 3 mm. Nonobstructive bowel gas pattern. IMPRESSION: 1. Bilateral nephrolithiasis. Compared to 06/19/2022, stones on the right have increased in number and size now measuring up to 1.4 cm. 2. At least a single tiny stone on the left measuring 3 mm. [facility], , 04/28/2024 7:21 AM
[2024-04-28] MEDS: IV FLUID CONTINUATION 1,000 ML IV ONE (07:46)
[2024-04-28] MEDS: LACTATED RINGERS 1,000 ML IV SCH (07:56)
[2024-04-28] MEDS: DEXAMETHASONE SOD PHOSPHATE 4 MG/ML 1 ML VIAL IV ONE (08:02)
[2024-04-28] MEDS: ONDANSETRON 4 MG/2 ML VIAL IVP ONE (08:02)
[2024-04-28] MEDS ORDERED: MIDAZOLAM 2 MG/2 ML VIAL ONE (08:30)
[2024-04-28] MEDS ORDERED: fentaNYL (PF) 50 MCG/ML 2 ML AMP ONE (08:30)
[2024-04-28] MEDS ORDERED: PROPOFOL 10 MG/ML 20 ML VIAL IV ONE (08:30)
[2024-04-28] MEDS ORDERED: LIDOCAINE 1% INJ 10MG/ML (20 ML MDV) ONE (08:30)
[2024-04-28] MEDS: AMPICILLIN 1,000 MG in SODIUM CHLORIDE 0.9% 50 ML IVPB PRN (08:45)
[2024-04-28] MEDS: IOPAMIDOL-370 100ML BTL MISCELLANE ONE (08:58)
[2024-04-28 09:49] VITALS: TEMP 97
--- NOTE | 2024-04-28 09:52 | P.OP ---
Date of Procedure: 04/28/24 Preoperative Diagnosis: right ureteral and renal stones. History ureteral stricture right Postoperative Diagnosis: same Procedure(s) Performed: cystoscopy, right ureteroscopy with balloon dilation of ureteral stricture. Right ureteroscopy laser lithotripsy to ureteral and renal stones. Placement of 6 x 24 double-J catheter Anesthesia: DEVONTE Surgeon: Jose Mayo Estimated Blood Loss (ml): 10 Pathology: other (stones) Condition: stable Disposition: PACU Indications for Procedure: patient is 58. He has a history kidney stones. He presents with 2 right ureteral stones. He also has a large right renal stone up. He has a history ureteral stricture. He comes for removal ureteral stones Description of Procedure: patient brought operating suite. Given a general anesthetic. Placed lithotomy position with a sterile prep and drape. Cystoscopy Foroblique lens and 21- [place]uran sheath identifies a normal anterior urethra. The prostatic urethra shows minimal obstruction. The bladder wall some trabeculation. The right ureteral orifice is intubated and 035 wires passed up into the kidney. Over the wire pass a 84-87-Osgebh reentry sheath which meets junction asked above the iliac vessels on the right side. I passed the flexible ureteroscope to this point and there appears stricture in the proximal ureter. I removed the reentry sheath and passed a 5 to 15-Honduran dilating balloon and dilate the stricture. I then reintroduced the sheath pass it beyond the stricture. There are stones and flow back into the kidney. Then identify the stones and break them up with laser lithotripsy and basket the largest fragments..I then looked throughout the rest of the kidney. I identified a very large stone that would need a percutaneous nephrostolithotomy. See some smaller stones that are broken into dust. End of the procedure 5 wires passed back into the kidney. Over the wires passed a 6 x 24 double-J catheter that coils in the renal pelvis and in the bladder. The stent will remain in at least 3 weeks. The patient is awakened and returned recovery room good condition. He'll be discharged upon recovery and follow-up in the office in one week. We'll discuss percutaneous nephrostolithotomy to the larger stone if he is having discomfort and wishes to proceed with this.
--- NOTE | 2024-04-28 09:56 | FL ---
EXAMINATION TYPE: FL urography retrograde DATE OF EXAM: 04/28/2024 FLUOROSCOPY Right side cysto with stent placement. 1 min 13 sec fl 13.868 DAP 4 images are provided. [facility], , 04/28/2024 9:54 AM
[2024-04-28] MEDS: KETOROLAC 15 MG/ML 1 ML VIAL IVP STA (10:29)
[2024-04-28 10:46] VITALS: BP 150/95; PULSE 85; RESP 18
== END 2024-04-28 11:02 | disposition home or self-care (01) ==
LOC: OR 06:15
PROVIDERS: ATTEND Urology
DX: N20.2 Calculus of kidney with calculus of ureter (principal); E78.5 Hyperlipidemia, unspecified; I10 Essential (primary) hypertension; I25.10 Atherosclerotic heart disease of native coronary artery without angina pectoris; K21.9 Gastro-esophageal reflux disease without esophagitis; M19.90 Unspecified osteoarthritis, unspecified site; Z87.891 Personal history of nicotine dependence; Z88.0 Allergy status to penicillin; Z90.89 Acquired absence of other organs
CPT/HCPCS: 52356; 82365; 74420; 74018; C2625; C1769; J2250; J1100; J2405; J2003; J3010; J0290; J1885; J2704; Q9967

== ENCOUNTER → 2024-10-11 | Outpatient (CLI) | payer MEDICARE, OTHER ==
--- NOTE | 2024-10-11 10:30 | XR ---
EXAMINATION TYPE: XR KUB DATE OF EXAM: 10/11/2024 10:03 AM COMPARISON: 04/28/2024 CLINICAL INDICATION: Male, 58 years old with history of N20.0 CALCULUS OF KIDNEY; [facility], pain TECHNIQUE: One radiographic view of the abdomen was obtained. FINDINGS: Bilateral pelvic phleboliths. Aortobiiliac endovascular stent graft noted. Right-sided carmelo l stones measuring 1.7 cm and 1.2 cm. Smaller on the left and partially obscured by bowel content angel suring up to 3 mm. Tortuous, calcified splenic artery. Moderate stool burden. IMPRESSION: Bilateral nephrolithiasis, larger stones on the right measuring up to 1.7 cm and 1.2 cm. Tiny on the left measuring 3 mm. Background moderate stool burden. Aortobiiliac endovascular stent graft. [facility], Workstation: [email or web address], 10/11/2024 10:28 AM
== END | disposition home or self-care (01) ==
LOC: RADXRMAIN 09:43
PROVIDERS: ATTEND Urology
DX: N20.0 Calculus of kidney (principal); Z95.828 Presence of other vascular implants and grafts
CPT/HCPCS: 74018

== ENCOUNTER → 2024-10-18 | Outpatient (CLI) | payer MEDICARE, OTHER ==
[2024-10-18 16:44] LABS: Basophils # (A) 0.08 X 10*3/uL (0.00-0.10); Basophils % (A) 0.7 %; Eosinophils # (A) 0.31 X 10*3/uL (0.04-0.35); Eosinophils % (A) 2.8 %; HCT 47.4 % (39.6-50.0); HGB 14.7 g/dL (13.0-17.0); Lymphocytes # (A) 2.84 X 10*3/uL (0.90-5.00); Lymphocytes % (A) 25.2 %; MCH 27.6 pg (27.0-32.0); MCV 89.1 FL (80.0-97.0); Mean Platelet Volume 9.5 FL (9.5-12.2); Monocytes % (A) 11.5 %; NRBC Per 100 WBC 0 X 10*3/uL (0.00-0.01); Neutrophils % (A) 59.5 %; Platelet Count 216 X 10*3/uL (140-440); RBC 5.32 X 10*6/uL (4.40-5.60); RDW 15.4 % (11.5-14.5); WBC 11.26 X 10*3/uL (4.50-10.00)
[2024-10-18 16:51] LABS: BUN/Creat Ratio 12.64 Ratio (12.00-20.00); Blood Urea Nitrogen 17.7 mg/dL (9.0-27.0); Calcium 9.3 mg/dL (8.7-10.3); Carbon Dioxide 23.3 mmol/L (21.6-31.8); Chloride 103 mmol/L (96-109); Glucose 68 mg/dL (70-110); Potassium 4.6 mmol/L (3.5-5.5); Sodium 138 mmol/L (135-145)
== END | disposition home or self-care (01) ==
LOC: LABWHC1 10:02
PROVIDERS: ATTEND Urology
DX: Z01.812 Encounter for preprocedural laboratory examination (principal); N20.0 Calculus of kidney
CPT/HCPCS: 36415; 80048; 85025